=== PATIENT | male | born 1980 | race Caucasian/White ===

== ENCOUNTER 2016-10-24 14:20 | Outpatient (RCR) | payer BC, OTHER ==
[~2016-10-24 14:20] MED LIST: AZIT-21 PO; D-ME118S33 PO; DCS100C PO; HYDR-3812 PO; HYDR-707 PO; LEVO750T39 PO; RT-ALBUINH IH
[2016-10-24 14:30] LABS: BASOPHILS % (AUTO) 0 % (0-10); EOSINOPHILS # (AUTO) 0.2 10^3/uL (0.0-0.3); EOSINOPHILS % (AUTO) 2 % (0-10); LYMPHOCYTES # (AUTO) 1.8 X 10^3 (1.0-4.0); LYMPHOCYTES % (AUTO) 21 % (12-44); MEAN CORPUSCULAR HEMOGLOBIN 27 PG (25-34); MEAN CORPUSCULAR HGB CONC 33 G/DL (32-36); MEAN CORPUSCULAR VOLUME 82 FL (80-99); MEAN PLATELET VOLUME 9.6 FL (7.4-10.4); MONOCYTES # (AUTO) 0.7 X 10^3 (0.0-1.0); MONOCYTES % (AUTO) 8 % (0-12); NEUTROPHILS % (AUTO) 68 % (42-75); PLATELET COUNT 373 10^3/uL (130-400); WHITE BLOOD COUNT 8.7 10^3/uL (4.3-11.0)
[2016-10-24 15:13] LABS: ALANINE AMINOTRANSFERASE 39 U/L (0-55); ALBUMIN 4.3 G/DL (3.2-4.5); ANION GAP 12 MMOL/L (5-14); ASPARTATE AMINO TRANSFERASE 25 U/L (5-34); BILIRUBIN,TOTAL 0.7 MG/DL (0.1-1.0); BLOOD UREA NITROGEN 16 MG/DL (7-18); BUN/CREATININE RATIO 14; CALCIUM 9.7 MG/DL (8.5-10.1); CARBON DIOXIDE 24 MMOL/L (21-32); CHLORIDE 104 MMOL/L (98-107); CREATININE SERUM 1.16 MG/DL (0.60-1.30); GFR ESTIMATED > 60; GLUCOSE 109 MG/DL (70-105); LACTATE DEHYDROGENASE 203 U/L (125-220); POTASSIUM 3.9 MMOL/L (3.6-5.0); SODIUM 140 MMOL/L (135-145); TOTAL PROTEIN 7.4 G/DL (6.4-8.2)
[2016-10-25 07:44] LABS: HCG TUMOR MARKER <2 mIU/mL (0-4)
== END 2017-01-22 | disposition home or self-care (01) ==
LOC: ONC 14:20
PROVIDERS: ATTEND Internal Medicine Hematology & Oncology
DX: C62.12 Malignant neoplasm of descended left testis (principal); N18.3 Chronic kidney disease, stage 3 (moderate); E29.1 Testicular hypofunction; Z92.21 Personal history of antineoplastic chemotherapy
CPT/HCPCS: 36415; 80053; 82105; 83615; 84702; 85025; 99213

== ENCOUNTER 2017-06-11 15:24 | Emergency (ER) | payer BC, OTHER ==
[~2017-06-11] VITALS: Ht 175.3 cm; Wt 90.7 kg
--- OUTSIDE RECORDS SUMMARY | 2017-06-11 15:31 | XMS REPORT ---
Author Author ROD DOMINGUEZ Organization [employer] Address Unknown Phone Unavailable Care Team Providers Care Swing Type Lathe Operator Name Role Phone ROD DOMINGUEZ CP Unavailable Allergies, Adverse Reactions, Alerts Substance Reaction Event Type N.K.D.A. Info Not Available Non Drug Allergy Problems Problem Type Condition ICD-9 Code Onset Dates Condition Status Problem Other atopic dermatitis and related conditions 691.8 Active Problem Unspecified otalgia 388.70 Active Problem Impacted cerumen 380.4 Active Problem Figueroa splints 844.9 Active Problem Herpes zoster without mention of complication 053.9 Active Problem Low back pain 724.2 Active Problem Colitis, enteritis, and gastroenteritis of presumed infectious origin 009.1 Active Problem Unspecified infective otitis externa 380.10 Active Problem Contact dermatitis and other eczema due to plants (except food) 692.6 Active Problem Headache 784.0 Active Assessment Low back pain 724.2 Active Problem Other testicular hypofunction 257.2 Active Assessment Figueroa splints 844.9 Active Problem Acute upper respiratory infections of unspecified site 465.9 Active Problem Cough 786.2 Active Problem Urinary tract infection, site not specified 599.0 Active Problem Abnormal weight gain 783.1 Active Problem Blood in stool 578.1 Active Problem Other malaise and fatigue 780.79 Active Medications Medication Code System Code Instructions Start Date End Date Status Dosage Ibuprofen [facility] [address]-52 800 MG Orally Three times a day Mar 04, 2015 1 tablet Procedures Procedure Coding System Code Date Office Visit, Est Pt., Level 3 CPT-4 42704 Mar 04, 2015 Vital Signs Date/Time: Mar 04, 2015 Temperature 96.6 F Weight 221.0 lbs Height 70 in BMI 31.71 Index Blood Pressure Diastolic 76 mmHg Blood Pressure Systolic 110 mmHg Cardiac Monitoring Heart Rate 76 bpm Results No Known Results Summary Purpose [employer] Submission
--- OUTSIDE RECORDS SUMMARY | 2017-06-11 15:31 | XMS REPORT | Clinical Summary ---
Author Author [facility] Organization [facility] Address Unknown Phone Unavailable Care Team Providers Care Portfolio Director Name Role Phone PCP Unavailable Source Comments Some departments are not documenting in the electronic medical record. If you do not see the information that you expected, contact Release of Information in the Health Information Management department at [phone] for further assistance in locating additional records.[facility] Allergies No Known Allergies Current Medications Prescription Sig. Disp. Refills Start End Date Status Date oxycodone/acetaminophen Take 1-2 Tabs by mouth 40 Tab 0 10/13/19 Active (PERCOCET) 10/325 mg Every 4 Hours as needed 10 tablet for Pain. Avoid driving while taking narcotic pain medications. docusate (COLACE) 100 mg Take 1 Cap by mouth Twice 60 Cap 0 10/13/19 Active capsule Daily. Hold for loose 10 stools Active Problems Problem Noted Date Testicular cancer (HCC) Overview: Patient has a history of painless left testicular mass in the fall of 2007. 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 Post-operatively the patient was treated with BEP chemotherapy. He completed one and 1/2 cycle and was lost to follow up. The patient relocated from [place] (site of his original diagnosis and surgery) to [place], [place]. He started experiencing significant back pain beginning the July of 2009. Imaging study was done in July demonstrating recurrence in the retroperitoneum and elevation of LDH. He then started and completed 2 additional cycles of BEP. The patient had continued lymphadenopathy and elevated LDH following BEP. A CT guided biopsy was conducted 09/07/2009 showing inflammation and necrosis without evidence of neoplasia Family History Medical History Relation Name Comments Heart Disease Maternal Grandfather Relation Name Status Comments Father Alive Maternal Grandfather Mother Alive Social History Tobacco Use Types Packs/Day Years Used Date Never Smoker Alcohol Use Drinks/Week oz/Week Comments No 0.0 occasional 2 per month Sex Assigned at Date Recorded Not on file Last Filed Vital Signs Vital Sign Reading Time Taken Blood Pressure 100/57 10/12/2009 10:00 AM CDT Pulse 111 10/12/2009 10:00 AM CDT Temperature 37.3 C (99.1 F) 10/12/2009 10:00 AM CDT Respiratory Rate - - Oxygen Saturation 92% 10/12/2009 10:00 AM CDT Inhaled Oxygen - - Concentration Weight 105 kg (231 lb 6.4 oz) 10/10/2009 9:55 AM CDT Height 152.4 cm (5') 10/05/2009 10:00 AM CDT Body Mass Index 45.19 10/10/2009 9:55 AM CDT Plan of Treatment Health Maintenance Due Date Last Done Comments PHYSICAL (COMPREHENSIVE) 01/29/1988 EXAM PERTUSSIS VACCINE 01/29/1992 TETANUS VACCINE 1998 INFLUENZA VACCINE 02/06/2017 Results Not on filefrom Last 3 Months
--- OUTSIDE RECORDS SUMMARY | 2017-06-11 15:31 | XMS REPORT ---
Author Author ROD DOMINGUEZ Organization [employer] Address Unknown Phone Unavailable Care Team Providers Care Retail Maintenance Technician Name Role Phone ROD DOMINGUEZ CP Unavailable Allergies No Known Allergies Problems Problem Type Condition Code Onset Dates Condition Status Problem Other [...] food) 692.6 Active Problem Headache 784.0 Active Problem Other testicular hypofunction 257.2 Active Problem Acute upper respiratory infections of unspecified site 465.9 Active Problem Cough 786.2 Active Problem Urinary tract infection, site not specified 599.0 Active Problem Abnormal weight gain 783.1 Active Problem Blood in stool 578.1 Active Problem Other malaise and fatigue 780.79 Active Medications No Known Medications Vital Signs Date/Time: Apr 29, 2015 Weight 222.0 lbs Results No Known Results Summary Purpose [employer] Submission
--- OUTSIDE RECORDS SUMMARY | 2017-06-11 15:32 | XMS REPORT | Continuity of Care Document ---
Author Author [facility] Organization [facility] Address [address] [place] [address] Phone Unavailable Care Team Providers Care Drug Purchaser Name Role Phone Shelbie Singleton MD PCP Advance Directives Directive Response Recorded Date/Time Do You Have A Living Will? No 10/12/16 3:27pm Do You Have a DPOA? No 10/12/16 3:27pm Problems No problem information available. Medications No medication information available. Social History No social history. Hospital Discharge Instructions No hospital discharge instructions. Plan of Care Discharge Date 10/12/16 11:59pm Prescriptions See Medication Section Functional Status No functional status results. Allergies, Adverse Reactions, Alerts No allergy information available. Immunizations No immunization records. Vital Signs No known vital signs results. Results No known relevant diagnostic tests, laboratory data and/or discharge summary. Procedures Procedure Status Date Provider(s) X-ray of lumbosacral spine Active 10/12/16 Shelbie Singleton MD Encounters Encounter Location Arrival/Admit Date Discharge/Depart Date Attending Provider Departed Clinic [facility] 10/12/16 3:27pm 10/12/16 11: 59pm Shelbie Singleton MD Registered Referred [facility] 09/20/16 3:37pm Shelbie Singleton MD
--- OUTSIDE RECORDS SUMMARY | 2017-06-11 15:32 | XMS REPORT ---
Author Author ROD DOMINGUEZ [facility] [employer] Address Unknown Phone Unavailable Care Team Providers Care Knitter Operator Name Role Phone ROD DOMINGUEZ CP Unavailable Allergies, Adverse Reactions, Alerts Substance Reaction Event Type N.K.D.A. Info Not Available Non Drug Allergy Problems Problem Type Condition Code Onset Dates Condition Status Problem Colitis, enteritis, and gastroenteritis of presumed infectious origin 009.1 Active Problem Contact dermatitis and other eczema due to plants (except food) 692.6 Active Problem Headache 784.0 Active Problem Psoriasis L40.9 Active Problem Other testicular hypofunction 257.2 Active Problem Depression, unspecified depression type F32.9 Active Assessment 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 Active Problem 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 Active Problem Figueroa splints 844.9 Active Problem Herpes zoster without mention of complication 053.9 Active Problem Testicular cancer, unspecified laterality C62.90 Active Problem Low back pain 724.2 Active Problem Acute upper respiratory infections of unspecified site 465.9 Active Problem Cough 786.2 Active Problem Urinary tract infection, site not specified 599.0 Active Problem Blood in stool 578.1 Active Problem Other atopic dermatitis and related conditions 691.8 Active Problem Impacted cerumen 380.4 Active Problem Abnormal weight gain 783.1 Active Problem Unspecified otalgia 388.70 Active Problem Other malaise and fatigue 780.79 Active Problem Unspecified infective otitis externa 380.10 Active Medications Medication Code System Code Instructions Start Date End Date Status Dosage Testim [facility] [address]-85 50 MG/5GM (1%) Transdermal one tube twice daily Mar 01, 2016 as directed Procedures Procedure Coding System Code Date Office Visit, Est Pt., Level 3 CPT-4 20116 Feb 28, 2016 [facility] C[facility]-4 NOBLL Feb 28, 2016 [facility] VISIT ESTABLISHED PATIENT CPT-4 G0467 Feb 28, 2016 VENIPUNCT, ROUTINE* CPT-4 77532 Feb 28, 2016 Vital Signs Date/Time: Feb 28, 2016 Cardiac Monitoring Heart Rate 80 bpm Weight 222.1 lbs Height 70 in BMI 31.86 Index Blood Pressure Diastolic 70 mmHg Blood Pressure Systolic 120 mmHg Results No Known Results Summary Purpose [employer]Clinical[employer] Submission
--- OUTSIDE RECORDS SUMMARY | 2017-06-11 15:32 | XMS REPORT ---
Author Author ROD DOMINGUEZ Organization [employer] Address Unknown Phone Unavailable Care Team Providers Care Cafeteria Food Server Name Role Phone ROD DOMINGUEZ CP Unavailable Allergies No Known Allergies Problems Problem Type Condition Code Onset Dates Condition Status Problem Unspecified infective otitis externa 380.10 Active Problem Headache 784.0 Active Problem Colitis, enteritis, and gastroenteritis of presumed infectious origin 009.1 Active Problem Depression, unspecified depression type F32.9 Active Problem Testicular cancer, unspecified laterality C62.90 Active Problem Psoriasis L40.9 Active Problem Herpes zoster without mention of complication 053.9 Active Problem Contact dermatitis and other eczema due to plants (except food) 692.6 Active Problem Low back pain 724.2 Active Problem Figueroa splints 844.9 Active Problem Blood in stool 578.1 Active Problem Acute upper respiratory infections of unspecified site 465.9 Active Problem Other testicular hypofunction 257.2 Active Problem Urinary tract infection, site not specified 599.0 Active Problem Other malaise and fatigue 780.79 Active Problem Other atopic dermatitis and related conditions 691.8 Active Problem Cough 786.2 Active Problem Impacted cerumen 380.4 Active Problem Abnormal weight gain 783.1 Active Problem Unspecified otalgia 388.70 Active Medications No Known Medications Vital Signs Date/Time: Feb 09, 2016 BMI 32.19 Index Weight 224.4 lbs Height 70 in Results No Known Results Summary Purpose [employer] Submission
--- OUTSIDE RECORDS SUMMARY | 2017-06-11 15:32 | XMS REPORT ---
Author Author ROD DOMINGUEZ [facility] [employer] Address Unknown Phone Unavailable Care Team Providers Care Deckhand Tuna Boat Name Role Phone ROD DOMINGUEZ CP Unavailable Allergies, Adverse Reactions, Alerts Substance Reaction Event Type N.K.D.A. Info Not Available Non Drug Allergy Problems Problem Type Condition Code Onset Dates Condition Status Problem Unspecified otalgia 388.70 Active Problem Colitis, enteritis, and gastroenteritis of presumed infectious origin 009.1 Active Problem Unspecified infective otitis externa 380.10 Active Problem Testicular cancer, unspecified laterality C62.90 Active Assessment Depression, unspecified depression type F32.9 Active Problem Low back pain 724.2 Active Assessment Testicular cancer, unspecified laterality C62.90 Active Problem Depression, unspecified depression type F32.9 Active Problem Contact dermatitis and other eczema due to plants (except food) 692.6 Active Problem Headache 784.0 Active Problem Figueroa splints 844.9 Active Problem Herpes zoster without mention of complication 053.9 Active Problem Urinary tract infection, site not specified 599.0 Active Problem Blood in stool 578.1 Active Assessment Pneumonia, unspecified organism J18.9 Active Problem Other testicular hypofunction 257.2 Active Problem Abnormal weight gain 783.1 Active Problem Other malaise and fatigue 780.79 Active Problem Acute upper respiratory infections of unspecified site 465.9 Active Problem Other atopic dermatitis and related conditions 691.8 Active Problem Cough 786.2 Active Problem Impacted cerumen 380.4 Active Medications Medication Code System Code Instructions Start Date End Date Status Dosage Ventolin HFA [facility] [address]-72 108 (90 Base) MCG/ACT Inhalation every 4 hrs October 24, 2015 2 puffs as needed Sertraline HCl [facility] [address]-85 50 mg Orally take 1/2 tablets for 2 weeks once a day, then increase to 1 tablets once a day October 27, 2015 1 tablet Diclofenac Sodium [facility] [address]-75 75 MG Orally Twice a day Jun 15, 2015 1 tablet Flexeril [facility] [address]-77 10 MG Orally Three times a day Jun 15, 2015 1 tablet Ibuprofen [facility] [address]-86 800 MG Orally Three times a day Mar 04, 2015 1 tablet Levaquin [facility] [address]-40 750 MG Orally Once a day October 22, 2015 October 29, 2015 1 tablet Procedures Procedure Coding System Code Date [facility] VISIT ESTABLISHED PATIENT CPT-4 G0467 October 27, 2015 Office Visit, Est Pt., Level 3 CPT-4 80210 October 27, 2015 MEASURE BLOOD OXYGEN LEVEL CPT-4 85802 October 27, 2015 Vital Signs Date/Time: October 27, 2015 Temperature 97.9 F Weight 225.4 lbs Height 70 in Oximetry 97 % Blood Pressure Diastolic 74 mmHg Blood Pressure Systolic 120 mmHg Cardiac Monitoring Heart Rate 108 bpm BMI 32.34 Index Results No Known Results Summary Purpose eClinicalWorks Submission
--- OUTSIDE RECORDS SUMMARY | 2017-06-11 15:32 | XMS REPORT | Continuity of Care Document ---
Author Author [facility] Organization [facility] Address [address] [place] [address] Phone Unavailable Care Team Providers Care Board Certified Family Physician Name Role Phone Shelbie Singleton MD PCP Advance Directives Directive Response Recorded Date/Time Do You Have A Living Will? No 10/31/16 2:41pm Do You Have a DPOA? No 10/31/16 2:41pm Problems No problem information available. Medications No medication information available. Social History No social history. Hospital Discharge Instructions No hospital discharge instructions. Plan of Care Discharge Date 10/31/16 11:59pm Prescriptions See Medication Section Functional Status No functional status results. Allergies, Adverse Reactions, Alerts No allergy information available. Immunizations No immunization records. Vital Signs No known vital signs results. Results No known relevant diagnostic tests, laboratory data and/or discharge summary. Procedures Procedure Status Date Provider(s) X-RAY EXAM L-2 SPINE 4/>VWS Completed 10/12/16 X-ray of lumbosacral spine Active 10/12/16 Shelbie Singleton MD Computed tomography of head without contrast Active 10/31/16 Ti Lopez DO Encounters Encounter Location Arrival/Admit Date Discharge/Depart Date Attending Provider Departed [facility] 10/31/16 2:42pm 10/31/16 11: 59pm Ti Lopez DO Registered Recurring [facility] 10/25/16 8:00am Shelbie Singleton MD Departed [facility] 10/12/16 3:27pm 10/12/16 11: 59pm Shelbie Singleton MD Registered Referred [facility] 09/20/16 3:37pm Shelbie Singleton MD
--- OUTSIDE RECORDS SUMMARY | 2017-06-11 15:32 | XMS REPORT ---
Author Author ROD DOMINGUEZ Organization [employer] Address Unknown Phone Unavailable Care Team Providers Care Highway Truck Driver Name Role Phone ROD DOMINGUEZ CP Unavailable [...] 692.6 Active Problem Headache 784.0 Active Assessment Bilateral low back pain without sciatica M54.5 Active Problem Other testicular hypofunction 257.2 Active Problem Acute upper respiratory infections of unspecified site 465.9 Active Problem Cough 786.2 Active Problem Urinary tract infection, site not specified 599.0 Active Problem Abnormal weight gain 783.1 Active Problem Blood in stool 578.1 Active Problem Other malaise and fatigue 780.79 Active Medications Medication Code System Code Instructions Start Date End Date Status Dosage Ibuprofen [facility] [address]-90 800 MG Orally Three times a day Mar 04, 2015 1 tablet Flexeril [facility] [address]-26 10 MG Orally Three times a day Jun 15, 2015 1 tablet Diclofenac Sodium [facility] [address]-17 75 MG Orally Twice a day Jun 15, 2015 1 tablet Procedures Procedure Coding System Code Date Office Visit, Est Pt., Level 3 CPT-4 86847 Jun 15, 2015 Vital Signs Date/Time: Jun 15, 2015 Temperature 97.9 F Weight 216.4 lbs Height 70 in BMI 31.05 Index Blood Pressure Diastolic 80 mmHg Blood Pressure Systolic 120 mmHg Cardiac Monitoring Heart Rate 89 bpm Results No Known Results Summary Purpose eClinicalWorks Submission
--- OUTSIDE RECORDS SUMMARY | 2017-06-11 15:32 | XMS REPORT | Continuity of Care Document ---
Author Author [facility] Organization [facility] Address [address] [place] [address] Phone Unavailable Care Team Providers Care Mill Work Name Role Phone Shelbie Singleton MD PCP Advance Directives Directive Response Recorded Date/Time Do You Have A Living Will? No 10/17/16 7:48am Do You Have a DPOA? No 10/17/16 7:48am Problems No problem information available. Medications No medication information available. Social History No social history. Hospital Discharge Instructions No hospital discharge instructions. Plan of Care Prescriptions See Medication Section Functional Status No functional status results. Allergies, Adverse Reactions, Alerts No allergy information available. Immunizations No immunization records. Vital Signs No known vital signs results. Results No known relevant diagnostic tests, laboratory data and/or discharge summary. Procedures Procedure Status Date Provider(s) X-RAY EXAM L-2 SPINE 4/>VWS Completed 10/12/16 CT HEAD/BRAIN W/O DYE Completed 10/31/16 X-ray of lumbosacral spine Active 10/12/16 Shelbie Singleton MD Computed tomography of head without contrast Active 10/31/16 Ti Lopez DO Encounters Encounter Location Arrival/Admit Date Discharge/Depart Date Attending Provider Registered Recurring [facility] 11/01/16 8:00am Shelbie Singleton MD Departed Clinic [facility] 10/31/16 2:42pm 10/31/16 11: 59pm Ti Lopez DO Departed Clinic [facility] 10/12/16 3:27pm 10/12/16 11: 59pm Shelbie Singleton MD Registered Referred [facility] 09/20/16 3:37pm Shelbie Singleton MD
--- OUTSIDE RECORDS SUMMARY | 2017-06-11 15:32 | XMS REPORT ---
Author Author ROD DOMINGUEZ Organization [employer] Address Unknown Phone Unavailable Care Team Providers Care Gluer Name Role Phone ROD DOMINGUEZ CP Unavailable [...] 692.6 Active Problem Headache 784.0 Active Assessment Upper respiratory tract infection, unspecified upper respiratory infection J06.9 Active Problem Other testicular hypofunction 257.2 Active Problem Acute upper respiratory infections of unspecified site 465.9 Active Problem Cough 786.2 Active Problem Urinary tract infection, site not specified 599.0 Active Problem Abnormal weight gain 783.1 Active Problem Blood in stool 578.1 Active Problem Other malaise and fatigue 780.79 Active Medications Medication Code System Code Instructions Start Date End Date Status Dosage Ibuprofen [facility] [address]-64 800 MG Orally Three times a day Mar 04, 2015 1 tablet Procedures Procedure Coding System Code Date STREP A ASSAY W/OPTIC CPT-4 32984 May 11, 2015 Office Visit, Est Pt., Level 3 CPT-4 70251 May 11, 2015 Vital Signs Date/Time: May 11, 2015 Temperature 97.8 F Weight 219.4 lbs Height 70 in BMI 31.48 Index Blood Pressure Diastolic 60 mmHg Blood Pressure Systolic 100 mmHg Cardiac Monitoring Heart Rate 96 bpm Results Name Result Date Reference Range Unit Abnormality Flag STREP A (IN HOUSE) Summary Purpose [employer]ClinicalWorks Submission
--- OUTSIDE RECORDS SUMMARY | 2017-06-11 15:36 | XMS REPORT | Continuity of Care Document ---
Author Author [facility] Address Unknown Phone Unavailable Allergies Active Description Code Type Severity Reaction Onset Reported/Identified Relationship to Patient Clinical Status Yes No Known Drug Allergies [id number] Drug Allergy Unknown N/ A 07/16/2009 Medications Problems Date Dx Coded Attending Type Code Diagnosis Diagnosed By 07/12/2009 ROD DOMINGUEZ APRN 186.9 MALIGNANT NEOPLASM OF OTHER AND UNSPECIFIED TESTIS 07/12/2009 ROD DOMINGUEZ APRN 724.5 BACKACHE, UNSPECIFIED 07/12/2009 186.9 MALIGNANT NEOPLASM OF OTHER AND UNSPECIFIED TESTIS 07/12/2009 724.5 BACKACHE, UNSPECIFIED 07/12/2009 186.9 MALIGNANT NEOPLASM OF OTHER AND UNSPECIFIED TESTIS 07/12/2009 724.5 BACKACHE, UNSPECIFIED 07/12/2009 186.9 MALIGNANT NEOPLASM OF OTHER AND UNSPECIFIED TESTIS 07/12/2009 724.5 BACKACHE, UNSPECIFIED 07/12/2009 KATHLEEN DURON DO K 186.9 MALIGNANT NEOPLASM OF OTHER AND UNSPECIFIED TESTIS 07/12/2009 KATHLEEN DURON DO K 724.5 BACKACHE, UNSPECIFIED 07/12/2009 JOSE F DURON DOA K 186.9 MALIGNANT NEOPLASM OF OTHER AND UNSPECIFIED TESTIS 07/12/2009 KATHLEEN DURON DO K 724.5 BACKACHE, UNSPECIFIED 07/12/2009 ROD DOMINGUEZ APRN 186.9 MALIGNANT NEOPLASM OF OTHER AND UNSPECIFIED TESTIS 07/12/2009 ROD DOMINGUEZ APRN 724.5 BACKACHE, UNSPECIFIED 07/12/2009 JOSE F DURON DOA K 186.9 MALIGNANT NEOPLASM OF OTHER AND UNSPECIFIED TESTIS 07/12/2009 KATHLEEN DURON DO K 724.5 BACKACHE, UNSPECIFIED 07/12/2009 JOSE F DURON DOA K 186.9 MALIGNANT NEOPLASM OF OTHER AND UNSPECIFIED TESTIS 07/12/2009 JOSE F DURON DOA K 724.5 BACKACHE, UNSPECIFIED 07/12/2009 JOSE F DURON DOA K 186.9 MALIGNANT NEOPLASM OF OTHER AND UNSPECIFIED TESTIS 07/12/2009 KATHLEEN DURON DO K 724.5 BACKACHE, UNSPECIFIED 07/12/2009 KATHLEEN DURON DO K 186.9 MALIGNANT NEOPLASM OF OTHER AND UNSPECIFIED TESTIS 07/12/2009 KATHLEEN DURON DO K 724.5 BACKACHE, UNSPECIFIED 07/12/2009 DOMINGUEZ CUSTOMER SERVICE DISPATCHERROD Ibanez R 186.9 MALIGNANT NEOPLASM OF OTHER AND UNSPECIFIED TESTIS 07/12/2009 DOMINGUEZ CUSTOMER SERVICE DISPATCHERROD Ibanez R 724.5 BACKACHE, UNSPECIFIED 07/12/2009 DOMINGUEZ CUSTOMER SERVICE DISPATCHERROD R 186.9 MALIGNANT NEOPLASM OF OTHER AND UNSPECIFIED TESTIS 07/12/2009 DOMINGUEZ CUSTOMER SERVICE DISPATCHERROD R 724.5 BACKACHE, UNSPECIFIED 07/12/2009 DOMINGUEZ CUSTOMER SERVICE DISPATCHER, ROD R 186.9 MALIGNANT NEOPLASM OF OTHER AND UNSPECIFIED TESTIS 07/12/2009 DOMINGUEZ CUSTOMER SERVICE DISPATCHERROD Ibanez R 724.5 BACKACHE, UNSPECIFIED 07/12/2009 KATHLEEN DURON DO K 186.9 MALIGNANT NEOPLASM OF OTHER AND UNSPECIFIED TESTIS 07/12/2009 KATHLEEN DURON DO 724.5 BACKACHE, UNSPECIFIED 09/22/2009 Ot 186.9 10/13/2009 Ot 186.9 10/13/2009 Ot 199.1 10/13/2009 Ot V58.11 12/10/2009 Ot 186.9 12/10/2009 Ot V87.41 06/20/2010 ROD DOMINGUEZ APRN V70.5 PREEMPLOYMENT/PRESCHOOL EXAM 06/20/2010 V70.5 PREEMPLOYMENT/PRESCHOOL EXAM 06/20/2010 V70.5 PREEMPLOYMENT/PRESCHOOL EXAM 06/20/2010 V70.5 PREEMPLOYMENT/PRESCHOOL EXAM 06/20/2010 KATHLEEN DURON DO V70.5 PREEMPLOYMENT/PRESCHOOL EXAM 06/20/2010 KATHLEEN DURON DO V70.5 PREEMPLOYMENT/PRESCHOOL EXAM 06/20/2010 ROD DOMINGUEZ APRN V70.5 PREEMPLOYMENT/PRESCHOOL EXAM 06/20/2010 KATHLEEN DURON DO V70.5 PREEMPLOYMENT/PRESCHOOL EXAM 06/20/2010 KATHLEEN DURON DO V70.5 PREEMPLOYMENT/PRESCHOOL EXAM 06/20/2010 DURON DOKATHLEEN K V70.5 PREEMPLOYMENT/PRESCHOOL EXAM 06/20/2010 DURON DOKATHLEEN K V70.5 PREEMPLOYMENT/PRESCHOOL EXAM 06/20/2010 DOMINGUEZROD ACE APRN V70.5 PREEMPLOYMENT/PRESCHOOL EXAM 06/20/2010 DOMINGUEZ CUSTOMER SERVICE DISPATCHER, ROD Pimentel V70.5 PREEMPLOYMENT/PRESCHOOL EXAM 06/20/2010 DOMINGUEZ SANA, ROD Pimentel V70.5 PREEMPLOYMENT/PRESCHOOL EXAM 06/20/2010 OLIVERIO DOKATHLEEN V70.5 PREEMPLOYMENT/PRESCHOOL EXAM 09/20/2011 Ot 553.21 INCISIONAL HERNIA 09/20/2011 Ot 569.3 RECTAL ANAL HEMORRHAGE 12/05/2011 Ot 585.3 CHRONIC KIDNEY DISEASE, 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 12/05/2011 Ot 780.52 INSOMNIA, UNSPECIFIED 12/05/2011 Ot 780.79 OTH MALAISE FATIGUE 12/05/2011 Ot 783.1 ABNORMAL WEIGHT GAIN 12/05/2011 Ot V10.47 HX-TESTICULAR MALIGNANCY 03/05/2012 Ot 585.3 CHRONIC KIDNEY DISEASE, 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 03/05/2012 Ot 780.52 INSOMNIA, UNSPECIFIED 03/05/2012 Ot 780.79 OTH MALAISE FATIGUE 03/05/2012 Ot 783.1 ABNORMAL WEIGHT GAIN 03/05/2012 Ot V10.47 HX-TESTICULAR MALIGNANCY 03/05/2012 Ot V67.2 CHEMOTHERAPY FOLLOW-UP 06/17/2012 Ot 585.3 CHRONIC KIDNEY DISEASE, 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 06/17/2012 Ot 780.52 INSOMNIA, UNSPECIFIED 06/17/2012 Ot 780.79 OTH MALAISE FATIGUE 06/17/2012 Ot 783.1 ABNORMAL WEIGHT GAIN 06/17/2012 Ot V10.47 HX-TESTICULAR MALIGNANCY 06/17/2012 Ot V67.2 CHEMOTHERAPY FOLLOW-UP 11/11/2012 ISABELA NINO Ot 585.3 CHRONIC KIDNEY DISEASE, 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 11/11/2012 ISABELA NINO Ot 780.52 INSOMNIA, UNSPECIFIED 11/11/2012 ISABELA NINO Ot 780.79 OTH MALAISE FATIGUE 11/11/2012 ISABELA NINO Ot 783.1 ABNORMAL WEIGHT GAIN 11/11/2012 ISABELA NINO Ot V10.47 HX-TESTICULAR MALIGNANCY 11/11/2012 ISABELA NINO Ot V67.2 CHEMOTHERAPY FOLLOW-UP 11/27/2012 380.10 INFECTIVE OTITIS EXTERNA UNSPECIFIED 11/27/2012 380.4 IMPACTED CERUMEN 11/27/2012 388.70 OTALGIA UNSPECIFIED 11/27/2012 691.8 OTHER ATOPIC DERMATITIS AND RELATED CONDITIONS 11/27/2012 380.10 INFECTIVE OTITIS EXTERNA UNSPECIFIED 11/27/2012 380.4 IMPACTED CERUMEN 11/27/2012 388.70 OTALGIA UNSPECIFIED 11/27/2012 691.8 OTHER ATOPIC DERMATITIS AND RELATED CONDITIONS 11/27/2012 380.10 INFECTIVE OTITIS EXTERNA UNSPECIFIED 11/27/2012 380.4 IMPACTED CERUMEN 11/27/2012 388.70 OTALGIA UNSPECIFIED 11/27/2012 691.8 OTHER ATOPIC DERMATITIS AND RELATED CONDITIONS 11/27/2012 DURON DO, KATHLEEN K 380.10 INFECTIVE OTITIS EXTERNA UNSPECIFIED 11/27/2012 DURON DO, KATHLEEN K 380.4 IMPACTED CERUMEN 11/27/2012 DURON DO, KATHLEEN K 388.70 OTALGIA UNSPECIFIED 11/27/2012 DURON DO, KATHLEEN K 691.8 OTHER ATOPIC DERMATITIS AND RELATED CONDITIONS 11/27/2012 DURON DO, KATHLEEN K 380.10 INFECTIVE OTITIS EXTERNA UNSPECIFIED 11/27/2012 DURON DO, KATHLEEN K 380.4 IMPACTED CERUMEN 11/27/2012 DURON DO, KATHLEEN K 388.70 OTALGIA UNSPECIFIED 11/27/2012 DURON DO, KATHLEEN K 691.8 OTHER ATOPIC DERMATITIS AND RELATED CONDITIONS 11/27/2012 ROD DOMINGUEZ APRN 380.10 INFECTIVE OTITIS EXTERNA UNSPECIFIED 11/27/2012 ROD DOMINGUEZ APRN 380.4 IMPACTED CERUMEN 11/27/2012 ROD DOMINGUEZ APRN 388.70 OTALGIA UNSPECIFIED 11/27/2012 ROD DOMINGUEZ APRN 691.8 OTHER ATOPIC DERMATITIS AND RELATED CONDITIONS 11/27/2012 OLIVERIO DO KATHLEEN K 380.10 INFECTIVE OTITIS EXTERNA UNSPECIFIED 11/27/2012 DURON DO, KATHLEEN K 380.4 IMPACTED CERUMEN 11/27/2012 OLIVERIO DO, KATHLEEN K 388.70 OTALGIA UNSPECIFIED 11/27/2012 DURON DO, KATHLEEN K 691.8 OTHER ATOPIC DERMATITIS AND RELATED CONDITIONS 11/27/2012 DURON DO, KATHLEEN K 380.10 INFECTIVE OTITIS EXTERNA UNSPECIFIED 11/27/2012 DURON DO, KATHLEEN K 380.4 IMPACTED CERUMEN 11/27/2012 DURON DO, KATHLEEN K 388.70 OTALGIA UNSPECIFIED 11/27/2012 DURON DO, KATHLEEN K 691.8 OTHER ATOPIC DERMATITIS AND RELATED CONDITIONS 11/27/2012 DURON DO, KATHLEEN K 380.10 INFECTIVE OTITIS EXTERNA UNSPECIFIED 11/27/2012 DURON DO, KATHLEEN K 380.4 IMPACTED CERUMEN 11/27/2012 DURON DO, KATHLEEN K 388.70 OTALGIA UNSPECIFIED 11/27/2012 DURON DO, KATHLEEN K 691.8 OTHER ATOPIC DERMATITIS AND RELATED CONDITIONS 11/27/2012 DURON DO, KATHLEEN K 380.10 INFECTIVE OTITIS EXTERNA UNSPECIFIED 11/27/2012 DURON DO, KATHLEEN K 380.4 IMPACTED CERUMEN 11/27/2012 DURON DO, KATHLEEN K 388.70 OTALGIA UNSPECIFIED 11/27/2012 DURON DO, KATHLEEN K 691.8 OTHER ATOPIC DERMATITIS AND RELATED CONDITIONS 11/27/2012 ROD DOMINGUEZ APRN 380.10 INFECTIVE OTITIS EXTERNA UNSPECIFIED 11/27/2012 ROD DOMINGUEZ APRN R 380.4 IMPACTED CERUMEN 11/27/2012 ROD DOMINGEUZ APRN 388.70 OTALGIA UNSPECIFIED 11/27/2012 ROD DOMINGUEZ APRN 691.8 OTHER ATOPIC DERMATITIS AND RELATED CONDITIONS 11/27/2012 ROD DOMINGUEZ APRN 380.10 INFECTIVE OTITIS EXTERNA UNSPECIFIED 11/27/2012 ROD DOMINGUEZ APRN R 380.4 IMPACTED CERUMEN 11/27/2012 ROD DOMINGUEZ APRN R 388.70 OTALGIA UNSPECIFIED 11/27/2012 ROD DOMINGUEZ APRN 691.8 OTHER ATOPIC DERMATITIS AND RELATED CONDITIONS 11/27/2012 ROD DOIMNGUEZ APRN R 380.10 INFECTIVE OTITIS EXTERNA UNSPECIFIED 11/27/2012 ROD DOMINGUEZ APRN R 380.4 IMPACTED CERUMEN 11/27/2012 ROD DOMINGUEZ APRN 388.70 OTALGIA UNSPECIFIED 11/27/2012 ROD DOMINGUEZ APRN 691.8 OTHER ATOPIC DERMATITIS AND RELATED CONDITIONS 11/27/2012 DURON DO, KATHLEEN K 380.10 INFECTIVE OTITIS EXTERNA UNSPECIFIED 11/27/2012 OLIVERIO DO, KATHLEEN K 380.4 IMPACTED CERUMEN 11/27/2012 DURON DO, KATHLEEN K 388.70 OTALGIA UNSPECIFIED 11/27/2012 DURON DO, KATHLEEN K 691.8 OTHER ATOPIC DERMATITIS AND RELATED CONDITIONS 02/18/2013 784.0 HEADACHE 02/18/2013 DURON DO, KATHLEEN K 784.0 HEADACHE 02/18/2013 DURON DO, KATHLEEN K 784.0 HEADACHE 02/18/2013 DOMINGUEZ SANA, ROD R 784.0 HEADACHE 02/18/2013 DURON DO, KATHLEEN K 784.0 HEADACHE 02/18/2013 DURON DO, KATHLEEN K 784.0 HEADACHE 02/18/2013 DURON DO, KATHLEEN K 784.0 HEADACHE 02/18/2013 DURON DO, KATHLEEN K 784.0 HEADACHE 02/18/2013 DOMINGUEZROD ACE APRN R 784.0 HEADACHE 02/18/2013 DOMINGUEZROD ACE APRN R 784.0 HEADACHE 02/18/2013 DOMINGUEZ SANA, ROD R 784.0 HEADACHE 02/18/2013 DURON DO, KATHLEEN K 784.0 HEADACHE 03/12/2013 LILIANA GRACIA DO Ot 789.00 ABDOMINAL PAIN, UNSPECIFIED SITE 03/12/2013 LILIANA GRACIA DO Ot 848.8 SPRAIN NEC 03/12/2013 LILIANA GRACIA DO Ot E000.8 OTHER EXTERNAL CAUSE STATUS 03/12/2013 LILIANA GRACIA DO Ot E009.9 OTHER ACTIVITY INVOLVING CARDIORESPIRATO 03/12/2013 LILIANA GRACIA DO Ot E927.8 OTH OVEREXERTION STRENUOUS REPETITIV 09/01/2013 JOSE F DURON DOA K 780.79 fatigue 09/01/2013 JOSE F DURON DOA K 783.1 WEIGHT GAIN ABNORMAL 09/01/2013 JOSE F DURON DOA K 780.79 fatigue 09/01/2013 OLIVERIO WALSH KATHLEEN K 783.1 WEIGHT GAIN ABNORMAL 09/01/2013 ROD DOMINGUEZ APRN 780.79 fatigue 09/01/2013 DOMINGUEZ CUSTOMER SERVICE DISPATCHER, ROD R 783.1 WEIGHT GAIN ABNORMAL 09/01/2013 DURON DO, KATHLEEN K 780.79 fatigue 09/01/2013 DURON DO, KATHLEEN K 783.1 WEIGHT GAIN ABNORMAL 09/01/2013 DURON DO, KATHLEEN K 780.79 fatigue 09/01/2013 DURON DO, KATHLEEN K 783.1 WEIGHT GAIN ABNORMAL 09/01/2013 DURON DO, KATHLEEN K 780.79 fatigue 09/01/2013 DURON DO, KATHLEEN K 783.1 WEIGHT GAIN ABNORMAL 09/01/2013 DURON DO, KATHLEEN K 780.79 fatigue 09/01/2013 DURON DO, KATHLEEN K 783.1 WEIGHT GAIN ABNORMAL 09/01/2013 DOMINGUEZ ROD HOOD R 780.79 fatigue 09/01/2013 DOMINGUEZ ROD HOOD R 783.1 WEIGHT GAIN ABNORMAL 09/01/2013 DOMINGUEZ ROD HOOD R 780.79 fatigue 09/01/2013 DOMINGUEZ ROD HOOD R 783.1 WEIGHT GAIN ABNORMAL 09/01/2013 ROD DOMINGUEZ APRN 780.79 fatigue 09/01/2013 DOMINGUEZ ROD HOOD R 783.1 WEIGHT GAIN ABNORMAL 09/01/2013 DURON DO, KATHLEEN K 780.79 fatigue 09/01/2013 DURON DO, KATHLEEN K 783.1 WEIGHT GAIN ABNORMAL 10/02/2013 ROD DOMINGUEZ APRN 578.1 BLOOD IN STOOL 10/02/2013 DURON DO, KATHLEEN K 578.1 BLOOD IN STOOL 10/02/2013 DURON DO, KATHLEEN K 578.1 BLOOD IN STOOL 10/02/2013 DURON DO, KATHLEEN K 578.1 BLOOD IN STOOL 10/02/2013 DURON DO, KATHLEEN K 578.1 BLOOD IN STOOL 10/02/2013 DOMINGUEZ ROD HOOD R 578.1 BLOOD IN STOOL 10/02/2013 DOMINGUEZ ROD HOOD R 578.1 BLOOD IN STOOL 10/02/2013 DOMINGUEZ ROD HOOD R 578.1 BLOOD IN STOOL 10/02/2013 DURON DO, KATHLEEN K 578.1 BLOOD IN STOOL 10/16/2013 DRUON DO, KATHLEEN K 692.6 POISON LITTLE 10/16/2013 DURON DO, KATHLEEN K 692.6 POISON LITTLE 10/16/2013 DURON DO, KATHLEEN K 692.6 POISON LITTLE 10/16/2013 DURON DO, KATHLEEN K 692.6 POISON LITTLE 10/16/2013 DOMINGUEZ CUSTOMER SERVICE DISPATCHERROD Ibanez R 692.6 POISON LITTLE 10/16/2013 DOMINGUEZ CUSTOMER SERVICE DISPATCHER, ROD R 692.6 POISON LITTLE 10/16/2013 DOMINGUEZ CUSTOMER SERVICE DISPATCHER, ROD R 692.6 POISON LITTLE 10/16/2013 DURON DO, KATHLEEN K 692.6 POISON LITTLE 02/03/2014 DURON DO, KATHLEEN K 599.0 URINARY TRACT INFECTION 02/03/2014 DURON DO, KATHLEEN K 599.0 URINARY TRACT INFECTION 02/03/2014 DURON DO, KATHLEEN K 599.0 URINARY TRACT INFECTION 02/03/2014 DOMINGUEZ CUSTOMER SERVICE DISPATCHER, ROD R 599.0 URINARY TRACT INFECTION 02/03/2014 DOMINGUEZ CUSTOMER SERVICE DISPATCHER, ROD R 599.0 URINARY TRACT INFECTION 02/03/2014 DOMINGUEZ CUSTOMER SERVICE DISPATCHER, ROD R 599.0 URINARY TRACT INFECTION 02/03/2014 DURON DO, KATHLEEN K 599.0 URINARY TRACT INFECTION 02/11/2014 DURON DO, KATHLEEN K 053.9 HERPES ZOSTER (SHINGLES) 02/11/2014 DURON DO, KATHLEEN K 053.9 HERPES ZOSTER (SHINGLES) 02/11/2014 DOMINGUEZ CUSTOMER SERVICE DISPATCHERROD Ibanez 053.9 HERPES ZOSTER (SHINGLES) 02/11/2014 DOMINGUEZ CUSTOMER SERVICE DISPATCHERROD Ibanez 053.9 HERPES ZOSTER (SHINGLES) 02/11/2014 DOMINGUEZ ROD HOOD 053.9 HERPES ZOSTER (SHINGLES) 02/11/2014 DURON KATHLEEN WALSH K 053.9 HERPES ZOSTER (SHINGLES) 04/06/2014 DOMINGUEZ ROD HOOD 257.2 HYPOGONADISM 04/06/2014 DOMINGUEZ ROD HOOD 257.2 HYPOGONADISM 04/06/2014 DOMINGUEZ ROD HOOD 257.2 HYPOGONADISM 04/06/2014 KATHLEEN DURON DO 257.2 HYPOGONADISM 05/05/2014 KODY VILLASEÑOR DO Ot 565.0 ANAL FISSURE 05/21/2014 ISABELA NINO Ot 585.3 05/21/2014 ISABELA NINO Ot 780.52 05/21/2014 MICA, BOBAN N Ot 780.79 05/21/2014 MICA, BOBAN N Ot 783.1 05/21/2014 MICA, BOBAN N Ot V10.47 05/21/2014 MICA, BOBAN N Ot V67.2 05/21/2014 MICA, BOBAN N Ot 585.3 05/21/2014 MICA, BOBAN N Ot 780.52 05/21/2014 MICA, BOBAN N Ot 780.79 05/21/2014 MICA, BOBAN N Ot 783.1 05/21/2014 MICA, BOBAN N Ot V10.47 05/21/2014 MICA, BOBAN N Ot V67.2 05/27/2014 ROD DOMINGUEZ APRN 009.1 GASTROENTERITIS, ACUTE INFECTIOUS 05/27/2014 KATHLEEN DURON DO 009.1 GASTROENTERITIS, ACUTE INFECTIOUS 05/28/2014 MICA, BOBAN N Ot 585.3 05/28/2014 MICA, BOBAN N Ot 780.52 05/28/2014 MICA, BOBAN N Ot 780.79 05/28/2014 MICA, BOBAN N Ot 783.1 05/28/2014 MICA, BOBAN N Ot V10.47 05/28/2014 MICA, BOBAN N Ot V67.2 05/28/2014 MICA, BOBAN N Ot 585.3 05/28/2014 MICA, BOBAN N Ot 780.52 05/28/2014 MICA, BOBAN N Ot 780.79 05/28/2014 MICA, BOBAN N Ot 783.1 05/28/2014 MICA, BOBAN N Ot V10.47 05/28/2014 MICA, BOBAN N Ot V67.2 06/17/2014 Ot 186.9 06/17/2014 Ot 724.5 06/17/2014 Ot 785.6 06/17/2014 Ot 186.9 06/17/2014 Ot 199.1 06/17/2014 Ot 186.9 06/17/2014 Ot 186.9 06/17/2014 Ot 186.9 06/17/2014 Ot V87.41 06/17/2014 Ot 787.91 06/17/2014 Ot V10.47 06/17/2014 Ot V67.2 06/17/2014 Ot 186.9 06/17/2014 Ot 186.9 06/17/2014 Ot 724.2 06/17/2014 Ot V87.41 06/17/2014 Ot 724.2 06/17/2014 Ot 786.09 06/17/2014 Ot 786.2 06/17/2014 Ot V10.47 06/17/2014 Ot V67.2 06/17/2014 Ot 724.2 06/17/2014 Ot V10.47 06/17/2014 Ot V67.2 06/17/2014 Ot 186.9 06/17/2014 Ot 585.3 06/17/2014 Ot 724.2 06/17/2014 Ot V10.47 06/17/2014 Ot V87.41 06/17/2014 Ot 186.9 06/17/2014 Ot 585.3 06/17/2014 Ot 724.2 06/17/2014 Ot 780.52 06/17/2014 Ot V10.47 06/17/2014 Ot V67.2 06/17/2014 Ot 186.9 06/17/2014 Ot 578.1 06/17/2014 Ot 585.3 06/17/2014 Ot 724.2 06/17/2014 Ot 780.52 06/17/2014 Ot V10.47 06/17/2014 Ot V67.2 06/17/2014 Ot 553.21 06/17/2014 Ot 569.3 06/17/2014 Ot V72.84 06/17/2014 Ot 186.9 06/17/2014 Ot V72.84 06/17/2014 Ot 186.9 06/17/2014 ISABELA NINO N Ot 585.3 06/17/2014 ISABELA NINO N Ot 780.52 06/17/2014 ISABELA NINO N Ot 780.79 06/17/2014 MICAISABELA DICKERSON N Ot 783.1 06/17/2014 ISABELA NINO N Ot V10.47 06/17/2014 ISABELA NINO N Ot V67.2 06/17/2014 KIM CHEN TITLE I PARAPROFESSIONAL Ot V10.47 06/17/2014 KIM CHEN S TITLE I PARAPROFESSIONAL Ot V67.2 06/17/2014 KIM CHEN TITLE I PARAPROFESSIONAL Ot V10.47 06/17/2014 KIM CHEN TITLE I PARAPROFESSIONAL Ot V67.2 06/17/2014 KIM CHEN TITLE I PARAPROFESSIONAL Ot 186.9 06/17/2014 VILLASEÑOR KODY WALSH Ot V72.84 06/17/2014 KIM CHEN TITLE I PARAPROFESSIONAL Ot V10.47 06/17/2014 KIM CHEN TITLE I PARAPROFESSIONAL Ot V67.2 07/07/2014 KIM CHEN TITLE I PARAPROFESSIONAL Ot V10.47 07/07/2014 KIM CHEN TITLE I PARAPROFESSIONAL Ot V67.2 07/07/2014 KIM CHEN TITLE I PARAPROFESSIONAL Ot 186.9 09/29/2014 KATHLEEN DURON DO K 465.9 ACUTE UPPER RESPIRATORY INFECTIONS OF UNSPECIFIED SITE 09/29/2014 KATHLEEN DURON DO K 786.2 COUGH 10/02/2014 BRADY ALDRICH CUSTOMER SERVICE DISPATCHER Ot 490 BRONCHITIS NOS 10/02/2014 BRADY ALDRICH CUSTOMER SERVICE DISPATCHER Ot 786.2 COUGH 11/05/2014 Ot 186.9 11/05/2014 Ot 724.5 11/05/2014 Ot 785.6 11/05/2014 Ot 186.9 11/05/2014 Ot 199.1 11/05/2014 Ot 186.9 11/05/2014 Ot 186.9 11/05/2014 Ot 186.9 11/05/2014 Ot V87.41 11/05/2014 Ot 787.91 11/05/2014 Ot V10.47 11/05/2014 Ot V67.2 11/05/2014 Ot 186.9 11/05/2014 Ot 186.9 11/05/2014 Ot 724.2 11/05/2014 Ot V87.41 11/05/2014 Ot 724.2 11/05/2014 Ot 786.09 11/05/2014 Ot 786.2 11/05/2014 Ot V10.47 11/05/2014 Ot V67.2 11/05/2014 Ot 724.2 11/05/2014 Ot V10.47 11/05/2014 Ot V67.2 11/05/2014 Ot 186.9 11/05/2014 Ot 585.3 11/05/2014 Ot 724.2 11/05/2014 Ot V10.47 11/05/2014 Ot V87.41 11/05/2014 Ot 186.9 11/05/2014 Ot 585.3 11/05/2014 Ot 724.2 11/05/2014 Ot 780.52 11/05/2014 Ot V10.47 11/05/2014 Ot V67.2 11/05/2014 Ot 186.9 11/05/2014 Ot 578.1 11/05/2014 Ot 585.3 11/05/2014 Ot 724.2 11/05/2014 Ot 780.52 11/05/2014 Ot V10.47 11/05/2014 Ot V67.2 11/05/2014 Ot 553.21 11/05/2014 Ot 569.3 11/05/2014 Ot V72.84 11/05/2014 Ot 186.9 11/05/2014 Ot V72.84 11/05/2014 Ot 186.9 11/05/2014 ISABELA NINO N Ot 585.3 11/05/2014 ISABELA NINO N Ot 780.52 11/05/2014 ISABELA NINO N Ot 780.79 11/05/2014 ISABELA NINO N Ot 783.1 11/05/2014 ISABELA NINO N Ot V10.47 11/05/2014 ISABELA NINO N Ot V67.2 11/05/2014 KIM CHEN TITLE I PARAPROFESSIONAL Ot V10.47 11/05/2014 KIM CHEN TITLE I PARAPROFESSIONAL Ot V67.2 11/05/2014 KIM CHEN TITLE I PARAPROFESSIONAL Ot V10.47 11/05/2014 KIM CHEN TITLE I PARAPROFESSIONAL Ot V67.2 11/05/2014 KIM CHEN TITLE I PARAPROFESSIONAL Ot 186.9 11/05/2014 KODY VILLASEÑOR DO Ot V72.84 11/05/2014 KODY VILLASEÑOR DO Ot 578.1 BLOOD IN STOOL 12/02/2014 [place] KODY WALSH Ot V72.84 12/02/2014 KIM CHEN TITLE I PARAPROFESSIONAL Ot 257.2 12/02/2014 KIM CHEN TITLE I PARAPROFESSIONAL Ot V10.47 12/02/2014 KIM CHEN TITLE I PARAPROFESSIONAL Ot V58.69 12/02/2014 KIM CHEN TITLE I PARAPROFESSIONAL Ot V67.2 12/02/2014 ISABELA NINO N Ot 585.3 12/02/2014 ISABELA NINO N Ot 780.52 12/02/2014 ISABELA NINO Ot 780.79 12/02/2014 ISABELA NINO Ot 783.1 12/02/2014 ISABELA NINO Ot V10.47 12/02/2014 ISABELA NINO Ot V67.2 12/07/2014 KIM CHEN TITLE I PARAPROFESSIONAL Ot 257.2 12/07/2014 KIM CHEN TITLE I PARAPROFESSIONAL Ot V10.47 12/07/2014 KIM CHEN TITLE I PARAPROFESSIONAL Ot V58.69 12/07/2014 KIM CHEN TITLE I PARAPROFESSIONAL Ot V67.2 12/08/2014 ISABELA NINO Ot 585.3 12/08/2014 ISABELA NINO Ot 780.52 12/08/2014 ISABELA NINO Ot 780.79 12/08/2014 ISABELA NINO Ot 783.1 12/08/2014 ISABELA NINO Ot V10.47 12/08/2014 ISABELA NINO Ot V67.2 06/25/2015 Ot 186.9 06/25/2015 Ot 186.9 06/25/2015 Ot 186.9 06/25/2015 Ot V87.41 06/25/2015 Ot 787.91 06/25/2015 Ot V10.47 06/25/2015 Ot V67.2 06/25/2015 Ot 186.9 06/25/2015 Ot 186.9 06/25/2015 Ot 724.2 06/25/2015 Ot V87.41 06/25/2015 Ot 724.2 06/25/2015 Ot 786.09 06/25/2015 Ot 786.2 06/25/2015 Ot V10.47 06/25/2015 Ot V67.2 06/25/2015 Ot 724.2 06/25/2015 Ot V10.47 06/25/2015 Ot V67.2 06/25/2015 Ot 186.9 06/25/2015 Ot 585.3 06/25/2015 Ot 724.2 06/25/2015 Ot V10.47 06/25/2015 Ot V87.41 06/25/2015 Ot 186.9 06/25/2015 Ot 585.3 06/25/2015 Ot 724.2 06/25/2015 Ot 780.52 06/25/2015 Ot V10.47 06/25/2015 Ot V67.2 06/25/2015 Ot 186.9 06/25/2015 Ot 578.1 06/25/2015 Ot 585.3 06/25/2015 Ot 724.2 06/25/2015 Ot 780.52 06/25/2015 Ot V10.47 06/25/2015 Ot V67.2 06/25/2015 Ot 553.21 06/25/2015 Ot 569.3 06/25/2015 Ot V72.84 06/25/2015 Ot 186.9 06/25/2015 Ot V72.84 06/25/2015 Ot 186.9 06/25/2015 ISABELA NINO N Ot 585.3 06/25/2015 ISABELA NINO N Ot 780.52 06/25/2015 ISABELA NINO N Ot 780.79 06/25/2015 ISABELA NINO N Ot 783.1 06/25/2015 ISABELA NINO N Ot V10.47 06/25/2015 ISABELA NINO N Ot V67.2 06/25/2015 KIM CHEN TITLE I PARAPROFESSIONAL Ot V10.47 06/25/2015 KIM CHEN S TITLE I PARAPROFESSIONAL Ot V67.2 06/25/2015 KIM CHEN TITLE I PARAPROFESSIONAL Ot V10.47 06/25/2015 KIM CHEN S TITLE I PARAPROFESSIONAL Ot V67.2 06/25/2015 KIM CHEN TITLE I PARAPROFESSIONAL Ot 186.9 06/25/2015 KODY VILLASEÑOR DO Ot V72.84 06/25/2015 KIM CHEN TITLE I PARAPROFESSIONAL Ot 257.2 06/25/2015 KIM CHEN S TITLE I PARAPROFESSIONAL Ot V10.47 06/25/2015 KIM CHEN TITLE I PARAPROFESSIONAL Ot V58.69 06/25/2015 KIM CHEN TITLE I PARAPROFESSIONAL Ot V67.2 06/25/2015 KODY VILLASEÑOR DO Ot V72.84 06/30/2015 Ot 186.9 06/30/2015 Ot 186.9 06/30/2015 Ot 186.9 06/30/2015 Ot V87.41 06/30/2015 Ot 787.91 06/30/2015 Ot V10.47 06/30/2015 Ot V67.2 06/30/2015 Ot 186.9 06/30/2015 Ot 186.9 06/30/2015 Ot 724.2 06/30/2015 Ot V87.41 06/30/2015 Ot 724.2 06/30/2015 Ot 786.09 06/30/2015 Ot 786.2 06/30/2015 Ot V10.47 06/30/2015 Ot V67.2 06/30/2015 Ot 724.2 06/30/2015 Ot V10.47 06/30/2015 Ot V67.2 06/30/2015 Ot 186.9 06/30/2015 Ot 585.3 06/30/2015 Ot 724.2 06/30/2015 Ot V10.47 06/30/2015 Ot V87.41 06/30/2015 Ot 186.9 06/30/2015 Ot 585.3 06/30/2015 Ot 724.2 06/30/2015 Ot 780.52 06/30/2015 Ot V10.47 06/30/2015 Ot V67.2 06/30/2015 Ot 186.9 06/30/2015 Ot 578.1 06/30/2015 Ot 585.3 06/30/2015 Ot 724.2 06/30/2015 Ot 780.52 06/30/2015 Ot V10.47 06/30/2015 Ot V67.2 06/30/2015 Ot 553.21 06/30/2015 Ot 569.3 06/30/2015 Ot V72.84 06/30/2015 Ot 186.9 06/30/2015 Ot V72.84 06/30/2015 Ot 186.9 06/30/2015 ISABELA NINO N Ot 585.3 06/30/2015 ISABELA NINO N Ot 780.52 06/30/2015 ISABELA NINO N Ot 780.79 06/30/2015 ISABELA NINO N Ot 783.1 06/30/2015 ISABELA NINO N Ot V10.47 06/30/2015 ISABELA NINO N Ot V67.2 06/30/2015 KIM CHEN TITLE I PARAPROFESSIONAL Ot V10.47 06/30/2015 KIM CHEN TITLE I PARAPROFESSIONAL Ot V67.2 06/30/2015 KIM CHEN TITLE I PARAPROFESSIONAL Ot V10.47 06/30/2015 KIM CHENP Ot V67.2 06/30/2015 KIM CHENP Ot 186.9 06/30/2015 KODY VILLASEÑOR DO Ot V72.84 06/30/2015 KIM CHEN TITLE I PARAPROFESSIONAL Ot 257.2 06/30/2015 KIM CHENP Ot V10.47 06/30/2015 KIM CHENP Ot V58.69 06/30/2015 KIM CHENP Ot V67.2 06/30/2015 KODY VILLASEÑOR DO Ot V72.84 07/15/2015 KIM CHENP Ot Z08 07/15/2015 KIM CHENP Ot Z79.899 07/15/2015 KIM CHEN TITLE I PARAPROFESSIONAL Ot Z85.47 07/15/2015 Ot 186.9 07/15/2015 Ot 186.9 07/15/2015 Ot 186.9 07/15/2015 Ot V87.41 07/15/2015 Ot 787.91 07/15/2015 Ot V10.47 07/15/2015 Ot V67.2 07/15/2015 Ot 186.9 07/15/2015 Ot 186.9 07/15/2015 Ot 724.2 07/15/2015 Ot V87.41 07/15/2015 Ot 724.2 07/15/2015 Ot 786.09 07/15/2015 Ot 786.2 07/15/2015 Ot V10.47 07/15/2015 Ot V67.2 07/15/2015 Ot 724.2 07/15/2015 Ot V10.47 07/15/2015 Ot V67.2 07/15/2015 Ot 186.9 07/15/2015 Ot 585.3 07/15/2015 Ot 724.2 07/15/2015 Ot V10.47 07/15/2015 Ot V87.41 07/15/2015 Ot 186.9 07/15/2015 Ot 585.3 07/15/2015 Ot 724.2 07/15/2015 Ot 780.52 07/15/2015 Ot V10.47 07/15/2015 Ot V67.2 07/15/2015 Ot 186.9 07/15/2015 Ot 578.1 07/15/2015 Ot 585.3 07/15/2015 Ot 724.2 07/15/2015 Ot 780.52 07/15/2015 Ot V10.47 07/15/2015 Ot V67.2 07/15/2015 Ot 553.21 07/15/2015 Ot 569.3 07/15/2015 Ot V72.84 07/15/2015 Ot 186.9 07/15/2015 Ot V72.84 07/15/2015 Ot 186.9 07/15/2015 MICAISABELA DICKERSON N Ot 585.3 07/15/2015 MICA, ISABELA N Ot 780.52 07/15/2015 MICAVICENTA DICKERSONAN N Ot 780.79 07/15/2015 MICAISABELA DICKERSON N Ot 783.1 07/15/2015 MICAISABELA DICKERSON N Ot V10.47 07/15/2015 MICAISABELA DICKERSON N Ot V67.2 07/15/2015 KIM CHEN S TITLE I PARAPROFESSIONAL Ot V10.47 07/15/2015 MARII CHENPATRICK S TITLE I PARAPROFESSIONAL Ot V67.2 07/15/2015 CHEN, KIM S TITLE I PARAPROFESSIONAL Ot V10.47 07/15/2015 CHEN, KIM S TITLE I PARAPROFESSIONAL Ot V67.2 07/15/2015 MARII CHENPATRICK S TITLE I PARAPROFESSIONAL Ot 186.9 07/15/2015 [facility] V72.84 07/15/2015 APRIL KIM S TITLE I PARAPROFESSIONAL Ot 257.2 07/15/2015 APRIL KIM S TITLE I PARAPROFESSIONAL Ot V10.47 07/15/2015 APRIL KIM S TITLE I PARAPROFESSIONAL Ot V58.69 07/15/2015 APRIL KIM S TITLE I PARAPROFESSIONAL Ot V67.2 07/15/2015 [facility] Ot V72.84 07/15/2015 KIM CHEN S TITLE I PARAPROFESSIONAL Ot Z08 07/15/2015 MARII CHENPATRICK S TITLE I PARAPROFESSIONAL Ot Z79.899 07/15/2015 CHEN, KIM S TITLE I PARAPROFESSIONAL Ot Z85.47 07/15/2015 KIM CHEN S TITLE I PARAPROFESSIONAL Ot C62.92 10/12/2015 [place] KODY WALSH Ot Z08 10/12/2015 [place] KODY WALSH Ot Z85.47 10/14/2015 [facility] Ot Z08 10/14/2015 VILLASEÑOR DOKODY D Ot Z85.47 10/15/2015 VILLASEÑOR DOKODY D Ot Z08 10/15/2015 [place] DOKODY D Ot Z85.47 10/19/2015 Ot 787.91 10/19/2015 Ot V10.47 10/19/2015 Ot V67.2 10/19/2015 Ot 186.9 10/19/2015 Ot 186.9 10/19/2015 Ot 724.2 10/19/2015 Ot V87.41 10/19/2015 Ot 724.2 10/19/2015 Ot 786.09 10/19/2015 Ot 786.2 10/19/2015 Ot V10.47 10/19/2015 Ot V67.2 10/19/2015 Ot 724.2 10/19/2015 Ot V10.47 10/19/2015 Ot V67.2 10/19/2015 Ot 186.9 10/19/2015 Ot 585.3 10/19/2015 Ot 724.2 10/19/2015 Ot V10.47 10/19/2015 Ot V87.41 10/19/2015 Ot 186.9 10/19/2015 Ot 585.3 10/19/2015 Ot 724.2 10/19/2015 Ot 780.52 10/19/2015 Ot V10.47 10/19/2015 Ot V67.2 10/19/2015 Ot 186.9 10/19/2015 Ot 578.1 10/19/2015 Ot 585.3 10/19/2015 Ot 724.2 10/19/2015 Ot 780.52 10/19/2015 Ot V10.47 10/19/2015 Ot V67.2 10/19/2015 Ot 553.21 10/19/2015 Ot 569.3 10/19/2015 Ot V72.84 10/19/2015 Ot 186.9 10/19/2015 Ot V72.84 10/19/2015 Ot 186.9 10/19/2015 ISABELA NINO Ot 585.3 10/19/2015 ISABELA NINO Ot 780.52 10/19/2015 ISABELA NINO Ot 780.79 10/19/2015 ISABELA NINO Ot 783.1 10/19/2015 ISABELA NINO N Ot V10.47 10/19/2015 ISABELA NINO N Ot V67.2 10/19/2015 KIM CHEN S TITLE I PARAPROFESSIONAL Ot V10.47 10/19/2015 KIM CHEN S TITLE I PARAPROFESSIONAL Ot V67.2 10/19/2015 KIM CHEN S TITLE I PARAPROFESSIONAL Ot V10.47 10/19/2015 KIM CHEN S TITLE I PARAPROFESSIONAL Ot V67.2 10/19/2015 KIM CHEN S TITLE I PARAPROFESSIONAL Ot 186.9 10/19/2015 [facility]ox[facility] Ot V72.84 10/19/2015 KIM CHEN S TITLE I PARAPROFESSIONAL Ot 257.2 10/19/2015 KIM CHEN S TITLE I PARAPROFESSIONAL Ot V10.47 10/19/2015 KIM CHEN S TITLE I PARAPROFESSIONAL Ot V58.69 10/19/2015 KIM CHEN S TITLE I PARAPROFESSIONAL Ot V67.2 10/19/2015 [facility] Ot V72.84 10/19/2015 CHENKIM Puga S TITLE I PARAPROFESSIONAL Ot Z08 10/19/2015 KIM CHEN S TITLE I PARAPROFESSIONAL Ot Z79.899 10/19/2015 CHENKIM Puga S TITLE I PARAPROFESSIONAL Ot Z85.47 10/19/2015 KIM CHEN S TITLE I PARAPROFESSIONAL Ot C62.92 10/19/2015 [facility] Ot Z08 10/19/2015 [facility] Ot Z85.47 10/19/2015 ISABELA NINO N Ot Z08 10/19/2015 ISABELA NINO N Ot Z79.899 10/19/2015 VICENTA NINOAN N Ot Z85.47 10/20/2015 CHENKIM Puga S TITLE I PARAPROFESSIONAL Ot C62.92 10/24/2015 MEHNAZ OZUNA MD Ot B00.1 HERPESVIRAL VESICULAR DERMATITIS 10/24/2015 SULMA FUENTES, MEHNAZ Ibanez Ot J18.9 PNEUMONIA, UNSPECIFIED ORGANISM 10/24/2015 MEHNAZ OZUNA MD Ot K52.9 NONINFECTIVE GASTROENTERITIS AND COLITIS 10/24/2015 MEHNAZ OZUNA MD Ot N17.9 ACUTE KIDNEY FAILURE, UNSPECIFIED 10/24/2015 MEHNAZ OZUNA MD Ot R09.02 HYPOXEMIA 10/24/2015 MEHNAZ OZUNA MD Ot Z85.47 PERSONAL HISTORY OF MALIGNANT NEOPLASM O 10/24/2015 MEHNAZ OZUNA MD Ot 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( 10/26/2015 KIM CHEN TITLE I PARAPROFESSIONAL Ot 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, UNSP DESC 10/26/2015 MICAISABELA DICKERSON N Ot Z08 ENCNTR FOR FOLLOW-UP EXAM AFTER TRTMT FO 10/26/2015 ISABELA NINO N Ot Z79.899 OTHER ASSISTED (CURRENT) DRUG THERAPY 10/26/2015 MICAISABELA DICKERSON N Ot Z85.47 PERSONAL HISTORY OF MALIGNANT NEOPLASM O 10/26/2015 ISABELA NINO N Ot Z08 ENCNTR FOR FOLLOW-UP EXAM AFTER TRTMT FO 10/26/2015 ISABELA NINO N Ot Z79.899 OTHER ASSISTED (CURRENT) DRUG THERAPY 10/26/2015 MICA VICENTANOREEN N Ot Z85.47 PERSONAL HISTORY OF MALIGNANT NEOPLASM O 10/29/2015 LEIGHA WILEY MD Ot N50.9 DISORDER OF MALE GENITAL ORGANS, UNSPECI 10/29/2015 LEIGHA WILEY MD Ot Z01.818 ENCOUNTER FOR OTHER PREPROCEDURAL EXAMIN 10/29/2015 LEIGHA WILEY MD A Ot Z11.2 ENCOUNTER FOR SCREENING FOR OTHER BACTER 11/01/2015 LEIGHA WILEY MD Ot N50.9 DISORDER OF MALE GENITAL ORGANS, UNSPECI 11/01/2015 LEIGHA WILEY MD A Ot Z01.818 ENCOUNTER FOR OTHER PREPROCEDURAL EXAMIN 11/01/2015 LEIGHA WILEY MD A Ot Z11.2 ENCOUNTER FOR SCREENING FOR OTHER BACTER 11/01/2015 LEIGHA WILEY MD Ot N50.9 DISORDER OF MALE GENITAL ORGANS, UNSPECI 11/04/2015 LEIGHA WILEY MD Ot N50.9 DISORDER OF MALE GENITAL ORGANS, UNSPECI 12/28/2015 KIM CHEN TITLE I PARAPROFESSIONAL Ot 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, UNSP DESC 12/28/2015 KIM CHEN TITLE I PARAPROFESSIONAL Ot 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, UNSP DESC 12/28/2015 KIM CHEN TITLE I PARAPROFESSIONAL Ot Z08 ENCNTR FOR FOLLOW-UP EXAM AFTER TRTMT FO 12/28/2015 KIM CHEN TITLE I PARAPROFESSIONAL Ot Z79.899 OTHER ASSISTED (CURRENT) DRUG THERAPY 12/28/2015 KIM CHEN TITLE I PARAPROFESSIONAL Ot Z85.47 PERSONAL HISTORY OF MALIGNANT NEOPLASM O 12/28/2015 VILLASEÑORKODY OLMEDO DO Ot Z08 ENCNTR FOR FOLLOW-UP EXAM AFTER TRTMT FO 12/28/2015 KODY VILLASEÑOR DO Ot Z85.47 PERSONAL HISTORY OF MALIGNANT NEOPLASM O 12/28/2015 KIM CHENP Ot 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, UNSP DESC 12/29/2015 ROD DOMINGUEZ Ot R06.02 SHORTNESS OF BREATH 01/12/2016 ISABELA NINO Ot Z08 ENCNTR FOR FOLLOW-UP EXAM AFTER TRTMT FO 01/12/2016 ISABELA NINO Ot Z79.899 OTHER ASSISTED (CURRENT) DRUG THERAPY 01/12/2016 ISABELA NINO Ot Z85.47 PERSONAL HISTORY OF MALIGNANT NEOPLASM O 01/13/2016 ROD DOMINGUEZ Ot R06.02 SHORTNESS OF BREATH 02/15/2016 ISABELA NINO Ot 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, UNSP DESC 02/19/2016 ISABELA NINO Ot Z08 ENCNTR FOR FOLLOW-UP EXAM AFTER TRTMT FO 02/19/2016 ISABELA NINO Ot Z79.899 OTHER ASSISTED (CURRENT) DRUG THERAPY 02/19/2016 ISABELA NINO Ot Z85.47 PERSONAL HISTORY OF MALIGNANT NEOPLASM O 02/23/2016 KODY VILLASEÑOR DO Ot K92.1 MELENA 02/23/2016 KODY VILLASEÑOR DO Ot Z01.818 ENCOUNTER FOR OTHER PREPROCEDURAL EXAMIN 02/28/2016 Ot 724.2 LUMBAGO 02/28/2016 Ot V10.47 HX-TESTICULAR MALIGNANCY 02/28/2016 Ot V67.2 CHEMOTHERAPY FOLLOW-UP 02/28/2016 Ot 186.9 MALIG PARTHA TESTIS NEC 02/28/2016 Ot 585.3 CHRONIC KIDNEY DISEASE, 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 02/28/2016 Ot 724.2 LUMBAGO 02/28/2016 Ot V10.47 HX-TESTICULAR MALIGNANCY 02/28/2016 Ot V87.41 PERSONAL HISTORY OF ANTINEOPLASTIC CHEMO 02/28/2016 Ot 186.9 MALIG PARTHA TESTIS NEC 02/28/2016 Ot 585.3 CHRONIC KIDNEY DISEASE, 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 02/28/2016 Ot 724.2 LUMBAGO 02/28/2016 Ot 780.52 INSOMNIA, UNSPECIFIED 02/28/2016 Ot V10.47 HX-TESTICULAR MALIGNANCY 02/28/2016 Ot V67.2 CHEMOTHERAPY FOLLOW-UP 02/28/2016 Ot 186.9 MALIG PARTHA TESTIS NEC 02/28/2016 Ot 578.1 BLOOD IN STOOL 02/28/2016 Ot 585.3 CHRONIC KIDNEY DISEASE, 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 02/28/2016 Ot 724.2 LUMBAGO 02/28/2016 Ot 780.52 INSOMNIA, UNSPECIFIED 02/28/2016 Ot V10.47 HX-TESTICULAR MALIGNANCY 02/28/2016 Ot V67.2 CHEMOTHERAPY FOLLOW-UP 02/28/2016 Ot 553.21 INCISIONAL HERNIA 02/28/2016 Ot 569.3 RECTAL ANAL HEMORRHAGE 02/28/2016 Ot V72.84 EXAM PRE-OPERATIVE NOS 02/28/2016 Ot 186.9 MALIG PARTHA TESTIS NEC 02/28/2016 Ot V72.84 EXAM PRE-OPERATIVE NOS 02/28/2016 Ot 186.9 MALIG PARTHA TESTIS NEC 02/28/2016 ISABELA NINO Ot 585.3 CHRONIC KIDNEY DISEASE, 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 02/28/2016 ISABELA NINO Ot 780.52 INSOMNIA, UNSPECIFIED 02/28/2016 ISABELA NINO Ot 780.79 OTH MALAISE FATIGUE 02/28/2016 ISABELA NINO Ot 783.1 ABNORMAL WEIGHT GAIN 02/28/2016 ISABELA NINO Ot V10.47 HX-TESTICULAR MALIGNANCY 02/28/2016 ISABELA NINO Ot V67.2 CHEMOTHERAPY FOLLOW-UP 02/28/2016 KIM CHEN TITLE I PARAPROFESSIONAL Ot V10.47 HX-TESTICULAR MALIGNANCY 02/28/2016 KIM CHEN TITLE I PARAPROFESSIONAL Ot V67.2 CHEMOTHERAPY FOLLOW-UP 02/28/2016 KIM CHENP Ot V10.47 HX-TESTICULAR MALIGNANCY 02/28/2016 KIM CHEN TITLE I PARAPROFESSIONAL Ot V67.2 CHEMOTHERAPY FOLLOW-UP 02/28/2016 KIM CHEN TITLE I PARAPROFESSIONAL Ot 186.9 MALIG PARTHA TESTIS NEC 02/28/2016 KODY VILLASEÑOR DO Ot V72.84 EXAM PRE-OPERATIVE NOS 02/28/2016 KIM CHEN TITLE I PARAPROFESSIONAL Ot 257.2 TESTICULAR HYPOFUNC NEC 02/28/2016 KIM CHEN TITLE I PARAPROFESSIONAL Ot V10.47 HX-TESTICULAR MALIGNANCY 02/28/2016 KIM CHEN TITLE I PARAPROFESSIONAL Ot V58.69 OT MED,LT,CURRENT USE 02/28/2016 KIM CHEN TITLE I PARAPROFESSIONAL Ot V67.2 CHEMOTHERAPY FOLLOW-UP 02/28/2016 KODY VILLASEÑOR DO Ot V72.84 EXAM PRE-OPERATIVE NOS 02/28/2016 KIM CHEN TITLE I PARAPROFESSIONAL Ot Z08 ENCNTR FOR FOLLOW-UP EXAM AFTER TRTMT FO 02/28/2016 CHENKIM Puga TITLE I PARAPROFESSIONAL Ot Z79.899 OTHER ASSISTED (CURRENT) DRUG THERAPY 02/28/2016 CHENKIM Puga TITLE I PARAPROFESSIONAL Ot Z85.47 PERSONAL HISTORY OF MALIGNANT NEOPLASM O 02/28/2016 CHENKIM Puga TITLE I PARAPROFESSIONAL Ot 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, UNSP DESC 02/28/2016 KODY VILLASEÑOR DO Ot Z08 ENCNTR FOR FOLLOW-UP EXAM AFTER TRTMT FO 02/28/2016 KODY VILLASEÑOR DO Ot Z85.47 PERSONAL HISTORY OF MALIGNANT NEOPLASM O 02/28/2016 APRIL MARIIPATRICK Vivien TITLE I PARAPROFESSIONAL Ot 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, UNSP DESC 02/28/2016 ROD DOMINGUEZ Ot R06.02 SHORTNESS OF BREATH 02/28/2016 ISABELA NINO Ot Z08 ENCNTR FOR FOLLOW-UP EXAM AFTER TRTMT FO 02/28/2016 ISABELA NINO Ot 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 02/28/2016 ISABELA NINO N Ot Z85.47 PERSONAL HISTORY OF MALIGNANT NEOPLASM O 02/28/2016 ISABELA NINO Ot 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, UNSP DESC 03/01/2016 SIMONE VILLALBA TITLE I PARAPROFESSIONAL Ot S83.91XA SPRAIN OF UNSPECIFIED SITE OF RIGHT KNEE 03/01/2016 SIMONE VILLALBA Ot W11.XXXA FALL ON AND FROM LADDER, INITIAL ENCOUNT 03/01/2016 SIMONE VILLALBA Ot Y92.512 SUPERMARKET, STORE OR MARKET PLACE 03/01/2016 SIMONE VILLALBA Ot Y99.0 CIVILIAN ACTIVITY DONE FOR INCOME OR PAY 03/06/2016 Ot 724.2 LUMBAGO 03/06/2016 Ot V10.47 HX-TESTICULAR MALIGNANCY 03/06/2016 Ot V67.2 CHEMOTHERAPY FOLLOW-UP 03/06/2016 Ot 186.9 MALIG PARTHA TESTIS NEC 03/06/2016 Ot 585.3 CHRONIC KIDNEY DISEASE, 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 03/06/2016 Ot 724.2 LUMBAGO 03/06/2016 Ot V10.47 HX-TESTICULAR MALIGNANCY 03/06/2016 Ot V87.41 PERSONAL HISTORY OF ANTINEOPLASTIC CHEMO 03/06/2016 Ot 186.9 MALIG PARTHA TESTIS NEC 03/06/2016 Ot 585.3 CHRONIC KIDNEY DISEASE, 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 03/06/2016 Ot 724.2 LUMBAGO 03/06/2016 Ot 780.52 INSOMNIA, UNSPECIFIED 03/06/2016 Ot V10.47 HX-TESTICULAR MALIGNANCY 03/06/2016 Ot V67.2 CHEMOTHERAPY FOLLOW-UP 03/06/2016 Ot 186.9 MALIG PARTHA TESTIS NEC 03/06/2016 Ot 578.1 BLOOD IN STOOL 03/06/2016 Ot 585.3 CHRONIC KIDNEY DISEASE, 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 03/06/2016 Ot 724.2 LUMBAGO 03/06/2016 Ot 780.52 INSOMNIA, UNSPECIFIED 03/06/2016 Ot V10.47 HX-TESTICULAR MALIGNANCY 03/06/2016 Ot V67.2 CHEMOTHERAPY FOLLOW-UP 03/06/2016 Ot 553.21 INCISIONAL HERNIA 03/06/2016 Ot 569.3 RECTAL ANAL HEMORRHAGE 03/06/2016 Ot V72.84 EXAM PRE-OPERATIVE NOS 03/06/2016 Ot 186.9 MALIG PARTHA TESTIS NEC 03/06/2016 Ot V72.84 EXAM PRE-OPERATIVE NOS 03/06/2016 Ot 186.9 MALIG PARTHA TESTIS NEC 03/06/2016 ISABELA NINO Ot 585.3 CHRONIC KIDNEY DISEASE, 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 03/06/2016 ISABELA NINO N Ot 780.52 INSOMNIA, UNSPECIFIED 03/06/2016 ISABELA NINO Ot 780.79 OTH MALAISE FATIGUE 03/06/2016 ISABELA NINO N Ot 783.1 ABNORMAL WEIGHT GAIN 03/06/2016 ISABELA NINO Ot V10.47 HX-TESTICULAR MALIGNANCY 03/06/2016 ISABELA NINO N Ot V67.2 CHEMOTHERAPY FOLLOW-UP 03/06/2016 KIM CHEN TITLE I PARAPROFESSIONAL Ot V10.47 HX-TESTICULAR MALIGNANCY 03/06/2016 KIM CHEN TITLE I PARAPROFESSIONAL Ot V67.2 CHEMOTHERAPY FOLLOW-UP 03/06/2016 KIM CHEN TITLE I PARAPROFESSIONAL Ot V10.47 HX-TESTICULAR MALIGNANCY 03/06/2016 KIM CHEN TITLE I PARAPROFESSIONAL Ot V67.2 CHEMOTHERAPY FOLLOW-UP 03/06/2016 KIM CHEN TITLE I PARAPROFESSIONAL Ot 186.9 MALIG PARTHA TESTIS NEC 03/06/2016 KODY VILLASEÑOR DO Ot V72.84 EXAM PRE-OPERATIVE NOS 03/06/2016 KIM CHEN TITLE I PARAPROFESSIONAL Ot 257.2 TESTICULAR HYPOFUNC NEC 03/06/2016 KIM CHEN TITLE I PARAPROFESSIONAL Ot V10.47 HX-TESTICULAR MALIGNANCY 03/06/2016 KIM CHEN TITLE I PARAPROFESSIONAL Ot V58.69 OTH MED,LT,CURRENT USE 03/06/2016 KIM CHEN TITLE I PARAPROFESSIONAL Ot V67.2 CHEMOTHERAPY FOLLOW-UP 03/06/2016 KODY VILLASEÑOR DO Ot V72.84 EXAM PRE-OPERATIVE NOS 03/06/2016 KIM CHEN TITLE I PARAPROFESSIONAL Ot Z08 ENCNTR FOR FOLLOW-UP EXAM AFTER TRTMT FO 03/06/2016 KIM CHEN TITLE I PARAPROFESSIONAL Ot Z79.899 OTHER ASSISTED (CURRENT) DRUG THERAPY 03/06/2016 KIM CHEN TITLE I PARAPROFESSIONAL Ot Z85.47 PERSONAL HISTORY OF MALIGNANT NEOPLASM O 03/06/2016 KIM CHEN TITLE I PARAPROFESSIONAL Ot 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, UNSP DESC 03/06/2016 KODY VILLASEÑOR DO Ot Z08 ENCNTR FOR FOLLOW-UP EXAM AFTER TRTMT FO 03/06/2016 KODY VILLASEÑOR DO Ot Z85.47 PERSONAL HISTORY OF MALIGNANT NEOPLASM O 03/06/2016 KIM CHEN TITLE I PARAPROFESSIONAL Ot 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, UNSP DESC 03/06/2016 ROD DOMINGUEZ LISANDRO Ot R06.02 SHORTNESS OF BREATH 03/06/2016 ISABELA NINO Ot Z08 ENCNTR FOR FOLLOW-UP EXAM AFTER TRTMT FO 03/06/2016 ISABELA NINO Ot 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 03/06/2016 ISABELA NINO Ot Z85.47 PERSONAL HISTORY OF MALIGNANT NEOPLASM O 03/06/2016 ISABELA NINO Ot 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, UNSP DESC 03/06/2016 DEEJAY SIMONE TITLE I PARAPROFESSIONAL Ot S83.91XA SPRAIN OF UNSPECIFIED SITE OF RIGHT KNEE 03/06/2016 DEEJAY SIMONE TITLE I PARAPROFESSIONAL Ot W11.XXXA FALL ON AND FROM LADDER, INITIAL ENCOUNT 03/06/2016 DEEJAY SIMONE TITLE I PARAPROFESSIONAL Ot Y92.512 SUPERMARKET, STORE OR MARKET PLACE 03/06/2016 DEEJAY, SIMONE TITLE I PARAPROFESSIONAL Ot Y99.0 CIVILIAN ACTIVITY DONE FOR INCOME OR PAY 03/07/2016 DEEJAY SIMONE TITLE I PARAPROFESSIONAL Ot S83.91XA SPRAIN OF UNSPECIFIED SITE OF RIGHT KNEE 03/07/2016 DEEJAY SIMONE TITLE I PARAPROFESSIONAL Ot W11.XXXA FALL ON AND FROM LADDER, INITIAL ENCOUNT 03/07/2016 DEEJAY SIMONE TITLE I PARAPROFESSIONAL Ot Y92.512 SUPERMARKET, STORE OR MARKET PLACE 03/07/2016 DEEJAY SIMONE TITLE I PARAPROFESSIONAL Ot Y99.0 CIVILIAN ACTIVITY DONE FOR INCOME OR PAY 05/16/2016 ISABELA NINO Ot 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, UNSP DESC 06/14/2016 ISABELA NINO Ot 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, UNSP DESC 09/08/2016 Ot 186.9 MALIG PARTHA TESTIS NEC 09/08/2016 Ot 578.1 BLOOD IN STOOL 09/08/2016 Ot 585.3 CHRONIC KIDNEY DISEASE, 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 09/08/2016 Ot 724.2 LUMBAGO 09/08/2016 Ot 780.52 INSOMNIA, UNSPECIFIED 09/08/2016 Ot V10.47 HX-TESTICULAR MALIGNANCY 09/08/2016 Ot V67.2 CHEMOTHERAPY FOLLOW-UP 09/08/2016 Ot 553.21 INCISIONAL HERNIA 09/08/2016 Ot 569.3 RECTAL ANAL HEMORRHAGE 09/08/2016 Ot V72.84 EXAM PRE-OPERATIVE NOS 09/08/2016 Ot 186.9 MALIG PARTHA TESTIS NEC 09/08/2016 Ot V72.84 EXAM PRE-OPERATIVE NOS 09/08/2016 Ot 186.9 MALIG PARTHA TESTIS NEC 09/08/2016 ISABELA NINO Marcelle Ot 585.3 CHRONIC KIDNEY DISEASE, 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 09/08/2016 ISABELA NINO N Ot 780.52 INSOMNIA, UNSPECIFIED 09/08/2016 ISABELA NINO N Ot 780.79 OTH MALAISE FATIGUE 09/08/2016 ISABELA NINO N Ot 783.1 ABNORMAL WEIGHT GAIN 09/08/2016 ISABELA NINO Marcelle Ot V10.47 HX-TESTICULAR MALIGNANCY 09/08/2016 VICENTA NINONOREEN N Ot V67.2 CHEMOTHERAPY FOLLOW-UP 09/08/2016 KIM CHEN TITLE I PARAPROFESSIONAL Ot V10.47 HX-TESTICULAR MALIGNANCY 09/08/2016 KIM CHEN TITLE I PARAPROFESSIONAL Ot V67.2 CHEMOTHERAPY FOLLOW-UP 09/08/2016 KIM CHEN TITLE I PARAPROFESSIONAL Ot V10.47 HX-TESTICULAR MALIGNANCY 09/08/2016 KIM CHEN TITLE I PARAPROFESSIONAL Ot V67.2 CHEMOTHERAPY FOLLOW-UP 09/08/2016 KIM CHEN TITLE I PARAPROFESSIONAL Ot 186.9 MALIG PARTHA TESTIS NEC 09/08/2016 KODY VILLASEÑOR DO Ot V72.84 EXAM PRE-OPERATIVE NOS 09/08/2016 KIM CHEN TITLE I PARAPROFESSIONAL Ot 257.2 TESTICULAR HYPOFUNC NEC 09/08/2016 KIM CHEN TITLE I PARAPROFESSIONAL Ot V10.47 HX-TESTICULAR MALIGNANCY 09/08/2016 KIM CHENP Ot V58.69 OTH MED,LT,CURRENT USE 09/08/2016 KIM CHEN TITLE I PARAPROFESSIONAL Ot V67.2 CHEMOTHERAPY FOLLOW-UP 09/08/2016 KODY VILLASEÑOR DO Ot V72.84 EXAM PRE-OPERATIVE NOS 09/08/2016 KIM CHENP Ot Z08 ENCNTR FOR FOLLOW-UP EXAM AFTER TRTMT FO 09/08/2016 KIM CHEN TITLE I PARAPROFESSIONAL Ot Z79.899 OTHER ASSISTED (CURRENT) DRUG THERAPY 09/08/2016 KIM CHEN TITLE I PARAPROFESSIONAL Ot Z85.47 PERSONAL HISTORY OF MALIGNANT NEOPLASM O 09/08/2016 KIM CHEN TITLE I PARAPROFESSIONAL Ot 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, UNSP DESC 09/08/2016 KODY VILLASEÑOR DO Ot Z08 ENCNTR FOR FOLLOW-UP EXAM AFTER TRTMT FO 09/08/2016 KODY VILLASEÑOR DO Ot Z85.47 PERSONAL HISTORY OF MALIGNANT NEOPLASM O 09/08/2016 KIM CHEN TITLE I PARAPROFESSIONAL Ot 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, UNSP DESC 09/08/2016 ROD DOMINGUEZ Ot R06.02 SHORTNESS OF BREATH 09/08/2016 ISABELA NINO Ot Z08 ENCNTR FOR FOLLOW-UP EXAM AFTER TRTMT FO 09/08/2016 ISABELA NINO Ot 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 09/08/2016 ISABELA NINO Ot Z85.47 PERSONAL HISTORY OF MALIGNANT NEOPLASM O 09/08/2016 ISABELA NINO Ot 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, UNSP DESC 09/08/2016 SIMONE VILLALBA TITLE I PARAPROFESSIONAL Ot S83.91XA SPRAIN OF UNSPECIFIED SITE OF RIGHT KNEE 09/08/2016 DEEJAY SIMONE TITLE I PARAPROFESSIONAL Ot W11.XXXA FALL ON AND FROM LADDER, INITIAL ENCOUNT 09/08/2016 DEEJAY SIMONE TITLE I PARAPROFESSIONAL Ot Y92.512 SUPERMARKET, STORE OR MARKET PLACE 09/08/2016 DEEJAY SIMONE TITLE I PARAPROFESSIONAL Ot Y99.0 CIVILIAN ACTIVITY DONE FOR INCOME OR PAY 10/12/2016 Shelbie Singleton MD Crystal Other M54.5 LOW BACK PAIN 10/25/2016 ISABELA NINO Ot 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, UNSP DESC 10/31/2016 Ti Lopez DO Other S06.0X0A CONCUSSION WITHOUT LOSS OF CONSCIOUSNESS, INITIAL ENCOUNTER 10/31/2016 Ti Lopez DO Other S06.0X0D CONCUSSION WITHOUT LOSS OF CONSCIOUSNESS, SUBS ENCNTR 10/31/2016 Ti Lopez DO Other X58.XXXD EXPOSURE TO OTHER SPECIFIED FACTORS, SUBSEQUENT ENCOUNTER 11/01/2016 Mani FUENTES, M Paloma Other M53.86 OTHER SPECIFIED DORSOPATHIES, LUMBAR REGION 11/01/2016 Mani FUENTES, M Crystal Other M54.5 LOW BACK PAIN 11/01/2016 Mani FUENTES, M Crystal Other R53.83 OTHER FATIGUE 11/01/2016 Shelbie Singleton MD Crystal Other R68.89 OTHER GENERAL SYMPTOMS AND SIGNS 12/06/2016 Ot 186.9 MALIG PARTHA TESTIS NEC 12/06/2016 Ot 578.1 BLOOD IN STOOL 12/06/2016 Ot 585.3 CHRONIC KIDNEY DISEASE, 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 12/06/2016 Ot 724.2 LUMBAGO 12/06/2016 Ot 780.52 INSOMNIA, UNSPECIFIED 12/06/2016 Ot V10.47 HX-TESTICULAR MALIGNANCY 12/06/2016 Ot V67.2 CHEMOTHERAPY FOLLOW-UP 12/06/2016 Ot 553.21 INCISIONAL HERNIA 12/06/2016 Ot 569.3 RECTAL ANAL HEMORRHAGE 12/06/2016 Ot V72.84 EXAM PRE-OPERATIVE NOS 12/06/2016 Ot 186.9 MALIG PARTHA TESTIS NEC 12/06/2016 Ot V72.84 EXAM PRE-OPERATIVE NOS 12/06/2016 Ot 186.9 MALIG PARTHA TESTIS NEC 12/06/2016 ISABELA NINO Ot 585.3 CHRONIC KIDNEY DISEASE, 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 12/06/2016 ISABELA NINO Ot 780.52 INSOMNIA, UNSPECIFIED 12/06/2016 ISABELA NINO Ot 780.79 OTH MALAISE FATIGUE 12/06/2016 ISABELA NINO Ot 783.1 ABNORMAL WEIGHT GAIN 12/06/2016 ISABELA NINO Ot V10.47 HX-TESTICULAR MALIGNANCY 12/06/2016 ISABELA NINO Ot V67.2 CHEMOTHERAPY FOLLOW-UP 12/06/2016 KIM CHEN TITLE I PARAPROFESSIONAL Ot V10.47 HX-TESTICULAR MALIGNANCY 12/06/2016 KIM CHEN TITLE I PARAPROFESSIONAL Ot V67.2 CHEMOTHERAPY FOLLOW-UP 12/06/2016 KIM CHEN TITLE I PARAPROFESSIONAL Ot V10.47 HX-TESTICULAR MALIGNANCY 12/06/2016 KIM CHEN TITLE I PARAPROFESSIONAL Ot V67.2 CHEMOTHERAPY FOLLOW-UP 12/06/2016 KIM CHEN TITLE I PARAPROFESSIONAL Ot 186.9 MALIG PARTHA TESTIS NEC 12/06/2016 KODY VILLASEÑOR DO Ot V72.84 EXAM PRE-OPERATIVE NOS 12/06/2016 CHEN, KIM Puga TITLE I PARAPROFESSIONAL Ot 257.2 TESTICULAR HYPOFUNC NEC 12/06/2016 CHENMARIIPATRICK Vivien TITLE I PARAPROFESSIONAL Ot V10.47 HX-TESTICULAR MALIGNANCY 12/06/2016 CHEN, MARIIPATRICK Puga TITLE I PARAPROFESSIONAL Ot V58.69 OTH MED,LT,CURRENT USE 12/06/2016 KIM CHEN TITLE I PARAPROFESSIONAL Ot V67.2 CHEMOTHERAPY FOLLOW-UP 12/06/2016 KODY VILLASEÑOR DO Ot V72.84 EXAM PRE-OPERATIVE NOS 12/06/2016 KIM CHEN TITLE I PARAPROFESSIONAL Ot Z08 ENCNTR FOR FOLLOW-UP EXAM AFTER TRTMT FO 12/06/2016 CHENMARIIPATRICK Vivien PAULAP Ot 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 12/06/2016 KIM CHEN TITLE I PARAPROFESSIONAL Ot Z85.47 PERSONAL HISTORY OF MALIGNANT NEOPLASM O 12/06/2016 KIM CHEN TITLE I PARAPROFESSIONAL Ot 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, UNSP DESC 12/06/2016 KODY VILLASEÑOR DO Ot Z08 ENCNTR FOR FOLLOW-UP EXAM AFTER TRTMT FO 12/06/2016 KODY VILLASEÑOR DO Ot Z85.47 PERSONAL HISTORY OF MALIGNANT NEOPLASM O 12/06/2016 KIM CHEN TITLE I PARAPROFESSIONAL Ot 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, UNSP DESC 12/06/2016 ROD DOMINGUEZ Ot R06.02 SHORTNESS OF BREATH 12/06/2016 ISABELA NINO Ot Z08 ENCNTR FOR FOLLOW-UP EXAM AFTER TRTMT FO 12/06/2016 ISABELA NINO Ot 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 12/06/2016 ISABELA NINO Ot Z85.47 PERSONAL HISTORY OF MALIGNANT NEOPLASM O 12/06/2016 ISABELA NINO Ot 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 12/06/2016 ISABELA NINO Ot E29.1 TESTICULAR HYPOFUNCTION 12/06/2016 ISABELA NINO Ot N18.3 CHRONIC KIDNEY DISEASE, STAGE 3 (MODERAT 12/06/2016 MICA, BOBAN N Ot Z92.21 PERSONAL HISTORY OF ANTINEOPLASTIC CHEMO 12/06/2016 SIMONE VILLALBAP Ot S83.91XA SPRAIN OF UNSPECIFIED SITE OF RIGHT KNEE 12/06/2016 SIMONE VILLALBAP Ot W11.XXXA FALL ON AND FROM LADDER, INITIAL ENCOUNT 12/06/2016 SIMONE VILLALBAP Ot Y92.512 SUPERMARKET, STORE OR MARKET PLACE 12/06/2016 SIMONE VILLALBAP Ot Y99.0 CIVILIAN ACTIVITY DONE FOR INCOME OR PAY 12/06/2016 ISABELA NINO N Ot 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 12/06/2016 MICAISABELA DICKERSON N Ot E29.1 TESTICULAR HYPOFUNCTION 12/06/2016 ISABELA NINO N Ot N18.3 CHRONIC KIDNEY DISEASE, STAGE 3 (MODERAT 12/06/2016 ISABELA NINO N Ot Z92.21 PERSONAL HISTORY OF ANTINEOPLASTIC CHEMO 12/20/2016 ISABELA NINO N Ot 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 12/20/2016 MICAISABELA DICKERSON N Ot E29.1 TESTICULAR HYPOFUNCTION 12/20/2016 MICAISABELA DICKERSON N Ot N18.3 CHRONIC KIDNEY DISEASE, STAGE 3 (MODERAT 12/20/2016 MICAISABELA DICKERSON N Ot Z92.21 PERSONAL HISTORY OF ANTINEOPLASTIC CHEMO 01/22/2017 ISABELA NINO N Ot 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 01/22/2017 MICAISABELA DICKERSON N Ot E29.1 TESTICULAR HYPOFUNCTION 01/22/2017 ISABELA NINO N Ot N18.3 CHRONIC KIDNEY DISEASE, STAGE 3 (MODERAT 01/22/2017 MICA, BOBNOREEN N Ot Z92.21 PERSONAL HISTORY OF ANTINEOPLASTIC CHEMO Procedures Code Description Performed By Performed On [facility] Elmo Martinez 06/20/2010 [id number] ROUTINE VENIPUNCTURE 09/01/2013 2359658 GFR CALC (RESULT ONLY) 09/01/2013 84780 TSH 09/01/2013 99742 TESTOSTERONE TOTAL MALES 09/01/2013 51509 CMP 09/02/2013 38924 CBC 09/02/2013 11297 THERAPUTIC INJ SQ/IM 10/16/2013 J0702 BETAMETHASONE ACET&SOD PHOSP 10/16/2013 J3301 KENALOG INJ, PER 10 MG 10/16/2013 General S Villaseñor, Kody 02/03/2014 92092 UA LONG DIP 02/03 77291 EAR LAVAGE 2013 09718 THERAPUTIC INJ SQ/IM 09/29/2014 J3301 KENALOG INJ, PER 10 MG 09/29/2014 98651 INFLUENZA A & B (IN-HOUSE) 09/29/2014 Results Encounters ACCT No. Visit Date/Time Discharge Status Pt. Type Provider Facility Loc./Unit Complaint [id number] 09/29/2014 14:15:00 09/29/2014 23: 59:59 CLS Outpatient KATHLEEN DURON DO [id number] 05/27/2014 09:03:00 05/27/2014 23: 59:59 SUMA Outpatient ROD DOMINGUEZ APRN [id number] 04/21/2014 15:36:00 04/21/2014 23: 59:59 SUMA Outpatient ROD DOMINGUEZ APRN [id number] 04/08/2014 09:52:00 04/08/2014 23: 59:59 CLS Outpatient ROD DOMINGUEZ APRN [id number] 03/27/2014 14:22:00 03/27/2014 23: 59:59 CLS Outpatient KATHLEEN DURON DO [id number] 02/11/2014 10:00:00 02/11/2014 23: 59:59 CLS Outpatient KATHLEEN DURON DO [id number] 02/03/2014 14:38:00 02/03/2014 23: 59:59 CLS Outpatient KATHLEEN DURON DO [id number] 10/16/2013 14:16:00 10/16/2013 23: 59:59 CLS Outpatient KATHLEEN DURON DO [id number] 10/02/2013 15:45:00 10/02/2013 23: 59:59 CLS Outpatient ROD DOMINGUEZ APRN [id number] 09/15/2013 10:42:00 09/15/2013 23: 59:59 CLS Outpatient KATHLEEN DURON DO [id number] 09/01/2013 11:30:00 09/01/2013 23: 59:59 CLS Outpatient KATHLEEN DURON DO [id number] 06/20/2010 15:17:00 06/20/2010 23: 59:59 CLS Outpatient ROD DOMINGUEZ APRN [id number] 02/18/2013 09:36:00 Document Registration [id number] 12/20/2012 15:38:00 Document Registration [id number] 11/27/2012 11:03:00 Document Registration [id number] 01/23/2017 00:16:00 2016 23:59:59 CLS Preadmit ISABELA NINO Marcelle [facility] ONC [id number] 10/24/2016 14:20:00 2016 00:01:00 DIS Outpatient ISABELA NINO Marcelle [facility] ONC [id number] 02/28/2016 10:50:00 2015 23:59:59 CLS Outpatient DEEJAYTERESAYL ELLEN [facility] RAD SPRAIN INJURY R KNEE [id number] 02/23/2016 05:45:00 2015 15:47:00 DIS Outpatient KODY VILLASEÑOR DO [facility] PREOP BLOOD IN STOOL [id number] 11/17/2015 10:58:00 2015 00:01:00 DIS Outpatient ISABELA NINO Marcelle [facility] ONC [id number] 01/13/2016 00:10:00 2015 23:59:59 CLS Preadmit ISABELA NINO Marcelle [facility] ONC [id number] 10/14/2015 12:17:00 2015 00:01:00 DIS Outpatient ISABELA NINO Marcelle [facility] ONC [id number] 11/29/2015 14:15:00 2015 23:59:59 CLS Outpatient ROD DOMINGUEZ [facility] RAD SHORTNESS OF BREATH [id number] 11/01/2015 06:00:00 2015 12:40:00 DIS Outpatient LEIGHA WILEY MD [facility] SDC RIGHT TESTICULAR MASS [id number] 10/29/2015 12:45:00 2015 14:23:00 DIS Outpatient LEGIHA WILEY MD [facility] PREOP RIGHT TESTICULAR MASS [id number] 10/22/2015 01:32:00 2015 16:41:00 DIS Inpatient SULMA FUENTES, MEHNAZ Ibanez [facility] 4TH PNEUMONIA,HYPOXIA,N/V,GENERALIZED ABD PAIN [id number] 10/19/2015 10:50:00 2015 23:59:59 CLS Outpatient KIM CHEN TITLE I PARAPROFESSIONAL [facility] CARD TESTICULAR CANCER [id number] 10/12/2015 12:56:00 2015 23:59:59 CLS Outpatient KODY VILLASEÑOR DO [facility] RAD TESTICULAR CA [id number] 07/07/2015 14:43:00 2014 23:59:59 CLS Outpatient KIM CHEN S TITLE I PARAPROFESSIONAL [facility] RAD TESTICULAR CANCER [id number] 06/30/2015 14:38:00 2014 23:59:59 CLS Outpatient KIM CHEN S TITLE I PARAPROFESSIONAL [facility] ONC [id number] 11/24/2014 12:18:00 2014 23:59:59 CLS Outpatient KIM CHEN S TITLE I PARAPROFESSIONAL [facility] ONC [id number] 11/05/2014 10:41:00 2014 13:50:00 DIS Outpatient KODY VILLASEÑOR DO [facility] SDC BLOOD IN STOOLS [id number] 11/04/2014 05:59:00 2014 23:59:59 CLS Outpatient KODY VILLASEÑOR DO [facility] PREOP BLOOD IN STOOLS [id number] 10/02/2014 14:44:00 2014 17:45:00 DIS Emergency BRADY ALDRICH APRN [facility] ER COUGH,SORE THROAT,VOMITING [id number] 07/06/2014 15:24:00 2013 23:59:59 CLS Outpatient SIMONE VILLALBAP [facility] OCC [id number] 05/28/2014 12:53:00 2013 23:59:59 CLS Outpatient ISABELA NINO [facility] ONC [id number] 05/05/2014 12:41:00 2013 15:30:00 DIS Outpatient KODY VILLASEÑOR DO [facility] SDC BLOOD IN STOOL [id number] 04/29/2014 07:23:00 2013 23:59:59 CLS Outpatient KODY VILLASEÑOR DO [facility] PREOP BLOOD IN STOOL [id number] 01/06/2014 10:02:00 2013 23:59:59 CLS Outpatient KIM CHEN TITLE I PARAPROFESSIONAL [facility] RAD TESTICULAR CA [id number] 12/04/2013 13:50:00 2013 23:59:59 CLS Outpatient KIM CHEN TITLE I PARAPROFESSIONAL [facility] ONC [id number] 05/01/2013 14:53:00 2012 23:59:59 CLS Outpatient KIM CHEN TITLE I PARAPROFESSIONAL [facility] ONC [id number] 03/12/2013 08:25:00 2012 10:08:00 DIS Emergency LILIANA GRACIA DO K [facility] ER LEFT SIDE PAIN [id number] 10/31/2012 15:04:00 2012 00:01:00 DIS Outpatient VICENTA NINONOREEN Ibanez [facility] ONC [id number] 06/17/2014 14:38:00 Document Registration [id number] 06/17/2014 14:38:00 Document Registration [id number] 06/17/2014 14:37:00 Document Registration [id number] 06/17/2014 14:37:00 Document Registration [id number] 08/13/2012 12:16:00 Document Registration [id number] 04/10/2012 08:47:00 Document Registration [id number] 03/19/2012 10:14:00 Document Registration [id number] 03/19/2012 09:19:00 Document Registration [id number] 12/27/2011 11:52:00 Document Registration [id number] 09/20/2011 05:38:00 Document Registration [id number] 09/18/2011 11:47:00 Document Registration [id number] 09/13/2011 10:05:00 Document Registration [id number] 07/05/2011 10:29:00 Document Registration [id number] 06/19/2011 14:25:00 Document Registration [id number] 03/16/2011 10:02:00 Document Registration [id number] 03/09/2011 09:26:00 Document Registration [id number] 12/07/2010 09:45:00 Document Registration [id number] 11/29/2010 10:58:00 Document Registration [id number] 10/06/2010 10:00:00 Document Registration [id number] 08/22/2010 13:41:00 Document Registration [id number] 06/09/2010 09:33:00 Document Registration [id number] 06/07/2010 09:05:00 Document Registration [id number] 05/05/2010 10:11:00 Document Registration [id number] 03/07/2010 10:01:00 Document Registration [id number] 03/01/2010 11:31:00 Document Registration [id number] 03/01/2010 11:03:00 Document Registration [id number] 12/09/2009 09:58:00 Document Registration [id number] 09/21/2009 12:42:00 Document Registration [id number] 09/10/2009 13:48:00 Document Registration [id number] 07/16/2009 06:06:00 Document Registration [id number] 07/15/2009 09:09:00 Document Registration [id number] 11/01/2016 08:00:00 2016 17:00:00 DIS Outpatient Mani FUENTES, Shelbie [facility].OPREH LOW BACK PAIN [id number] 10/31/2016 14:42:00 2016 23:59:00 DIS Outpatient Ti Lopez DO [facility].IMG.CT CONCUSSION WITHOUT LOSS OF CONSCIOUSNESS, [id number] 10/12/2016 15:27:00 2016 23:59:00 DIS Outpatient Shelbie Singleton MD [facility].IMG.RA LBP [id number] 09/20/2016 15:37:00 2016 23:59:59 CLS Outpatient Shelbie Singleton MD [facility].LABONE LAB ONE
[2017-06-11] MEDS ORDERED: KETOROLAC 30 MG/ML VIAL IVP ONE (19:00)
[2017-06-11 19:06] LABS: BASOPHILS % (AUTO) 0 % (0-10); EOSINOPHILS # (AUTO) 0.2 10^3/uL (0.0-0.3); EOSINOPHILS % (AUTO) 2 % (0-10); LYMPHOCYTES # (AUTO) 2.3 X 10^3 (1.0-4.0); LYMPHOCYTES % (AUTO) 22 % (12-44); MEAN CORPUSCULAR HEMOGLOBIN 28 PG (25-34); MEAN CORPUSCULAR HGB CONC 33 G/DL (32-36); MEAN CORPUSCULAR VOLUME 85 FL (80-99); MEAN PLATELET VOLUME 11.1 FL (7.4-10.4); MONOCYTES # (AUTO) 0.9 X 10^3 (0.0-1.0); MONOCYTES % (AUTO) 9 % (0-12); NEUTROPHILS # (AUTO) 7.1 X 10^3 (1.8-7.8); NEUTROPHILS % (AUTO) 68 % (42-75); PLATELET COUNT 313 10^3/uL (130-400); RED BLOOD COUNT 4.77 10^6/uL (4.35-5.85); RED CELL DISTRIBUTION WIDTH 13.5 % (10.0-14.5); WHITE BLOOD COUNT 10.5 10^3/uL (4.3-11.0)
[2017-06-11 19:34] LABS: ALBUMIN 4.4 GM/DL (3.2-4.5); BILIRUBIN,TOTAL 0.7 MG/DL (0.1-1.0); CALCIUM 9.9 MG/DL (8.5-10.1); CREATININE SERUM 1.41 MG/DL (0.60-1.30); POTASSIUM 4.2 MMOL/L (3.6-5.0); TOTAL PROTEIN 7.7 GM/DL (6.4-8.2)
--- NOTE | 2017-06-11 19:52 | Diagnostic Imaging Report ---
INDICATION: Back pain radiating into right leg x4 weeks. Comparison with 11/29/2015. FINDINGS: PA and lateral chest shows the lungs to be well aerated and clear. Heart is not enlarged. No hilar adenopathy. No pulmonary edema. No pneumothorax or pleural effusions. No bony abnormalities. IMPRESSION: Normal PA and lateral chest. Dictated by: Dictated on workstation # [id number]
--- NOTE | 2017-06-11 19:54 | Diagnostic Imaging Report ---
PROCEDURE: CT lumbar spine without contrast. TECHNIQUE: Multiple contiguous axial images were obtained through the lumbar spine without the use of intravenous contrast. Sagittal and coronal reformations were then performed. INDICATION: Low back pain. FINDINGS: Alignment of the lumbar spine is normal. The vertebral body heights are well-maintained. There is no spondylolysis or spondylolisthesis. No fractures are identified. There is no bony encroachment on the spinal canal. There does appear to be a mild annular bulging at L5-S1. Soft tissue structures are unremarkable. IMPRESSION: Mild annular bulging at L5-S1, otherwise unremarkable CT lumbar spine. Dictated by: Dictated on workstation # [id number]
[2017-06-11] MEDS ORDERED: predniSONE 20 MG TAB PO ONE (20:30)
[2017-06-11] MEDS ORDERED: RX-HYDROCODONE/APAP 5/325 MG #4 TAB PK PO PRN (20:30)
[2017-06-11] MEDS ORDERED: PRD20T PO (20:43)
[2017-06-11] MEDS ORDERED: HYDR-3812 PO (20:43)
--- NOTE | 2017-06-11 20:43 | ED Back Pain ---
General Chief Complaint: Back Problems Stated Complaint: BACK PAIN Nursing Triage Note: pt reports low back pain that radiates to his r leg x 4 weeks. pt reports he had similar pain when he was first diagnosed with testicular ca. Nursing Sepsis Screen: No Definite Risk Source of Information: Patient Exam Limitations: No Limitations History of Present Illness Time Seen by Provider: 18:12 Initial Comments This 37-year-old gentleman presents to emergency room with primary complaint of lower back pain and radicular pain shooting into the right thigh. Symptoms have been present for about 4 weeks. They are worse with sitting and with movement. He denies any bowel or bladder dysfunction or any true lower extremity weakness. He has been using some leftover hydrocodone at home along with Aleve and Biofreeze. These treatments are not effective on his pain. Pain ranges from 3/10 up to 10/10 with movement. Patient has history of testicular cancer and bilateral orchiectomy. He reports not being compliant with his testosterone supplements because of cost. He sees Dr. Portillo for oncology, Dr. Anton for urology, and the [facility] clinic for primary care. Patient had an episode of hypoxia during nursing assessment and supplemental O2 was applied. Allergies and Home Medications Allergies Coded Allergies: No Known Drug Allergies (Verified , 07/16/09) Home Medications Hydrocodone/Acetaminophen 1 Each Tablet, 1 EACH PO Q4H PRN for PAIN, #10 Prescribed by: IRON GRECO on 06/11/172042 Prednisone 20 Mg Tab, 20 MG PO DAILY, #3 Prescribed by: IRON GRECO on 06/11/172042 Constitutional: no symptoms reported EENTM: no symptoms reported Respiratory: no symptoms reported Cardiovascular: no symptoms reported Gastrointestinal: no symptoms reported Genitourinary: see HPI Musculoskeletal: see HPI Skin: no symptoms reported Psychiatric/Neurological: See HPI Past Ghhlyze-Aodyin-Hituby Hx Patient Social History Alcohol Use: Denies Use Recreational Drug Use: No Smoking Status: Never a Smoker Recent Foreign Travel: No Contact w/Someone Who Travel: No Recent Infectious Disease Expo: No Physical Abuse: No Sexual Abuse: No Mistreated: No Fear: No Seasonal Allergies Seasonal Allergies: No Surgeries History of Surgeries: Yes (HERNIA AND bilat TESTICULAR removal, PORTS AND REMOVED) Surgeries: Testicular Respiratory History of Respiratory Disorde: Yes Respiratory Disorders: Pneumonia Currently Using CPAP: No Currently Using BIPAP: No Cardiovascular History of Cardiac Disorders: No Neurological History of Neurological Disord: Yes Reproductive System Hx Reproductive Disorders: No Sexually Transmitted Disease: No HIV/AIDS: No Genitourinary History of Genitourinary Disor: Yes (Testicular cancer status post bilateral orchiectomy) Gastrointestinal History of Gastrointestinal Di: Yes (RECTAL BLEEDING) Musculoskeletal History of Musculoskeletal Dis: No Endocrine History of Endocrine Disorders: No HEENT Loss of Vision: Denies Hearing Impairment: Denies Cancer History of Cancer: Yes Cancer: Testicular Psychosocial History of Psychiatric Problem: No Suicide Risk Score: 0 Integumentary History of Skin or Integumenta: No Blood Transfusions History of Blood Disorders: No Adverse Reaction to a Blood Tr: No Family Medical History Significant Family History: No Pertinent Family Hx Family Medial History: Patient reports no known family medical history. Physical Exam Vital Signs Vital Sign - Last 12Hours 06/11/17 16:24 Temp 97.3 Pulse 108 Resp 20 B/P (MAP) 125/94 (104) Pulse Ox 96 Capillary Refill : Less Than 3 Seconds General Appearance: No Apparent Distress, WD/WN HEENT: PERRL/EOMI, Normal ENT Inspection Neck: Normal Inspection Cardiovascular: Regular Rate, Rhythm, No Edema, No Murmur, Normal Peripheral Pulses Respiratory: Lungs Clear, Normal Breath Sounds, No Accessory Muscle Use, No Respiratory Distress Gastrointestinal: Normal Bowel Sounds, Soft, Tenderness (mild upper abdominal tenderness, stated as chronic) Back: No Vertebral Tenderness (over lumbar spine) Extremity: Normal Inspection, Non Tender, No Calf Tenderness, No Pedal Edema, Other (negative Narcisa) Neurologic/Psychiatric: Alert, Oriented x3, No Motor/Sensory Deficits, Normal Mood/Affect, perioperative manager II-XII Norm as Tested, Abnormal Cerebellar Tests Skin: Normal Color, Warm/Dry, Other (excoriation and erythema over the superior aspect of abdominal surgical scar) Progress/Results/Core Measures Results/Orders Lab Results Laboratory Tests Test 06/11/17 16:20 Range/Units White Blood Count 10.5 4.3-11.0 10^3/uL Red Blood Count 4.77 4.35-5.85 10^6/uL Hemoglobin 13.3 13.3-17.7 G/DL Hematocrit 41 40-54 % Mean Corpuscular Volume 85 80-99 FL Mean Corpuscular Hemoglobin 28 25-34 PG Mean Corpuscular Hemoglobin Concent 33 32-36 G/DL Red Cell Distribution Width 13.5 10.0-14.5 % Platelet Count 313 130-400 10^3/uL Mean Platelet Volume 11.1 H 7.4-10.4 FL Neutrophils (%) (Auto) 68 42-75 % Lymphocytes (%) (Auto) 22 12-44 % Monocytes (%) (Auto) 9 0-12 % Eosinophils (%) (Auto) 2 0-10 % Basophils (%) (Auto) 0 0-10 % Neutrophils # (Auto) 7.1 1.8-7.8 X 10^3 Lymphocytes # (Auto) 2.3 1.0-4.0 X 10^3 Monocytes # (Auto) 0.9 0.0-1.0 X 10^3 Eosinophils # (Auto) 0.2 0.0-0.3 10^3/uL Basophils # (Auto) 0.0 0.0-0.1 10^3/uL D-Dimer < 0.27 0.00-0.49 UG/ML Sodium Level 145 135-145 MMOL/L Potassium Level 4.2 3.6-5.0 MMOL/L Chloride Level 110 H 98-107 MMOL/L Carbon Dioxide Level 24 21-32 MMOL/L Anion Gap 11 5-14 MMOL/L Blood Urea Nitrogen 20 H 7-18 MG/DL Creatinine 1.41 H 0.60-1.30 MG/DL Estimat Glomerular Filtration Rate 57 BUN/Creatinine Ratio 14 Glucose Level 72 70-105 MG/DL Calcium Level 9.9 8.5-10.1 MG/DL Total Bilirubin 0.7 0.1-1.0 MG/DL Aspartate Amino Transf (AST/SGOT) 19 5-34 U/L Alanine Aminotransferase (ALT/SGPT) 17 0-55 U/L Alkaline Phosphatase 99 40-136 U/L Total Protein 7.7 6.4-8.2 GM/DL Albumin 4.4 3.2-4.5 GM/DL My Orders Orders - IRON GOOD MD Ketorolac Injection (Toradol Injection) (06/11/17 19:00) Chest Pa/Lat (2 View) (06/11/17 18:56) Ct Lumbar Spine Wo (06/11/17 18:56) Cbc With Automated Diff (06/11/17 18:57) Comprehensive Metabolic Panel (06/11/17 18:57) Fibrin Degradation Products (06/11/17 18:57) Saline Lock/Iv-Start (06/11/17 18:57) Rx-Hydrocodone/Apap 5-325 Mg (Rx-Vicodin (06/11/17 20:30) Prednisone Tablet (Deltasone Tablet) (06/11/17 20:30) Medications Given in ED Current Medications Medications Dose Ordered Sig/Joey Route Start Time Stop Time Status Last Admin Dose Admin Acetaminophen/ Hydrocodone Bitart 1 ea Q4H PRN PO 06/11/17 20:30 06/11/17 20:51 DC 06/11/17 20:43 1 EA Ketorolac Tromethamine 30 mg ONCE ONCE IVP 06/11/17 19:00 06/11/17 19:01 DC 06/11/17 19:07 30 MG Prednisone 20 mg ONCE ONCE PO 06/11/17 20:30 06/11/17 20:32 DC 06/11/17 20:43 20 MG Vital Signs/I&O Vital Sign - Last 12Hours 06/11/17 06/11/17 16:24 20:50 Temp 97.3 97.3 Pulse 108 89 Resp 20 20 B/P (MAP) 125/94 (104) Pulse Ox 96 96 Blood Pressure Mean: 104 Progress Note : Progress Note Patient was treated with Toradol for pain management. His case was reviewed with Dr. Portillo who advised CT of the lumbar spine for further evaluation. Labs and chest x-ray were also ordered because of the brief hypoxia and mild tachycardia. Labs and x-ray were unremarkable. CT suggested mildly bulging disc which may be responsible for his symptoms. Patient was started on prednisone and a take-home packet of hydrocodone was provided. Diagnostic Imaging Diagonstic Imaging: Xray Plain Films/CT/US/NM/MRI: chest Comments Chest x-ray viewed by me and report reviewed. See report below: NAME: ALAN VERGARA MED REC#: [id number] PT STATUS: REG ER : 1980 PHYSICIAN: IRON GOOD MD ADMIT DATE: 06/11/17/ER Signed Date of Exam: 06/11/17 CHEST PA/LAT (2 VIEW) INDICATION: Back pain radiating into right leg x4 weeks. Comparison with 11/29/2015. FINDINGS: PA and lateral chest shows the lungs to be well aerated and clear. Heart is not enlarged. No hilar adenopathy. No pulmonary edema. No pneumothorax or pleural effusions. No bony abnormalities. IMPRESSION: Normal PA and lateral chest. Dictated by: Dictated on workstation # [id number] Dict: 06/11/171948 Trans: 06/11/171952 Interpreted by: MARYA JULIAN MD Electronically signed by: MARYA JULIAN MD 06/11/171952 Diagonstic Imaging: CT Plain Films/CT/US/NM/MRI: other (lumbar spine) Comments CT of the lumbar spine viewed by me and report reviewed. See report below: NAME: ALAN VERGARA [facility] REC#: [id number] PT STATUS: REG ER : 1980 PHYSICIAN: IRON GOOD MD ADMIT DATE: 06/11/17/ER Signed Date of Exam: 06/11/17 CT LUMBAR SPINE WO PROCEDURE: CT lumbar spine without contrast. TECHNIQUE: Multiple contiguous axial images were obtained through the lumbar spine without the use of intravenous contrast. Sagittal and coronal reformations were then performed. INDICATION: Low back pain. FINDINGS: Alignment of the lumbar spine is normal. The vertebral body heights are well-maintained. There is no spondylolysis or spondylolisthesis. No fractures are identified. There is no bony encroachment on the spinal canal. There does appear to be a mild annular bulging at L5-S1. Soft tissue structures are unremarkable. IMPRESSION: Mild annular bulging at L5-S1, otherwise unremarkable CT lumbar spine. Dictated by: Dictated on workstation # [id number] Dict: 06/11/171948 Trans: 06/11/171954 Interpreted by: LEONILA JACKSON MD Electronically signed by: LEONILA JACKSON MD 06/11/171954 Departure Impression Impression: Primary Impression: Lumbar back pain with radiculopathy affecting right lower extremity Disposition: 01 HOME, SELF-CARE Condition: Improved Departure-Patient Inst. Decision time for Depature: 20:25 Referrals: KATHLEEN DURON DO (PCP) Primary Care Physician ROD DOMINGUEZ (Family) Primary Care Physician Patient Instructions: Radiculopathy (DC) Add. Discharge Instructions: You may continue taking ibuprofen up to 600 mg every 6 hours as needed for pain. Add either Tylenol or hydrocodone for pain not relieved by ibuprofen. Start your prednisone prescription tomorrow if pain has not improved. Follow- up with your primary care provider and Dr. Guzman as soon as possible. Return to the ER promptly if symptoms worsen, especially if you have difficulty controlling your bowels or bladder or if you develop weakness of the legs. All discharge instructions reviewed with patient and/or family. Voiced understanding. Scripts Hydrocodone/Acetaminophen (Hydrocodon -Acetaminophen 5-325) 1 Each Tablet 1 EACH PO Q4H Y for PAIN, #10 TAB Prov: IRON GOOD MD 06/11/17 Prednisone (Prednisone) 20 Mg Tab 20 MG PO DAILY, #3 TAB Prov: IRON GOOD MD 06/11/17 Copy Copies To 1: ISABELA GUZMAN Copies To 2: KATHLEEN DURON JOSHUA T MD Jun 11, 2017 20:43
[2017-06-11 20:50] VITALS: BP 123/86
== END 2017-06-11 20:50 | disposition home or self-care (01) ==
LOC: EDUNIT# 15:24 → ER 15:26
DX: M54.16 Radiculopathy, lumbar region (principal); Z87.01 Personal history of pneumonia (recurrent); Z85.47 Personal history of malignant neoplasm of testis; Z90.79 Acquired absence of other genital organ(s); Z99.81 Dependence on supplemental oxygen
CPT/HCPCS: 36415; 71020; 72131; 80053; 85025; 85379

== ENCOUNTER → 2017-07-18 | Outpatient (CLI) | payer SELFPAY ==
[~2017-07-18] MED LIST changes: +ACHD5005 PO; -HYDR-3812 PO; +PRD20T PO
--- NOTE | 2017-07-18 16:50 | Diagnostic Imaging Report ---
PROCEDURE: CT abdomen and pelvis with and without contrast. TECHNIQUE: Precontrast acquisitions were acquired through the abdomen and pelvis. Multiple contiguous axial images were obtained through the abdomen and pelvis after the administration of intravenous contrast. INDICATION: Testicular cancer. FINDINGS: The previous CTA chest, abdomen and pelvis exam performed on 10/22/2015 failed to show any sign of metastatic disease or any acute abnormality of the abdomen or pelvis. On this exam, there are numerous surgical clips about the abdominal aorta. This appearance is similar to the prior exam. There is no mass or adenopathy about the aorta or in either iliac chain. There is a lymph node in the left inguinal region measuring 0.8 x 1.4 cm. On the prior exam this measured 0.7 x 1.0 cm. The liver is homogeneous and not enlarged. The spleen, pancreas, adrenals, gallbladder, kidneys, aorta and inferior vena cava show no sign of any acute abnormality. The stomach is partially filled with particulate matter and difficult to assess. There is no pelvic mass or free fluid collection noted. The urinary bladder and prostate gland are grossly unremarkable. The appendix was not well visualized but there are no indirect signs of acute appendicitis. The lung bases are clear. The bone windows show no sign of a fracture or other destructive lesion. IMPRESSION: 1. There is a small lymph node in the left inguinal region which has increased in size slightly since the prior exam. The reason for the increase in size is uncertain. It would be unlikely although possible this is related to neoplastic disease. If further imaging is desired, then PET CT would be recommended. 2. There is no other mass or adenopathy identified. 3. There is no acute abnormality of the abdomen or pelvis noted. Dictated by: Dictated on workstation # [id number]
== END ==
LOC: RAD 14:46
PROVIDERS: ATTEND Nurse Practitioner Adult Health
DX: C62.12 Malignant neoplasm of descended left testis (principal); Z98.890 Other specified postprocedural states
CPT/HCPCS: 74178

== ENCOUNTER 2017-08-06 13:50 | Outpatient (RCR) | payer BC, OTHER ==
[2017-06-27 14:06] LABS: BASOPHILS % (AUTO) 0 % (0-10); EOSINOPHILS # (AUTO) 0.2 10^3/uL (0.0-0.3); EOSINOPHILS % (AUTO) 2 % (0-10); HEMATOCRIT 40 % (40-54); HEMOGLOBIN 13.3 G/DL (13.3-17.7); LYMPHOCYTES # (AUTO) 2.1 X 10^3 (1.0-4.0); LYMPHOCYTES % (AUTO) 26 % (12-44); MEAN CORPUSCULAR HEMOGLOBIN 28 PG (25-34); MEAN CORPUSCULAR HGB CONC 34 G/DL (32-36); MEAN CORPUSCULAR VOLUME 84 FL (80-99); MEAN PLATELET VOLUME 10.1 FL (7.4-10.4); MONOCYTES # (AUTO) 0.7 X 10^3 (0.0-1.0); MONOCYTES % (AUTO) 8 % (0-12); NEUTROPHILS # (AUTO) 5.2 X 10^3 (1.8-7.8); NEUTROPHILS % (AUTO) 64 % (42-75); PLATELET COUNT 288 10^3/uL (130-400); RED BLOOD COUNT 4.72 10^6/uL (4.35-5.85); WHITE BLOOD COUNT 8.2 10^3/uL (4.3-11.0)
[2017-06-27 14:25] LABS: ALANINE AMINOTRANSFERASE 20 U/L (0-55); ALBUMIN 4.3 GM/DL (3.2-4.5); ALKALINE PHOSPHATASE 114 U/L (40-136); BUN/CREATININE RATIO 12; CALCIUM 9.7 MG/DL (8.5-10.1); CARBON DIOXIDE 27 MMOL/L (21-32); CHLORIDE 106 MMOL/L (98-107); CREATININE SERUM 1.19 MG/DL (0.60-1.30); GFR ESTIMATED > 60; GLUCOSE 95 MG/DL (70-105); POTASSIUM 3.7 MMOL/L (3.6-5.0); SODIUM 143 MMOL/L (135-145); TOTAL PROTEIN 7.6 GM/DL (6.4-8.2)
[2017-06-27 14:54] LABS: BILIRUBIN,URINE NEGATIVE (NEGATIVE); CLARITY,URINE CLEAR; COLOR,URINE YELLOW; GLUCOSE, URINE (UA) NEGATIVE (NEGATIVE); KETONES,URINE NEGATIVE (NEGATIVE); LEUKOCYTE ESTERASE ,URINE NEGATIVE (NEGATIVE); NITRITE,URINE NEGATIVE (NEGATIVE); PH,URINE 6 (5-9); PROTEIN,URINE NEGATIVE (NEGATIVE); UROBILINOGEN,URINE NORMAL (NORMAL)
[2017-06-27 15:05] LABS: SQUAMOUS EPITHELIAL CELL,UR RARE /HPF
== END 2017-09-25 | disposition home or self-care (01) ==
LOC: ONC 13:50
PROVIDERS: ATTEND Internal Medicine Hematology & Oncology
DX: C62.12 Malignant neoplasm of descended left testis (principal); N18.3 Chronic kidney disease, stage 3 (moderate); E29.1 Testicular hypofunction; Z92.21 Personal history of antineoplastic chemotherapy
CPT/HCPCS: 36415; 80053; 81000; 82105; 83615; 84702; 85025; 99213

== ENCOUNTER → 2018-11-27 | Outpatient (CLI) | payer SELFPAY ==
--- NOTE | 2018-11-27 10:21 | Diagnostic Imaging Report ---
INDICATION: Testicular cancer. TIME OF EXAMINATION: 10:12 AM. COMPARISON: 06/11/2017. FINDINGS: The heart size is normal. The lungs are clear. No pulmonary masses or infiltrates are detected. The pulmonary vascularity is normal. No effusion or pneumothorax is seen. IMPRESSION: Stable chest. No acute feature is detected. Dictated by: Dictated on workstation # [id number]
== END ==
LOC: RAD 09:50
PROVIDERS: ATTEND Internal Medicine Hematology & Oncology
DX: C62.12 Malignant neoplasm of descended left testis (principal)
CPT/HCPCS: 71046

== ENCOUNTER 2019-01-15 00:17 | Emergency (ER) | payer BC, OTHER ==
[~2019-01-15] VITALS: Ht 175.3 cm; Wt 111.3 kg
--- NOTE | 2019-01-15 02:17 | ED Back Pain ---
General Chief Complaint: Back Problems Stated Complaint: BACK PAIN Nursing Triage Note: PT STATES HAVING PAIN IN BETWEEN SHOULDERS FOR A FEW DAYS. PT DENIES ANY INJURY TO BACK. PT STATES WORSENING PAIN WITH DEEP BREATHS. PT DENIES CHEST PAIN. PT STATES TAKING IBUPROFEN AT 2130 WITHOUT RELIEF. Nursing Sepsis Screen: No Definite Risk Source of Information: Patient Exam Limitations: No Limitations History of Present Illness Date Seen by Provider: Jan 15, 2019 Time Seen by Provider: 00:42 Initial Comments This 38-year-old gentleman presents to the emergency room with pain in the upper back between his shoulder blades that started a couple of days ago. He has pain with inspiration. He denies any specific injury. He took ibuprofen 800 mg at 21:30 which he did not find helpful. He has had a mild cough for a couple of weeks. He does have history of bulging disc in the lower back. Michael Dominguez is his primary care provider. Allergies and Home Medications Allergies Coded Allergies: No Known Drug Allergies (Verified , 07/16/09) Home Medications Hydrocodone Bit/Acetaminophen 1 Each Tablet, 1 EACH PO Q4H PRN for PAIN Prescribed by: IRON GRECO on 06/11/172042 Prednisone 20 Mg Tab, 20 MG PO DAILY Prescribed by: IRON GRECO on 06/11/172042 Tramadol HCl 50 Mg Tablet, 50 MG PO Q6H PRN for PAIN-MODERATE TO SEVERE Prescribed by: IRON GRECO on 01/15/19 0221 Patient Home Medication List Home Medication List Reviewed: Yes Review of Systems Constitutional: no symptoms reported EENTM: no symptoms reported Respiratory: see HPI Cardiovascular: no symptoms reported Gastrointestinal: no symptoms reported Genitourinary: no symptoms reported Musculoskeletal: see HPI Skin: no symptoms reported Psychiatric/Neurological: No Symptoms Reported Past Sutnyhd-Uoifdw-Ncfbwj Hx Patient Social History Alcohol Use: Denies Use Recreational Drug Use: No Smoking Status: Never a Smoker Recent Foreign Travel: No Contact w/Someone Who Travel: No Recent Infectious Disease Expo: No Physical Abuse: No Sexual Abuse: No Mistreated: No Fear: No Seasonal Allergies Seasonal Allergies: No Past Medical History Surgeries: Yes (HERNIA AND bilat TESTICULAR removal, PORTS AND REMOVED) Testicular Respiratory: Yes Pneumonia Currently Using CPAP: No Currently Using BIPAP: No Cardiac: No Neurological: Yes Reproductive Disorders: No Sexually Transmitted Disease: No HIV/AIDS: No Genitourinary: Yes (Testicular cancer status post bilateral orchiectomy) Gastrointestinal: Yes (RECTAL BLEEDING) Musculoskeletal: No Endocrine: Yes (Bilateral orchiectomy with testosterone replacement therapy) Loss of Vision: Denies Hearing Impairment: Denies Cancer: Yes Testicular Did You Recieve Any Treatments: Yes What Type of Treatment Did You: Surgical Intervention (Bilateral orchiectomy) Psychosocial: No Integumentary: No Blood Disorders: No Adverse Reaction/Blood Tranf: No Family Medical History Patient reports no known family medical history. No Pertinent Family Hx Physical Exam Vital Signs Vital Signs - First Documented 01/15/19 00:42 Temp 97.3 Pulse 87 Resp 18 B/P (MAP) 133/89 (104) Pulse Ox 97 O2 Delivery Room Air Capillary Refill : Less Than 3 Seconds Height, Weight, BMI Height: 5'9.00" Weight: 245lbs. 6.0oz. 111.757771as; 32.28 BMI Method:Estimated General Appearance: No Apparent Distress, WD/WN HEENT: PERRL/EOMI, Normal ENT Inspection Neck: Normal Inspection, Non Tender Cardiovascular: Regular Rate, Rhythm, No Edema, No Murmur Respiratory: Lungs Clear, Normal Breath Sounds, No Accessory Muscle Use, No Respiratory Distress, Other (Mild dry cough noted) Gastrointestinal: Normal Bowel Sounds, Non Tender Back: Other (Tenderness in the paraspinous muscles in the mid thoracic spine) Extremity: Normal Inspection, No Pedal Edema Neurologic/Psychiatric: Alert, Oriented x3, No Motor/Sensory Deficits, Normal Mood/Affect, cloth feeder II-XII Norm as Tested Skin: Normal Color, Warm/Dry Progress/Results/Core Measures Results/Orders My Orders Orders - IRON GOOD MD Chest Pa/Lat (2 View) (01/15/19 00:48) Tramadol Tablet (Ultram Tablet) (01/15/19 02:30) Vital Signs/I&O 01/15/19 01/15/19 00:42 02:30 Temp 97.3 97.3 Pulse 87 87 Resp 18 18 B/P (MAP) 133/89 (104) 133/89 (104) Pulse Ox 97 97 O2 Delivery Room Air Blood Pressure Mean: 104 Progress Progress Note : Progress Note Chest x-ray was obtained and compared with prior. At the time of the encounter this provider felt there was no change in his x-ray from prior. However, later review of the x-ray report suggested an increase in perihilar density on the left. Follow-up was recommended. I then contacted the patient by phone and le ft a message for him to follow-up with his primary care provider. A copy of this note is being sent to the [facility] for follow-up as well. Patient was treated with Ultram for his pain at the time of the encounter. Diagnostic Imaging Diagonstic Imaging: Xray Plain Films/CT/US/NM/MRI: chest Comments Two-view chest x-ray viewed by me. Report not yet available at the time of encounter. Images were compared with prior. No acute abnormalities were appreciated by this provider. However, review of the radiologist report after p atient discharged notes a change in fullness in the left perihilar region which the radiologist felt was an increase from prior. I left a message with the patient to follow-up with his primary care provider. See report below: NAME: ALAN VERGARA [facility] REC#: [id number] PT STATUS: DEP ER : 1980 PHYSICIAN: IRON GOOD MD ADMIT DATE: 01/15/19/ER Signed Date of Exam: 01/15/19 CHEST PA/LAT (2 VIEW) INDICATION: Cough and congestion EXAMINATION: Two-view chest 01/15/2019 Comparison made to 11/27/2018 FINDINGS: Two views of the chest Chronic findings noted. No infiltrates, effusions, or pneumothorax. Heart and pulmonary vasculature are unremarkable. IMPRESSION: 1. No acute process. 2. Not mentioned in the body of the report, there is a prominent area in the left perihilar region more so than previous, perhaps crowding due to the low lung volumes. Adenopathy not excluded. Followup recommended. Dictated by: Dictated on workstation # [id number] Dict: 01/15/19 0759 Trans: 01/15/19840 Interpreted by: ANNE BUNCH MD Electronically signed by: ANNE BUNCH MD 01/15/19840 Departure Impression Primary Impression: Acute upper back pain Additional Impression: Abnormal chest x-ray Disposition: HOME, SELF-CARE Condition: Improved Departure-Patient Inst. Decision time for Depature: 02:11 Referrals: KATHLEEN DURON DO (PCP) Primary Care Physician MICHAEL DOMINGUEZ (Family) Primary Care Physician Patient Instructions: Upper Back Pain Add. Discharge Instructions: You may use ibuprofen up to 600 mg every 6 hours as needed for pain. You may add Tylenol up to 1000 mg every 6 hours as needed for additional pain relief and/or Ultram (tramadol) as prescribed. Follow-up with your primary care provider within the next week if pain does not quickly resolve. Return to care if symptoms are worsening or not improving as expected. All discharge instructions reviewed with patient and/or family. Voiced understanding. Scripts Tramadol HCl (Ultram) 50 Mg Tablet 50 MG PO Q6H PRN for PAIN-MODERATE TO SEVERE, #10 TAB Prov: IRON GOOD MD 01/15/19 Work/School Note: Work Release Form Date Seen in the Emergency Department: Jan 15, 2019 Return to Work: Jan 15, 2019 Other Restrictions Listed Below: No push, pull, or a left over 20 pounds until 01/18/19. Copy Copies To 1: KATHLEEN DURON JOSHUA T MD Jan 15, 2019 02:17
[2019-01-15] MEDS ORDERED: TRAM-42 PO (02:21)
[2019-01-15 02:30] VITALS: BP 133/89
--- NOTE | 2019-01-15 08:31 | Diagnostic Imaging Report ---
INDICATION: Cough and congestion EXAMINATION: Two-view chest 01/15/2019 Comparison made to 11/27/2018 FINDINGS: Two views of the chest Chronic findings noted. No infiltrates, effusions, or pneumothorax. Heart and pulmonary vasculature are unremarkable. IMPRESSION: 1. No acute process. 2. Not mentioned in the body of the report, there is a prominent area in the left perihilar region more so than previous, perhaps crowding due to the low lung volumes. Adenopathy not excluded. Followup recommended. Dictated by: Dictated on workstation # [id number]
== END 2019-01-15 02:30 | disposition home or self-care (01) ==
LOC: EDUNIT# 00:17 → ER 00:32
DX: M54.6 Pain in thoracic spine (principal); R93.89 Abnormal findings on diagnostic imaging of other specified body structures; Z87.01 Personal history of pneumonia (recurrent); Z85.47 Personal history of malignant neoplasm of testis; Z90.79 Acquired absence of other genital organ(s)
CPT/HCPCS: 71046

== ENCOUNTER → 2019-01-23 | Outpatient (CLI) | payer OTHER ==
[~2019-01-23] MED LIST changes: +TRAM-42 PO
--- NOTE | 2019-01-23 13:05 | Diagnostic Imaging Report ---
PROCEDURE: CT chest with contrast only. TECHNIQUE: Multiple contiguous axial images were obtained through the chest after administration of intravenous contrast. Auto Exposure Controls were utilized during the CT exam to meet ALARA standards for radiation dose reduction. INDICATION: Testicular cancer. FINDINGS: Comparison is 10/21/2015. The lungs are clear without edema or pneumonia. No pleural effusion or pneumothorax. There is mild dependent atelectasis. No suspicious pulmonary nodules are seen. Heart size is normal. No pericardial effusion. The aorta is normal in caliber. No central pulmonary embolism. No axillary, supraclavicular, or mediastinal lymphadenopathy. Limited views of the upper abdomen reveal changes of retroperitoneal lymph node dissection. There are no suspicious osseous lesions. IMPRESSION: 1. No evidence of metastatic disease in the chest. Dictated by: Dictated on workstation # [id number]
== END ==
LOC: RAD 11:56
PROVIDERS: ATTEND Internal Medicine Hematology & Oncology
DX: C92.90 Myeloid leukemia, unspecified, not having achieved remission (principal); E29.1 Testicular hypofunction; R93.89 Abnormal findings on diagnostic imaging of other specified body structures
CPT/HCPCS: 71260

== ENCOUNTER 2019-01-30 14:39 | Outpatient (RCR) | payer OTHER | END 2019-02-25 | disposition home or self-care (01) | LOC: ONC 14:39 | PROVIDERS: ATTEND Internal Medicine Hematology & Oncology | DX: C62.12 Malignant neoplasm of descended left testis (principal); N18.3 Chronic kidney disease, stage 3 (moderate); E29.1 Testicular hypofunction; Z92.21 Personal history of antineoplastic chemotherapy | CPT/HCPCS: 99213 ==

== ENCOUNTER 2019-10-16 09:21 | Outpatient (CLI) | payer SELFPAY ==
[~2019-10-16] VITALS: Ht 177.8 cm; Wt 120.9 kg
[2019-10-16] MEDS ORDERED: DICL50TA6 PO (12:15)
[2019-10-16] MEDS ORDERED: HYDR-83 PO (12:15)
[2019-10-16] MEDS ORDERED: DIET25TA57 PO (12:15)
[2019-10-16] MEDS ORDERED: GABA-488 PO (12:15)
== END 2019-10-16 12:17 | disposition home or self-care (01) ==
LOC: PREOP 09:21
PROVIDERS: ATTEND Surgery
DX: Z01.818 Encounter for other preprocedural examination (principal)

== ENCOUNTER 2019-10-21 08:46 | Day surgery (SDC) | payer OTHER ==
[~2019-10-21] VITALS: Ht 177.8 cm; Wt 120.9 kg
[2019-10-21] VITALS (8 sets, daily range): BP systolic 120–143; BP diastolic 66–91
[~2019-10-21 08:46] MED LIST changes: +DICL50TA6 PO; +DIET25TA57 PO; +GABA-488 PO; +HYDR-83 PO; +LACTATED RINGERS 1,000 ML IV ONE
[2019-10-21] MEDS ORDERED: LACTATED RINGERS 1,000 ML IV STA (08:55)
--- NOTE | 2019-10-21 09:48 | Progress Note-Pre Operative ---
Pre-Operative Progress Note H&P Reviewed The H&P was reviewed, patient examined and no changes noted. Date Seen by Provider: Oct 21, 2019 Time Seen by Provider: 09:48 Date H&P Reviewed: Oct 21, 2019 Time H&P Reviewed: 09:48 Pre-Operative Diagnosis: blood in stool KODY VILLASEÑOR DO Oct 21, 2019 09:48
[2019-10-21] MEDS ORDERED: PROPOFOL INJECTION 50 ML IV ONE (10:23)
[2019-10-21] MEDS ORDERED: MIDAZOLAM 2 MG/2 ML (VERSED) VIAL ONE (10:23)
--- NOTE | 2019-10-21 10:43 | Anesthesia-General Post-Op ---
MAC Patient Condition Mental Status/LOC: Same as Preop Cardiovascular: Satisfactory Nausea/Vomiting: Absent Respiratory: Satisfactory Pain: Controlled Complications: Absent Post Op Complications Complications None Follow Up Care/Instructions Patient Instructions None needed. Anesthesiology Discharge Order Discharge Order Patient is doing well, no complaints, stable vital signs, no apparent adverse anesthesia problems. No complications reported per nursing. RAY SHARMA CRNA Oct 21, 2019 10:43
--- NOTE | 2019-10-21 10:46 | Progress Note-Post Operative ---
Post-Operative Progess Note Surgeon (s)/Tin Flopper (s) Surgeon KODY VILLASEÑOR DO Tin Flopper: na Pre-Operative Diagnosis blood in stool Post-Operative Diagnosis poor prep Procedure & Operative Findings Date of Procedure 10/21/19 Procedure Performed/Findings attempted colonoscopy Anesthesia Type per auto club travel counselor Estimated Blood Loss Estimated blood loss (mL): na Specimens/Packing Specimens Removed na KODY VILLASEÑOR DO Oct 21, 2019 10:46
--- NOTE | 2019-10-21 11:33 | OPERATIVE REPORT ---
DATE OF SERVICE: 10/21/2019 PREOPERATIVE DIAGNOSIS: Blood in stool. POSTOPERATIVE DIAGNOSIS: Poor prep. PROCEDURE: Attempted colonoscopy. SURGEON: Kody Hutton DO. ANESTHESIA: Per EMBEDDED SOFTWARE ENGINEER. ESTIMATED BLOOD LOSS: None. COMPLICATIONS: None. INDICATIONS: The patient is a 39-year-old male with blood in stool. He understands risks and benefits of procedure and wished to proceed with procedure. Consent was signed in the chart. DESCRIPTION OF PROCEDURE: The patient was taken to the endoscopy suite and placed in the left lateral recumbent position. Timeout was performed. Digital rectal exam was performed. No palpable polyps, masses or ulcerations. Scope was inserted in the rectum and encountered a large amount of stool, which then continued to be advanced into the rectum, which was still a significant amount of stool with a poor prep. Therefore, the procedure was aborted. Scope was then slowly retracted back until completely removed. The patient tolerated the procedure well without any complications. RECOMMENDATIONS: The patient will continue with prep today and n.p.o. after midnight and plan on repeating tomorrow if the patient is wishing to proceed tomorrow or we will plan a repeat colonoscopy in near future with a 2-day prep. Job ID: [id number] DocumentID: [id number] Dictated Date: 10/21/2019 10:48:48 Senior Manufacturing Supervisor Date: 10/21/2019 11:32:46 Dictated By: KODY HUTTON DO
== END 2019-10-21 11:25 | disposition home or self-care (01) ==
LOC: ENDO 08:46
PROVIDERS: ATTEND Surgery
DX: K92.1 Melena (principal); E66.9 Obesity, unspecified; N18.3 Chronic kidney disease, stage 3 (moderate); Z90.79 Acquired absence of other genital organ(s); Z79.899 Other long term (current) drug therapy; Z85.47 Personal history of malignant neoplasm of testis; Z79.891 Long term (current) use of opiate analgesic; Z53.8 Procedure and treatment not carried out for other reasons; Z68.38 Body mass index [BMI] 38.0-38.9, adult

== ENCOUNTER 2019-10-22 09:04 | Day surgery (SDC) | payer OTHER ==
[~2019-10-22] VITALS: Ht 177.8 cm; Wt 120.9 kg
[2019-10-22] VITALS (7 sets, daily range): BP systolic 112–135; BP diastolic 62–88
[~2019-10-22 09:04] MED LIST changes: -LACTATED RINGERS 1,000 ML IV ONE
[2019-10-22] MEDS ORDERED: LACTATED RINGERS 1,000 ML IV ONE (09:05)
[2019-10-22] MEDS ORDERED: LACTATED RINGERS 1,000 ML IV STA (09:06)
--- OUTSIDE RECORDS SUMMARY | 2019-10-22 09:28 | XMS REPORT | Clinical Summary ---
Author Author [facility] Organization [facility] Address Unknown Phone Unavailable Care Team Providers Care Address Change Clerk Name Role Phone Viv Guzman MD PCP Edison Mcdonnell MD Unavailable [phone] Source Comments Some departments are not documenting in the electronic medical record. If you d o not see the information that you expected, contact Release of Information in [facility] Pieceable Information Management department at [phone] for further assistan ce in locating additional records.[facility] Allergies No Known Allergies Medications End Date Status Medication Sig Dispensed Refills Start Date Active oxycodone/acetaminophen Take 1-2 Tabs 40 Tab 0 (PERCOCET) 10/325 mg by mouth 0 tablet Every 4 Hours as needed for Pain. Avoid driving while taking narcotic pain medications. Active docusate (COLACE) 100 mg Take 1 Cap by 60 Cap 0 capsule mouth Twice 0 Daily. Hold for loose stools Active Problems Problem Noted Date Testicular cancer Overview: Patient has a history of painless left testicular mass in the fall of 2007. 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 Post-operatively the patient was treate d with BEP chemotherapy. He completed one and 1/2 cycle and was lost to follow up. The patient relocated from [place] (site of his origi nal diagnosis and surgery) to [place], [place]. He started experienc ing significant back pain beginning the July of 2009. Imaging study was done in [place] demon strating recurrence in the retroperitoneum and elevation of LDH. He then started and completed 2 additional cycles of BEP. The patient had continued lymphadenopathy and elevated LDH following BEP. A CT guide d biopsy was conducted 09/07/2009 showing inflammation and necrosis witho ut evidence of neoplasia Family History Medical History Relation Name Comments Heart Disease Maternal Grandfather Relation Name Status Comments Father Alive Maternal Grandfather Mother Alive Social History Date Tobacco Use Types Packs/Day Years Used Never Smoker Drinks/Week oz/Week Comments Alcohol Use 0.0 occasional 2 per sun No Sex Assigned at Date Recorded Not on file Industry Job Start Date Occupation Not on file Not on file Not on file Travel End Travel History Travel Start No recent travel history available. Last Filed Vital Signs Reading Time Taken Comments Vital Sign 100/57 10/12/2009 10:00 AM CDT Blood Pressure 111 10/12/2009 10:00 AM CDT Pulse 37.3 C (99.1 F) 10/12/2009 10:00 AM CDT Temperature - - Respiratory Rate 92% 10/12/2009 10:00 AM CDT Oxygen Saturation - - Inhaled Oxygen Concentration 105 kg (231 lb 6.4 oz) 10/10/2009 9:55 AM CDT Weight 152.4 cm (5') 10/05/2009 10:00 AM CDT Height 45.19 10/05/2009 10:00 AM CDT Body Mass Index Plan of Treatment Health Maintenance Due Date Last Done Comments DTAP/TDAP VACCINES (1 - 01/29/1992 Tdap) HIV SCREENING 01/29/1996 HEPATITIS C SCREENING 1999 PHYSICAL (COMPREHENSIVE) 1999 EXAM INFLUENZA VACCINE 02/07/2020 Results Not on filefrom Last 3 Months
--- OUTSIDE RECORDS SUMMARY | 2019-10-22 09:29 | XMS REPORT ---
Author Author Iain Johnson Organization [facility] Address [address] [place], [place] [id number] Care Team Providers Care Communications Project Lead Name Role Phone Gennaro Johnson PCP Allergies and Adverse Reactions Name Reaction Notes No known drug allergy Plan of Treatment Planned Activity Comments Planned Date Planned Time Plan/Goal TESTOSTERONE FREE & TOTAL 02/21/2018 12:00 AM ESTROGEN SERUM TOTAL 02/21/2018 12:00 AM Medications Active Name Start Date Estimated Completion Date SIG Co mments AndroGel 1 % (25 mg/2.5gram) transdermal gel in packet 02/04/2018 03/06/2018 apply 1 packets by topical route once daily in the morning to shoulders/upper arms and/or abdomen divided evenly between areas Discontinued Name Start Date Discontinued Date SIG Comments AndroGel 1.62 % (20.25 mg/1.25 gram) transdermal gel in pack et 01/10/2018 2018 apply 2 packets (40.5 mg) by transdermal route once daily in the morning to each upper arm and shoulder for a total dose of 81 mg for 30 days Problem List Not available. Vital Signs Date Time BP-Sys(mm[Hg] BP-Grace(mm[Hg]) HR(bpm) RR(rpm) Temp WT HT HC BMI BSA BMI Percentile O2 Sat(%) 01/10/2018 9:03:00 AM 126 mmHg 76 mmHg 74 bpm 18 rpm 98.1 F 244 lbs 70 in 35.01 kg/m 2.338 m 95 % 12/17/2017 11:15:00 AM 112 mmHg 78 mmHg 76 bpm 18 rpm 97.9 F 244 lbs 70 in 35.01 kg/m2 2.34 m2 99.9 % 96 % Social History Name Description Comments Tobacco Never smoker denies alcohol use Single Moderate exercise Caffeine Current every day History of Procedures Date Ordered Description Order Status 01/10/2018 12:00 AM COMPLETE CBC W/AUTO DIFF WBC Reviewed 01/10/2018 12:00 AM METABOLIC PANEL TOTAL CA Reviewed 01/10/2018 12:[address] ABD & PELV W/CONTRAST Reviewed 01/10/2018 12:00 AM LACTATE (LD) (LDH) ENZYME Reviewed 01/10/2018 12:00 AM ALPHA-FETOPROTEIN SERUM Reviewed 01/10/2018 12:00 AM CHORIONIC GONADOTROPIN ASSAY Reviewed 01/10/2018 12:00 AM CHEST X-RAY 2VW FRONTAL&LATL Reviewed 01/10/2018 12:00 AM Testosterone 200mg Injection Reviewed 01/22/2018 12:00 AM Testosterone 200mg Injection Reviewed Results Summary Date and Description Results 01/10/2018 10:15 AM WBC 7.1 RBC 4.67 HGB 13.1 HC T 40.9 MCV 88 MCH 28.1 MCHC 32.0 RDW SD 42 RDW CV 13.0 MPV 9.8 PLT 329 NRBC# 0.00 NRBC% 0.0 %NEUT 64.4 %LYMP 23.9 %MONO 8.3 %EOS 2.7 %BASO 0.3 #NEUT 4.59 #LYMP 1.70 #MONO 0.59 #EOS 0.19 #BASO 0.02 MANUAL DIFF NOT IND LDH 210 GLUCOSE 114 SODIUM 142 POTASSIUM 4.4 CHLORIDE 104 CO2 27 BUN 19 CREATININE 1.2 CALCIUM 9.9 AGE 37 GFR NonAA 69 GFR AA 84 eGFR 69 eGFR AA* >60 BETA HCG QUANT <1 AFP, Serum, Tumor Marker 6.1 History Of Immunizations Not available. History of Past Illness Name Date of Onset Comments Testicular Cancer Encounter for occupational health examination Dec 17 2017 11 :23AM Testicular cancer Jan 10 2018 9:05AM Low testosterone in male Jan 10 2018 9:05AM Low testosterone in male Jan 22 2018 12:42PM Low testosterone in male Feb 05 2018 10:45AM Payers Insurance Name Company Name Plan Name Plan Number Policy Number Jb cy Group Number [facility] Date [id number]/ A [employer] [id number] N/A History of Encounters Visit Date Visit Type Provider 02/05/2018 Nurse visit Gennaro Johnson MD 02/05/2018 Office visit Aba Singh DO 01/22/2018 Nurse visit Gennaro Johnson MD 01/10/2018 Office visit Gennaro Johnson MD 12/17/2017 Office visit Val Salazar BASE BRANDER
--- OUTSIDE RECORDS SUMMARY | 2019-10-22 09:29 | XMS REPORT ---
Author Author Iain Johnson Organization [facility] Address [address] [place], [place] [id number] Care Team Providers Care Medical Office Receptionist Assistant Name Role Phone Gennaro Johnson PCP Allergies [...] 81 mg for 30 days Problem List Description Status Onset Ventral hernia, recurrent Active 02/05/2018 Vital Signs Date Time BP-Sys(mm[Hg] BP-Grace(mm[Hg]) HR(bpm) RR(rpm) Temp WT HT HC BMI BSA BMI Percentile O2 Sat(%) 02/05/2018 12:13:00 PM 122 mmHg 67 mmHg 78 bpm 20 rpm 96.6 F 244.5 lbs 70 i n 35.0817 kg/m 2.3404 m 01/10/2018 9:03:00 AM 126 mmHg 76 mmHg 74 bpm 18 rpm 98.1 F 244 lbs 70 in 35.01 kg/m2 2.34 m2 95 % 12/17/2017 11:15:00 AM 112 mmHg 78 mmHg 76 bpm 18 rpm 97.9 F 244 lbs 70 in 35.01 kg/m 2.338 m 99.9 % 96 % Social History Name [...] 01/22/2018 12:00 AM Testosterone 200mg Injection Reviewed 02/05/2018 12:00 AM Testosterone 200mg Injection Reviewed Results [...] Name Date of Onset Comments Testicular Cancer Ventral hernia, recurrent 02/05/2018 Encounter for occupational health examination Dec 17 2017 11 :23AM Testicular cancer Jan 10 2018 9:05AM Low testosterone in male Jan 10 2018 9:05AM Low testosterone in male Jan 22 2018 12:42PM Low testosterone in male Feb 05 2018 10:45AM Ventral hernia, recurrent Feb 05 2018 12:14PM Payers Insurance Name Company Name Plan Name Plan Number Policy Number Jb cy Group Number Start Date [facility] [id number] N/ A [facility] [id number] N/A History of Encounters Visit Date Visit Type Provider 02/05/2018 Nurse visit Gennaro Johnson MD 02/05/2018 Office visit Aba Singh DO 01/22/2018 Nurse visit Gennaro Johnson MD 01/10/2018 Office visit Gennaro Johnson MD 12/17/2017 Office visit Val Salazar ELECTRICAL AND INSTRUMENTATION MECHANIC
--- OUTSIDE RECORDS SUMMARY | 2019-10-22 09:29 | XMS REPORT ---
Author Author Iain Johnson Organization [facility] Address [address] [place], [place] [id number] Care Team Providers Care Migration Specialist Name Role Phone Gennaro Johnson PCP Allergies and Adverse Reactions Name Reaction Notes No known drug allergy Plan of Treatment Planned Activity Comments Planned Date Planned Time Plan/Goal TESTOSTERONE FREE & TOTAL 02/21/2018 12:00 AM ESTROGEN SERUM TOTAL 02/21/2018 12:00 AM Injection, Subcutaneous/IM 02/15/2018 12:00 AM Medications Active Name Start Date Estimated Completion Date SIG Co mments AndroGel 1.62 % (40.5 mg/2.5 gram) transdermal gel in packet 02/1203/14/2018 apply 1 packet (40.5 mg) by transdermal route once daily in the morning to each upper arm and shoulder for a total dose of 81 mg for 30 days Discontinued Name Start Date Discontinued Date SIG Comments AndroGel 1.62 % (20.25 mg/1.25 gram) transdermal gel in pack et 01/10/2018 2018 apply 2 packets (40.5 mg) by transdermal route once daily in the morning to each upper arm and shoulder for a total dose of 81 mg for 30 days AndroGel 1 % (25 mg/2.5gram) transdermal gel in packet 02/04/2018 02/12/2018 apply 1 packets by topical route once daily in the morning to shoulders/upper arms and/or abdomen divided evenly between areas Problem List Description Status Onset Ventral hernia, [...] Ventral hernia, recurrent Feb 05 2018 12:14PM Hypogonadism male Feb 15 2018 1:51PM Payers Insurance Name Company Name Plan Name Plan Number Policy Number Jb cy Group Number Start Date [id number] N/ A [facility] [id number] N/A History of Encounters Visit Date Visit Type Provider 02/15/2018 Nurse visit Gennaro Johnson MD 02/05/2018 Nurse visit Gennaro Johnson MD 02/05/2018 Office visit Aba Singh DO 01/22/2018 Nurse visit Gennaro Johnson MD 01/10/2018 Office visit Gennaro Johnson MD 12/17/2017 Office visit Val Salazar APRN
--- OUTSIDE RECORDS SUMMARY | 2019-10-22 09:29 | XMS REPORT ---
Author Author Iain Hector Organization [facility] Address [address] [place], [place] [id number] Care Team Providers Care Structurer Name Role Phone Bud Hector PCP Allergies and Adverse Reactions Name Reaction Notes No known drug allergy Plan of Treatment Planned Activity Comments Planned Date Planned Time Plan/Goal Injection, Subcutaneous/IM 02/15/2018 12:00 AM Medications Active [...] HC BMI BSA BMI Percentile O2 Sat(%) 03/05/2018 8:25:00 AM 124 mmHg 84 mmHg 78 bpm 16 rpm 98.2 F 249 lbs 70 in 35.7274 kg/m 2.3618 m 96 % 02/05/2018 12:13:00 PM 122 mmHg 67 mmHg 78 bpm 20 rpm 96.6 F 244.5 lbs 70 i n 35.08 kg/m2 2.34 m2 01/10/2018 9:03:00 AM 126 mmHg 76 mmHg 74 bpm 18 rpm 98.1 F 244 lbs 70 in 35.01 kg/m 2.338 m 95 % 12/17/2017 11:15:00 AM 112 mmHg 78 mmHg 76 bpm 18 rpm 97.9 F 244 lbs 70 in 35.01 kg/m 2.34 m2 99.9 % 96 % Social [...] 12:00 AM CHEST X-RAY 2VW FRONTAL&LATL Reviewed 02/21/2018 12:00 AM ASSAY OF TOTAL TESTOSTERONE Reviewed 02/21/2018 12:00 AM ASSAY OF ESTROGEN Reviewed 01/10/2018 12:00 AM Testosterone 200mg Injection Reviewed 01/22/2018 12:00 AM Testosterone 200mg Injection Reviewed 02/05/2018 12:00 AM Testosterone 200mg Injection Reviewed 02/15/2018 12:00 AM Testosterone 200mg Injection Reviewed Results [...] QUANT <1 AFP, Serum, Tumor Marker 6.1 02/22/2018 9:55 AM Estrogens, Total 159 Testost erone, Serum 847 Testosterone,Free 39.89 % Free Testosterone 4.71 History Of Immunizations Not available. History of [...] 12:14PM Hypogonadism male Feb 15 2018 1:51PM Mechanical low back pain Mar 05 2018 8:27AM Chronic pain syndrome Mar 05 2018 8:27AM Disc degeneration, lumbar Mar 05 2018 8:27AM Payers Insurance Name Company Name Plan Name Plan Number Policy Number Jb cy Group Number Start Date BCBS [facility] [id number] N/ A [facility] [id number] N/A History of Encounters Visit Date Visit Type Provider 03/05/2018 Office visit Bud Hector DO 02/15/2018 Nurse visit Gennaro Johnson MD 02/05/2018 Nurse visit Gennaro Johnson MD 02/05/2018 Office visit Aba Singh DO 01/22/2018 Nurse visit Gennaro Johnson MD 01/10/2018 Office visit Gennaro Johnson MD 12/17/2017 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
--- OUTSIDE RECORDS SUMMARY | 2019-10-22 09:29 | XMS REPORT ---
Author Author Iain Johnson Organization [facility] Address [address] [place], [place] [id number] Care Team Providers Care Cash Management Officer Name Role Phone Gennaro Johnson PCP Allergies [...] Jb cy Group Number Start Date [facility] [id number] N/ A [facility] [id number] N/A History of Encounters Visit Date Visit Type Provider 02/15/2018 Nurse visit Gennaro Johnson MD 02/05/2018 Nurse visit Gennaro Johnson MD 02/05/2018 Office visit Aba Singh DO 01/22/2018 Nurse visit Gennaro Johnson MD 01/10/2018 Office visit Gennaro Johnson MD 12/17/2017 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
--- OUTSIDE RECORDS SUMMARY | 2019-10-22 09:29 | XMS REPORT ---
Author Author Duable Chinese. Organization [employer] Address [address] [address] Care Team Providers Care Polishing Wheel Repairer Name Role Phone CUELLARROD ACE Unavailable Unavailable KATHLEEN DURON Unavailable Shelbie Singleton Unavailable CUELLARROD ACE CFVANESSA Unavailable NO, LOCAL PHYSICIAN Unavailable Unavailable ISABELA NINO Unavailable NO, LOCAL PHYSICIAN Unavailable Unavailable KATHLEEN DURON Unavailable Val Salazar Unavailable CUELLAR, ROD Unavailable CUELLAR, ROD Unavailable CUELLAR, ROD Unavailable [facility], Gennaro Unavailable CUELLAR, ROD [facility]available [facility], Gennaro Unavailable [facility], Gennaro Unavailable [facility], Gennaro Unavailable [facility], Gennaro Unavailable CUELLAR, ROD Unavailable [place], Gennaro Unavailable CUELLAR, ROD Unavailable CUELLAR, ROD Unavailable CUELLAR, ROD Unavailable Hector, Bud Unavailable CUELLAR, ROD Unavailable KIM CHENP Unavailable Unavailable SULMA FUENTES, MEHNAZ Kelsey Unavailable Unavailable MEHNAZ OZUNA MD Unavailable Unavailable ISABELA NINO Unavailable Unavailable SIMONE VILLALBA Unavailable Unavailable BRADY ALDRICH APRN Unavailable Unavailable KODY VILLASEÑOR DO Unavailable Unavailable LEIGHA WILEY MD Unavailable Unavailable CUELLARROD CFNP Unavailable Unavailable MELODY FUENTES, SAÚL Brennan Unavailable Unavailable SILVA, FRANCOIS Unavailable SAMIA WALSH, LILIANA Tabor Unavailable Unavailable Hector, Bud Unavailable SHIRA, FRANCOIS Unavailable Migration, Doctor Unavailable Unavailable Migration, Doctor Unavailable Unavailable Migration, Doctor Unavailable Unavailable CUELLAR, ROD R Unavailable Unavailable Migration, Doctor Unavailable Unavailable JAMIE FUENTES, JOSE R Puga Unavailable Unavailable Shelbie Singleton MD Unavailable Unavailable Physician, No Referring Unavailable Unavailable SULMA FUENTES, MEHNAZ Kelsey Unavailable Unavailable SULMA FUENTES, MEHNAZ Kelsey Unavailable Unavailable ISABELA NINO Unavailable Unavailable INEZ FUENTES, LEIGHA Brennan Unavailable Unavailable KIM CHEN RELATIONSHIP CONSULTANT Unavailable Unavailable CUELLAR, ROD R CFNP Unavailable Unavailable BRADY ALDRICH APRN Unavailable Unavailable KASI WALSH, KODY Faustin Unavailable Unavailable SIMONE VILLALBA RELATIONSHIP CONSULTANT Unavailable Unavailable FLORENTINO FUENTES, ANDRE Beck Unavailable Unavailable LESLEY DOMINGUEZ Unavailable Migration, Doctor Unavailable Unavailable KATHLEEN DURON PCP CUELLAR, ROD Unavailable CUELLAR, ROD Unavailable CUELLAR, ROD Unavailable Migration, Doctor Unavailable Unavailable Migration, Doctor Unavailable Unavailable CUELLAR, ROD Unavailable JAMIE FUENTES, JOSE R Puga Unavailable Unavailable CUELLAR, ROD Unavailable CUELLAR, ROD Unavailable CUELLAR, ROD Unavailable CUELLAR, ROD Unavailable Unavailable Unavailable CUELLAR, ROD Unavailable Allergies Normalized Allergy Reported Date of Reaction(s) Care Provider Facility Allergy Type classification allergen Allergy Onset DA (22 Unclassified No Known Drug 07-16-2009 - no information ISABELA NINO Not Available sources.) Allergies (36661) Medications Current Medications Medication Ingredient Drug Dose Dates Status Sig Sig Care Class(es) (Normalized) (Original) Provid er amoxicillin Amoxicillin Penicillin- 1000 11-28-19 Active take 2 Amoxicillin no 500 mg oral Translation class mg 13 capsules by 500 mg 2 name capsule (1 s: [ Antibacteri mouth twice capsule by (no source.) Amoxicillin al daily Oral route 2 phone) 500 mg] times per day for 10 day(s) November, Active no carbamide no 3 11-28-19 Active no Debrox 6.5 % no information peroxide information drop(s 13 information 3 drop by name (1 source.) ) Otic route 2 (no times per phone) day for 4 day(s) November, Active gabapentin gabapentin Anti-epilep 800 mg 07-25-19 Active no Gabapentin no 800 mg oral Translation tic Agent 18 information 800 MG name tablet (5 s: [ Orally Three (no sources.) Gabapentin times a day phone) 300 MG, 1 capsule 8h gabapentin Jul, 800 MG Oral 28 days Tablet, Active Gabapentin 800 MG, Gabapentin 800 MG] 300 mg 07-25-2017 Active no Gabapent no name inform in 300 (no ation MG phone) Orally Three times a day 1 capsule 1 tab qhs x 5 d then bid x 5 d then tid 8h Jul, 30 day(s) Active no Neomycin-Po no 12-21-19 Active no Neomycin-Negrito no information lymyxin-HC information 13 information ymyxin- HC name (1 source.) 3.5-10,000- 3.5-10,000-1 (no 1 mg-unit/mL-% phone) mg-unit/mL- 4 drop by % Otic route 4 times per day for 7 day(s) Dec, Active no Neomycin-Po no 2 03-27-20 Active no Neomycin -Negrito no information lymyxin-HC information drop(s 14 information ymyx in-HC name (1 source.) 3.5-10,000- ) 3.5-10,000-1 (no 1 mg/mL-unit/m phone) mg/mL-unit/ L-% 2 drop mL-% by Otic route 4 times per day for 7 day(s) Mar, Active predniSONE predniSONE Corticoster 20 mg 06-11-20 Active no PredniSONE no 20 mg oral Translation oid 17 - information 20 mg Orall y name tablet (2 s: [ 03-06-20 Once a day 1 (no sources.) PredniSONE 18 tablet 24h phone) 20 mg] Feb, Feb, 05 days Active sulfamethox Sulfamethox Dihydrofola 02-04-20 Active take 1 Bactr im DS no azole 800 azole / te 14 tablet by 800-160 mg 1 nam e mg / Trimethopri Reductase mouth twice tablet by (no trimethopri m Inhibitor daily Oral route 2 phone ) m 160 mg Translation Antibacteri times per oral tablet s: [ al, day for 7 (1 source.) Bactrim DS Sulfonamide day(s) 29 800-160 mg] Antimicrobi Jan, 2014 al Active Completed/Discontinued Medications Medication Ingredient Drug Dose Dates Status Sig Sig Care Class(es) (Normalized) (Original) Provid er anastrozole anastrozole Aromatase 1 mg 04-10-20 no take 1 anastrozole no 1 mg oral Translation Inhibitor 18 - informat tablet by 1 mg o ral name tablet (1 s: [ 06-04-20 ion mouth every tablet (no source.) anastrozole 19 other day 04/10/2018 phone) 1 MG Oral 06/04/2019 Tablet] take 1 tablet (1 mg) by oral route every other day no BD Regular no 04-10-20 no no BD Regular no information Bevel information 18 - informat information Bevel name (1 source.) [place] 05-29-20 ion [place] 20 (no 18 gauge x 1 phone) 07/10" miscellaneou s needle 04/10/2018 05/29/2018 use as directed for 7 days no Docusate no 05-05-20 Complete no Docusate Kody information Sodium information 14 - d information Sodium D (1 source.) (Colace 10-03-19 (Colace Villaseñor Capsule) 15 Capsule) 100 (no 100 Mg Cap, Mg Cap, 100 phone) 100 Mg Oral Mg Oral Twice A Day 05/05/14 Discontinued meloxicam meloxicam Nonsteroida 10 mg 03-07-20 Complete take 1 Vivlodex 10 no 10 mg oral Translation l 18 - d capsule by mg oral n carlos capsule (1 s: [ Anti-inflam 04-06-20 mouth once capsule (no source.) meloxicam [facility] 18 daily 03/07/2018 erasto ne) 10 MG Oral 04/06/2018 Capsule] take 1 capsule (10 mg) by oral route once daily for 30 days sildenafil sildenafil Phosphodies 50 mg 04-10-20 no take 1 sildenafil no 50 mg oral Translation terase 5 18 - informat tablet by 50 mg oral name tablet (1 s: [ Inhibitor 05-10-20 ion mouth once tablet (n o source.) sildenafil 18 daily as 04/10/2018 phone) 50 MG Oral needed 05/10/2018 Tablet] take 1 tablet (50 mg) by oral route once daily as needed approximatel y 1 hour before sexual activity for 30 days no Syringe no 04-10-20 no no Syringe no information 3cc/20Gx1" information 18 - informat informatio n 3cc/20Gx1" 3 name (1 source.) 05-10-20 ion mL 20 gauge (no 18 x 1" phone) miscellaneou s syringe 04/10/2018 05/10/2018 use as directed for 30 days traMADol traMADol Opioid 50 mg 01-16-20 Complete take 1 Tramado l Hcl Andre hydrochlori Translation Agonist 19 d tablet by (Ultram) 50 T de 50 mg s: [ mouth every Mg Tablet 50 Bruegg oral tablet Tramadol six hours as Mg ORAL emann (2 HCl 50 mg, needed for Every 6 (no sources.) tramadol pain Hours as phone) hydrochlori needed for de 50 MG Pain-Moderat Oral Tablet e To Severe [Ultram]] 10 Tab 01/15/19 50 mg 12-11-2017 Active no Tramadol no name inform HCl 50 (no ation mg phone) Orally 2 times a day 1 tablet as needed 12h 05 Dec, 2017 Active Problems Active Problems Problem Normalized Date of Normalized Normalized Provider Fac ility Classification Problem(s) Problem Problem Problem Sta tus Onset/Resoluti Duration on Unclassified Abnormal Chronic Active [facility] Via (11 sources.) findings on Ginny GOOD MD [facility] other (03961) specified body structures Translations: [ - Abnormal chest xray R93.89] Other Body mass Chronic Active ROD CUELALRMALKA Hernandez ty nutritional; index 30+ - [address] [facility] endocrine; and obesity of [facility] metabolic Translations: [place] (13472) disorders (3 [ Obesity (BMI sources.) 30-39.9)] Chronic kidney Chronic kidney Chronic Active ISABELA NINO Not Available disease (25 disease, stage (19626) sources.) 3 (moderate) Translations: [ CHRONIC KIDNEY DISEASE, 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] Other nervous Chronic pain 03-05-2018 - Chronic Active Aadity a [facility] syndrome [address] Physicians disorders (2 Group (59356) sources.) ( ) Administrative Counseling, Episodic Active ROD CUELLAR Community /social unspecified [address] [facility] admission (1 Translations: of [facility] source.) [ - Counseled [place] (25903) by nurse Z71.9] 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 [facility] Vi a failure; supplemental Ginny GOOD insufficiency; oxygen Hospital - arrest (adult) [place] (6 sources.) ([address]) Other Diarrhea Episodic Active ISABELA NINO [facility] Via gastrointestin Ginny al disorders Hospital - (1 source.) [place] ([address]) Other male Disorder of Episodic Active LEIGHA ESCOBEDOWIL , [facility] V ia genital male genital MD Gross disorders (20 organs, Hospital - sources.) unspecified [place] ([address]) Maintenance Encounter for Chronic Active ISABELA NINO [facility] Via chemotherapy; antineoplastic [facility] radiotherapy chemotherapy Hospital - (1 source.) [place] ([address]) Other Encounter for Episodic Active KIM CHEN Not Available aftercare (24 follow-up (87824) sources.) examination after completed treatment for malignant neoplasm Immunizations Encounter for Episodic Active LEIGHA INEZ [facility] Via and screening screening for MD Gross for infectious other Hospital - disease (12 bacterial [place] sources.) diseases (88001) Translations: [ - Exposure to 2019-nCoV Z20.828] Other Follow-up Episodic Active ISABELA NINO Not Avail able aftercare (23 examination, (34092) sources.) following chemotherapy Unclassified Headache no information Active ROD CUELLAR Jason (4 sources.) disorder [address] [facility] Translations: of [facility] [ Other [place] (45564) headache syndrome] Residual Insomnia, Episodic Active ISABELA NINO Not Avail able codes; unspecified (02825) unclassified (21 sources.) Leukemias (2 Myeloid Chronic Active ISABELA NINO [facility] Via sources.) leukemia, Ginny unspecified, Hospital - not having [place] achieved (56781) remission Other Obesity, Chronic Active ROD CUELLAR Communit y nutritional; unspecified [address] [facility] endocrine; and Translations: of [facility] metabolic [ - Obesity [place] (87543) disorders (4 (BMI 30-39.9) sources.) E66.9] Cancer; other Other and Episodic Active Gennaro [facility] and unspecified [address] Physicians unspecified personal Group (66945) primary (9 history of (Work Phone: sources.) malignant ) neoplasm Spondylosis; 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 ROD Gomez intervertebral intervertebral [id number] [place] [address] disc disc of [facility] disorders; displacement, [place] ([address]25) other back lumbar region problems (20 Translations: sources.) [ - Bulging lumbar disc M51.26, - Bulging of intervertebral disc between L4 and L5 M51.26, Osteoarthritis of lumbar spine, unspecified spinal osteoarthritis complication status, Osteoarthritis of lumbar spine, unspecified spinal osteoarthritis complication status, Degeneration of thoracic or lumbar intervertebral disc; lumbar or lumbosacral intervertebral disc, - Bulging lumbar disc M51.26, - Bulging of intervertebral disc between L4 and L5 M51.26, Osteoarthritis of lumbar spine, unspecified spinal osteoarthritis complication status, - Osteoarthritis of lumbar spine, unspecified spinal osteoarthritis complication status M47.816, Bulging of intervertebral disc between L4 and L5, Bulging lumbar disc] Other Other long Episodic Active KIM CHEN Not Vale ilable aftercare (21 term (current) (14937) sources.) drug therapy Malignant Other Chronic Active ISABELA DOVE Via neoplasm malignant Ginny without neoplasm Hospital - specification without [place] of site (1 specification (96478) source.) of site Other lower Other Episodic Active ISABELA NINO [facility] Via respiratory respiratory Ginny disease (1 abnormalities Hospital - source.) [place] ([address]) Other Overweight Episodic Active ROD [place] ity nutritional; Translations: [address] [facility] endocrine; and [ - Overweight of [facility] metabolic 278.02] [place] ([address]763) disorders (6 sources.) Other Peritoneal Episodic Active ROD [place] ity gastrointestin adhesions [address] [facility] al disorders (postprocedura of [facility] (3 sources.) l) [place] (82740) (postinfection ) Translations: [ - Abdominal adhesions K66.0] Residual Personal Episodic Active ISABELA DOVE Via codes; history of Ginny unclassified antineoplastic Hospital - (4 sources.) chemotherapy [place] (50053) Other Plantar Episodic Active ROD eSlf y connective fasciitis [address] [facility] Center tissue disease Translations: [place] (20 sources.) [ Plantar [place] (81009) fasciitis, - Plantar fasciitis M72.2, Plantar fasciitis] Abdominal Recurrent 02-05-2018 - Episodic Active JOSE R Pimentel Not Available hernia (20 hernia of MD (21216) sources.) anterior abdominal wall Translations: [ Ventral hernia, recurrent, Ventral hernia, recurrent, Other hernia of abdominal cavity without mention of obstruction or gangrene; ventral hernia; incisional, Ventral hernia, recurrent, Ventral hernia, recurrent, - Umbilical hernia without obstruction and without gangrene K42.9] Other Testicular 02-22-2018 - Chronic Active ISABELA NINO Not Available endocrine hypofunction (21431) disorders (20 Translations: sources.) [ Testicular hypofunction, - Hypogonadism male E29.1] Unclassified no information no information Active KATHLEENMika DURON [place] Via (4 sources.) [address] [facility] (59711) Past or Other Problems Problem Normalized Date of Normalized Normalized Provider Fac ility Classification Problem(s) Problem Problem Problem Sta tus Onset/Resoluti Duration on Acute and Acute kidney Episodic Completed MEHNAZ OZUNA [facility] V ia unspecified failure, MD Ginny renal failure unspecified Hospital - (9 sources.) [place] ([address]35) Anal and Anal fissure Episodic Completed KODY VILLASEÑOR [facility] Via rectal DO Ginny conditions (10 Hospital - sources.) [place] ([address]48) External cause Civilian no information no information LILIANA GRACIA DO Not Available codes: activity done (66308) Unspecified for income or (14 sources.) pay Translations: [ OTHER ACTIVITY INVOLVING CARDIORESPIRAT O, OTHER EXTERNAL CAUSE STATUS] External cause Civilian Episodic Completed SIMONE VILLALBA [facility] Via codes: activity done Ginny Unspecified (3 for income or Hospital - sources.) pay [place] (59137) Intracranial Concussion 10-31-2016 - Episodic Completed Ti Ferro Not Available injury (4 without loss Kelsea DO (60325) sources.) of consciousness, initial encounter Translations: [ CONCUSSION WITHOUT LOSS OF CONSCIOUSNESS, SUBS ENCNTR] External cause Exposure to 10-31-2016 - no information no inform ation Ti Ferro Not Available codes: other Norddarryl , DO (92238) Natural/enviro specified nment (2 factors, sources.) subsequent encounter External cause Fall on and no information no information SIMONE DEEJAY Not Available codes: Fall (7 from ladder, (34599) sources.) initial encounter External cause Fall on and Episodic Completed SIMONE DEEJAY [facility] Via codes: Fall (3 from ladder, Ginny sources.) initial Hospital - encounter [place] (57260) Medical Health 12-17-2017 - Episodic Completed [facility] [place] [address] Physicians aluation (9 defined Group (66004) sources.) subpopulations ( ) Other lower Hypoxemia Episodic Completed MEHNAZ OZUNA [facility] Vi a respiratory , MD Gross disease (9 Hospital - sources.) [place] ([address]56) Other Long-term Episodic Completed HILAH CHEN [facility] Via aftercare (11 (current) use [place] sources.) of other Hospital - medications [place] (83104) NEGATED Other general 10-25-2016 - Episodic Completed MD Mani Not Available no symptoms and (03305) information (2 signs sources.) External cause Other no information no information LILIANA SAMIA , DO Not Available codes: overexertion (36261) Overexertion and strenuous (5 sources.) and repetitive movements or loads Residual Other no information no information HILAH CHEN [facility] Via codes; specified Ginny unclassified postprocedural Hospital - (2 sources.) states [place] (12840) Residual Other Episodic Completed HILAH CHEN [facility] Via codes; specified Ginny unclassified postprocedural Hospital - (2 sources.) [facility] (70054) Residual Personal Episodic Completed BOBAN MICA Not Availa ble codes; history of (83350) unclassified antineoplastic (22 sources.) chemotherapy Cancer of Personal Episodic Completed BOBAN MICA Not Availa ble testis (23 history of (57449) sources.) malignant neoplasm of testis Translations: [ PERSONAL HISTORY OF MALIGNANT NEOPLASM O] Other lower Personal Episodic Completed ANDRE [facility] Via respiratory history of Ginny GOOD disease (12 pneumonia Hospital - sources.) (recurrent) [place] (57441) External cause [employer], no information no information EVIE L DEEJAY Not Available codes: Place store or (64336) of occurrence market as the (7 sources.) [address] of occurrence of the external cause External cause [employer], Episodic Completed SIMONE DEEJAY [facility] Via codes: Place store or Ginny of occurrence market as the Hospital - (3 sources.) place [facility] occurrence of (03474) the external cause Procedures Procedure Normalized Procedure Procedure Result Performer Facility Date 01-10-2018 Alpha-fetoprotein no information no name (no phone) [facility] 01-10-2018 (62268) (Work Phone: - ) 01-10-2018 02-21-2018 Assay of estrogens no information no name (no phone ) [facility] total [facility] 02-21-2018 (25666) (Work Phone: - ) 02-21-2018 02-21-2018 Assay of testosterone no information no name (no ph one) [facility] total [facility] 02-21-2018 (22030) (Work Phone: - ) 02-21-2018 09-01-2013 Assay of testosterone no information no name (no ph one) [facility] total [facility] (11779) 09-01-2013 Assay of thyroid no information no name (no phone) [facility] stimulating hormone [facility] (93585) 01-10-2018 Basic metabolic panel no information no name (no ph one) [facility] calcium total [facility] 01-10-2018 (77452) (Work Phone: - ) 01-10-2018 10-16-2013 Betamethasone acet&sod no information no name (no p dorota) [facility] phosp [facility] (97994) 01-10-2018 Blood count complete no information no name (no erasto ne) [facility] - auto&auto difrntl wbc [facility] [place] up 01-10-2018 (85607) (Work Phone: - ) 01-10-2018 09-01-2013 Blood count complete no information no name (no erasto ne) [facility] auto&auto difrntl [facility]bc [facility] (02562) 01-10-2018 Chest x-ray no information no name (no phone) [facility] 01-10-2018 (13697) (Work Phone: - ) 01-10-2018 09-01-2013 Collection venous no information no name (no phone) [facility] blood venipuncture [facility] (34934) 09-01-2013 Comprehensive no information no name (no phone) [facility] metabolic panel [facility] (81503) 01-10-2018 Ct abdomen & pelvis no information no name (no phon e) [facility] - w/contrast material [facility] 01-10-2018 ([id number]) (Work Phone: - ) 01-10-2018 01-10-2018 Gonadotropin chorionic no information no name (no p dorota) [facility] - qualitative [facility] 01-10-2018 ([id number]) (Work Phone: - ) 01-10-2018 02-15-2018 Inj testosterone no information no name (no phone) [facility] - cypionate [facility] 02-15-2018 (04130) (Work Phone: - ) 02-15-2018 02-05-2018 Inj testosterone no information no name (no phone) [facility] - cypionate [facility] 02-05-2018 ([id number]) (Work Phone: - ) 02-05-2018 01-22-2018 Inj testosterone no information no name (no phone) [facility] - cypionate [facility] 01-22-2018 ([id number]) (Work Phone: - ) 01-22-2018 01-10-2018 Inj testosterone no information no name (no phone) [facility] - cypionate [facility] 01-10-2018 ([id number]) (Work Phone: - ) 01-10-2018 01-10-2018 Lactate dehydrogenase no information no name (no ph one) [facility] - ldh [facility] 01-10-2018 ([id number]) (Work Phone: - ) 01-10-2018 04-08-2014 Therapeutic no information no name (no phone) [facility] prophylactic/dx [facility] injection subq/im [place] (99240) 10-16-2013 Therapeutic no information no name (no phone) Comm [facility] prophylactic/dx [facility] injection subq/im [place] (17928) 10-16-2013 Triamcinolone acet inj no information no name (no p dorota) [facility] NOS [facility] (62538) 07-25-2017 Urinalysis, auto, w/o no information no name (no ph one) [facility] scope [facility] (11335) 02-03-2014 Urnls dip stick/tablet no information no name (no p dorota) [facility] rgnt auto w/o [facility] (07510) Immunizations The data below is from unstructured sourcesNo immunization records.No immunization records.No immunization records.No immunization records.No immunization records.No immunization records.No immunization records.No immunization records.No immunization records.No immunization records. No immunization records.No immunization records.No immunization records.No immun ization records.No immunization records.No immunization records.No immunization records.No immunization records.No immunization records.No immunization records. No immunization records.Not available.Not available. No Known Immunizations No Known Immunizations No Known Immunizations No Known Immunizations No Known Immunizations No Known ImmunizationsNot available.Not available. No Known Immunizations No Known Immunizations No Known Immunizations No Known Immunizations No Known Immunizations No Known ImmunizationsNot available.Not available.Not available.Not available.Not available.Not available.Not available.Not available.Not available.Not available. No Known Immunizations No Known ImmunizationsNot available.Not available. No Known Immunizations No Known ImmunizationsNot available.Not available. No Known Immunizations No Known Immunizations No Known Immunizations No Known ImmunizationsNot available.Not available. No Known Immunizations No Known Immunizations No Known Immunizations No Known ImmunizationsNot available.Not available. No Known Immunizations No Known Immunizations No Known Immunizations No Known Immunizations No Known Immunizations No Known Immunizations No Known Immunizations No Known Immunizations No Known Immunizations No Known Immunizations No Known Immunizations No Known Immunizations No Known Immunizations No Known Immunizations No Known Immunizations No Known Immunizations No Known Immunizations No Known Immunizations No Known Immunizations No Known Immunizations No Known Immunizations No Known Immunizations No Known Immunizations No Known Immunizations No Known Immunizations No Known Immunizations No Known Immunizations No Known Immunizations No Known Immunizations No Known Immunizations No Known Immunizations No Known Immunizations Results Test Name Value Interpretation Reference Range Date Time Fa cility (Normalized) (Normalized) (Medline Reference) ua long dip (in house) on null Glucose no information (no code) 60 - 125 mg/dL [facility] ([id number]) pH of blood 5.5 [pH] (no code) 7.35 - 7.45 [pH] [facility] (68860) Urine, clarity clear (no code) [facility] (40694) Urine, color yellow (no code) [facility] (89516) Urine, protein no information (no code) 0 - 150 mg/dL [facility] (82476) UA LONG DIP (IN 04/2018 (no code) [facility]) [facility] (22196) UA LONG DIP (IN no information (no code) [facility]) [facility] (14662) UA LONG DIP (IN 727336 (no code) [facility]) [facility] (01701) UA LONG DIP (IN no (no code) [facility]) [facility] ([id number]) UA LONG DIP (IN 1.010 (no code) [facility]) [facility] ([id number]) UA LONG DIP (IN 0.2 (no code) [facility]) [facility] ([id number]) mri : lumbar w/o contrast on null NEGATED: no information (no code) [facility] Studies (06047) No panel information on null Control neg~neg~+ (no code) [facility] (23445) Control neg~+ (no code) [facility] (01748) Exp date 05/30 (no code) [facility] (05163) Exp date 01/21/22 (no code) [facility] (12745) Lot # [id number] (no code) [facility] (21980) Lot # [id number] (no code) [facility] (88855) No panel information on 2018-11-05 Testosterone 10 ng/dL (L) [facility] [Mass/Vol] [facility] (70533) No panel information on 2018-03-03 % Free 4.71 (H) 03-03-2018 [facility] (52602 ) Testosterone 18:01-0400 Testosterone,Connor 39.89 (H) 03-03-2018 [facility] ( 85845) e 18:01-0400 No panel information on 2018-02-27 Estrogens, Total 159 (H) 02-27-2018 [facility] ( 18634) 03:50-0400 No panel information on 2018-02-23 Testosterone 847 ng/dL (no code) 02-23-2018 [facility] (0000 0) mass conc 08:52-0400 No panel information on 2018-02-22 no information 159 (no code) 02-22-2018 [place] [facility] 10:55-0400 [facility] (15012) ( ) no information 4.71 (no code) 02-22-2018 [place] [facility] 10:55-0400 [facility] ([id number]) ( ) no information 39.89 (no code) 02-22-2018 [place] [facility] 10:[id number] [facility] (05487) ( ) no information 847 (no code) 02-22-2018 [place] [facility] 10:55-0400 [facility] (09323) ( ) No panel information on 2018-01-11 AFP.tumor marker 6.1 ng/mL (no code) 0 - 10 ng/mL 01-11-2018 No t Available mass conc 12:43-0400 ([id number]) No panel information on 2018-01-10 Basophils Auto 0.02 10*3/uL (no code) 0 - 0.3 10*3/uL 01-10-2018 [facility]vol (Bld[facility] 11:15-0400 [facility] (58209) ( ) BUN (urea 19 mg/dL (no code) 6 - 20 mg/dL 01-10-2018 [place] [facility]) 11: [facility] (12405) ( ) Calcium 9.9 mg/dL (no code) 8.5 - 10.2 mg/dL 01-10-2018 [facility] 11: [facility] (71690) ( ) Chloride 104 mmol/L (no code) 95 - 106 mmol/L 01-10-2018 [facility] 11: [facility] (48368) ( ) CO2 27 mmol/L (no code) 23 - 29 mmol/L 01-10-2018 [facility] 11: [facility] ([id number]) ( ) Creatinine 1.2 mg/dL (no code) 01-10-2018 [facility] 11: [facility] (44144) ( ) eGFR (non-black) 69 (no code) 01-10-2018 [facility] mL/min/{1.73_m2} mL/min/{1.73_m2} 11: [facility] ([id number]) ( ) eGFR (non-black) 84 (no code) 01-10-2018 [facility] mL/min/{1.73_m2} mL/min/{1.73_m2} 11: [facility] ([id number]) ( ) eGFR (non-black) mL/min/{1.73_m2} (no code) 01-10-2018 [place] [facility] mL/min/{1.73_m2} 11:15 [facility] ([id number]) ( ) Erythrocytes 0.00 10*6/uL (no code) 4.2 - 6.1 01-10-2018 [facility] (RBC) 10*6/uL 11: [facility] ([id number]) ( ) Erythrocytes 4.67 10*6/uL (no code) 4.2 - 6.1 01-10-2018 [facility] (RBC) 10*6/uL 11: [facility] (04759) ( ) Glucose 114 mg/dL (no code) 60 - 125 mg/dL 01-10-2018 [facility] 11: [facility] (00374) ( ) Glucose mass 114 mg/dL (no code) 60 - 125 mg/dL 01-10-2018 [facility] 11: [facility] ([id number]) ( ) Hematocrit (HCT) 40.9 % (no code) 36.1 - 50.3 % 01-10-2018 [facility] 11: [facility] ([id number]) ( ) Hemoglobin (HGB) 13.1 g/dL (no code) 12.1 - 17.2 g/dL 01-10-2018 [facility] 11:15 [facility] (26904) ( ) MCH 28.1 pg (no code) 27 - 31 pg 01-10-2018 [place] [facility] 11: [facility] (59033) ( ) MCHC 32.0 g/dL (no code) 32 - 36 g/dL 01-10-2018 [place] [facility] 11: [facility] ([id number]) ( ) MCV 88 fL (no code) 80 - 100 fL 01-10-2018 [place] [facility] 11: [facility] (06682) ( ) Platelet mean 9.8 fL (no code) 7.2 - 11.7 fL 01-10-2018 [facility] volume (PMV) 11:15 [facility] (28368) ( ) Potassium 4.4 mmol/L (no code) 3.7 - 5.2 mmol/L 01-10-2018 [facility] 11:15 [facility] (66551) ( ) RDW-CA 13.0 % (no code) 11.6 - 14.6 % 01-10-2018 [facility] 11: [facility] ([id number]) ( ) Sodium 142 mmol/L (no code) 135 - 145 mmol/L 01-10-2018 [facility] 11: [facility] ([id number]) ( ) WBC (Leukocytes) 7.1 10*3/uL (no code) 3.5 - 10.5 01-10-2018 [facility] 10*3/uL 11: [facility] (61791) ( ) no information 0.02 (no code) 01-10-2018 [place] [facility] 11: [facility] (44754) ( ) no information NOT IND (no code) 01-10-2018 [place] [facility] 11:15 [facility] (43758) ( ) no information 210 (no code) 01-10-2018 [place] [facility] 11: [facility] (12063) ( ) no information 329 (no code) 01-10-2018 [place] [facility] 11: [facility] (64538) ( ) no information 0.59 (no code) 01-10-2018 [place] [facility] 11:15 [facility] (34897) ( ) no information 0.0 (no code) 01-10-2018 [place] [facility] 11:15-0400 [facility] (06766) ( ) no information 64.4 (no code) 01-10-2018 [place] [facility] 11:15-0400 [facility] (95740) ( ) no information 23.9 (no code) 01-10-2018 [place] [facility] 11:15-0400 [facility] (09299) ( ) no information 8.3 (no code) 01-10-2018 [place] [facility] 11:15-0400 [facility] (84335) ( ) no information 2.7 (no code) 01-10-2018 [place] [facility] 11:15-0400 [facility] (44730) ( ) no information 0.3 (no code) 01-10-2018 [place] [facility] 11:15-0400 [facility] (43374) ( ) no information 36 (no code) 01-10-2018 [place] [facility] 11:15-0400 [facility] (09217) ( ) no information 4.59 (no code) 01-10-2018 [place] [facility] 11:15-0400 [facility] (82590) ( ) no information 1.70 (no code) 01-10-2018 [place] [facility] 11:15-0400 [facility] (62338) ( ) no information 42 (no code) 01-10-2018 [place] [facility] 11:15-0400 [facility] (57264) ( ) no information 0.19 (no code) 01-10-2018 [place] [facility] 11:15-0400 [facility] (24204) ( ) no information <1 (no code) 01-10-2018 [facility] 11:15-0400 [facility] (31279) ( ) no information 6.1 (no code) 01-10-2018 [facility] 11:15-0400 [facility] (59381) ( ) no information 69 (no code) 01-10-2018 [facility] 11[facility]15-0400 [facility] (94537) ( ) no information 84 (no code) 01-10-2018 [facility] 11:150400 [facility] (17048) ( ) no information >60 (no code) 01-10-2018 [facility] 11:150400 [facility] (66742) ( ) no information 0.00 (no code) 01-10-2018 [facility] 11:150400 [facility] (87730) ( ) No panel information on 2017-12-18 MeV IgG IA Qn >300.0 (no code) 12-18-2017 [facility] (000 00) (S) 17:38-0400 MuV IgG IA Ql <9.0 (L) 12-18-2017 [facility] (000 00) (S) 17:38-0400 Rubella virus 26.70 (no code) 12-18-2017 [facility] (000 00) IgG Qn (S) 17:38-0400 No panel information on 2017-07-26 BLO no information (no code) [facility] (45729) KET 04/2018~clear~ye (no code) [facility] llow~no~neg~neg~ [facility] (16309) BIRGIT neg~neg (no code) [facility] (22647) Lot # [id number] (no code) [facility] (29422) pH (Bld) 5.5 [pH] (no code) 7.38 - 7.42 [pH] [facility] (97181) Protein mass no information (no code) 0 - 20 mg/dL [facility] (U) [facility] (90803) SG 1.010 (no code) [facility] (08136) URO 0.2 (no code) [facility] (63489) Vital Signs Vital Sign Value Interpretation Reference Date Time Care Prov ider Facility (Normalized) (Normalized) Range BMI (Body Mass 33.49 kg/m2 (no code) 15 - 25 kg/m2 05-07-2018 [place] [facility] Index) 12:40-0400 [id number] [facility] ([id number]) BMI (Body Mass 35.73 kg/m2 (no code) 15 - 25 kg/m2 03-05-2018 A misty Martineza [place] [facility] Index) 09:25-0400 [id number] [facility] ([id number]) ( ) BMI (Body Mass 36.01 kg/m2 (no code) 15 - 25 kg/m2 03-01-2018 [place] [facility] Index) 17:20-0400 38152 [facility] (88805) BMI (Body Mass 35.08 kg/m2 (no code) 15 - 25 kg/m2 02-05-2018 L [employer] [place] [facility] [place] [facility] Index) 13:13-0400 54149 [facility] ([id number]) ( ) BMI (Body Mass 35.01 kg/m2 (no code) 15 - 25 kg/m2 01-10-2018 L [employer] [place] [facility] [place] [facility] Index) 10:03-0400 07045 [facility] ([id number]) ( ) BMI (Body Mass 35.01 kg/m2 (no code) 15 - 25 kg/m2 12-17-2017 A zay Salazar [place] [facility] Index) 12:15-0400 [facility] ([id number]) ( ) BMI (Body Mass 35.09 kg/m2 (no code) 15 - 25 kg/m2 12-11-2017 [facility] Index) 15:20-0400 89576 [facility] (08260) BMI (Body Mass 35.15 kg/m2 (no code) 15 - 25 kg/m2 11-19-2017 [facility] Community Index) 16:00-0400 39319 [facility] ([id number]) BMI (Body Mass 35.74 kg/m2 (no code) 15 - 25 kg/m2 10-22-2017 [facility] Index) 16:40-[id number] [place] [address] (86885) BMI (Body Mass 34.38 kg/m2 (no code) 15 - 25 kg/m2 07-25-2017 [facility] Index) 16:20-[id number] [place] [address] ([id number]) BMI (Body Mass 35.35 kg/m2 (no code) 15 - 25 kg/m2 04-26-2017 [facility] Index) 16:00-[id number] [place] [address] ([id number]) Body height 177.8 cm (no code) cm 02-03-2014 [facility] 15:38-[address] [place] [address] ([id number]) Body height 177.8 cm (no code) cm 10-16-2013 [facility] 16:16-[address] [place] [address] (32824) Body height 177.8 cm (no code) cm 10-02-2013 [facility] 16:45-[id number] [place] [address] ([id number]) Body height 177.8 cm (no code) cm 09-15-2013 [facility] 11:42-[id number] [place] [address] ([id number]) Body height 177.8 cm (no code) cm 09-01-2013 [facility] 12:30-[address] [place] [address] ([id number]) Body 97.5 [degF] (no code) 97.8 - 99.0 05-07-2018 FRANCOIS Kelsey [facility] Temperature [degF] 12:40-[id number] [place] [address] [place] (68750) Body 98.2 [degF] (no code) 97.8 - 99.0 03-05-2018 Bud kang [facility] Temperature [degF] 09:25-0400 [id number] [facility] ([id number]) ( ) Body 99 [degF] (no code) 97.8 - 99.0 03-01-2018 FRANCOIS SILVA [facility] Temperature [degF] 17:20-0400 98615 [facility] (72710) Body 96.6 [degF] (no code) 97.8 - 99.0 02-05-2018 Gennaro Bills [facility] Temperature [degF] 13:13-0400 89143 [facility] ([id number]) ( ) Body 98.1 [degF] (no code) 97.8 - 99.0 01-10-2018 Gennaro Bills [facility] Temperature [degF] 10:03-0400 77409 [facility] ([id number]) ( ) Body 97.9 [degF] (no code) 97.8 - 99.0 12-17-2017 Val maldonado [facility] Temperature [degF] 12:15-0400 [facility] ([id number]) ( ) Body 98.2 [degF] (no code) 97.8 - 99.0 12-11-2017 ROD CARTER MARTHA [facility] Temperature [degF] 15:20-0400 19145 [facility] (65934) Body 97.6 [degF] (no code) 97.8 - 99.0 11-19-2017 ROD PENNINGTON Community Temperature [degF] 16:00-0400 25871 [facility] (84039) Body 98 [degF] (no code) 97.8 - 99.0 10-22-2017 ROD THOMAS Community Temperature [degF] 16:40-0400 72803 [facility] ([id number]) Body 98.3 [degF] (no code) 97.8 - 99.0 07-25-2017 [facility] Community Temperature [degF] 16:20-0500 85689 [facility] (49986) Body 98.2 [degF] (no code) 97.8 - 99.0 04-26-2017 [facility] Community Temperature [degF] 16:00-0400 10289 [facility] ([id number]) Body 97.8 [degF] (no code) 97.8 - 99.0 06-09-2014 [facility] Community Temperature [degF] 14:39-0500 99505 [facility] (41045) Body 96.8 [degF] (no code) 97.8 - 99.0 05-27-2014 [facility] Community Temperature [degF] 09:03-0500 91082 [facility] (71512) Body 96.5 [degF] (no code) 97.8 - 99.0 04-21-2014 [facility] Community Temperature [degF] 16:36-0400 38739 [facility] ([id number]) Body 97.9 [degF] (no code) 97.8 - 99.0 02-03-2014 [facility] Community temperature [degF] 15:38-0400 03490 [facility] (57605) Body 98.4 [degF] (no code) 97.8 - 99.0 10-16-2013 [facility] Community temperature [degF] 16:16-0400 08721 [facility] (21993) Body 98.3 [degF] (no code) 97.8 - 99.0 10-02-2013 [facility] Community temperature [degF] 16:45-0400 52270 [facility] (64495) Body 98.4 [degF] (no code) 97.8 - 99.0 09-15-2013 [facility] Community temperature [degF] 11:42-0400 93633 [facility] (48839) Body 97.2 [degF] (no code) 97.8 - 99.0 09-01-2013 [facility] temperature [degF] 12:30-0500 63773 [facility] (97443) Body weight 105.69 kg (no code) kg 06-09-2014 ROD MESFIN [facility] 14:39-[id number] [place] [address] (00842) Body weight 105.69 kg (no code) kg 05-27-2014 ROD MESFIN [facility] 09:03-[address] [place] [address] (09061) Body weight 107.16 kg (no code) kg 04-21-[facility] 16:36-[address] [place] [address] (97609) Body weight 104.06 kg (no code) kg 02-03-2014 ROD MESFIN [facility] 15:38-[address] [place] [address] (77114) Body weight 106.78 kg (no code) kg 10-16-2013 [facility] 16:16-[address] [place] [address] (70924) Body weight 108.58 kg (no code) kg 10-02-2013 [facility] 16:45-[address] [place] [address] ([id number]) Body weight 107.96 kg (no code) kg 09-15-2013 [facility] 11:42-[address] [place] [address] (01783) Body weight 109.88 kg (no code) kg 09-01-2013 [facility] 12:30-[address] [place] [address] (18905) Blood Pressure 124/ (no code) Systolic: 90 - 03-05-2018 Aadi rafiq [facility] [employer] 84mm[Hg] 119 mm[Hg] 09:25 [address] [facility] ([id number]) Diastolic: 60 (Work Phone: - 79 mm[Hg] ) Blood Pressure 122/ (no code) Systolic: 90 - 02-05-2018 [facility] [employer] 67mm[Hg] 119 mm[Hg] 13:13 80495 [facility] ([id number]) Diastolic: 60 (Work Phone: - 79 mm[Hg] ) Blood Pressure 126/ (no code) Systolic: 90 - 01-10-2018 [facility] 76mm[Hg] 119 mm[Hg] 10:030 51432 [facility] ([id number]) Diastolic: 60 (Work Phone: - 79 mm[Hg] ) Blood Pressure 112/ (no code) Systolic: 90 - 12-17-2017 Kurt norma Salazar [facility] 78mm[Hg] 119 mm[Hg] 12:150400 [facility] (60762) Diastolic: 60 (Work Phone: - 79 mm[Hg] ) BSA (Body 2.36 m2 (no code) m2 03-05-2018 [facility] 09:250400 [id number] [facility] ([id number]) ( ) BSA (Body 2.34 m2 (no code) m2 02-05-2018 [facility] Surface Area) 13:13-0400 93485 [facility] ([id number]) ( ) BSA (Body 2.34 m2 (no code) m2 01-10-2018 [facility] Surface [facility]) 10:03-0400 25008 [facility] ([id number]) ( ) BSA (Body 2.34 m2 (no code) m2 12-17-2017 Val [facility] Surface Area) 12:15-0400 [facility] (78933) ( ) Height 177.8 cm (no code) cm 05-07-2018 FRANCOIS SILVA [facility] 12:40-[id number] [place] [address] (20520) Height 177.8 cm (no code) cm 03-05-2018 Bud [employer] [facility] 09:25-0400 [address] [facility] (98069) ( ) Height 177.8 cm (no code) cm 03-01-2018 FRANCOIS blank 17:20-0400 55406 [facility] (68552) Height 177.8 cm (no code) cm 02-05-2018 [facility] 13:13-0400 76496 [facility] ([id number]) ( ) Height 177.8 cm (no code) cm 01-10-2018 [facility] 10:03-0400 53022 [facility] (27558) ( ) Height 177.8 cm (no code) cm 12-17-2017 [facility] 12:15-0400 [facility] ([id number]) ( ) Height 177.8 cm (no code) cm 12-11-2017 [facility] 15:20-[id number] [place] [address] (41268) Height 177.8 cm (no code) cm 11-19-2017 [facility] 16:00-[address] [place] [address] (91045) Height 177.8 cm (no code) cm 10-22-2017 [facility] 16:40-[address] [place] [address] (06555) Height 177.8 cm (no code) cm 07-25-2017 [facility] 16:20-[address] [place] [address] (36572) Height 177.8 cm (no code) cm 04-26-2017 [facility] 16:00-[id number] [place] [address] ([id number]) Height 177.8 cm (no code) cm 06-09-2014 [facility] 14:39-[address] [place] [address] (86378) Height 177.8 cm (no code) cm 05-27-2014 [facility] 09:03-[address] [place] [address] (33372) Height 177.8 cm (no code) cm 04-21-2014 [facility] 16:36-0400 40340 [facility] (42171) Pulse (Heart 78 /min (no code) 60 - 100 /min 03-05-2018 Bud Hector [facility] Rate) 09: [address] [facility] (62010) ( ) Pulse (Heart 78 /min (no code) 60 - 100 /min 02-05-2018 Gennaro W ineland [facility] Rate) 13:357 [facility] (04922) ( ) Pulse (Heart 74 /min (no code) 60 - 100 /min 01-10-2018 Gennaro W ineland [facility] [facility] Rate) 10:03357 [facility] (33794) ( ) Pulse (Heart 76 /min (no code) 60 - 100 /min 12-17-2017 Val W alker [facility] [facility] Rate) 12:15 [facility] (56311) ( ) Pulse Oximetry 96 % (no code) 95 - 100 % 03-05-2018 Bud Hector [facility] 09:357-4948 [facility] (89193) ( ) Pulse Oximetry 95 % (no code) 95 - 100 % 01-10-2018 Gennaro Pa neland [facility] 10:03357 [facility] (38934) ( ) Pulse Oximetry 96 % (no code) 95 - 100 % 12-17-2017 Val Jose lker [facility] 12:15-040 [facility] ([id number]) ( ) Respiratory 16 /min (no code) 12 - 20 /min 03-05-2018 Bud V oswaldo [facility] Rate 09: [address] [facility] (28407) ( ) Respiratory 20 /min (no code) 12 - 20 /min 02-05-2018 [facility] [place] [facility] 13:357 [facility] (75637) ( ) Respiratory 18 /min (no code) 12 - 20 /min 01-10-2018 Gennaro Hoff [facility] Health Rate 10:03 94719 [facility] ([id number]) ( ) Respiratory 18 /min (no code) 12 - 20 /min 12-17-2017 Val ramos [place] [facility] 12:15-0400 [facility] (96712) ( ) Weight 105.87 kg (no code) kg 05-07-2018 FRANCOIS SILVA [facility] 12:40-[id number] [place] [address] (17070) Weight 112.95 kg (no code) kg 03-05-2018 Budvikki Hector [facility] 09:25-0400 [address] [facility] ([id number]) ( ) Weight 113.85 kg (no code) kg 03-01-2018 FRANCOIS SILVA [facility] 17:20-[id number] [place] [address] (68335) Weight 110.91 kg (no code) kg 02-05-2018 [facility] 13:13-0400 19535 [facility] ([id number]) ( ) Weight 110.68 kg (no code) kg 01-10-2018 [facility] 10:03-0400 73308 [facility] ([id number]) ( ) Weight 110.68 kg (no code) kg 12-17-2017 Val [facility] 12:15-0400 [facility] (87486) ( ) Weight 110.95 kg (no code) kg 12-11-2017 [facility] 15:20-[address] [place] [address] (68327) Weight 111.13 kg (no code) kg 11-19-2017 [facility] 16:00-[address] [place] [address] (42315) Weight 112.99 kg (no code) kg 10-22-2017 [facility] 16:40-0400 82082 [facility] (96674) Weight 108.68 kg (no code) kg 07-25-2017 [facility] 16:20-0500 37169 [facility] (51608) Weight 111.77 kg (no code) kg 04-26-2017 [facility] 16:00-0400 12825 [facility] (47559) Interventions No Information Plan of Treatment Normalized Care Care Detail Care Activity Date Care Provider F acility Activity Alpha-fetoprotein, AFP ser 01-10-2018 [facility] [address]62 [employer] serum [facility] ([id number]) ( ) Assay of estrogen ESTROGEN SERUM TOTAL 02-21-2018 - [facility] and 20113 [employer] 02-21-2018 - [facility] 02-21-2018 ([id number]) ( ) Assay of total TESTOSTERONE FREE & 02-21-2018 - [place] [address] [employer] testosterone TOTAL 02-21-2018 - [facility] 02-21-2018 ([id number]) ( ) Chorionic Quantitative Beta 01-10-2018 [place] 463207 [employer] gonadotropin assay HCG [facility] ([id number]) ( ) Complete cbc w/auto CBC W/ AUTO DIFF 01-10-2018 [place] 463207 [employer] diff wbc (RFLX MAN DIFF IF [facility] IND). ([id number]) ( ) Computed tomography CT ABD AND PELVIS 01-10-2018 [facility] d [address] [employer] of abdomen and W/CONTRAST [facility] pelvis with contrast ([id number]) ( ) Diagnostic Chest x-ray, PA and 01-10-2018 [facility] 4765 3 [employer] radiography of lateral [facility] chest, combined ([id number]) (Work Phone: posteroanterior and ) lateral Lactate (LD) (LDH) LDH 01-10-2018 [facility] [facility] [id number] [employer] enzyme [facility] ([id number]) ( ) Metabolic panel BMP 01-10-2018 [facility] [address] [address] [facility] total ca [facility] ([id number]) ( ) Therapeutic Injection, 02-15-2018 - [facility] [address] [facility] prophylactic/dx Subcutaneous/IM 02-15-2018 - [facility] injection subq/im 02-15-2018 ([id number]) ( ) Goals No Information Social History Normalized Code Original Code Date Value no information no information Never smoker no information no information - no inf ormation Functional Status The data below is from unstructured sources Query Response Date Colton rded Patient Orientation Person Place Time Situation October 24, 2015 4:42pm Comprehension Ability Understands Co ncepts October 23, 2015 8:30pm Mental Status No Information Encounters Encounter Normalized Encounter Encounter Diagnosis Care Provi vahid Organization Date Type 03-28-2018 ([facility]) Chronic Health no information ROD CUELLAR (no [employer] (no Maintenance phone) phone) 10-15-2019 [employer] Periumbilical pain ROD TOURE ES (no [employer] phone) (no phone) 10-08-2019 [employer] Testicular ROD CUELLAR (no [employer] hypofunction phone) (no phone) 09-16-2019 [employer] Other intervertebral ROD CARTER RBES (no [employer] - disc displacement, phone) (no phone) 09-16-2019 lumbar region - 09-16-2019 09-15-2019 [employer] Testicular ROD CUELLAR (no [employer] - hypofunction phone) (no phone) 09-15-2019 - 09-15-2019 07-07-2019 [employer] Bronchitis, not ROD READS (no [employer] (no - specified as acute or phone) phone) 07-07-2019 chronic - 07-07-2019 03-24-2019 [employer] Irritant contact ROD CUELLAR (no [employer] (no - dermatitis due to phone) phone) 03-24-2019 plants, except food - 03-24-2019 08-01-2017 [facility] Acquired absence of ROD CUELLAR ([facility] (no - other genital organ(s) phone) phone) 08-01-2017 - 08-01-2017 09-29-2014 [facility] no information LESLEY NORMAN O [facility] (no - (no phone) Doctor phone) 09-29-2014 Migration (no phone) - LESLEY PACHECO JAYJAYOLIVIA 09-29-2014 (no phone) Doctor Migration (no phone) LESLEYVENICE PHOENIX BRAD (no phone) Doctor Migration (no phone) 08-08-2014 [facility] no information Doctor Migration (no [facility] - phone) phone) 08-08-2014 - 08-08-2014 06-09-2014 [facility] no information ROD CUELLAR (no [facility] (no - phone) Doctor phone) 06-09-2014 Migration (no phone) - ROD CUELLAR (no 06-09-2014 phone) Doctor Migration (no phone) ROD CUELLAR (no phone) Doctor Migration (no phone) 05-27-2014 [facility] no information ROD CUELLAR (no [facility] - phone) Doctor phone) 05-27-2014 Migration (no phone) - ROD CUELLAR (no 05-27-2014 phone) Doctor Migration (no phone) Doctor Migration (no phone) ROD CUELLAR (no phone) 05-21-2014 [facility] no information [facility] - phone) Doctor phone) 05-21-2014 Migration (no phone) - Doctor Migration (no 05-21-2014 phone) ROD CUELLAR (no phone) Doctor Migration (no phone) ROD CUELLAR (no phone) 04-08-2014 [facility] no information Doctor Migration (no [facility]no - phone) phone) 04-08-2014 - 04-08-2014 04-06-2014 [facility] no information ROD CUELLAR ([facility] (no - phone) Doctor phone) 04-06-2014 Migration (no phone) - Doctor Migration (no 04-06-2014 phone) ROD CUELLAR (no phone) Doctor Migration (no phone) ROD CUELLAR (no phone) 03-27-2014 [facility] no information KORI PEOPLES (no [facility] (no - phone) Doctor phone) 03-27-2014 Migration (no phone) - Doctor Migration (no 03-27-2014 phone) KORI HELMIROSLAVA (no phone) KORI Kirill (no phone) Doctor Migration (no phone) 02-11-2014 [facility] no information ROD CUELLAR (no [facility] (no - phone) Doctor phone) 02-11-2014 Migration (no phone) - ROD CUELLAR (no 02-11-2014 phone) Doctor Migration (no phone) ROD CUELLAR (no phone) Doctor Migration (no phone) 02-04-2014 [facility] no information ROD CUELLAR (no [facility] (no - phone) Doctor phone) 02-04-2014 Migration (no phone) - ROD CUELLAR (no 02-04-2014 phone) Doctor Migration (no phone) ROD CUELLAR (no phone) Doctor Migration (no phone) 02-03-2014 [facility] no information ROD CUELLAR (no [facility] (no - phone) Doctor phone) 02-03-2014 Migration (no phone) - ROD CUELLAR (no 02-03-2014 phone) Doctor Migration (no phone) ROD CUELLAR (no phone) Doctor Migration (no phone) 01-19-2014 [facility] no information ROD CUELLAR (no [facility] (no - phone) Doctor phone) 01-19-2014 Migration (no phone) - ROD CUELLAR (no 01-19-2014 phone) Doctor Migration (no phone) Doctor Migration (no phone) ROD CUELLAR (no phone) 10-02-2013 [facility] no information ROD CUELLAR (no [facility] (no - phone) Doctor phone) 10-02-2013 Migration (no phone) - ROD CUELLAR (no 10-02-2013 phone) Doctor Migration (no phone) ROD CUELLAR (no phone) Doctor Migration (no phone) 09-15-2013 [facility] no information ROD CUELLAR (no [facility] (no - phone) Doctor phone) 09-15-2013 Migration (no phone) - ROD CUELLAR (no 09-15-2013 phone) Doctor Migration (no phone) ROD SÁNCHEZBES (no phone) Doctor Migration (no phone) 09-01-2013 [facility] no information ROD CUELLAR (no [facility] (no - phone) Doctor phone) 09-01-2013 Migration (no phone) - ROD CUELLAR (no 09-01-2013 phone) Doctor Migration (no phone) ROD READS (no phone) Doctor Migration (no phone) 05-12-2014 [facility] no information Doctor Migrati on (no [facility] - phone) (no phone) 05-12-2014 - 05-12-2014 04-21-2014 [facility] no information Doctor Migrati on (no [facility] - phone) ROD CUELLAR (no phone) 04-21-2014 (no phone) ROD Jose CUELLAR (no phone) 04-21-2014 Doctor Migration (no phone) ROD CUELLAR (no phone) Doctor Migration (no phone) 10-16-2013 [facility] no information Doctor Migrati on (no [facility] - phone) ROD READS (no phone) 10-16-2013 (no phone) ROD CUELLAR (no phone) 10-16-2013 Doctor Migration (no phone) ROD CUELLAR (no phone) Doctor Migration (no phone) 06-20-2010 [facility] no information Doctor Migrati on (no [facility] - phone) (no phone) 06-20-2010 - 06-20-2010 11-27-2018 Discharged Recurring no information ISABELA NINO Work no organization name - (no phone) 02-26-2019 01-15-2019 Emergency department no information no name (no erasto ne) no organization name - patient visit (no phone) 01-15-2019 01-14-2019 Emergency department no information no name (no erasto ne) no organization name - patient visit (no phone) 01-14-2019 06-11-2017 Emergency department no information no name (no erasto ne) no organization name - patient visit (no phone) 06-11-2017 06-11-2017 Emergency department no information no name (no erasto ne) no organization name - patient visit (no phone) 06-11-2017 10-21-2015 Evaluation and no information no name (no phone) n o organization name - management of (no phone) 10-24-2015 inpatient 09-25-2019 Nursing evaluation of ROD [place] ([facility] o [facility] [address] patient and report unspecified phone) (no phone) 02-15-2018 Nursing evaluation of no information [facility] Jaleel. - patient and report 201 (no phone) 02-15-2018 - 02-15-2018 02-05-2018 [facility] evaluation of [facility] Jaleel. - patient and report 201 (no phone) 02-05-2018 - 02-05-2018 01-22-2018 Nursing evaluation of no information [facility] Jaleel. - patient and report 201 (no phone) 01-22-2018 - 01-22-2018 02-05-2018 Office consultation no information Aba Singh [facility] General Surgery - new/estab patient 30 (n o phone) 02-05-2018 min - 02-05-2018 03-05-2018 Office outpatient new no information [facility] (no - 45 minutes phone) 03-05-2018 - 03-05-2018 01-10-2018 Office/outpatient no information [facility] Jaleel. - visit, new, level 5 201 (no phone) 01-10-2018 - 01-10-2018 03-14-2018 Patient encounter no information no name (no phone) no organization name (no phone) 02-22-2018 Patient encounter no information no name (no phone) no organization name - (no phone) 02-22-2018 02-05-2018 Patient encounter no information Aba Singh [facility] General Surgery (no phone) 01-15-2018 Patient encounter no information no name (no phone) no organization name - (no phone) 01-15-2018 01-10-2018 Patient encounter no information no name (no phone) no organization name - (no phone) 01-10-2018 01-01-2018 Patient encounter no information no name (no phone) no organization name (no phone) 12-17-2017 Patient encounter no information no name (no phone) no organization name - (no phone) 12-17-2017 12-17-2017 Patient encounter no [facility] - (no phone) 12-17-2017 - 12-17-2017 12-11-2017 Patient encounter no information no name (no phone) no organization name (no phone) 11-19-2017 Patient encounter no information no name (no phone) no organization name (no phone) 10-22-2017 Patient encounter no information no name (no phone) no organization name (no phone) 09-26-2017 Patient encounter no information no name (no phone) no organization name (no phone) 08-22-2017 Patient encounter no information no name (no phone) no organization name (no phone) 08-06-2017 Patient encounter no information no name (no phone) no organization name - (no phone) 09-25-2017 07-25-2017 Patient encounter no information no name (no phone) no organization name (no phone) 07-18-2017 Patient encounter no information no name (no phone) no organization name (no phone) NEGATED Patient encounter no information no name (no phone) no organization name 06-27-2017 (no phone) 06-11-2017 Patient encounter no information no name (no phone) no organization name (no phone) 01-23-2017 Patient encounter no information no name (no phone) no organization name (no phone) 10-24-2016 Patient encounter no information no name (no phone) no organization name - (no phone) 01-22-2017 02-28-2016 Patient encounter no information no name (no phone) no organization name (no phone) 01-13-2016 Patient encounter no information no name (no phone) no organization name (no phone) 11-29-2015 Patient encounter no information no name (no phone) no organization name (no phone) 11-17-2015 Patient encounter no information no name (no phone) no organization name - (no phone) 02-15-2016 11-01-2015 Patient encounter no information no name (no phone) no organization name - (no phone) 11-01-2015 10-14-2015 Patient encounter no information no name (no phone) no organization name - (no phone) 01-12-2016 07-07-2015 Patient encounter no information no name (no phone) no organization name (no phone) 06-30-2015 Patient encounter no information no name (no phone) no organization name (no phone) 11-24-2014 Patient encounter no information no name (no phone) no organization name (no phone) 11-05-2014 Patient encounter no information no name (no phone) no organization name - (no phone) 11-05-2014 05-28-2014 Patient encounter no information no name (no phone) no organization name (no phone) 05-05-2014 Patient encounter no information no name (no phone) no organization name - (no phone) 05-05-2014 01-06-2014 Patient encounter no information no name (no phone) no organization name (no phone) 12-04-2013 Patient encounter no information no name (no phone) no organization name (no phone) 05-01-2013 Patient encounter no information no name (no phone) no organization name (no phone) 10-31-2012 Patient encounter no information no name (no phone) no organization name - (no phone) 11-11-2012 08-13-2012 Patient encounter no information no name (no phone) no organization name (no phone) 04-10-2012 Patient encounter no information no name (no phone) no organization name (no phone) 03-19-2012 Patient encounter no information no name (no phone) no organization name - (no phone) 06-17-2012 12-27-2011 Patient encounter no information no name (no phone) no organization name - (no phone) 03-05-2012 NEGATED Patient encounter no information no name (no phone) no organization name (no phone) 09-25-2019 Patient encounter no information ROD CUELLAR ( no [facility] phone) (no phone) [facility] (no phone) 02-25-2019 Patient encounter no information no name (no phone) no organization name procedure (no phone) 01-30-2019 Patient encounter no information no name (no phone) no organization name - procedure (no phone) 02-24-2019 01-23-2019 Patient encounter no information no name (no phone) no organization name procedure (no phone) 01-23-2019 Patient encounter no information no name (no phone) no organization name procedure (no phone) 01-21-2019 Patient encounter no information no name (no phone) no organization name procedure (no phone) 01-20-2019 Patient encounter no information no name (no phone) no organization name procedure (no phone) 01-15-2019 Patient encounter no information no name (no phone) no organization name procedure (no phone) 12-31-2018 Patient encounter no information no name (no phone) no organization name procedure (no phone) 12-24-2018 Patient encounter no information no name (no phone) no organization name procedure (no phone) 11-27-2018 Patient encounter no information no name (no phone) no organization name procedure (no phone) 11-27-2018 Patient encounter no information no name (no phone) no organization name procedure (no phone) 11-27-2018 Patient encounter no information no name (no phone) no organization name procedure (no phone) 11-27-2018 Patient encounter no information no name (no phone) no organization name procedure (no phone) 11-05-2018 Patient encounter no information no name (no phone) no organization name procedure (no phone) 07-25-2018 Patient encounter no information no name (no phone) no organization name procedure (no phone) 07-11-2018 Patient encounter no information no name (no phone) no organization name procedure (no phone) 08-06-2017 Patient encounter no information no name (no phone) no organization name - procedure (no phone) 09-24-2017 07-18-2017 Patient encounter no information no name (no phone) no organization name procedure (no phone) 11-01-2016 Patient encounter no information no name (no phone) no organization name procedure (no phone) 10-25-2016 Patient encounter no information no name (no phone) no organization name procedure (no phone) 10-24-2016 Patient encounter no information no name (no phone) no organization name - procedure (no phone) 01-21-2017 09-20-2016 Patient encounter no information no name (no phone) no organization name procedure (no phone) 06-15-2016 Patient encounter no information no name (no phone) no organization name procedure (no phone) 02-28-2016 Patient encounter no information no name (no phone) no organization name procedure (no phone) 02-23-2016 Patient encounter no information no name (no phone) no organization name - procedure (no phone) 02-23-2016 11-29-2015 Patient encounter no information no name (no phone) no organization name procedure (no phone) 11-17-2015 Patient encounter no information no name (no phone) no organization name - procedure (no phone) 02-14-2016 10-29-2015 Patient encounter no information no name (no phone) no organization name - procedure (no phone) 10-29-2015 10-19-2015 Patient encounter no information no name (no phone) no organization name procedure (no phone) 10-14-2015 Patient encounter no information no name (no phone) no organization name - procedure (no phone) 01-11-2016 10-12-2015 Patient encounter no information no name (no phone) no organization name procedure (no phone) 07-07-2015 Patient encounter no information no name (no phone) no organization name procedure (no phone) 06-30-2015 Patient encounter no information no name (no phone) no organization name procedure (no phone) 11-24-2014 Patient encounter no information no name (no phone) no organization name procedure (no phone) 11-05-2014 Patient encounter no information no name (no phone) no organization name procedure (no phone) 11-05-2014 Patient encounter no information no name (no phone) no organization name - procedure (no phone) 11-05-2014 05-28-2014 Patient encounter no information no name (no phone) no organization name procedure (no phone) 05-05-2014 Patient encounter no information no name (no phone) no organization name - procedure (no phone) 05-05-2014 01-06-2014 Patient encounter no information no name (no phone) no organization name procedure (no phone) 12-04-2013 Patient encounter no information no name (no phone) no organization name procedure (no phone) 12-27-2011 Patient encounter no information no name (no phone) no organization name - procedure (no phone) 03-04-2012 09-20-2011 Patient encounter no information no name (no phone) no organization name - procedure (no phone) 09-20-2011 09-20-2011 Patient encounter no information no name (no phone) no organization name - procedure (no phone) 09-20-2011 09-18-2011 Patient encounter no information no name (no phone) no organization name procedure (no phone) 09-13-2011 Patient encounter no information no name (no phone) no organization name - procedure (no phone) 12-05-2011 09-13-2011 Patient encounter no information no name (no phone) no organization name - procedure (no phone) 12-04-2011 07-05-2011 Patient encounter no information no name (no phone) no organization name procedure (no phone) 07-05-2011 Patient encounter no information no name (no phone) no organization name procedure (no phone) 06-19-2011 Patient encounter no information no name (no phone) no organization name procedure (no phone) 03-16-2011 Patient encounter no information no name (no phone) no organization name procedure (no phone) 03-09-2011 Patient encounter no information no name (no phone) no organization name procedure (no phone) 12-07-2010 Patient encounter no information no name (no phone) no organization name procedure (no phone) 11-29-2010 Patient encounter no information no name (no phone) no organization name procedure (no phone) 10-06-2010 Patient encounter no information no name (no phone) no organization name procedure (no phone) 08-22-2010 Patient encounter no information no name (no phone) no organization name procedure (no phone) 06-09-2010 Patient encounter no information no name (no phone) no organization name procedure (no phone) 06-07-2010 Patient encounter no information no name (no phone) no organization name procedure (no phone) 05-05-2010 Patient encounter no information no name (no phone) no organization name procedure (no phone) 03-07-2010 Patient encounter no information no name (no phone) no organization name procedure (no phone) 03-01-2010 Patient encounter no information no name (no phone) no organization name procedure (no phone) 12-09-2009 Patient encounter no information no name (no phone) no organization name - procedure (no phone) 12-10-2009 09-21-2009 Patient encounter no information no name (no phone) no organization name - procedure (no phone) 09-22-2009 09-10-2009 Patient encounter no information no name (no phone) no organization name - procedure (no phone) 10-12-2009 09-25-2019 Telephone encounter no information ROD CUELLAR ( no [facility] phone) (no phone) 09-18-2019 Telephone encounter Umbilical hernia ROD CUELLAR (no [facility] [address] - without obstruction or phone) (no erasto ne) 09-18-2019 gangrene - 09-18-2019 09-15-2019 Telephone encounter no information ROD CUELLAR ( no [facility] [address] - phone) (no phone) 09-15-2019 - 09-15-2019 no information Pre-operative no name (no phone) no organiza tion name examination, (no phone) unspecified no information Encounter for other no name (no phone) no org anization name preprocedural (no phone) examination Medical Equipment No Information Payers Normalized Payer Value Unknown [id number] ([id number]) [employer]GATED [id number] Blue [employer] Blue Shield Unknown [id number] ([id number]) Unknown [id number] ([id number]) Private Health Insurance [id number] History general Narrative - Reported Note Type Note Facility History general Narrative - Reported Type Medical testicular cancer 2008,chem o 2008 and 2009 for and tumor also that was not History removed Surgical left testical removed/cancer 2008 History Surgical orchiectomy right testical done by kemal helm Benign results 11/2015 History Hospitaliz surgery 2008 ation History Hospitaliz Pneumonia, Hypoxia, N/V, Generalized Ab dominal pain 10/22/15 ation History [facility] ([id number]) Summary Purpose eClinicalWorks SubmissioneClinicalWorks SubmissioneClinicalWorks SubmissioneClinicalWorks SubmissioneClinicalWorks SubmissioneClinicalWorks SubmissioneClinicalWorks Submission Advance Directives Directive Response Recor ded Date/Time Advance Directives No 6:35am Health Care Power of Aquaculturist No 11/01/15 6:35am Organ Donor Yes 11/01/15 6:35am Directive Response Recor ded Date/Time Advance Directives No 3:42pm Health Care Power of Aquaculturist No 02/23/16 3:42pm Organ Donor Yes 02/23/16 3:42pm Resuscitation Status Full Code 02/23/16 3:42pm Directive Response Recor ded Date/Time Do You Have A Living Will? No 10/12/16 3:27pm Do You Have a DPOA? No 0 10/12/16 3:27pm Directive Response Recor ded Date/Time Do You Have A Living Will? No 10/31/16 2:41pm Do You Have a DPOA? No 0 10/31/16 2:41pm Directive Response Recor ded Date/Time Advance Directives No 3:00am Health Care Power of Aquaculturist No 10/22/15 3:00am Organ Donor Yes 10/22/15 3:00am Resuscitation Status Full Code 10/22/15 3:00am Directive Response Recor ded Date/Time Advance Directives No 6:35am Health Care Power of Aquaculturist No 11/01/15 6:35am Organ Donor Yes 11/01/15 6:35am Resuscitation Status Full Code 11/01/15 6:35am Directive Response Recor ded Date/Time Advance Directives No 1:02pm Health Care Power of Aquaculturist No 10/29/15 1:02pm Organ Donor Yes 10/29/15 1:02pm Resuscitation Status Full Code 10/29/15 1:02pm Directive Response Recor ded Date/Time Advance Directives No 1:03pm Health Care Power of Aquaculturist No 05/05/14 1:03pm Organ Donor Yes 05/05/14 1:03pm Resuscitation Status Full Code 05/05/14 1:03pm Directive Response Recor ded Date/Time Advance Directives No 11:54am Health Care Power of Aquaculturist No 11/05/14 11:54am Organ Donor Yes 11/05/14 11:54am Resuscitation Status Full Code 11/05/14 11:54am Directive Response Recor ded Date Advance Directives N 10/18 8:25am Health Care Power of Aquaculturist N 04/11/12 8:25am Organ Donor Y 04/11/12 8 :25am Directive Response Recor ded Date/Time Advance Directives No 3:00pm Health Care Power of Aquaculturist No 10/02/14 3:00pm Organ Donor Yes 10/02/14 3:00pm Resuscitation Status Full Code 10/02/14 3:00pm Directive Response Recor ded Date Advance Directives N 10/19 8:35am Health Care Power of Aquaculturist N 03/12/13 8:35am Organ Donor Y 03/12/13 8 :35am Directive Response Recor ded Date/Time Advance Directives No 3:42pm Health Care Power of Aquaculturist No 02/23/16 3:42pm Organ Donor Yes 02/23/16 3:42pm Directive Response Recor ded Date/Time Advance Directives No 12:42am Health Care Power of Aquaculturist No 01/15/19 12:42am Organ Donor Yes 01/15/19 12:42am Discharge Instructions No hospital discharge instructions.No hospital discharge instructions.No hospital discharge instructions.No hospital discharge instructions. Patient Instructions Physician Instructions New, Converted or Re-Newed RX: Transmitted to Pharmacy ([facility]) Goal/Follow Up Appt: Follow-up with Shahzad Cuellar APRN at [facility] this week Recommend pt have overnight pulse ox testing or sleep study Discharge Diet: No Restrictions Care Plan Goal:: Follow-up with Shahzad Cuellar APRN at [facility] this weekRecommend pt have overnight pulse ox testing or sleep study Patient Instructions Physician Instructions New, Converted, or Re-newed RX: RX on Chart Plan Please make appointment to been seen in office in 2 weeks, rest till then Patient to come in 10 days at the office 9am to [facility] Tomorrow start showers, no bath Keep bowels soft and moving Increase oral fluids for 48 hours and then as needed. Diet and Activity as tolerated. If questions or concerns contact your physician Or seek help at emergency department. No hospital discharge instructions.No hospital discharge instructions.No hospital discharge instructions.No hospital discharge instructions.No hospital discharge instructions.No hospital discharge instruction information available.No hospital discharge instruction information available. History of Past Illness Name Date of Onset Comme nts Testicular Cancer Encounter for occupational health examination Dec 17 2017 11:23AM Name Date of Onset Comme nts Testicular Cancer Encounter for occupational health examination Dec 17 2017 11:23AM Testicular cancer Kavon 5 2018 9:05AM Low testosterone in male Jan 10 2018 9:05AM Additional Source Comments This clinical document has been generated using [employer] SARL software that has been certified by the Office of the National Coordinator for Health Information Technology (ONC 15.99.04.3023.Diam.[id number]) and the National Committee for Fruit [employer] Nut Crops Farm Manager (NCQA, as an eMeasure certified technology). FOR RECORDS PERTAINING TO PATIENTS WHO ARE OR HAVE BEEN ENROLLED IN A CHEMICAL D EPENDENCY/SUBSTANCE ABUSE PROGRAM, SOME INFORMATION MAY BE OMITTED. This clinica l summary was aggregated from multiple sources. Caution should be exercised in using it in the provision of clinical care. This summary normalizes information from multiple sources, and as a consequence, information in this document may ma terially change the coding, format and clinical context of patient data. In nicole tion, data may be omitted in some cases. CLINICAL DECISIONS SHOULD BE BASED ON T HE PRIMARY CLINICAL RECORDS. [employer] provides no warranty or guara ntee of the accuracy or completeness of information in this document.The followi ng information is based on time limited clinical information UNRECOGNIZED CONTENT PROVIDED BELOW FOR UNRECOGNIZED SECTION MEDICAL (GENERAL) HISTORY Type Description Date Medical History testicular cancer 25 02,chemo 2008 and 2009 for and tumor also that was not removed Surgical History left testical remov ed/cancer 2007 Surgical History orchiectomy right t estical done by inez. Benign results 11/2015 Hospitalization History surgery 2007 Hospitalization History Pneumonia, H ypoxia, N/V, Generalized Abdominal pain 10/22/15 UNRECOGNIZED CONTENT PROVIDED BELOW FOR UNRECOGNIZED SECTION REASON FOR VISIT Wants MRI Pt c/ flare up of back pain started last night. Pt had MRI last month ordered by Shahzad. Requesting referral to in [place] for epidural inj Georgette lmont MARight hand tingling for a week Dejuan [id number]
--- OUTSIDE RECORDS SUMMARY | 2019-10-22 09:29 | XMS REPORT ---
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 Name Role Phone Bud Hector PCP Allergies and Adverse Reactions Name Reaction Notes No known drug allergy Plan of Treatment Planned Activity Comments Planned Date Planned Time Plan/Goal Injection, Subcutaneous/IM 02/15/2018 12:00 AM Medications Active Name Start Date Estimated Completion Date SIG Co mments testosterone cypionate 200 mg/mL intramuscular oil 04/10/2018 05/10/2018 inject 1.0 milliliter (200 mg) by intramuscular route every 2 weeks anastrozole 1 mg oral tablet 04/10/2018 06/04/2019 amber e 1 tablet (1 mg) by oral route every other day Syringe 3cc/20Gx1" 3 mL 20 gauge x 1" miscellaneous syringe 04/1005/10/2018 use as directed for 30 days BD Regular Bevel [place] 20 gauge x 1 1/2" miscellaneous nee dle 04/10/2018 05/29/2018 use as directed for 7 days sildenafil 50 mg oral tablet 04/10/2018 05/10/2018 amber e 1 tablet (50 mg) by oral route once daily as needed approximately 1 hour before sexual activity for 30 days Name Start Date Expiration Date SIG Comments AndroGel 1.62 % (40.5 mg/2.5 gram) transdermal gel in packet 02/1203/14/2018 apply 1 packet (40.5 mg) by transdermal route once daily in the morning to each upper arm and shoulder for a total dose of 81 mg for 30 days Vivlodex 10 mg oral capsule 03/07/2018 04/06/2018 take 1 capsule (10 mg) by oral route once daily for 30 days Discontinued Name Start Date [...] Number Jb cy Group Number [id number] N/ A [employer] [id number] N/A History of Encounters Visit Date Visit Type Provider 03/05/2018 Office visit Bud Hector DO 02/15/2018 Nurse visit Gennaro Johnson MD 02/05/2018 Nurse visit Gennaro Johnson MD 02/05/2018 Office visit Aba Singh DO 01/22/2018 Nurse visit Gennaro Johnson MD 01/10/2018 Office visit Gennaro Johnson MD 12/17/2017 Office visit Val Salazar APRN
--- OUTSIDE RECORDS SUMMARY | 2019-10-22 09:29 | XMS REPORT ---
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
--- OUTSIDE RECORDS SUMMARY | 2019-10-22 09:30 | XMS REPORT ---
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 Active 723818952 Problem Bulging of intervertebral disc between L4 and L5 M 51.26 Active 573344098 Problem Osteoarthritis of lumbar spi ne, unspecified spinal osteoarthritis complication status M47.816 Active 51401402 9 Problem Hypogonadism male E29.1 Active 48 720037 Problem Testicular cancer, unspecified laterality C62.90 Active 277951934 Problem Obesity (BMI 30-39.9) E66.9 Active 942306424 Problem Depression, unspecified depression type F32.9 Active 08437453 Problem Bulging lumbar disc M51.26 Active 917003468 Problem Other headache syndrome G44.89 Active 491032708 Problem Plantar fasciitis M72.2 Active 20 4738825 Problem Paresthesias in right hand R20.2 Act marizol 64133122 ALLERGIES No Information ENCOUNTERS Encounter Location Date Diagnosis [address] [place] [address] 1 2 Sep, 2019 Umbilical hernia without obstruction and without gangrene K42.[address] [address] 1 0 Sep, 2019 Bulging lumbar disc M51.26 ; Abdominal adhesions K66.0 and Obesity (BMI 30-39.9) E66.9 [address] [place] [address] 0 9 Sep, 2019 Hypogonadism male E29.1 [address] [place] [address] 0 9 Sep, [address] [place] [id number] Jun, Bronchitis J40 [address] [id number] Mar, Irritant contact dermatitis due to plants, except food L24.[address] [id number] Jan, Persistent cough for 3 weeks or longer R05 ; Abnormal chest xray R93.89 and Dizziness R42 [address] [id number] Jan, Hypogonadism male E29.[address] [id number] Dec, Hypogonadism male E29.[address] [id number] Dec, Hypogonadism male E29.1 and Osteoarthritis of lumbar spine, unspecified spinal osteoarthritis complication status M47.[address] [id number] November, Testicular cancer, unspecified laterality C62.90 ; Bulging lumbar disc M51.26 ; Contact dermatitis, unspecified contact dermatitis type, unspecified trigger L25.9 and Non-healing surgical wound, sequela T81.89XS [address] [id number] November, [facility] [address] [place] [address] [id number] [place] [id number] November, [address] [id number] Oct, Hypogonadism male E29.1 ; Gastroenteritis K52.9 and Mid back pain on left side M54.[address] [id number] Jul, Hypogonadism male E29.[address] [id number] Jul, Mid back pain on left side M54.9 ; Hypogonadism male E29.1 and Bilateral impacted cerumen H61.23 [address] [id number] Apr, Paresthesias in right hand R20.[address] [id number] Feb, Low back pain M54.[address] [id number] Dec, Bulging of intervertebral disc between L4 and L5 M51.[address] [id number] Dec, Bulging of intervertebral disc between L4 and L5 M51.[address] [id number] November, [address] [id number] November, Bulging of intervertebral disc between L4 and L5 M51.26 and Testicular cancer, unspecified laterality C62.[address] [id number] Oct, Bulging lumbar disc M51.26 and Plantar fasciitis M72.[address] [id number] Aug, Bulging lumbar disc M51.26 and Other headache syndrome G44.[address] [id number] Jul, 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 [id number] Jul, 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 [id number] Jul, 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 [facility] [id number] [place] [address] Jul, Bulging lumbar disc M51.26 and 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 [address] [place] [id number] Jul, Bulging lumbar disc M51.26 ; Suprapubic tenderness R10.819 and 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 [id number] Apr, Back strain, initial encounter S39.012A and Cerumen debris on tympanic membrane of both ears H61.[address] [id number] Feb, 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 [id number] Feb, [address] [id number] November, Viral syndrome B34.9 and Psoriasis L40.[address] [id number] November, Shortness of breath R06.02 ; Depression, unspecified depression type F32.9 and Sore throat J02.[address] [id number] Oct, Pneumonia, unspecified organism J18.9 ; Depression, unspecified depression type F32.9 and Testicular cancer, unspecified laterality C62.90 [facility] [address] [address] Oct, [facility] [address] [address] Oct, [address] [id number] Oct, [address] [id number] Oct, Acute upper respiratory infection, unspecified J06.9 and Testicular cancer, right C62.[address] [id number] Jun, Bilateral low back pain without sciatica M54.[address] [id number] May, Upper respiratory tract infection, unspecified upper respiratory infection J06.9 [address] [id number] Apr, [facility] [address] [facility] [id number] Feb, Low back pain 724.2 and Figueroa splints 844.9 [id number] [place] [address] [id number] Feb, [address] [id number] Feb, [address] [facility] [place] [id number] Feb, [id number] [place] [address] [id number] Jan, Back pain 724.5 and Cerumen debris on tympanic membrane of both ears 380.4 [facility] [address] [address] Jan, [address] [id number] Dec, [address] [id number] Dec, Other testicular hypofunction 257.[address] [id number] Dec, Other testicular hypofunction 257.2 and Overweight 278.02 [facility] [address] [address] Oct, [facility] [address] [address] Oct, [address] [id number] Sep, [facility] [address] [address] Sep, [address] [id number] Jul, [facility] [address] [address] Jul, [address] [id number] Jun, [facility] [id number] [place] [address] Jun, [facility] [id number] [place] [address] May, [facility] [address] [id number] [place] [address] May, [facility] [id number] [place] [address], [place] [id number] May, [facility] [id number] [place] [address] May, [facility] [id number] [address] May, [facility] [id number] [place] [address] May, [facility] [address] [id number] Apr, [facility] [id number] [place] [address] Apr, [facility] [address] [id number] Apr, [facility] [id number] [place] [address] Apr, [facility] [address] [id number] Mar, [facility] [id number] [place] [address] Mar, [facility] [address] [id number] Mar, [facility] [id number] [place] [address] Mar, [facility] [address] [id number] Feb, [facility] [id number] [place] [address] Feb, [facility] [id number] [id number] Jan, [facility] [address] [id number] [place] [address] Jan, [facility] [address] [facility] [id number] Jan, [facility] [address] [id number] [place] [address] Jan, [facility] [address] [id number] [place] [address] Jan, [facility] [address] [facility] [id number] Jan, [facility] [id number] [place] [address] Jan, [facility] [address] [id number] [place] [address] Dec, [facility] [id number] [id number] Oct, [facility] [address] [id number] [place] [address] Oct, [facility] [id number] [id number] Sep, [facility] [address] [id number] [place] [address] Sep, [facility] [id number] [id number] Sep, [facility] [id number] [place] [address] Sep, [facility] [address] [facility] [id number] Aug, [facility] [id number] [place] [address] Aug, [facility] [address] [id number] [place] [address] Mar, [facility] [address] [facility] [place] [address] Feb, [facility] [address] [facility] [place] [id number] Dec, [facility] [address] [facility] [place] [id number] November, [facility] [address] [id number] [place] [address] Sep, [facility] [address] [facility] [place] [id number] Aug, [facility] [address] [id number] [place] [address] Jun, [facility] [address] [id number] [place] [address] Jun, IMMUNIZATIONS No Known Immunizations SOCIAL HISTORY Never Assessed REASON FOR VISIT PLAN OF CARE VITAL SIGNS Height 70 in 2013-10-02 Weight 239.38 lbs 2013-10-02 Temperature 98.3 degrees Fahrenheit 2013-10-02 Heart Rate 116 bpm 2013-10-02 Respiratory Rate 16 2013-10-02 Blood pressure systolic 118 mmHg 2013-10-02 Blood pressure diastolic 76 mmHg 2013-10-02 MEDICATIONS Unknown Medications RESULTS No Results PROCEDURES No Known procedures INSTRUCTIONS MEDICATIONS ADMINISTERED No Known Medications MEDICAL (GENERAL) HISTORY Type Description Date Medical History testicular cancer 2007,chemo 2008 and 2009 for and tumor also that was not removed Surgical History left testical removed/cancer 2007 Surgical History orchiectomy right testical done by vickie . Benign results 11/2015 Hospitalization History surgery 2007 Hospitalization History Pneumonia, Hypoxia, N/V, Generalized Abdominal pain 10/22/15
--- OUTSIDE RECORDS SUMMARY | 2019-10-22 09:30 | XMS REPORT ---
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 Active 428080458 Problem Paresthesias in right hand R20.2 Act marizol 15567291 Problem Depression, unspecified depression type F32.9 Active 21235824 Problem Hypogonadism male E29.1 Active 48 966907 Problem Osteoarthritis of lumbar spi ne, unspecified spinal osteoarthritis complication status M47.816 Active 81894222 9 Problem Bulging lumbar disc M51.26 Active 370218902 Problem Bulging of intervertebral disc between L4 and L5 M 51.26 Active 686824977 Problem Other headache syndrome G44.89 Active 225791164 Problem Plantar fasciitis M72.2 Active 20 2880570 ALLERGIES No Information ENCOUNTERS Encounter Location Date Diagnosis [address] [id number] Jun, Bronchitis J40 [address] [id number] Mar, Irritant contact dermatitis due to plants, except food L24.[address] [id number] Jan, Persistent cough for 3 weeks or longer R05 ; Abnormal chest xray R93.89 and Dizziness R42 [address] [id number] Jan, Hypogonadism male E29.[address] [id number] Dec, Hypogonadism male E29.1 [place] [id number] [place] [address] [id number] Dec, Hypogonadism male E29.1 and Osteoarthritis of lumbar spine, unspecified spinal osteoarthritis complication status M47.[address] [id number] November, Testicular cancer, unspecified laterality C62.90 ; Bulging lumbar disc M51.26 ; Contact dermatitis, unspecified contact dermatitis type, unspecified trigger L25.9 and Non-healing surgical wound, sequela T81.89XS [address] [id number] November, [facility] [id number] [place] [id number] November, [place] [id number] [place] [address] [id number] Oct, Hypogonadism male E29.1 ; Gastroenteritis K52.9 and Mid back pain on left side M54.[address] [id number] Jul, Hypogonadism male E29.[address] [id number] Jul, Mid back pain on left side M54.9 ; Hypogonadism male E29.1 and Bilateral impacted cerumen H61.[address] [id number] Apr, Paresthesias in right hand R20.[address] [id number] Feb, Low back pain M54.[address] [id number] Dec, Bulging of intervertebral disc between L4 and L5 M51.[address] [id number] 05 Dec, 2017 Bulging of intervertebral disc between L4 and L5 M51.[address] [id number] November, [place] [id number] [id number] November, Bulging of intervertebral disc between L4 and L5 M51.26 and Testicular cancer, unspecified laterality C62.90 [place] [id number] [id number] Oct, Bulging lumbar disc M51.26 and Plantar fasciitis M72.[address] [id number] Aug, Bulging lumbar disc M51.26 and Other headache syndrome G44.[address] [id number] Jul, 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 [id number] Jul, 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 [id number] Jul, 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 [facility] [id number] [place] [address] Jul, Bulging lumbar disc M51.26 and 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 [id number] Jul, Bulging lumbar disc M51.26 ; Suprapubic tenderness R10.819 and 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 [id number] Apr, Back strain, initial encounter S39.012A and Cerumen debris on tympanic membrane of both ears H61.[address] [id number] Feb, 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 [id number] Feb, [address] [id number] November, Viral syndrome B34.9 and Psoriasis L40.[address] [id number] November, Shortness of breath R06.02 ; Depression, unspecified depression type F32.9 and Sore throat J02.[address] [id number] Oct, Pneumonia, unspecified organism J18.9 ; Depression, unspecified depression type F32.9 and Testicular cancer, unspecified laterality C62.90 [facility] [address] [address] Oct, [facility] [address] [address] Oct, [address] [id number] Oct, [address] [id number] Oct, Acute upper respiratory infection, unspecified J06.9 and Testicular cancer, right C62.[address] [id number] Jun, Bilateral low back pain without sciatica M54.[address] [id number] May, Upper respiratory tract infection, unspecified upper respiratory infection J06.[address] [id number] Apr, [address] [id number] Feb, Low back pain 724.2 and Figueroa splints 844.[address] [id number] Feb, [address] [id number] Feb, [place] [address] [facility] [place] [id number] Feb, [address] [id number] Jan, Back pain 724.5 and Cerumen debris on tympanic membrane of both ears 380.4 [facility] [place] [facility] [address] [address] Jan, [facility] [address] [id number] Dec, [facility] [address] [id number] Dec, Other testicular hypofunction 257.[address] [facility] [address] [id number] Dec, Other testicular hypofunction 257.2 and Overweight 278.02 [facility] [address] [address] Oct, [facility] [address] [address] Oct, [facility] [address] [id number] Sep, [facility] [address] [address] Sep, [facility] [address] [id number] Jul, [facility] [address] [address] Jul, [facility] [address] [id number] Jun, [facility] [address] [address] Jun, [facility] [address] [id number] May, [facility] [address] [address] May, [facility] [address] [id number] May, [facility] [address] [address] May, [facility] [address] [id number] May, [facility] [address] [facility] [place] [address] May, [facility] [address] [place] [id number] [id number] Apr, [facility] [address] [facility] [place] [address] Apr, [facility] [address] [id number] [id number] Apr, [facility] [address] [facility] [place] [address] Apr, [facility] [address] [address] [id number] [id number] Mar, [facility] [id number] [place] [address] Mar, [facility] [address] [id number] [id number] Mar, [facility] [id number] [place] [address] Mar, [facility] [address] [address] [id number] [id number] Feb, [facility] [id number] [place] [address] Feb, [facility] [address] [id number] [id number] Jan, [facility] [id number] [place] [address] Jan, [facility] [address] [id number] [id number] Jan, [facility] [id number] [place] [address] Jan, [facility] [id number] [place] [address] Jan, [facility] [address] [facility] [id number] Jan, [facility] [address] [facility] [place] [address] Jan, [facility] [place] [facility] [address] [facility] [place] [address] Dec, [facility] [address] [address] [id number] [id number] Oct, [facility] [place] [facility] [address] [facility] [place] [address] Oct, [facility] [address] [id number] [id number] Sep, [facility] [id number] [place] [address] Sep, [facility] [address] [address] [id number] [id number] Sep, [facility] [id number] [place] [address] Sep, [facility] [address] [place] [id number] [id number] Aug, [facility] [id number] [place] [address] Aug, [facility] [place] [facility] [id number] [place] [address] Mar, [facility] [address] [place] [id number] [id number] Feb, [facility] [address] [id number] [id number] Dec, [facility] [address] [id number] [id number] November, [facility] [address] [facility] [place] [address] Sep, [facility] [address] [place] [id number] [id number] Aug, [facility] [id number] [place] [address] Jun, [facility] [address] [facility] [place] [address] Jun, IMMUNIZATIONS No Known Immunizations SOCIAL HISTORY Never Assessed REASON FOR VISIT PLAN OF CARE VITAL SIGNS Height 70 in 2013-09-01 Weight 242.25 lbs 2013-09-01 Temperature 97.2 degrees Fahrenheit 2013-09-01 Heart Rate 92 bpm 2013-09-01 Respiratory Rate 12 2013-09-01 Blood pressure systolic 110 mmHg 2013-09-01 Blood pressure diastolic 74 mmHg 2013-09-01 MEDICATIONS No Known Medications RESULTS No Results PROCEDURES Procedure Date Ordered Result Body Site COMPLETE CBC W/AUTO DIFF WBC Sep 01, 2013 ASSAY THYROID STIM HORMONE Sep 01, 2013 ASSAY OF TOTAL TESTOSTERONE Sep 01, 2013 COMPREHEN METABOLIC PANEL Sep 01, 2013 VENIPUNCT, ROUTINE* Sep 01, 2013 INSTRUCTIONS MEDICATIONS ADMINISTERED No Known Medications MEDICAL [...]
--- OUTSIDE RECORDS SUMMARY | 2019-10-22 09:30 | XMS REPORT ---
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 Active 787576978 Problem Paresthesias in right hand R20.2 Act marizol 79892356 Problem Depression, unspecified depression type F32.9 Active 33498107 Problem Hypogonadism male E29.1 Active 48 348793 Problem Osteoarthritis of lumbar spi ne, unspecified spinal osteoarthritis complication status M47.816 Active 83693891 9 Problem Bulging lumbar disc M51.26 Active 541774028 Problem Bulging of intervertebral disc between L4 and L5 M 51.26 Active 342187771 Problem Other headache syndrome G44.89 Active 593273610 Problem Plantar fasciitis M72.2 Active 20 0234476 ALLERGIES No Information ENCOUNTERS Encounter Location Date Diagnosis [address] [id number] Jun, Bronchitis J40 [address] [id number] Mar, Irritant contact dermatitis due to plants, except food L24.[address] [id number] Jan, Persistent cough for 3 weeks or longer R05 ; Abnormal chest xray R93.89 and Dizziness R42 [address] [id number] Jan, Hypogonadism male E29.[address] [id number] Dec, Hypogonadism male E29.1 [place] [id number] [place] [address] [id number] Dec, Hypogonadism male E29.1 and Osteoarthritis of lumbar spine, unspecified spinal osteoarthritis complication status M47.[address] [id number] November, Testicular cancer, unspecified laterality C62.90 ; Bulging lumbar disc M51.26 ; Contact dermatitis, unspecified contact dermatitis type, unspecified trigger L25.9 and Non-healing surgical wound, sequela T81.89XS [address] [id number] November, [facility] [id number] [place] [id number] November, [place] [id number] [place] [address] [id number] Oct, Hypogonadism male E29.1 ; Gastroenteritis K52.9 and Mid back pain on left side M54.[address] [id number] Jul, Hypogonadism male E29.[address] [id number] Jul, Mid back pain on left side M54.9 ; Hypogonadism male E29.1 and Bilateral impacted cerumen H61.[address] [id number] Apr, Paresthesias in right hand R20.[address] [id number] Feb, Low back pain M54.[address] [id number] Dec, Bulging of intervertebral disc between L4 and L5 M51.[address] [id number] 05 Dec, 2017 Bulging of intervertebral disc between L4 and L5 M51.[address] [id number] November, [id number] [address] November, Bulging of intervertebral disc between L4 and L5 M51.26 and Testicular cancer, unspecified laterality C62.90 [place] [address] Oct, Bulging lumbar disc M51.26 and Plantar fasciitis M72.[address] [id number] Aug, Bulging lumbar disc M51.26 and Other headache syndrome G44.[address] [id number] Jul, 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 [id number] Jul, 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 [id number] Jul, 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 [facility] [address] [id number] [place] [address] Jul, Bulging lumbar disc M51.26 and 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 [id number] Jul, Bulging lumbar disc M51.26 ; Suprapubic tenderness R10.819 and 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 [id number] Apr, Back strain, initial encounter S39.012A and Cerumen debris on tympanic membrane of both ears H61.[address] [id number] Feb, 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 [id number] Feb, [address] [id number] November, Viral syndrome B34.9 and Psoriasis L40.[address] [id number] November, Shortness of breath R06.02 ; Depression, unspecified depression type F32.9 and Sore throat J02.[address] [id number] Oct, Pneumonia, unspecified organism J18.9 ; Depression, unspecified depression type F32.9 and Testicular cancer, unspecified laterality C62.90 [facility] [address] [address] Oct, [facility] [address] [address] Oct, [address] [id number] Oct, [address] [id number] Oct, Acute upper respiratory infection, unspecified J06.9 and Testicular cancer, right C62.[address] [id number] Jun, Bilateral low back pain without sciatica M54.[address] [id number] May, Upper respiratory tract infection, unspecified upper respiratory infection J06.[address] [id number] Apr, [address] [id number] Feb, Low back pain 724.2 and Figueroa splints 844.[address] [id number] Feb, [address] [id number] Feb, [place] [address] [facility] [place] [id number] Feb, [address] [id number] Jan, Back pain 724.5 and Cerumen debris on tympanic membrane of both ears 380.4 [facility] [place] [facility] [address] [address] Jan, [facility] [address] [id number] Dec, [facility] [address] [id number] Dec, Other testicular hypofunction 257.[address] [facility] [address] [id number] Dec, Other testicular hypofunction 257.2 and Overweight 278.02 [facility] [address] [address] Oct, [facility] [address] [address] Oct, [facility] [address] [id number] Sep, [facility] [address] [address] Sep, [facility] [address] [id number] Jul, [facility] [address] [address] Jul, [facility] [address] [id number] Jun, [facility] [address] [address] Jun, [facility] [address] [id number] May, [facility] [address] [address] May, [facility] [address] [id number] May, [facility] [address] [address] May, [facility] [address] [id number] May, [facility] [address] [facility] [place] [address] May, [facility] [address] [id number] [id number] Apr, [facility] [address] [facility] [place] [address] Apr, [facility] [address] [id number] [id number] Apr, [facility] [address] [facility] [place] [address] Apr, [facility] [address] [address] [id number] [id number] Mar, [facility] [id number] [place] [address] Mar, [facility] [address] [place] [address] [id number] [id number] Mar, [facility] [id number] [place] [address] Mar, [facility] [address] [address] [id number] [id number] Feb, [facility] [id number] [place] [address] Feb, [facility] [address] [place] [id number] [address] Jan, [facility] [id number] [place] [address] Jan, [facility] [address] [id number] [address] Jan, [facility] [id number] [place] [address] Jan, [facility] [id number] [place] [address] Jan, [facility] [address] [facility]757[facility] [id number] Jan, [facility] [address] [facility] [place] [address] Jan, [facility] [place] [facility] [address] [facility] [place] [address] Dec, [facility] [address] [id number] [address] Oct, [facility] [place] [facility] [address] [facility] [place] [address] Oct, [facility] [address] [id number] [id number] Sep, [facility] [id number] [place] [address] Sep, [facility] [address] [id number] [id number] Sep, [facility] [id number] [place] [address] Sep, [facility] [address] [id number] [id number] Aug, [facility] [id number] [place] [address] Aug, [facility] [place] [facility] [id number] [place] [address] Mar, [facility] [address] [id number], [place] [id number] Feb, [facility] [address] [id number], [place] [address] Dec, [facility] [address] [id number], [place] 125[address] November, [facility] [address] [facility] [place] [address] Sep, [facility] [address] [id number], [place] [id number] Aug, [facility] [id number] [place] [address] Jun, [facility] [address] [id number] [place] [address] Jun, IMMUNIZATIONS No Known Immunizations SOCIAL HISTORY Never Assessed REASON FOR VISIT PLAN OF CARE VITAL SIGNS Height 70 in 2013-10-16 Weight 235.4 lbs 2013-10-16 Temperature 98.4 degrees Fahrenheit 2013-10-16 Heart Rate 88 bpm 2013-10-16 Respiratory Rate 20 2013-10-16 Blood pressure systolic 132 mmHg 2013-10-16 Blood pressure diastolic 74 mmHg 2013-10-16 MEDICATIONS No Known Medications RESULTS No Results PROCEDURES Procedure Date Ordered Result Body Site THER/PROPH/DIAG INJ, SC/IM October 16, 2013 INJ TRIAMCINOLONE ACETONIDE 10 MG October 16, 2013 INJ BETAMETHSN ACTAT&SOD PHOSPH-3MG October 16, 2013 INSTRUCTIONS MEDICATIONS ADMINISTERED No Known Medications [...]
--- OUTSIDE RECORDS SUMMARY | 2019-10-22 09:30 | XMS REPORT ---
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 Active 653620798 Problem Paresthesias in right hand R20.2 Act marizol 30428591 Problem Depression, unspecified depression type F32.9 Active 19568126 Problem Hypogonadism male E29.1 Active 48 842448 Problem Osteoarthritis of lumbar spi ne, unspecified spinal osteoarthritis complication status M47.816 Active 72740242 9 Problem Bulging lumbar disc M51.26 Active 871843858 Problem Bulging of intervertebral disc between L4 and L5 M 51.26 Active 675773936 Problem Other headache syndrome G44.89 Active 748445089 Problem Plantar fasciitis M72.2 Active 20 4655806 ALLERGIES No Information ENCOUNTERS Encounter Location Date Diagnosis [address] [id number] Jun, Bronchitis J40 [address] [id number] Mar, Irritant contact dermatitis due to plants, except food L24.[address] [id number] Jan, Persistent cough for 3 weeks or longer R05 ; Abnormal chest xray R93.89 and Dizziness R42 [address] [id number] Jan, Hypogonadism male E29.[address] [id number] Dec, Hypogonadism male E29.1 [place] [id number] [place] [id number] Dec, Hypogonadism male E29.1 and Osteoarthritis of lumbar spine, unspecified spinal osteoarthritis complication status M47.[address] [id number] November, Testicular cancer, unspecified laterality C62.90 ; Bulging lumbar disc M51.26 ; Contact dermatitis, unspecified contact dermatitis type, unspecified trigger L25.9 and Non-healing surgical wound, sequela T81.89XS [address] [id number] November, [facility] [id number] [place] [id number] November, [place] [id number] [place] [address] [id number] Oct, Hypogonadism male E29.1 ; Gastroenteritis K52.9 and Mid back pain on left side M54.[address] [id number] Jul, Hypogonadism male E29.[address] [id number] Jul, Mid back pain on left side M54.9 ; Hypogonadism male E29.1 and Bilateral impacted cerumen H61.[address] [id number] Apr, Paresthesias in right hand R20.[address] [id number] Feb, Low back pain M54.[address] [id number] Dec, Bulging of intervertebral disc between L4 and L5 M51.[address] [id number] 05 Dec, 2017 Bulging of intervertebral disc between L4 and L5 M51.[address] [id number] November, [place] [id number] [id number] November, Bulging of intervertebral disc between L4 and L5 M51.26 and Testicular cancer, unspecified laterality C62.90 [place] [id number] [id number] Oct, Bulging lumbar disc M51.26 and Plantar fasciitis M72.[address] [id number] Aug, Bulging lumbar disc M51.26 and Other headache syndrome G44.[address] [id number] Jul, 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 [id number] Jul, 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 [id number] Jul, 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 [facility] [place] [id number] [place] [address] Jul, Bulging lumbar disc M51.26 and 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 [id number] Jul, Bulging lumbar disc M51.26 ; Suprapubic tenderness R10.819 and 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 [id number] Apr, Back strain, initial encounter S39.012A and Cerumen debris on tympanic membrane of both ears H61.[address] [id number] Feb, 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 [id number] Feb, [address] [id number] November, Viral syndrome B34.9 and Psoriasis L40.[address] [id number] November, Shortness of breath R06.02 ; Depression, unspecified depression type F32.9 and Sore throat J02.[address] [id number] Oct, Pneumonia, unspecified organism J18.9 ; Depression, unspecified depression type F32.9 and Testicular cancer, unspecified laterality C62.90 [facility] [address] [address] Oct, [facility] [address] [address] Oct, [address] [id number] Oct, [address] [id number] Oct, Acute upper respiratory infection, unspecified J06.9 and Testicular cancer, right C62.[address] [id number] Jun, Bilateral low back pain without sciatica M54.[address] [id number] May, Upper respiratory tract infection, unspecified upper respiratory infection J06.[address] [id number] Apr, [address] [id number] Feb, Low back pain 724.2 and Figueroa splints 844.[address] [id number] Feb, [address] [id number] Feb, [place] [id number] [facility] [place] [id number] Feb, [address] [id number] Jan, Back pain 724.5 and Cerumen debris on tympanic membrane of both ears 380.4 [facility] [address] [address] Jan, [facility] [address] [id number] Dec, [facility] [address] [id number] Dec, Other testicular hypofunction 257.[address] [facility] [address] [id number] Dec, Other testicular hypofunction 257.2 and Overweight 278.02 [facility] [address] [address] Oct, [facility] [address] [address] Oct, [facility] [address] [id number] Sep, [facility] [address] [address] Sep, [facility] [address] [id number] Jul, [facility] [address] [address] Jul, [facility] [address] [id number] Jun, [facility] [address] [address] Jun, [facility] [address] [id number] May, [facility] [address] [address] May, [facility] [address] [id number] May, [facility] [address] [address] May, [facility] [address] [id number] May, [facility] [address] [facility] [place] [address] May, [facility] [address] [id number] [id number] Apr, [facility] [address] [id number] [place] [address] Apr, [facility] [address] [place] [id number] [id number] Apr, [facility] [address] [facility] [place] [address] Apr, [facility] [id number] [id number] Mar, [facility] [address] [place] [id number] [place] [address] Mar, [facility] [address] [place] [id number] [id number] Mar, [facility] [address] [id number] [place] [address] Mar, [facility] [address] [id number] [id number] Feb, [facility] [address] [id number] [place] [address] Feb, [facility] [address] [place] [id number] [id number] Jan, [facility] [address] [id number] [place] [address] Jan, [facility] [id number] [address] Jan, [facility] [address] [id number] [place] [address] Jan, [facility] [address] [id number] [place] [address] Jan, [facility] [address] [facility] [id number] Jan, [facility] [address] [facility] [place] [address] Jan, [facility] [address] [facility] [place] [address] Dec, [facility] [id number] [id number] Oct, [facility] [address] [facility] [place] [address] Oct, [facility] [id number] [id number] Sep, [facility] [address] [id number] [place] [address] Sep, [facility] [address] [place] [id number] [id number] Sep, [facility] [address] [id number] [place] [address] Sep, [facility] [address] [id number] [place] [id number] Aug, [facility] [address] [id number] [place] [address] Aug, [facility] [address] [id number] [place] [address] Mar, [facility] [id number] [place] [id number] Feb, [facility] [place] [address] [id number] [id number] Dec, [facility] [address] [id number] [id number] November, [facility] [address] [id number] [place] [address] Sep, [facility] [address] [place] [id number] [id number] Aug, [facility] [address] [id number] [place] [address] Jun, [facility] [address] [id number] [place] [address] Jun, IMMUNIZATIONS No Known Immunizations SOCIAL HISTORY Never Assessed REASON FOR VISIT PLAN OF CARE VITAL SIGNS MEDICATIONS No Known Medications RESULTS No Results PROCEDURES No Known [...]
--- OUTSIDE RECORDS SUMMARY | 2019-10-22 09:30 | XMS REPORT ---
Author Author Iain Johnson Organization [facility] Address [address] [place], [place] [address] Care Team Providers Care Compliance Clerk Name Role Phone Gennaro Johnson PCP Allergies and Adverse Reactions Name Reaction Notes No known drug allergy Plan of Treatment Planned Activity Comments Planned Date Planned Time Plan/Goal TESTOSTERONE FREE & TOTAL 02/21/2018 12:00 AM ESTROGEN SERUM TOTAL 02/21/2018 12:00 AM Medications Active Name Start Date Estimated Completion Date SIG Co mments AndroGel 1.62 % (20.25 mg/1.25 gram) transdermal gel in pack et 01/10/2018 07/09/2018 apply 2 packets (40.5 mg) by transdermal [...] 12:[address] ABD & PELV W/CONTRAST Returned 01/10/2018 12:00 AM LACTATE (LD) (LDH) ENZYME [...] testosterone in male Jan 22 2018 12:42PM Payers Insurance Name Company Name Plan Name Plan Number Policy Number Jb cy Group Number Start Date [employer] [id number] N/A [employer] [facility] [id number] N/ A History of Encounters Visit Date Visit Type Provider 01/22/2018 Nurse visit Gennaro Johnson MD 01/10/2018 Office visit Gennaro Johnson MD 12/17/2017 Office visit Val Salazar 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
--- OUTSIDE RECORDS SUMMARY | 2019-10-22 09:30 | XMS REPORT ---
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 Active 295527454 Problem Bulging of intervertebral disc between L4 and L5 M 51.26 Active 998034217 Problem Osteoarthritis of lumbar spi ne, unspecified spinal osteoarthritis complication status M47.816 Active 02134835 9 Problem Hypogonadism male E29.1 Active 48 932116 Problem Testicular cancer, unspecified laterality C62.90 Active 209467497 Problem Obesity (BMI 30-39.9) E66.9 Active 054345997 Problem Depression, unspecified depression type F32.9 Active 45286200 Problem Bulging lumbar disc M51.26 Active 701414301 Problem Other headache syndrome G44.89 Active 155446906 Problem Plantar fasciitis M72.2 Active 20 4195967 Problem Paresthesias in right hand R20.2 Act marizol 60806590 ALLERGIES No Information ENCOUNTERS Encounter Location Date Diagnosis [place] [address] [id number], [place] [address] 08 Oct, 2019 Periumbilical abdominal pain R10.33 ; Ob esity (BMI 30-39.9) E66.9 ; Hypogonadism male E29.1 and Bulging lumbar disc M51.26 [place] [address] [id number] [place] [address] Oct, Hypogonadism male E29.1 [place] [address] [id number], [place] [address] Sep, Counseled by nurse Z71.9 and Exposure to 2019-nCoV Z20.828 [facility] [address] [id number] [address] [place] [address] Sep, [facility] [address] [place] [address] [id number] [facility] [place] [address] Sep, Umbilical hernia without obstruction and without gangrene K42.9 [facility] [address] [place] [address] [id number] [place] [address] Sep, Bulging lumbar disc M51.26 ; Abdominal a dhesions K66.0 and Obesity (BMI 30-39.9) E66.9 [facility] [address] [place] [address] [id number] [place] [address] Sep, Hypogonadism male E29.1 [facility] [address] [place] [address] [id number] [place] [address] Sep, [facility] [place] [address] [id number] [place] [id number] Jun, Bronchitis J40 [facility] [place] [address] [id number] [place] [id number] Mar, Irritant contact dermatitis due to plant s, except food L24.7 [facility] [place] [address] [id number] [place] [id number] Jan, Persistent cough for 3 weeks or longer R 05 ; Abnormal chest xray R93.89 and Dizziness R42 [facility] [place] [address] [id number] [place] [id number] Jan, Hypogonadism male E29.1 [facility] [place] [address] [id number] [place] [id number] Dec, Hypogonadism male E29.1 [facility] [place] [address] [id number] [place] [id number] Dec, Hypogonadism male E29.1 and Osteoarthrit is of lumbar spine, unspecified spinal osteoarthritis complication status M47.816 [facility] [place] [address] [id number] [place] [id number] November, Testicular cancer, unspecified lateralit y C62.90 ; Bulging lumbar disc M51.26 ; Contact dermatitis, unspecified contact dermatitis type, unspecified trigger L25.9 and Non-healing surgical wound, sequela T81.89XS [facility] [address] [id number] [place] [id number] November, [facility] [address] [id number] [facility] [id number] November, [facility] [place] [address] [id number] [place] [id number] Oct, Hypogonadism male E29.1 ; Gastroenteriti s K52.9 and Mid back pain on left side M54.9 [facility] [address] [id number] [place] [id number] Jul, Hypogonadism male E29.1 [facility] [address] [id number] [place] [id number] Jul, Mid back pain on left side M54.9 ; Hypog onadism male E29.1 and Bilateral impacted cerumen H61.23 [facility] [address] [id number] [place] [id number] Apr, Paresthesias in right hand R20.2 [facility] [address] [id number] [place] [id number] Feb, Low back pain M54.5 [facility] [address] [id number] [place] [id number] Dec, Bulging of intervertebral disc between L 4 and L5 M51.26 [facility] [place] [address] [id number] [place] [id number] Dec, Bulging of intervertebral disc between L 4 and L5 M51.26 [facility] [address] [id number] [place] [id number] November, [facility] [address] [id number] [place] [id number] November, Bulging of intervertebral disc between L 4 and L5 M51.26 and Testicular cancer, unspecified laterality C62.90 [place] [address] [facility] [id number] [place] [id number] Oct, Bulging lumbar disc M51.26 and Plantar f asciitis M72.2 [place] [address] [address] [facility] [id number] [place] [id number] Aug, Bulging lumbar disc M51.26 and Other hea dache syndrome G44.[address] [id number] [place] [id number] Jul, 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 [id number] [place] [id number] Jul, 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 [id number] [place] [id number] Jul, 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 [facility] [id number] [place] [address] Jul, Bulging lumbar disc M51.[address] orchiectomy Z90.[address] [id number] [place] [id number] Jul, Bulging lumbar disc M51.26 ; Suprapubic tenderness R10.819 and 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 [place] [address] [address] [facility] [id number] [place] [id number] Apr, Back strain, initial encounter S39.012A and Cerumen debris on tympanic membrane of both ears H61.[address] [id number] [place] [id number] Feb, 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 [id number] [place] [id number] Feb, [address] [id number] [place] [id number] November, Viral syndrome B34.9 and Psoriasis L40.[address] [id number] [place] [id number] November, Shortness of breath R06.02 ; Depression, unspecified depression type F32.9 and Sore throat J02.9 [facility] [address] [id number] [place] [id number] Oct, Pneumonia, unspecified organism J18.9 ; Depression, unspecified depression type F32.9 and Testicular cancer, unspecified laterality C62.90 [facility] [address] [facility] [id number] [place] [address] Oct, [facility] [address] [facility] [id number] [place] [address] Oct, [facility] [address] [id number] [place] [id number] Oct, [facility] [address] [id number] [place] [id number] Oct, Acute upper respiratory infection, unspe cified J06.9 and Testicular cancer, right C62.91 [facility] [address] [id number] [place] [id number] Jun, Bilateral low back pain without sciatica M54.5 [facility] [place] [address] [id number] [place] [id number] May, Upper respiratory tract infection, unspe cified upper respiratory infection J06.9 [facility] [place] [address] [id number] [place] [id number] Apr, [facility] [address] [id number] [place] [id number] Feb, Low back pain 724.2 and Figueroa splints 844 .9 [facility] [place] [address] [id number] [place] [id number] Feb, [facility] [place] [address] [id number] [place] [id number] Feb, [facility] [place] [id number] [id number] Feb, [facility] [address] [id number] [place] [id number] Jan, Back pain 724.5 and Cerumen debris on ty mpanic membrane of both ears 380.4 [facility] [address] [facility] [id number] [address] [place] [address] Jan, [facility] [place] [address] [id number] [place] [id number] Dec, [facility] [place] [address] [id number] [place] [id number] Dec, Other testicular hypofunction 257.2 [facility] [place] [address] [id number] [place] [id number] Dec, Other testicular hypofunction 257.2 and Overweight 278.02 [facility] [address] [facility] [id number] [address] [place] [address] Oct, [facility] [address] [facility] [id number] [address] [place] [address] Oct, [facility] [place] [address] [facility] [id number] [place] [id number] Sep, [facility] [address] [facility] [id number] [address] [place] [address] Sep, [facility] [place] [address] [facility] [id number] [place] [id number] Jul, [facility] [address] [facility] [id number] [address] [place] [address] Jul, [facility] [place] [address] [facility] [id number] [place] [id number] Jun, [facility] [address] [facility] [id number] [address] [place] [address] Jun, [facility] [place] [address] [facility] [id number] [place] [id number] May, [facility] [address] [facility] [id number] [address] [place] [address] May, [facility] [place] [address] [facility] [id number] [place] [id number] May, [facility] [address] [id number] [address] [place] [address], [place] [address] May, [facility] [place] [address] [id number] [place] [id number] May, [facility] [address] [id number] [address] [place] [address], [place] [address] May, [facility] [place] [address] [id number] [place] [id number] Apr, [facility] [address] [id number] [address] [place] [address], [place] [address] Apr, [facility] [place] [address] [id number] [place] [id number] Apr, [facility] [address] [id number] [address] [place] [address], [place] [address] Apr, [facility] [place] [address] [id number] [place] [id number] Mar, [facility] [address] [id number] [address] [place] [address], [place] [address] Mar, [facility] [place] [address] [id number] [place] [id number] Mar, [facility] [address] [id number] [address] [place] [address], [place] [address] Mar, [facility] [place] [address] [id number] [place] [id number] Feb, [facility] [address] [id number] [address] [place] [address], [place] [address] Feb, [facility] [place] [address] [id number] [place] [id number] Jan, [facility] [address] [id number] [address] [place] [address], [place] [address] Jan, [facility] [place] [address] [id number] [place] [id number] Jan, [facility] [address] [id number] [address] [place] [address], [place] [address] Jan, [facility] [address] [id number] [address] [place] [address], [place] [address] Jan, [facility] [place] [address] [id number] [place] [id number] Jan, [facility] [address] [id number] [address] [place] [address], [place] [address] Jan, [facility] [address] [id number] [address] [place] [address], [place] [address] Dec, [facility] [place] [address] [id number] [place] [id number] Oct, [facility] [address] [id number] [address] [place] [address], [place] [address] Oct, [facility] [place] [address] [id number] [place] [id number] Sep, [facility] [address] [facility] [id number] [address] [place] [address], [place] [address] Sep, [facility] [place] [address] [id number] [place] [id number] Sep, [facility] [address] [facility] [id number] [address] [place] [address], [place] [address] Sep, [facility] [place] [address] [id number] [place] [id number] Aug, [facility] [address] [facility] [id number] [address] [place] [address], [place] [address] Aug, [facility] [address] [id number] [address] [place] [address], [place] [address] Mar, [facility] [place] [address] [id number] [place] [id number] Feb, [facility] [place] [address] [id number] [place] [id number] Dec, [facility] [place] [address] [id number] [place] [id number] November, [facility] [address] [id number] [address], [place] [address] Sep, [facility] [address] [id number] Sharona COCHRAN S [id number] Aug, [facility] [address] [facility] [id number] [address], [place] [address] Jun, [facility] [address] [facility] [id number] [address] [place] [address] Jun, IMMUNIZATIONS No Known Immunizations SOCIAL HISTORY Never Assessed REASON FOR VISIT PLAN OF CARE VITAL SIGNS Height 70 in 2014-02-03 Weight 229.4 lbs 2014-02-03 Temperature 97.9 degrees Fahrenheit 2014-02-03 Heart Rate 80 bpm 2014-02-03 Respiratory Rate 16 2014-02-03 Blood pressure systolic 120 mmHg 2014-02-03 Blood pressure diastolic 80 mmHg 2014-02-03 MEDICATIONS No Known Medications RESULTS No Results PROCEDURES Procedure Date Ordered Result Body Site URINALYSIS, AUTO, W/O SCOPE February 03, 2014 INSTRUCTIONS MEDICATIONS ADMINISTERED No Known Medications MEDICAL [...]
--- OUTSIDE RECORDS SUMMARY | 2019-10-22 09:30 | XMS REPORT ---
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 Active 490402305 Problem Bulging of intervertebral disc between L4 and L5 M 51.26 Active 119753845 Problem Osteoarthritis of lumbar spi ne, unspecified spinal osteoarthritis complication status M47.816 Active 01223826 9 Problem Hypogonadism male E29.1 Active 48 933480 Problem Testicular cancer, unspecified laterality C62.90 Active 698194380 Problem Obesity (BMI 30-39.9) E66.9 Active 177438820 Problem Depression, unspecified depression type F32.9 Active 52133350 Problem Bulging lumbar disc M51.26 Active 762759826 Problem Other headache syndrome G44.89 Active 976771956 Problem Plantar fasciitis M72.2 Active 20 7757414 Problem Paresthesias in right hand R20.2 Act marizol 18031433 ALLERGIES No Information ENCOUNTERS Encounter Location Date Diagnosis [address] [place] [address] 1 2 Sep, 2019 Umbilical hernia without obstruction and without gangrene K42.[address] [address] 1 0 Sep, 2019 Bulging lumbar disc M51.26 ; Abdominal adhesions K66.0 and Obesity (BMI 30-39.9) E66.9 [address] [place] [address] 0 9 Sep, 2019 Hypogonadism male E29.1 [address] [place] [address] 0 9 Sep, [address] [place] [id number] Jun, Bronchitis J40 [address] [id number] Mar, Irritant contact dermatitis due to plants, except food L24.[address] [id number] Jan, Persistent cough for 3 weeks or longer R05 ; Abnormal chest xray R93.89 and Dizziness R42 [address] [id number] Jan, Hypogonadism male E29.[address] [id number] Dec, Hypogonadism male E29.[address] [id number] Dec, Hypogonadism male E29.1 and Osteoarthritis of lumbar spine, unspecified spinal osteoarthritis complication status M47.[address] [id number] November, Testicular cancer, unspecified laterality C62.90 ; Bulging lumbar disc M51.26 ; Contact dermatitis, unspecified contact dermatitis type, unspecified trigger L25.9 and Non-healing surgical wound, sequela T81.89XS [address] [id number] November, [facility] [address] [place] [address] [id number] [id number] November, [address] [id number] Oct, Hypogonadism male E29.1 ; Gastroenteritis K52.9 and Mid back pain on left side M54.[address] [id number] Jul, Hypogonadism male E29.[address] [id number] Jul, Mid back pain on left side M54.9 ; Hypogonadism male E29.1 and Bilateral impacted cerumen H61.23 [place] [address] [id number] Apr, Paresthesias in right hand R20.[address] [id number] Feb, Low back pain M54.[address] [id number] Dec, Bulging of intervertebral disc between L4 and L5 M51.[address] [id number] Dec, Bulging of intervertebral disc between L4 and L5 M51.[address] [id number] November, [address] [id number] November, Bulging of intervertebral disc between L4 and L5 M51.26 and Testicular cancer, unspecified laterality C62.[address] [id number] Oct, Bulging lumbar disc M51.26 and Plantar fasciitis M72.[address] [id number] Aug, Bulging lumbar disc M51.26 and Other headache syndrome G44.[address] [id number] Jul, 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 [id number] Jul, 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 [id number] Jul, 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 [facility] [place] [facility] [id number] [place] [address] Jul, Bulging lumbar disc M51.26 and 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 [address] [place] [address] [id number] Jul, Bulging lumbar disc M51.26 ; Suprapubic tenderness R10.819 and 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 [id number] Apr, Back strain, initial encounter S39.012A and Cerumen debris on tympanic membrane of both ears H61.[address] [id number] Feb, 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 [id number] Feb, [address] [id number] November, Viral syndrome B34.9 and Psoriasis L40.[address] [id number] November, Shortness of breath R06.02 ; Depression, unspecified depression type F32.9 and Sore throat J02.[address] [id number] Oct, Pneumonia, unspecified organism J18.9 ; Depression, unspecified depression type F32.9 and Testicular cancer, unspecified laterality C62.90 [facility] [address] [address] Oct, [facility] [address] [address] Oct, [address] [id number] Oct, [address] [id number] Oct, Acute upper respiratory infection, unspecified J06.9 and Testicular cancer, right C62.[address] [id number] Jun, Bilateral low back pain without sciatica M54.[address] [id number] May, Upper respiratory tract infection, unspecified upper respiratory infection J06.9 [address] [id number] Apr, [facility] [address] [facility] [id number] Feb, Low back pain 724.2 and Figueroa splints 844.9 [id number] [place] [address] [id number] Feb, [address] [id number] Feb, [address] [facility] [place] [id number] Feb, [id number] [place] [address] [id number] Jan, Back pain 724.5 and Cerumen debris on tympanic membrane of both ears 380.4 [facility] [address] [address] Jan, [address] [id number] Dec, [address] [id number] Dec, Other testicular hypofunction 257.[address] [id number] Dec, Other testicular hypofunction 257.2 and Overweight 278.02 [facility] [address] [address] Oct, [facility] [address] [address] Oct, [address] [id number] Sep, [facility] [address] [address] Sep, [address] [id number] Jul, [facility] [address] [address] Jul, [address] [id number] Jun, [facility] [id number] [place] [address] Jun, [facility] [id number] [id number] May, [facility] [address] [facility] [place] [address] May, [facility] [id number] [place] [address], [place] [id number] May, [facility] [id number] [place] [address] May, [facility] [id number] [id number] May, [facility] [id number] [place] [address] May, [facility] [address] [id number] Apr, [facility] [id number] [place] [address] Apr, [facility] [address] [id number] Apr, [facility] [id number] [place] [address] Apr, [facility] [address] [id number] Mar, [facility] [id number] [place] [address] Mar, [facility] [address] [id number] Mar, [facility] [id number] [place] [address] Mar, [facility] [address] [id number] Feb, [facility] [id number] [place] [address] Feb, [facility] [address] [id number] Jan, [facility] [address] [facility] [place] [address] Jan, [facility] [address] [facility] [id number] Jan, [facility] [address] [facility] [place] [address] Jan, [facility] [address] [facility] [place] [address] Jan, [facility] [address] [facility] [id number] Jan, [facility] [id number] [place] [address] Jan, [facility] [address] [facility] [place] [address] Dec, [facility] [address] [id number] Oct, [facility] [address] [facility] [place] [address] Oct, [facility] [address] [address] Sep, [facility] [address] [facility] [place] [address] Sep, [facility] [id number] [id number] Sep, [facility] [id number] [place] [address] Sep, [facility] [address] [facility] [id number] Aug, [facility] [id number] [place] [address] Aug, [facility] [address] [facility] [place] [address] Mar, [facility] [address] [facility] [id number] Feb, [facility] [address] [facility] [place] [address] Dec, [facility] [address] [facility] [place] [id number] November, [facility] [address] [facility] [place] [address] Sep, [facility] [address] [facility] [place] [id number] Aug, [facility] [address] [id number] [place] [address] Jun, [facility] [address] [facility] [place] [address] Jun, IMMUNIZATIONS No Known Immunizations SOCIAL HISTORY Never Assessed REASON FOR VISIT PLAN OF CARE VITAL SIGNS Height 70 in 2013-09-15 Weight 238 lbs 2013-09-15 Temperature 98.4 degrees Fahrenheit 2013-09-15 Heart Rate 88 bpm 2013-09-15 Respiratory Rate 16 2013-09-15 Blood pressure systolic 116 mmHg 2013-09-15 Blood pressure diastolic 72 mmHg 2013-09-15 MEDICATIONS Unknown Medications RESULTS No Results PROCEDURES [...]
--- OUTSIDE RECORDS SUMMARY | 2019-10-22 09:30 | XMS REPORT ---
Author Author Iain Johnson Organization [facility] Address [address] [place], [place] [address] Care Team Providers Care Firm Administrator Name Role Phone Gennaro Johnson PCP Allergies [...] Number Jb cy Group Number Start Date [employer] [id number] N/A [employer] [facility] [id number] N/ A History of Encounters Visit Date Visit Type Provider 01/22/2018 Nurse visit Gennaro Johnson MD 01/10/2018 Office visit Gennaro Johnson MD 12/17/2017 Office visit Val Salazar TON CYLINDER INSPECTOR
--- OUTSIDE RECORDS SUMMARY | 2019-10-22 09:30 | XMS REPORT ---
Author Author Iain Salazar Organization [facility] Address [address] [place], [place] [address] Care Team Providers Care Marketing Services Rep Name Role Phone Val Salazar PCP Allergies and Adverse Reactions Name Reaction Notes No known drug allergy Plan of Treatment Not available. Medications Not available. Problem List Not available. Vital Signs Date Time BP-Sys(mm[Hg] BP-Grace(mm[Hg]) HR(bpm) RR(rpm) Temp WT HT HC BMI BSA BMI Percentile O2 Sat(%) 12/17/2017 11:15:00 AM 112 mmHg 78 mmHg 76 bpm 18 rpm 97.9 F 244 lbs 70 in 35.01 kg/m 2.338 m 99.9 % 96 % Social History Name Description Comments Tobacco Never smoker denies alcohol use Single Moderate exercise Caffeine Current every day History of Procedures Not available. Results Summary Not available. History Of Immunizations Not available. 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
--- OUTSIDE RECORDS SUMMARY | 2019-10-22 09:31 | XMS REPORT ---
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 Active 356555170 Problem Paresthesias in right hand R20.2 Act marizol 85169306 Problem Depression, unspecified depression type F32.9 Active 72612347 Problem Hypogonadism male E29.1 Active 48 618722 Problem Osteoarthritis of lumbar spi ne, unspecified spinal osteoarthritis complication status M47.816 Active 08837819 9 Problem Bulging lumbar disc M51.26 Active 561671056 Problem Bulging of intervertebral disc between L4 and L5 M 51.26 Active 872216885 Problem Other headache syndrome G44.89 Active 300828264 Problem Plantar fasciitis M72.2 Active 20 3302263 ALLERGIES No Information ENCOUNTERS Encounter Location Date Diagnosis [id number] [place] [id number] Jan, Persistent cough for 3 weeks or longer R 05 ; Abnormal chest xray R93.89 and Dizziness R42 [facility] [address] [facility] [id number] [place] [id number] Jan, Hypogonadism male E29.1 [place] [id number] [place] [id number] Dec, Hypogonadism male E29.1 [facility] [address] [place] [id number] [place] [id number] Dec, Hypogonadism male E29.1 and Osteoarthrit is of lumbar spine, unspecified spinal osteoarthritis complication status M47.816 [facility] [address] [id number] [place] [id number] November, Testicular cancer, unspecified lateralit y C62.90 ; Bulging lumbar disc M51.26 ; Contact dermatitis, unspecified contact dermatitis type, unspecified trigger L25.9 and Non-healing surgical wound, sequela T81.89XS [facility] [address] [id number] [place] [id number] November, [facility] [place] [facility] [address] [id number] [facility] [place] [id number] November, [facility] [place] [address] [id number] [place] [id number] Oct, Hypogonadism male E29.1 ; Gastroenteriti s K52.9 and Mid back pain on left side M54.9 [facility] [address] [id number] [place] [id number] Jul, Hypogonadism male E29.1 [facility] [address] [id number] [place] [id number] Jul, Mid back pain on left side M54.9 ; Hypog onadism male E29.1 and Bilateral impacted cerumen H61.23 [facility] [address] [id number] [place] [id number] Apr, Paresthesias in right hand R20.2 [facility] [address] [id number] [place] [id number] Feb, Low back pain M54.5 [facility] [address] [id number] [place] [id number] Dec, Bulging of intervertebral disc between L 4 and L5 M51.26 [facility] [address] [id number] [place] [id number] Dec, Bulging of intervertebral disc between L 4 and L5 M51.26 [facility] [address] [id number] [place] [id number] November, [facility] [address] [id number] [place] [id number] November, Bulging of intervertebral disc between L 4 and L5 M51.26 and Testicular cancer, unspecified laterality C62.90 [facility] [address] [id number] [place] [id number] Oct, Bulging lumbar disc M51.26 and Plantar f asciitis M72.2 [facility] [address] [id number] [place] [id number] Aug, Bulging lumbar disc M51.26 and Other hea dache syndrome G44.89 [facility] [address] [id number] [place] [id number] Jul, 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 [facility] [place] [address] [id number] [place] [id number] Jul, 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 [facility] [id number] [place] [id number] Jul, 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 [facility] Ignacio HEADLEYE [id number] [place] [address] Jul, Bulging lumbar disc M51.[address] orchiectomy Z90.79 [place] [address] [id number] [place] [id number] Jul, Bulging lumbar disc M51.26 ; Suprapubic tenderness R10.819 and 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 [facility] [address] [id number] [place] [id number] Apr, Back strain, initial encounter S39.012A and Cerumen debris on tympanic membrane of both ears H61.23 [facility] [place] [address] [id number] [place] [id number] Feb, 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 [facility] [address] [id number] [place] [id number] Feb, [facility] [address] [id number] [place] [id number] November, Viral syndrome B34.9 and Psoriasis L40.9 [facility] [address] [id number] [place] [id number] November, Shortness of breath R06.02 ; Depression, unspecified depression type F32.9 and Sore throat J02.9 [facility] [address] [id number] [place] [id number] Oct, Pneumonia, unspecified organism J18.9 ; Depression, unspecified depression type F32.9 and Testicular cancer, unspecified laterality C62.90 [facility] [address] [facility] [id number] [address] [place] [address] Oct, [facility] [address] [facility] [id number] [address] [place] [address] Oct, [facility] [address] [facility] [id number] [place] [id number] Oct, [facility] [address] [facility] [id number] [place] [id number] Oct, Acute upper respiratory infection, unspe cified J06.9 and Testicular cancer, right C62.91 [facility] [address] [facility] [id number] [place] [id number] Jun, Bilateral low back pain without sciatica M54.5 [facility] [address] [id number] [place] [id number] May, Upper respiratory tract infection, unspe cified upper respiratory infection J06.9 [facility] [address] [id number] [place] [id number] Apr, [facility] [address] [facility] [id number] [place] [id number] Feb, Low back pain 724.2 and Figueroa splints 844 .9 [facility] [address] [id number] [place] [id number] Feb, [facility] [address] [facility] [id number] [place] [id number] Feb, [address] [id number] [id number] Feb, [facility] [address] [facility] [id number] [place] [id number] Jan, Back pain 724.5 and Cerumen debris on ty mpanic membrane of both ears 380.4 [facility] [address] [facility] [id number] [address] [place] [address] Jan, [facility] [place] [address] [facility] [id number] [place] [id number] Dec, [facility] [place] [address] [id number] [place] [id number] Dec, Other testicular hypofunction 257.2 [facility] [place] [address] [id number] [place] [id number] Dec, Other testicular hypofunction 257.2 and Overweight 278.02 [facility] [address] [facility] [id number] [address] [place] [address] Oct, [facility] [address] [facility] [id number] [address] [place] [address] Oct, [facility] [place] [address] [facility] [id number] [place] [id number] Sep, [facility] [address] [facility] [id number] [address] [place] [address] Sep, [facility] [place] [address] [facility] [id number] [place] [id number] Jul, [facility] [address] [facility] [id number] [address] [place] [address] Jul, [facility] [place] [address] [facility] [id number] [place] [id number] Jun, [facility] [address] [facility] [id number] [address] [place] [address] Jun, [facility] [place] [address] [facility] [id number] [place] [id number] May, [facility] [address] [facility] [id number] [address] [place] [address] May, [facility] [place] [address] [facility] [id number] [place] [id number] May, [facility] [address] [id number] [address] [place] [address], [place] [address] May, [facility] [place] [address] [id number] [place] [id number] May, [facility] [address] [id number] [facility] [place] [address] May, [facility] [place] [address] [id number] [place] [id number] Apr, [facility] [address] [id number] [address] [place] [address], [place] [address] Apr, [facility] [place] [address] [id number] [place] [id number] Apr, [facility] [address] [id number] [address] [place] [address], [place] [address] Apr, [facility] [place] [address] [id number] [place] [id number] Mar, [facility] [address] [id number] [address] [place] [address], [place] [address] Mar, [facility] [place] [address] [id number] [place] [id number] Mar, [facility] [address] [id number] [address] [place] [address], [place] [address] Mar, [facility] [place] [address] [id number] [place] [id number] Feb, [facility] [address] [id number] [address] [place] [address], [place] [address] Feb, [facility] [place] [address] [id number] [place] [id number] Jan, [facility] [address] [id number] [address] [place] [address], [place] [address] Jan, [facility] [place] [address] [id number] [place] [id number] Jan, [facility] [address] [id number] [address] [place] [address] Jan, [facility] [address] [id number] [address] [place] [address], [place] [address] Jan, [facility] [place] [address] [id number] [place] [id number] Jan, [facility] [address] [facility] [id number] [address] [place] [address], [place] [address] Jan, [facility] [address] [id number] [address] [place] [address], [place] [address] Dec, [facility] [place] [address] [id number] [place] [id number] Oct, [facility] [address] [facility] [id number] [address] [place] [address], [place] [address] Oct, [facility] [place] [address] [id number] [place] [id number] Sep, [facility] [address] [facility] [id number] [address] [place] [address] Sep, [facility] [place] [address] [id number] [place] [id number] Sep, [facility] [address] [facility] [id number] [address] [place] [address] Sep, [facility] [place] [address] [id number] [place] [id number] Aug, [facility] [address] [id number] [address] [place] [address] Aug, [facility] [address] [id number] [address] [place] [address], [place] [address] Mar, [facility] [place] [address] [id number] [place] [id number] Feb, [facility] [place] [address] [id number] [place] [id number] Dec, [facility] [place] [address] [id number] [place] [id number] November, [facility] [address] [facility] [id number] [place] [address] Sep, [facility] [address] [id number] Sharona COCHRAN S [id number] Aug, [facility] [address] [facility] [id number] [place] [address] Jun, [facility] [address] [facility] [id number] [address] [place] [address] Jun, IMMUNIZATIONS No Known Immunizations SOCIAL HISTORY Never Assessed REASON FOR VISIT PLAN OF CARE VITAL SIGNS Height 70 in 2014-05-27 Weight 233 lbs 2014-05-27 Temperature 96.8 degrees Fahrenheit 2014-05-27 Heart Rate 72 bpm 2014-05-27 Respiratory Rate 16 2014-05-27 Blood pressure systolic 118 mmHg 2014-05-27 Blood pressure diastolic 82 mmHg 2014-05-27 MEDICATIONS Unknown Medications RESULTS No Results PROCEDURES [...]
--- OUTSIDE RECORDS SUMMARY | 2019-10-22 09:31 | XMS REPORT ---
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 Active 420123513 Problem Paresthesias in right hand R20.2 Act marizol 73266990 Problem Depression, unspecified depression type F32.9 Active 68305368 Problem Hypogonadism male E29.1 Active 48 899944 Problem Osteoarthritis of lumbar spi ne, unspecified spinal osteoarthritis complication status M47.816 Active 88669396 9 Problem Bulging lumbar disc M51.26 Active 149190427 Problem Bulging of intervertebral disc between L4 and L5 M 51.26 Active 308080221 Problem Other headache syndrome G44.89 Active 309444147 Problem Plantar fasciitis M72.2 Active 20 5008962 ALLERGIES No Information ENCOUNTERS Encounter Location Date Diagnosis [id number], [place] [id number] Feb, [place] [address] [place] [id number] [place] [address], [place] [id number] Jan, Persistent cough for 3 weeks or longer R 05 ; Abnormal chest xray R93.89 and Dizziness R42 [place] [address] [facility] [id number] [place] [id number] Jan, Hypogonadism male E29.1 [place] [id number] [place] [address], [place] [id number] Dec, Hypogonadism male E29.[address] [id number] [place] [id number] Dec, Hypogonadism male E29.1 and Osteoarthrit is of lumbar spine, unspecified spinal osteoarthritis complication status M47.816 [facility] [address] [id number] [place] [id number] November, Testicular cancer, unspecified lateralit y C62.90 ; Bulging lumbar disc M51.26 ; Contact dermatitis, unspecified contact dermatitis type, unspecified trigger L25.9 and Non-healing surgical wound, sequela T81.89XS [facility] [place] [address] [id number] [place] [id number] November, [facility] [place] [facility] [address] [id number] [place] [id number] November, [facility] [place] [address] [id number] [place] [id number] Oct, Hypogonadism male E29.1 ; Gastroenteriti s K52.9 and Mid back pain on left side M54.9 [facility] [address] [id number] [place] [id number] Jul, Hypogonadism male E29.1 [facility] [address] [id number] [place] [id number] Jul, Mid back pain on left side M54.9 ; Hypog onadism male E29.1 and Bilateral impacted cerumen H61.23 [facility] [address] [id number] [place] [id number] Apr, Paresthesias in right hand R20.2 [facility] [address] [id number] [place] [id number] Feb, Low back pain M54.5 [facility] [address] [id number] [place] [id number] Dec, Bulging of intervertebral disc between L 4 and L5 M51.26 [facility] [address] [id number] [place] [id number] Dec, Bulging of intervertebral disc between L 4 and L5 M51.26 [facility] [address] [id number] [place] [id number] November, [facility] [address] [id number] [place] [id number] November, Bulging of intervertebral disc between L 4 and L5 M51.26 and Testicular cancer, unspecified laterality C62.90 [place] [address] [id number] [place] [id number] Oct, Bulging lumbar disc M51.26 and Plantar f asciitis M72.2 [place] [id number] [place] [id number] Aug, Bulging lumbar disc M51.26 and Other hea dache syndrome G44.89 [place] [id number] [place] [id number] Jul, 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 [place] [id number] [place] [address], [place] [id number] Jul, 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 [address] [place] [address], [place] [id number] Jul, 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 [address] [id number] [place] [address] Jul, Bulging lumbar disc M51.[address] orchiectomy Z90.79 [place] [id number] [place] [address], [place] [id number] Jul, Bulging lumbar disc M51.26 ; Suprapubic tenderness R10.819 and 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 [address] [place] [address], [place] [id number] Apr, Back strain, initial encounter S39.012A and Cerumen debris on tympanic membrane of both ears H61.[address] [place] [address], [place] [id number] Feb, 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 [address] [place] [address], [place] [id number] Feb, [address] [place] [address], [place] [id number] November, Viral syndrome B34.9 and Psoriasis L40.9 [facility] [address] [id number] [place] [id number] November, Shortness of breath R06.02 ; Depression, unspecified depression type F32.9 and Sore throat J02.9 [facility] [address] [id number] [place] [id number] Oct, Pneumonia, unspecified organism J18.9 ; Depression, unspecified depression type F32.9 and Testicular cancer, unspecified laterality C62.90 [facility] [address] [facility] [id number] [place] [address] Oct, [facility] [address] [facility] [id number] [address] [address] Oct, [facility] [address] [id number] [place] [id number] Oct, [facility] [address] [id number] [place] [id number] Oct, Acute upper respiratory infection, unspe cified J06.9 and Testicular cancer, right C62.91 [facility] [address] [id number] [place] [id number] Jun, Bilateral low back pain without sciatica M54.5 [facility] [address] [id number] [place] [id number] May, Upper respiratory tract infection, unspe cified upper respiratory infection J06.9 [facility] [address] [id number] [place] [id number] Apr, [facility] [address] [id number] [place] [id number] Feb, Low back pain 724.2 and Figueroa splints 844 .9 [facility] [address] [id number] [place] [id number] Feb, [facility] [address] [id number] [place] [id number] Feb, [address] [id number] [id number] Feb, [facility] [address] [id number] [place] [id number] Jan, Back pain 724.5 and Cerumen debris on ty mpanic membrane of both ears 380.4 [facility] [address] [facility] [id number] [address] [place] [address] Jan, [facility] [place] [address] [facility] [id number] [place] [id number] Dec, [facility] [place] [address] [id number] [place] [id number] Dec, Other testicular hypofunction 257.2 [facility] [place] [address] [id number] [place] [id number] Dec, Other testicular hypofunction 257.2 and Overweight 278.02 [facility] [address] [facility] [id number] [address] [place] [address] Oct, [facility] [address] [place] [id number] [address] [place] [address] Oct, [facility] [place] [address] [facility] [id number] [place] [id number] Sep, [facility] [address] [place] [id number] [address] [place] [address] Sep, [facility] [place] [address] [place] [address] [id number] [place] [id number] Jul, [facility] [address] [facility] [id number] [address] [place] [address] Jul, [facility] [place] [address] [facility] [id number] [place] [id number] Jun, [facility] [address] [facility] [id number] [address] [place] [address] Jun, [facility] [place] [address] [facility] [id number] [place] [id number] May, [facility] [address] [place] [id number] [address] [place] [address] May, [facility] [place] [address] [facility] [id number] [place] [id number] May, [facility] [address] [id number] [facility] [place] [address] May, [facility] [place] [address] [id number] [place] [id number] May, [facility] [address] [id number] [facility] [place] [address] May, [facility] [place] [address] [id number] [place] [id number] Apr, [facility] [address] [id number] [facility] [place] [address] Apr, [facility] [place] [address] [id number] [place] [id number] Apr, [facility] [address] [id number] [facility] [place] [address] Apr, [facility] [place] [address] [id number] [place] [id number] Mar, [facility] [address] [id number] [address] [place] [address], [place] [address] Mar, [facility] [place] [address] [id number] [place] [id number] Mar, [facility] [address] [id number] [facility] [place] [address] Mar, [facility] [place] [address] [id number] [place] [id number] Feb, [facility] [address] [id number] [facility] [place] [address] Feb, [facility] [place] [address] [id number] [place] [id number] Jan, [facility] [address] [id number] [facility] [place] [address] Jan, [facility] [place] [address] [id number] [place] [id number] Jan, [facility] [address] [id number] [address] [place] [address], [place] [address] Jan, [facility] [address] [id number] [address] [place] [address], [place] [address] Jan, [facility] [place] [address] [id number] [place] [id number] Jan, [facility] [address] [id number] [address] [place] [address], [place] [address] Jan, [facility] [address] [id number] [address] [place] [address], [place] [address] Dec, [facility] [place] [address] [id number] [place] [id number] Oct, [facility] [address] [facility] [id number] [address] [place] [address], [place] [address] Oct, [facility] [place] [address] [id number] [place] [id number] Sep, [facility] [address] [id number] [address] [place] [address], [place] [address] Sep, [facility] [place] [address] [id number] [place] [id number] Sep, [facility] [address] [facility] [id number] [address] [place] [address], [place] [address] Sep, [facility] [place] [address] [id number] [place] [id number] Aug, [facility] [address] [id number] [address] [place] [address], [place] [address] Aug, [facility] [place] [address] [id number] [address] [place] [address], [place] [address] Mar, [facility] [place] [address] [id number] [place] [id number] Feb, [facility] [place] [address] [id number] [place] [id number] Dec, [facility] [place] [address] [id number] [place] [id number] November, [facility] [address] [facility] [id number] [place] [address] Sep, [facility] [address] [facility] [id number] Sharona COCHRAN [id number] Aug, [facility] [address] [facility] [id number] [address] [place] [address] Jun, [facility] [address] [facility] [id number] [address] [place] [address] Jun, IMMUNIZATIONS No Known Immunizations SOCIAL HISTORY Never Assessed REASON FOR VISIT PLAN OF CARE VITAL SIGNS MEDICATIONS Unknown Medications RESULTS No Results PROCEDURES [...]
--- OUTSIDE RECORDS SUMMARY | 2019-10-22 09:31 | XMS REPORT ---
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 Active 204613005 Problem Paresthesias in right hand R20.2 Act marizol 76853285 Problem Depression, unspecified depression type F32.9 Active 29145287 Problem Hypogonadism male E29.1 Active 48 868035 Problem Osteoarthritis of lumbar spi ne, unspecified spinal osteoarthritis complication status M47.816 Active 71187077 9 Problem Bulging lumbar disc M51.26 Active 443416858 Problem Bulging of intervertebral disc between L4 and L5 M 51.26 Active 528306478 Problem Other headache syndrome G44.89 Active 276751488 Problem Plantar fasciitis M72.2 Active 20 9155422 ALLERGIES No Information ENCOUNTERS Encounter Location Date Diagnosis [id number] [place] [id number] Jan, Persistent cough for 3 weeks or longer R 05 ; Abnormal chest xray R93.89 and Dizziness R42 [facility] [address] [facility] [id number] [place] [id number] Jan, Hypogonadism male E29.1 [place] [id number] [place] [id number] Dec, Hypogonadism male E29.1 [facility] [address] [place] [id number] [place] [id number] Dec, Hypogonadism male E29.1 and Osteoarthrit is of lumbar spine, unspecified spinal osteoarthritis complication status M47.816 [facility] [address] [id number] [place] [id number] November, Testicular cancer, unspecified lateralit y C62.90 ; Bulging lumbar disc M51.26 ; Contact dermatitis, unspecified contact dermatitis type, unspecified trigger L25.9 and Non-healing surgical wound, sequela T81.89XS [facility] [address] [id number] [place] [id number] November, [facility] [place] [facility] [address] [id number] [facility] [place] [id number] [place] [place] [address] [id number] [place] [id number] Oct, Hypogonadism male E29.1 ; Gastroenteriti s K52.9 and Mid back pain on left side M54.9 [facility] [address] [id number] [place] [id number] Jul, Hypogonadism male E29.1 [facility] [address] [id number] [place] [id number] Jul, Mid back pain on left side M54.9 ; Hypog onadism male E29.1 and Bilateral impacted cerumen H61.23 [facility] [address] [id number] [place] [id number] Apr, Paresthesias in right hand R20.2 [facility] [address] [id number] [place] [id number] Feb, Low back pain M54.5 [facility] [address] [id number] [place] [id number] Dec, Bulging of intervertebral disc between L 4 and L5 M51.26 [facility] [address] [id number] [place] [id number] Dec, Bulging of intervertebral disc between L 4 and L5 M51.26 [facility] [address] [id number] [place] [id number] November, [facility] [address] [id number] [place] [id number] November, Bulging of intervertebral disc between L 4 and L5 M51.26 and Testicular cancer, unspecified laterality C62.90 [facility] [address] [id number] [place] [id number] Oct, Bulging lumbar disc M51.26 and Plantar f asciitis M72.2 [facility] [address] [id number] [place] [id number] Aug, Bulging lumbar disc M51.26 and Other hea dache syndrome G44.89 [facility] [address] [id number] [place] [id number] Jul, 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 [facility] [facility] [facility] [place] [address] [id number] [place] [id number] Jul, 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 [facility] [id number] [place] [id number] Jul, 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 [facility] Ignacio HEADLEYE [id number] [place] [address] Jul, Bulging lumbar disc M51.[address] orchiectomy Z90.79 [place] [address] [id number] [place] [id number] Jul, Bulging lumbar disc M51.26 ; Suprapubic tenderness R10.819 and 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 [facility] [address] [id number] [place] [id number] Apr, Back strain, initial encounter S39.012A and Cerumen debris on tympanic membrane of both ears H61.[address] [facility] [place] [address] [id number] [place] [id number] Feb, 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 [facility] [address] [id number] [place] [id number] Feb, [facility] [address] [id number] [place] [id number] November, Viral syndrome B34.9 and Psoriasis L40.9 [facility] [address] [id number] [place] [id number] November, Shortness of breath R06.02 ; Depression, unspecified depression type F32.9 and Sore throat J02.9 [facility] [address] [id number] [place] [id number] Oct, Pneumonia, unspecified organism J18.9 ; Depression, unspecified depression type F32.9 and Testicular cancer, unspecified laterality C62.90 [facility] [address] [facility] [id number] [address] [place] [address] Oct, [facility] [address] [facility] [id number] [address] [place] [address] Oct, [facility] [address] [facility] [id number] [place] [id number] Oct, [facility] [address] [facility] [id number] [place] [id number] Oct, Acute upper respiratory infection, unspe cified J06.9 and Testicular cancer, right C62.91 [facility] [address] [facility] [id number] [place] [id number] Jun, Bilateral low back pain without sciatica M54.5 [facility] [address] [id number] [place] [id number] May, Upper respiratory tract infection, unspe cified upper respiratory infection J06.9 [facility] [address] [id number] [place] [id number] Apr, [facility] [address] [facility] [id number] [place] [id number] Feb, Low back pain 724.2 and Figueroa splints 844 .9 [facility] [address] [id number] [place] [id number] Feb, [facility] [address] [facility] [id number] [place] [id number] Feb, [address] [id number] [id number] Feb, [facility] [address] [facility] [id number] [place] [id number] Jan, Back pain 724.5 and Cerumen debris on ty mpanic membrane of both ears 380.4 [facility] [address] [facility] [id number] [address] [place] [address] Jan, [facility] [place] [address] [facility] [id number] [place] [id number] Dec, [facility] [place] [address] [id number] [place] [id number] Dec, Other testicular hypofunction 257.2 [facility] [place] [address] [id number] [place] [id number] Dec, Other testicular hypofunction 257.2 and Overweight 278.[address] [facility] [address] [facility] [id number] [address] [place] [address] Oct, [facility] [address] [facility] [id number] [address] [place] [address] Oct, [facility] [place] [address] [facility] [id number] [place] [id number] Sep, [facility] [address] [facility] [id number] [address] [place] [address] Sep, [facility] [place] [address] [facility] [id number] [place] [id number] Jul, [facility] [address] [facility] [id number] [address] [place] [address] Jul, [facility] [place] [address] [facility] [id number] [place] [id number] Jun, [facility] [address] [facility] [id number] [address] [place] [address] Jun, [facility] [place] [address] [facility] [id number] [place] [id number] May, [facility] [address] [facility] [id number] [address] [place] [address] May, [facility] [place] [address] [facility] [id number] [place] [id number] May, [facility] [address] [id number] [address] [place] [address], [place] [address] May, [facility] [place] [address] [id number] [place] [id number] May, [facility] [address] [id number] [facility] [place] [address] May, [facility] [place] [address] [id number] [place] [id number] Apr, [facility] [address] [id number] [address] [place] [address], [place] [address] Apr, [facility] [place] [address] [id number] [place] [id number] Apr, [facility] [address] [id number] [address] [place] [address], [place] [address] Apr, [facility] [place] [address] [id number] [place] [id number] Mar, [facility] [address] [id number] [address] [place] [address], [place] [address] Mar, [facility] [place] [address] [id number] [place] [id number] Mar, [facility] [address] [id number] [address] [place] [address], [place] [address] Mar, [facility] [place] [address] [id number] [place] [id number] Feb, [facility] [address] [id number] [address] [place] [address], [place] [address] Feb, [facility] [place] [address] [id number] [place] [id number] Jan, [facility] [address] [id number] [address] [place] [address], [place] [address] Jan, [facility] [place] [address] [id number] [place] [id number] Jan, [facility] [address] [id number] [address] [place] [phone] Jan, [facility] [address] [id number] [address] [place] [address], [place] [address] Jan, [facility] [place] [address] [id number] [place] [id number] Jan, [facility] [address] [facility] [id number] [address] [place] [address], [place] [address] Jan, [facility] [address] [id number] [address] [place] [address], [place] [address] Dec, [facility] [place] [address] [id number] [place] [id number] Oct, [facility] [address] [facility] [id number] [address] [place] [address], [place] [address] Oct, [facility] [place] [address] [id number] [place] [id number] Sep, [facility] [address] [facility] [id number] [address] [place] [address] Sep, [facility] [place] [address] [id number] [place] [id number] Sep, [facility] [address] [facility] [id number] [address] [place] [address] Sep, [facility] [place] [address] [id number] [place] [id number] Aug, [facility] [address] [id number] [address] [place] [address] Aug, [facility] [address] [id number] [address] [place] [address], [place] [address] Mar, [facility] [place] [address] [id number] [place] [id number] Feb, [facility] [place] [address] [id number] [place] [id number] Dec, [facility] [place] [address] [id number] [place] [id number] November, [facility] [address] [facility] [id number] [place] [address] Sep, [facility] [address] [id number] Sharona COCHRAN S [id number] Aug, [facility] [address] [facility] [id number] [place] [address] Jun, [facility] [address] [facility] [id number] [address] [place] [address] Jun, IMMUNIZATIONS No Known Immunizations SOCIAL HISTORY Never Assessed REASON FOR VISIT PLAN OF CARE VITAL SIGNS Height 70 in 2014-04-21 Weight 236.25 lbs 2014-04-21 Temperature 96.5 degrees Fahrenheit 2014-04-21 Heart Rate 82 bpm 2014-04-21 Respiratory Rate 16 2014-04-21 Blood pressure systolic 122 mmHg 2014-04-21 Blood pressure diastolic 60 mmHg 2014-04-21 MEDICATIONS Unknown Medications RESULTS No Results PROCEDURES [...]
--- OUTSIDE RECORDS SUMMARY | 2019-10-22 09:31 | XMS REPORT ---
Author Author Iain DOMINGUEZ Organization [facility] [place] Address [address] [place] [address] Care Team Providers Care De Alcoholizer Name Role Phone LESLEY DOMINGUEZ Unavailable PROBLEMS Type Condition ICD9-CM Code JHF16-PK Code Onset Dates Condition S tatus SNOMED Code Problem Testicular cancer, unspecified laterality C62.90 Active 788096665 Problem Psoriasis L40.9 Active 9204597 Problem 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 Active 482781271 Problem Paresthesias in right hand R20.2 Act marizol 70962401 Problem Depression, unspecified depression type F32.9 Active 55668048 Problem Hypogonadism male E29.1 Active 48 985632 Problem Osteoarthritis of lumbar spi ne, unspecified spinal osteoarthritis complication status M47.816 Active 94970116 9 Problem Bulging lumbar disc M51.26 Active 467399754 Problem Bulging of intervertebral disc between L4 and L5 M 51.26 Active 231629800 Problem Other headache syndrome G44.89 Active 322911877 Problem Plantar fasciitis M72.2 Active 20 1037781 ALLERGIES No Information ENCOUNTERS Encounter Location Date Diagnosis [facility] [address] [id number] [place] [id number] Jan, [facility] [address] [id number] [place] [id number] Dec, Hypogonadism male E29.1 [facility] [address] [id number] [place] [id number] Dec, Hypogonadism male E29.1 and Osteoarthrit is of lumbar spine, unspecified spinal osteoarthritis complication status M47.816 [facility] [address] [id number] [place] [id number] November, Testicular cancer, unspecified lateralit y C62.90 ; Bulging lumbar disc M51.26 ; Contact dermatitis, unspecified contact dermatitis type, unspecified trigger L25.9 and Non-healing surgical wound, sequela T81.89XS [facility] [place] [address] [id number] [place] [id number] November, [facility] [place] [facility] [address] [id number] [facility] [id number] November, [facility] [place] [address] [id number] [place] [id number] Oct, Hypogonadism male E29.1 ; Gastroenteriti s K52.9 and Mid back pain on left side M54.9 [facility] [place] [address] [id number] [place] [id number] Jul, Hypogonadism male E29.1 [facility] [place] [address] [id number] [place] [id number] Jul, Mid back pain on left side M54.9 ; Hypog onadism male E29.1 and Bilateral impacted cerumen H61.23 [facility] [place] [address] [id number] [place] [id number] Apr, Paresthesias in right hand R20.2 [facility] [place] [address] [id number] [place] [id number] Feb, Low back pain M54.5 [facility] [place] [address] [id number] [place] [id number] Dec, Bulging of intervertebral disc between L 4 and L5 M51.26 [facility] [place] [address] [id number] [place] [id number] Dec, Bulging of intervertebral disc between L 4 and L5 M51.26 [facility] [place] [address] [id number] [place] [id number] November, [facility] [place] [address] [id number] [place] [id number] November, Bulging of intervertebral disc between L 4 and L5 M51.26 and Testicular cancer, unspecified laterality C62.90 [facility] [place] [address] [id number] [place] [id number] Oct, Bulging lumbar disc M51.26 and Plantar f asciitis M72.2 [address] [address] [facility] [id number] [place] [id number] Aug, Bulging lumbar disc M51.26 and Other hea dache syndrome G44.89 [facility] [address] [facility] [id number] [place] [id number] Jul, 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 [facility] [place] [address] [address] [facility] [id number] [place] [id number] Jul, 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 [id number] [place] [id number] Jul, 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 [id number] [place] [address] Jul, Bulging lumbar disc M51.[address] orchiectomy Z90.79 [address] [address] [address] [facility] [id number] [place] [id number] Jul, Bulging lumbar disc M51.26 ; Suprapubic tenderness R10.819 and 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 [address] [address] [address] [facility] [id number] [place] [id number] Apr, Back strain, initial encounter S39.012A and Cerumen debris on tympanic membrane of both ears H61.[address] [place] [address], [place] [id number] Feb, 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 [address] [address] [address] [facility] [id number] [place] [id number] Feb, [address] [place] [address], [place] [id number] November, Viral syndrome B34.9 and Psoriasis L40.9 [facility] [address] [facility] [id number] [place] [id number] November, Shortness of breath R06.02 ; Depression, unspecified depression type F32.9 and Sore throat J02.9 [facility] [address] [id number] [place] [id number] Oct, Pneumonia, unspecified organism J18.9 ; Depression, unspecified depression type F32.9 and Testicular cancer, unspecified laterality C62.90 [facility] [place] [address] [facility] [id number] [place] [address] Oct, [facility] [place] [address] [facility] [id number] [address] [place] [address] Oct, [facility] [address] [id number] [place] [id number] Oct, [facility] [address] [id number] [place] [id number] Oct, Acute upper respiratory infection, unspe cified J06.9 and Testicular cancer, right C62.91 [facility] [address] [id number] [place] [id number] Jun, Bilateral low back pain without sciatica M54.5 [facility] [address] [id number] [place] [id number] May, Upper respiratory tract infection, unspe cified upper respiratory infection J06.9 [facility] [address] [id number] [place] [id number] Apr, [facility] [address] [id number] [place] [id number] Feb, Low back pain 724.2 and Figueroa splints 844 .9 [facility] [address] [id number] [place] [id number] Feb, [facility] [address] [id number] [place] [id number] Feb, [facility] [id number] [facility] [address] [id number] [place] [id number] Feb, [facility] [address] [id number] [place] [id number] Jan, Back pain 724.5 and Cerumen debris on ty mpanic membrane of both ears 380.4 [facility] [place] [address] [id number] [address] [place] [address] Jan, [facility] [place] [address] [id number] [place] [id number] Dec, [facility] [place] [address] [id number] [place] [id number] Dec, Other testicular hypofunction 257.2 [facility] [place] [address] [id number] [place] [id number] Dec, Other testicular hypofunction 257.2 and Overweight 278.02 [facility] [address] [facility] [id number] [address] [place] [address], [place] [address] Oct, [facility] [address] [facility] [id number] [address] [place] [address] Oct, [facility] [place] [address] [facility] [id number] [place] [id number] Sep, [facility] [address] [facility] [id number] [address] [place] [address] Sep, [facility] [place] [address] [facility] [id number] [place] [id number] Jul, [facility] [address] [facility] [id number] [address] [place] [address] Jul, [facility] [place] [address] [facility] [id number] [place] [id number] Jun, [facility] [address] [facility] [id number] [address] [place] [address] Jun, [facility] [place] [address] [id number] [place] [id number] May, [facility] [address] [facility] [id number] [address] [place] [address] May, [facility] [place] [address] [facility] [id number] [place] [id number] May, [facility] [address] [facility] [id number] [address] [place] [address] May, [facility] [place] [address] [id number] [place] [id number] May, [facility] [address] [id number] [facility] [place] [address] May, [facility] [place] [address] [id number] [place] [id number] Apr, [facility] [address] [id number] [facility] [place] [address] Apr, [facility] [place] [address] [id number] [place] [id number] Apr, [facility] [address] [id number] [address] [place] [address], [place] [address] Apr, [facility] [place] [address] [id number] [place] [id number] Mar, [facility] [address] [id number] [address] [place] [address], [place] [address] Mar, [facility] [place] [address] [id number] [place] [id number] Mar, [facility] [address] [id number] [address] [place] [address], [place] [address] Mar, [facility] [place] [address] [id number] [place] [id number] Feb, [facility] [address] [id number] [address] [place] [address], [place] [address] Feb, [facility] [place] [address] [id number] [place] [id number] Jan, [facility] [address] [id number] [address] [place] [address], [place] [address] Jan, [facility] [place] [address] [id number] [place] [id number] Jan, [facility] [address] [id number] [address] [place] [address], [place] [address] Jan, [facility] [address] [id number] [address] [place] [address], [place] [address] Jan, [facility] [place] [address] [id number] [place] [id number] Jan, [facility] [address] [id number] [address] [place] [address], [place] [address] Jan, [facility] [address] [id number] [address] [place] [address], [place] [address] Dec, [facility] [place] [address] [id number] [place] [id number] Oct, [facility] [address] [id number] [address] [place] [address], [place] [address] Oct, [facility] [place] [address] [id number] [place] [id number] Sep, [facility] [address] [facility] [id number] [address] [place] [address], [place] [address] Sep, [facility] [place] [address] [id number] [place] [id number] Sep, [facility] [address] [id number] [address] [place] [address], [place] [address] Sep, [facility] [place] [address] [id number] [place] [id number] Aug, [facility] [address] [id number] [address] [place] [address], [place] [address] Aug, [facility] [address] [id number] [address] [place] [address], [place] [address] Mar, [facility] [place] [address] [id number] [place] [id number] Feb, [facility] [place] [address] [id number] [place] [id number] Dec, [facility] [place] [address] [id number] [place] [id number] November, [facility] [address] [id number] [address] [place] [address], [place] [address] Sep, [facility] [place] [address] [id number] [place] [id number] Aug, [facility] [place] [address] [facility] [id number] [place] [address] Jun, [facility] [place] [address] [facility] [id number] [address] [address] Jun, IMMUNIZATIONS No Known Immunizations SOCIAL HISTORY Never Assessed REASON FOR VISIT PLAN OF CARE VITAL SIGNS Height 70 in 2014-09-29 Weight 225.38 lbs 2014-09-29 Temperature 98.5 degrees Fahrenheit 2014-09-29 Heart Rate 76 bpm 2014-09-29 Respiratory Rate 16 2014-09-29 Blood pressure systolic 126 mmHg 2014-09-29 Blood pressure diastolic 84 mmHg 2014-09-29 MEDICATIONS Unknown Medications RESULTS No Results PROCEDURES Procedure Date Ordered Result Body Site THER/PROPH/DIAG INJ, SC/IM September 29, 2014 INJ TRIAMCINOLONE ACETONIDE 10 MG September 29, 2014 INFLUENZA ASSAY W/OPTIC September 29, 2014 INSTRUCTIONS MEDICATIONS ADMINISTERED No Known Medications [...]
--- OUTSIDE RECORDS SUMMARY | 2019-10-22 09:31 | XMS REPORT ---
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 Active 028733942 Problem Paresthesias in right hand R20.2 Act marizol 93761019 Problem Depression, unspecified depression type F32.9 Active 99767039 Problem Hypogonadism male E29.1 Active 48 034638 Problem Osteoarthritis of lumbar spi ne, unspecified spinal osteoarthritis complication status M47.816 Active 48147147 9 Problem Bulging lumbar disc M51.26 Active 928010070 Problem Bulging of intervertebral disc between L4 and L5 M 51.26 Active 870368250 Problem Other headache syndrome G44.89 Active 751932737 Problem Plantar fasciitis M72.2 Active 20 9912999 ALLERGIES No Information ENCOUNTERS Encounter Location Date Diagnosis [place] [address] [id number] [place] [id number] Jan, Persistent cough for 3 weeks or longer R 05 ; Abnormal chest xray R93.89 and Dizziness R42 [place] [address] [id number] [place] [id number] Jan, Hypogonadism male E29.1 [place] [address] [id number] [place] [id number] Dec, Hypogonadism male E29.1 [place] [address] [id number] [place] [id number] Dec, Hypogonadism male E29.1 and Osteoarthrit is of lumbar spine, unspecified spinal osteoarthritis complication status M47.816 [facility] [address] [id number] [place] [id number] November, Testicular cancer, unspecified lateralit y C62.90 ; Bulging lumbar disc M51.26 ; Contact dermatitis, unspecified contact dermatitis type, unspecified trigger L25.9 and Non-healing surgical wound, sequela T81.89XS [facility] [place] [address] [id number] [place] [id number] November, [facility] [address] [id number] [facility] [place] [id number] November, [facility] [place] [address] [id number] [place] [id number] Oct, Hypogonadism male E29.1 ; Gastroenteriti s K52.9 and Mid back pain on left side M54.9 [facility] [place] [address] [id number] [place] [id number] Jul, Hypogonadism male E29.1 [facility] [place] [address] [id number] [place] [id number] Jul, Mid back pain on left side M54.9 ; Hypog onadism male E29.1 and Bilateral impacted cerumen H61.23 [facility] [place] [address] [id number] [place] [id number] Apr, Paresthesias in right hand R20.2 [facility] [place] [address] [id number] [place] [id number] Feb, Low back pain M54.5 [facility] [place] [address] [id number] [place] [id number] Dec, Bulging of intervertebral disc between L 4 and L5 M51.26 [facility] [place] [address] [id number] [place] [id number] Dec, Bulging of intervertebral disc between L 4 and L5 M51.26 [facility] [place] [address] [id number] [place] [id number] November, [facility] [place] [address] [id number] [place] [id number] November, Bulging of intervertebral disc between L 4 and L5 M51.26 and Testicular cancer, unspecified laterality C62.90 [facility] [address] [id number] [place] [id number] Oct, Bulging lumbar disc M51.26 and Plantar f asciitis M72.2 [place] [address] [facility] [id number] [place] [id number] Aug, Bulging lumbar disc M51.26 and Other hea dache syndrome G44.[address] [id number] [place] [id number] Jul, 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 [place] [address] [facility] [id number] [place] [id number] Jul, 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 [place] [address] [facility] [id number] [place] [id number] Jul, 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 [facility] [id number] [address] Jul, Bulging lumbar disc M51.[address] orchiectomy Z90.79 [place] [address] [facility] [id number] [place] [id number] Jul, Bulging lumbar disc M51.26 ; Suprapubic tenderness R10.819 and 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 [place] [address] [facility] [id number] [place] [id number] Apr, Back strain, initial encounter S39.012A and Cerumen debris on tympanic membrane of both ears H61.23 [facility] [address] [facility] [id number] [place] [id number] Feb, 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 [place] [address] [facility] [id number] [place] [id number] Feb, [place] [address] [facility] [id number] [place] [id number] November, Viral syndrome B34.9 and Psoriasis L40.[address] [id number] [place] [id number] November, Shortness of breath R06.02 ; Depression, unspecified depression type F32.9 and Sore throat J02.9 [facility] [address] [id number] [place] [id number] Oct, Pneumonia, unspecified organism J18.9 ; Depression, unspecified depression type F32.9 and Testicular cancer, unspecified laterality C62.90 [facility] [address] [facility] [id number] [place] [address] Oct, [facility] [address] [facility] [id number] [place] [address] Oct, [facility] [address] [id number] [place] [id number] Oct, [facility] [address] [id number] [place] [id number] Oct, Acute upper respiratory infection, unspe cified J06.9 and Testicular cancer, right C62.91 [facility] [address] [id number] [place] [id number] Jun, Bilateral low back pain without sciatica M54.5 [facility] [address] [id number] [place] [id number] May, Upper respiratory tract infection, unspe cified upper respiratory infection J06.9 [facility] [address] [id number] [place] [id number] Apr, [facility] [address] [id number] [place] [id number] Feb, Low back pain 724.2 and Figueroa splints 844 .9 [facility] [address] [id number] [place] [id number] Feb, [facility] [address] [id number] [place] [id number] Feb, [facility] [address] [id number] [place] [id number] Feb, [facility] [address] [id number] [place] [id number] Jan, Back pain 724.5 and Cerumen debris on ty mpanic membrane of both ears 380.4 [facility] [address] [facility] [id number] [address] [place] [address] Jan, [facility] [place] [address] [id number] [place] [id number] Dec, [facility] [place] [address] [facility] [id number] [place] [id number] Dec, Other testicular hypofunction 257.2 [facility] [place] [address] [id number] [place] [id number] Dec, Other testicular hypofunction 257.2 and Overweight 278.02 [facility] [address] [facility] [id number] [address] [place] [address] Oct, [facility] [address] [facility] [id number] [address] [place] [address] Oct, [facility] [place] [address] [facility] [id number] [place] [id number] Sep, [facility] [address] [facility] [id number] [address] [place] [address] Sep, [facility] [place] [address] [facility] [id number] [place] [id number] Jul, [facility] [address] [facility] [id number] [address] [place] [address] Jul, [facility] [place] [address] [facility] [id number] [place] [id number] Jun, [facility] [address] [facility] [id number] [address] [place] [address] Jun, [facility] [place] [address] [facility] [id number] [place] [id number] May, [facility] [address] [facility] [id number] [address] [place] [address] May, [facility] [place] [address] [facility] [id number] [place] [id number] May, [facility] [address] [id number] [address] [place] [address], [place] [address] May, [facility] [place] [address] [id number] [place] [id number] May, [facility] [address] [id number] [address] [place] [address], [place] [address] May, [facility] [place] [address] [id number] [place] [id number] Apr, [facility] [address] [id number] [address] [place] [address], [place] [address] Apr, [facility] [place] [address] [id number] [place] [id number] Apr, [facility] [address] [id number] [address] [place] [address], [place] [address] Apr, [facility] [place] [address] [id number] [place] [id number] Mar, [facility] [address] [id number] [address] [place] [address], [place] [address] Mar, [facility] [place] [address] [id number] [place] [id number] Mar, [facility] [address] [id number] [address] [place] [address], [place] [address] Mar, [facility] [place] [address] [id number] [place] [id number] Feb, [facility] [address] [id number] [address] [place] [address], [place] [address] Feb, [facility] [place] [address] [id number] [place] [id number] Jan, [facility] [address] [id number] [address] [place] [address], [place] [address] Jan, [facility] [place] [address] [id number] [place] [id number] Jan, [facility] [address] [id number] [address] [place] [address], [place] [address] Jan, [facility] [address] [id number] [address] [place] [address], [place] [address] Jan, [facility] [place] [address] [id number] [place] [id number] Jan, [facility] [address] [id number] [address] [place] [address], [place] [address] Jan, [facility] [address] [id number] [address] [place] [address], [place] [address] Dec, [facility] [place] [address] [id number] [place] [id number] Oct, [facility] [address] [id number] [address] [place] [address], [place] [address] Oct, [facility] [place] [address] [id number] [place] [id number] Sep, [facility] [address] [facility] [id number] [address] [place] [address], [place] [address] Sep, [facility] [place] [address] [id number] [place] [id number] Sep, [facility] [address] [facility] [id number] [address] [place] [address], [place] [address] Sep, [facility] [place] [address] [id number] [place] [id number] Aug, [facility] [address] [facility] [id number] [address] [place] [address], [place] [address] Aug, [facility] [address] [id number] [address] [place] [address], [place] [address] Mar, [facility] [place] [address] [id number] [place] [id number] Feb, [facility] [place] [address] [id number] [place] [id number] Dec, [facility] [place] [address] [id number] [place] [id number] November, [facility] [address] [id number] [place] [address] Sep, [facility] [address] [id number] [place] [id number] Aug, [facility] [address] [facility] [id number] [address] [place] [address] Jun, [facility] [address] [facility] [id number] [address] [place] [address] Jun, IMMUNIZATIONS No Known Immunizations SOCIAL HISTORY [...] Surgical History orchiectomy right testical done by vikcie . Benign results 11/2015 Hospitalization History surgery 2007 Hospitalization History Pneumonia, Hypoxia, N/V, Generalized Abdominal pain 10/22/15
--- OUTSIDE RECORDS SUMMARY | 2019-10-22 09:31 | XMS REPORT ---
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 Active 009926587 Problem Paresthesias in right hand R20.2 Act marizol 56345809 Problem Depression, unspecified depression type F32.9 Active 21626385 Problem Hypogonadism male E29.1 Active 48 037085 Problem Osteoarthritis of lumbar spi ne, unspecified spinal osteoarthritis complication status M47.816 Active 73559926 9 Problem Bulging lumbar disc M51.26 Active 454574205 Problem Bulging of intervertebral disc between L4 and L5 M 51.26 Active 489731393 Problem Other headache syndrome G44.89 Active 590018251 Problem Plantar fasciitis M72.2 Active 20 5270794 ALLERGIES No Information ENCOUNTERS Encounter Location Date Diagnosis [id number] [place] [id number] Jan, Persistent cough for 3 weeks or longer R 05 ; Abnormal chest xray R93.89 and Dizziness R42 [facility] [address] [facility] [id number] [place] [id number] Jan, Hypogonadism male E29.1 [place] [id number] [place] [id number] Dec, Hypogonadism male E29.1 [facility] [address] [place] [id number] [place] [id number] Dec, Hypogonadism male E29.1 and Osteoarthrit is of lumbar spine, unspecified spinal osteoarthritis complication status M47.816 [facility] [address] [id number] [place] [id number] November, Testicular cancer, unspecified lateralit y C62.90 ; Bulging lumbar disc M51.26 ; Contact dermatitis, unspecified contact dermatitis type, unspecified trigger L25.9 and Non-healing surgical wound, sequela T81.89XS [facility] [address] [id number] [place] [id number] November, [facility] [place] [facility] [address] [id number] [facility] [id number] November, [facility] [place] [address] [id number] [place] [id number] Oct, Hypogonadism male E29.1 ; Gastroenteriti s K52.9 and Mid back pain on left side M54.9 [facility] [address] [id number] [place] [id number] Jul, Hypogonadism male E29.1 [facility] [address] [id number] [place] [id number] Jul, Mid back pain on left side M54.9 ; Hypog onadism male E29.1 and Bilateral impacted cerumen H61.23 [facility] [address] [id number] [place] [id number] Apr, Paresthesias in right hand R20.2 [facility] [address] [id number] [place] [id number] Feb, Low back pain M54.5 [facility] [address] [id number] [place] [id number] Dec, Bulging of intervertebral disc between L 4 and L5 M51.26 [facility] [address] [id number] [place] [id number] Dec, Bulging of intervertebral disc between L 4 and L5 M51.26 [facility] [address] [id number] [place] [id number] November, [facility] [address] [id number] [place] [id number] November, Bulging of intervertebral disc between L 4 and L5 M51.26 and Testicular cancer, unspecified laterality C62.90 [facility] [address] [id number] [place] [id number] Oct, Bulging lumbar disc M51.26 and Plantar f asciitis M72.2 [facility] [address] [id number] [place] [id number] Aug, Bulging lumbar disc M51.26 and Other hea dache syndrome G44.89 [facility] [address] [id number] [place] [id number] Jul, 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 [facility] [place] [address] [id number] [place] [id number] Jul, 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 [facility] [id number] [place] [id number] Jul, 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 [facility] Ignacio HEADLEYE [id number] [place] [address] Jul, Bulging lumbar disc M51.[address] orchiectomy Z90.79 [place] [address] [id number] [place] [id number] Jul, Bulging lumbar disc M51.26 ; Suprapubic tenderness R10.819 and 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 [facility] [address] [id number] [place] [id number] Apr, Back strain, initial encounter S39.012A and Cerumen debris on tympanic membrane of both ears H61.23 [facility] [place] [address] [id number] [place] [id number] Feb, 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 [facility] [address] [id number] [place] [id number] Feb, [facility] [address] [id number] [place] [id number] November, Viral syndrome B34.9 and Psoriasis L40.9 [facility] [address] [id number] [place] [id number] November, Shortness of breath R06.02 ; Depression, unspecified depression type F32.9 and Sore throat J02.9 [facility] [address] [id number] [place] [id number] Oct, Pneumonia, unspecified organism J18.9 ; Depression, unspecified depression type F32.9 and Testicular cancer, unspecified laterality C62.90 [facility] [place] [address] [facility] [id number] [address] [place] [address] Oct, [facility] [place] [address] [facility] [id number] [address] [place] [address] Oct, [facility] [address] [facility] [id number] [place] [id number] Oct, [facility] [address] [facility] [id number] [place] [id number] Oct, Acute upper respiratory infection, unspe cified J06.9 and Testicular cancer, right C62.91 [facility] [address] [facility] [id number] [place] [id number] Jun, Bilateral low back pain without sciatica M54.5 [facility] [address] [id number] [place] [id number] May, Upper respiratory tract infection, unspe cified upper respiratory infection J06.9 [facility] [address] [id number] [place] [id number] Apr, [facility] [address] [facility] [id number] [place] [id number] Feb, Low back pain 724.2 and Figueroa splints 844 .9 [facility] [address] [id number] [place] [id number] Feb, [facility] [address] [facility] [id number] [place] [id number] Feb, [address] [id number] [id number] Feb, [facility] [address] [facility] [id number] [place] [id number] Jan, Back pain 724.5 and Cerumen debris on ty mpanic membrane of both ears 380.4 [facility] [address] [facility] [id number] [address] [place] [address] Jan, [facility] [place] [address] [facility] [id number] [place] [id number] Dec, [facility] [place] [address] [id number] [place] [id number] Dec, Other testicular hypofunction 257.2 [facility] [place] [address] [id number] [place] [id number] Dec, Other testicular hypofunction 257.2 and Overweight 278.02 [facility] [address] [facility] [id number] [address] [place] [address] Oct, [facility] [address] [facility] [id number] [address] [place] [address] Oct, [facility] [place] [address] [facility] [id number] [place] [id number] Sep, [facility] [address] [facility] [id number] [address] [place] [address] Sep, [facility] [place] [address] [facility] [id number] [place] [id number] Jul, [facility] [address] [facility] [id number] [address] [place] [address] Jul, [facility] [place] [address] [facility] [id number] [place] [id number] Jun, [facility] [address] [facility] [id number] [address] [place] [address] Jun, [facility] [place] [address] [facility] [id number] [place] [id number] May, [facility] [address] [facility] [id number] [address] [place] [address] May, [facility] [place] [address] [facility] [id number] [place] [id number] May, [facility] [address] [id number] [address] [place] [address], [place] [address] May, [facility] [place] [address] [id number] [place] [id number] May, [facility] [address] [id number] [facility] [place] [address] May, [facility] [place] [address] [id number] [place] [id number] Apr, [facility] [address] [id number] [address] [place] [address], [place] [address] Apr, [facility] [place] [address] [id number] [place] [id number] Apr, [facility] [address] [id number] [address] [place] [address], [place] [address] Apr, [facility] [place] [address] [id number] [place] [id number] Mar, [facility] [address] [id number] [address] [place] [address], [place] [address] Mar, [facility] [place] [address] [id number] [place] [id number] Mar, [facility] [address] [id number] [address] [place] [address], [place] [address] Mar, [facility] [place] [address] [id number] [place] [id number] Feb, [facility] [address] [id number] [address] [place] [address], [place] [address] Feb, [facility] [place] [address] [id number] [place] [id number] Jan, [facility] [address] [id number] [address] [place] [address], [place] [address] Jan, [facility] [place] [address] [id number] [place] [id number] Jan, [facility] [address] [id number] [address] [place] [address] Jan, [facility] [address] [id number] [address] [place] [address], [place] [address] Jan, [facility] [place] [address] [id number] [place] [id number] Jan, [facility] [address] [facility] [id number] [address] [place] [address], [place] [address] Jan, [facility] [address] [id number] [address] [place] [address], [place] [address] Dec, [facility] [place] [address] [id number] [place] [id number] Oct, [facility] [address] [facility] [id number] [address] [place] [address], [place] [address] Oct, [facility] [place] [address] [id number] [place] [id number] Sep, [facility] [address] [facility] [facility] [id number] [address] [place] [address] Sep, [facility] [place] [address] [id number] [place] [id number] Sep, [facility] [address] [facility] [facility] [id number] [address] [place] [address] Sep, [facility] [place] [address] [id number] [place] [id number] Aug, [facility] [address] [id number] [address] [place] [address] Aug, [facility] [address] [id number] [address] [place] [address], [place] [address] Mar, [facility] [place] [address] [id number] [place] [id number] Feb, [facility] [place] [address] [id number] [place] [id number] Dec, [facility] [place] [address] [id number] [place] [id number] November, [facility] [place] [address] [facility] [id number] [address] [address] Sep, [facility] [address] [id number] Sharona COCHRAN S [id number] Aug, [facility] [place] [address] [facility] [id number] [address] [address] Jun, [facility] [place] [address] [facility] [id number] [address] [place] [address] Jun, IMMUNIZATIONS No Known Immunizations SOCIAL HISTORY Never Assessed REASON FOR VISIT PLAN OF CARE VITAL SIGNS Height 70 in 2014-06-09 Weight 233 lbs 2014-06-09 Temperature 97.8 degrees Fahrenheit 2014-06-09 Heart Rate 68 bpm 2014-06-09 Respiratory Rate 16 2014-06-09 Blood pressure systolic 110 mmHg 2014-06-09 Blood pressure diastolic 74 mmHg 2014-06-09 MEDICATIONS Unknown Medications RESULTS No Results PROCEDURES [...]
--- OUTSIDE RECORDS SUMMARY | 2019-10-22 09:31 | XMS REPORT ---
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 Active 039703819 Problem Paresthesias in right hand R20.2 Act marizol 76695637 Problem Depression, unspecified depression type F32.9 Active 87866780 Problem Hypogonadism male E29.1 Active 48 897228 Problem Osteoarthritis of lumbar spi ne, unspecified spinal osteoarthritis complication status M47.816 Active 16743649 9 Problem Bulging lumbar disc M51.26 Active 859203739 Problem Bulging of intervertebral disc between L4 and L5 M 51.26 Active 716360839 Problem Other headache syndrome G44.89 Active 800334505 Problem Plantar fasciitis M72.2 Active 20 1770520 ALLERGIES No Information ENCOUNTERS Encounter Location Date Diagnosis [place] [address] [id number] [place] [id number] Jan, Persistent cough for 3 weeks or longer R 05 ; Abnormal chest xray R93.89 and Dizziness R42 [place] [address] [id number] [place] [id number] Jan, Hypogonadism male E29.1 [place] [address] [id number] [place] [id number] Dec, Hypogonadism male E29.1 [place] [address] [id number] [place] [id number] Dec, Hypogonadism male E29.1 and Osteoarthrit is of lumbar spine, unspecified spinal osteoarthritis complication status M47.816 [facility] [address] [id number] [place] [id number] November, Testicular cancer, unspecified lateralit y C62.90 ; Bulging lumbar disc M51.26 ; Contact dermatitis, unspecified contact dermatitis type, unspecified trigger L25.9 and Non-healing surgical wound, sequela T81.89XS [facility] [place] [address] [id number] [place] [id number] November, [facility] [address] [id number] [facility] [place] [id number] November, [facility] [place] [address] [id number] [place] [id number] Oct, Hypogonadism male E29.1 ; Gastroenteriti s K52.9 and Mid back pain on left side M54.9 [facility] [place] [address] [id number] [place] [id number] Jul, Hypogonadism male E29.1 [facility] [place] [address] [id number] [place] [id number] Jul, Mid back pain on left side M54.9 ; Hypog onadism male E29.1 and Bilateral impacted cerumen H61.23 [facility] [place] [address] [id number] [place] [id number] Apr, Paresthesias in right hand R20.2 [facility] [place] [address] [id number] [place] [id number] Feb, Low back pain M54.5 [facility] [place] [address] [id number] [place] [id number] Dec, Bulging of intervertebral disc between L 4 and L5 M51.26 [facility] [place] [address] [id number] [place] [id number] Dec, Bulging of intervertebral disc between L 4 and L5 M51.26 [facility] [place] [address] [id number] [place] [id number] November, [facility] [place] [address] [id number] [place] [id number] November, Bulging of intervertebral disc between L 4 and L5 M51.26 and Testicular cancer, unspecified laterality C62.90 [facility] [address] [id number] [place] [id number] Oct, Bulging lumbar disc M51.26 and Plantar f asciitis M72.2 [place] [address] [facility] [id number] [place] [id number] Aug, Bulging lumbar disc M51.26 and Other hea dache syndrome G44.[address] [id number] [place] [id number] Jul, 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 [place] [address] [facility] [id number] [place] [id number] Jul, 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 [place] [address] [facility] [id number] [place] [id number] Jul, 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 [facility] Ignacio [facility] [id number] [place] [address] Jul, Bulging lumbar disc M51.[address] orchiectomy Z90.79 [place] [address] [facility] [id number] [place] [id number] Jul, Bulging lumbar disc M51.26 ; Suprapubic tenderness R10.819 and 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 [place] [address] [facility] [id number] [place] [id number] Apr, Back strain, initial encounter S39.012A and Cerumen debris on tympanic membrane of both ears H61.23 [facility] [address] [facility] [id number] [place] [id number] Feb, 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 [place] [address] [facility] [id number] [place] [id number] Feb, [place] [address] [facility] [id number] [place] [id number] November, Viral syndrome B34.9 and Psoriasis L40.[address] [id number] [place] [id number] November, Shortness of breath R06.02 ; Depression, unspecified depression type F32.9 and Sore throat J02.9 [facility] [address] [id number] [place] [id number] Oct, Pneumonia, unspecified organism J18.9 ; Depression, unspecified depression type F32.9 and Testicular cancer, unspecified laterality C62.90 [facility] [address] [facility] [id number] [place] [address] Oct, [facility] [address] [facility] [id number] [place] [address] Oct, [facility] [address] [id number] [place] [id number] Oct, [facility] [address] [id number] [place] [id number] Oct, Acute upper respiratory infection, unspe cified J06.9 and Testicular cancer, right C62.91 [facility] [address] [id number] [place] [id number] Jun, Bilateral low back pain without sciatica M54.5 [facility] [address] [id number] [place] [id number] May, Upper respiratory tract infection, unspe cified upper respiratory infection J06.9 [facility] [address] [id number] [place] [id number] Apr, [facility] [address] [id number] [place] [id number] Feb, Low back pain 724.2 and Figueroa splints 844 .9 [facility] [address] [id number] [place] [id number] Feb, [facility] [address] [id number] [place] [id number] Feb, [facility] [address] [id number] [place] [id number] Feb, [facility] [address] [id number] [place] [id number] Jan, Back pain 724.5 and Cerumen debris on ty mpanic membrane of both ears 380.4 [facility] [address] [facility] [id number] [address] [place] [address] Jan, [facility] [place] [address] [id number] [place] [id number] Dec, [facility] [place] [address] [facility] [id number] [place] [id number] Dec, Other testicular hypofunction 257.2 [facility] [place] [address] [id number] [place] [id number] Dec, Other testicular hypofunction 257.2 and Overweight 278.02 [facility] [address] [facility] [id number] [address] [place] [address] Oct, [facility] [address] [facility] [id number] [address] [place] [address] Oct, [facility] [place] [address] [facility] [id number] [place] [id number] Sep, [facility] [address] [facility] [id number] [address] [place] [address] Sep, [facility] [place] [address] [facility] [id number] [place] [id number] Jul, [facility] [address] [facility] [id number] [address] [place] [address] Jul, [facility] [place] [address] [facility] [id number] [place] [id number] Jun, [facility] [address] [facility] [id number] [address] [place] [address] Jun, [facility] [place] [address] [facility] [id number] [place] [id number] May, [facility] [address] [facility] [id number] [address] [place] [address] May, [facility] [place] [address] [facility] [id number] [place] [id number] May, [facility] [address] [id number] [address] [place] [address], [place] [address] May, [facility] [place] [address] [id number] [place] [id number] May, [facility] [address] [id number] [address] [place] [address], [place] [address] May, [facility] [place] [address] [id number] [place] [id number] Apr, [facility] [address] [id number] [address] [place] [address], [place] [address] Apr, [facility] [place] [address] [id number] [place] [id number] Apr, [facility] [address] [id number] [address] [place] [address], [place] [address] Apr, [facility] [place] [address] [id number] [place] [id number] Mar, [facility] [address] [id number] [address] [place] [address], [place] [address] Mar, [facility] [place] [address] [id number] [place] [id number] Mar, [facility] [address] [id number] [address] [place] [address], [place] [address] Mar, [facility] [place] [address] [id number] [place] [id number] Feb, [facility] [address] [id number] [address] [place] [address], [place] [address] Feb, [facility] [place] [address] [id number] [place] [id number] Jan, [facility] [address] [id number] [address] [place] [address], [place] [address] Jan, [facility] [place] [address] [id number] [place] [id number] Jan, [facility] [address] [id number] [address] [place] [address], [place] [address] Jan, [facility] [address] [id number] [address] [place] [address], [place] [address] Jan, [facility] [place] [address] [id number] [place] [id number] Jan, [facility] [address] [id number] [address] [place] [address], [place] [address] Jan, [facility] [address] [id number] [address] [place] [address], [place] [address] Dec, [facility] [place] [address] [id number] [place] [id number] Oct, [facility] [address] [id number] [address] [place] [address], [place] [address] Oct, [facility] [place] [address] [id number] [place] [id number] Sep, [facility] [address] [facility] [id number] [address] [place] [address], [place] [address] Sep, [facility] [place] [address] [id number] [place] [id number] Sep, [facility] [address] [facility] [id number] [address] [place] [address], [place] [address] Sep, [facility] [place] [address] [id number] [place] [id number] Aug, [facility] [address] [facility] [id number] [address] [place] [address], [place] [address] Aug, [facility] [address] [id number] [address] [place] [address], [place] [address] Mar, [facility] [place] [address] [id number] [place] [id number] Feb, [facility] [place] [address] [id number] [place] [id number] Dec, [facility] [place] [address] [id number] [place] [id number] November, [facility] [address] [id number] [place] [address] Sep, [facility] [address] [id number] [place] [id number] Aug, [facility] [address] [facility] [id number] [address] [place] [address] Jun, [facility] [address] [facility] [id number] [address] [place] [address] Jun, IMMUNIZATIONS No Known Immunizations SOCIAL HISTORY Never Assessed REASON FOR VISIT PLAN OF CARE VITAL SIGNS MEDICATIONS Unknown Medications RESULTS No Results PROCEDURES Procedure Date Ordered Result Body Site THER/PROPH/DIAG INJ, SC/IM Apr 08, 2014 INSTRUCTIONS MEDICATIONS ADMINISTERED No Known Medications [...]
--- OUTSIDE RECORDS SUMMARY | 2019-10-22 09:32 | XMS REPORT ---
Author Author Iain DOMINGUEZ Organization [facility] Address [address] [place] [address] Care Team Providers Care Medical Device Assembler Name Role Phone ROD DOMINGUEZ Unavailable PROBLEMS Type Condition ICD9-CM Code HOX39-IB Code Onset Dates Condition S tatus SNOMED Code Problem Osteoarthritis of lumbar spi ne, unspecified spinal osteoarthritis complication status M47.816 Active 52947471 9 Problem Testicular cancer, unspecified laterality C62.90 Active 431310908 Problem Depression, unspecified depression type F32.9 Active 91805790 Problem Herpes zoster without mention of complication 053.9 Active 020474454 Problem Plantar fasciitis M72.2 Active 20 5867648 Problem Other headache syndrome G44.89 Active 333099094 Problem 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 Active 527454261 Problem Psoriasis L40.9 Active 0427058 Problem Bulging lumbar disc M51.26 Active 488536049 Problem Bulging of intervertebral disc between L4 and L5 M 51.26 Active 999528326 ALLERGIES No Information ENCOUNTERS Encounter Location Date Diagnosis [facility] [address] [id number] [place] [id number] Mar, [facility] [address] [id number] [place] [id number] Feb, Low back pain M54.5 [facility] [address] [id number] [place] [id number] Dec, Bulging of intervertebral disc between L 4 and L5 M51.26 [facility] [address] [id number] [place] [id number] Dec, Bulging of intervertebral disc between L 4 and L5 M51.26 [facility] [address] [id number] [place] [id number] November, [facility] [address] [id number] [place] [id number] November, Bulging of intervertebral disc between L 4 and L5 M51.26 and Testicular cancer, unspecified laterality C62.90 [place] [id number] [place] [id number] Oct, Bulging lumbar disc M51.26 and Plantar f asciitis M72.2 [place] [id number] [place] [id number] Aug, Bulging lumbar disc M51.26 and Other hea dache syndrome G44.89 [facility] [id number] [place] [id number] Jul, 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 [place] [address] [place] [id number] [place] [address], [place] [id number] Jul, 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 [place] [id number] [place] [id number] Jul, 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 [facility] Ignacio COMMERCE [id number] [place] [address] Jul, Bulging lumbar disc M51.[address] orchiectomy Z90.79 [place] [id number] [place] [id number] Jul, Bulging lumbar disc M51.26 ; Suprapubic tenderness R10.819 and 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 [place] [id number] [place] [id number] Apr, Back strain, initial encounter S39.012A and Cerumen debris on tympanic membrane of both ears H61.23 [place] [id number] [place] [id number] Feb, 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 [facility] [id number] [place] [id number] Feb, [address] [place] [address], [place] [id number] November, Viral syndrome B34.9 and Psoriasis L40.9 [facility] [address] [id number] [place] [id number] November, Shortness of breath R06.02 ; Depression, unspecified depression type F32.9 and Sore throat J02.9 [facility] [address] [id number] [place] [id number] Oct, Pneumonia, unspecified organism J18.9 ; Depression, unspecified depression type F32.9 and Testicular cancer, unspecified laterality C62.90 [facility] [address] [facility] [id number] [address] [address] Oct, [facility] [address] [facility] [id number] [address] [place] [address] Oct, [facility] [address] [id number] [place] [id number] Oct, [facility] [address] [id number] [place] [id number] Oct, Acute upper respiratory infection, unspe cified J06.9 and Testicular cancer, right C62.91 [facility] [address] [id number] [place] [id number] Jun, Bilateral low back pain without sciatica M54.5 [facility] [address] [id number] [place] [id number] May, Upper respiratory tract infection, unspe cified upper respiratory infection J06.9 [facility] [address] [id number] [place] [id number] Apr, [facility] [address] [id number] [place] [id number] Feb, Low back pain 724.2 and Figueroa splints 844 .9 [facility] [address] [id number] [place] [id number] Feb, [facility] [address] [id number] [place] [id number] Feb, [address] [id number] [id number] Feb, [facility] [place] [address] [id number] [place] [id number] Jan, Back pain 724.5 and Cerumen debris on ty mpanic membrane of both ears 380.4 [facility] [address] [facility] [id number] [address] [place] [address] Jan, [facility] [place] [address] [id number] [place] [id number] Dec, [facility] [place] [address] [id number] [place] [id number] Dec, Other testicular hypofunction 257.2 [facility] [place] [address] [id number] [place] [id number] Dec, Other testicular hypofunction 257.2 and Overweight 278.02 [facility] [address] [facility] [id number] [address] [place] [address] Oct, [facility] [address] [place] [id number] [address] [place] [address] Oct, [facility] [place] [address] [facility] [id number] [place] [id number] Sep, [facility] [address] [place] [id number] [address] [place] [address] Sep, [facility] [place] [address] [place] [id number] [place] [id number] Jul, [facility] [address] [place] [id number] [address] [place] [address] Jul, [facility] [place] [address] [facility] [id number] [place] [id number] Jun, [facility] [address] [place] [id number] [address] [place] [address] Jun, [facility] [place] [address] [facility] [id number] [place] [id number] May, [facility] [address] [place] [id number] [address] [place] [address] May, [facility] [place] [address] [id number] [place] [id number] May, [facility] [address] [id number] [facility] [place] [address] May, [facility] [place] [address] [id number] [place] [id number] May, [facility] [address] [id number] [facility] [place] [address] May, [facility] [place] [address] [id number] [place] [id number] Apr, [facility] [address] [id number] [facility] [place] [address] Apr, [facility] [place] [address] [id number] [place] [id number] Apr, [facility] [address] [id number] [address] [place] [address], [place] [address] Apr, [facility] [place] [address] [id number] [place] [id number] Mar, [facility] [address] [id number] [address] [place] [address], [place] [address] Mar, [facility] [place] [address] [id number] [place] [id number] Mar, [facility] [address] [id number] [facility] [place] [address] Mar, [facility] [place] [address] [id number] [place] [id number] Feb, [facility] [address] [id number] [facility] [place] [address] Feb, [facility] [place] [address] [id number] [place] [id number] Jan, [facility] [address] [id number] [facility] [place] [address] Jan, [facility] [place] [address] [id number] [place] [id number] Jan, [facility] [address] [id number] [address] [place] [address], [place] [address] Jan, [facility] [address] [id number] [address] [place] [address], [place] [address] Jan, [facility] [place] [address] [id number] [place] [id number] Jan, [facility] [address] [id number] [address] [place] [address], [place] [address] Jan, [facility] [address] [id number] [address] [place] [address], [place] [address] Dec, [facility] [address] [id number] [place] [id number] Oct, [facility] [address] [id number] [address] [place] [address], [place] [address] Oct, [facility] [address] [id number] [place] [id number] Sep, [facility] [address] [id number] [address] [place] [address], [place] [address] Sep, [facility] [address] [id number] [place] [id number] Sep, [facility] [address] [id number] [address] [place] [address], [place] [address] Sep, [facility] [address] [id number] [place] [id number] Aug, [facility] [address] [id number] [address] [place] [address], [place] [address] Aug, [facility] [address] [id number] [address] [place] [address], [place] [address] Mar, [facility] [address] [id number] [place] [id number] Feb, [facility] [address] [id number] [place] [id number] Dec, [facility] [address] [id number] [place] [id number] November, [facility] [address] [facility] [id number] [address] [address] Sep, [facility] [address] [facility] [id number] [place] [id number] Aug, [facility] [address] [facility] [id number] [address] [place] [id number] Jun, [facility] [address] [facility] [id number] [address] [place] [phone] Jun, IMMUNIZATIONS No Known Immunizations SOCIAL HISTORY Never Assessed REASON FOR VISIT Wants MRI PLAN OF CARE VITAL SIGNS MEDICATIONS Unknown Medications RESULTS Name Result Date Reference Range MRI : Lumbar w/o contrast 2018-01-14 PROCEDURES No Known procedures INSTRUCTIONS MEDICATIONS ADMINISTERED [...]
--- OUTSIDE RECORDS SUMMARY | 2019-10-22 09:32 | XMS REPORT ---
Author Author Iain SILVA [facility] Address [address] [place] [address] Care Team Providers Care Jar Capper Name Role Phone SHIRA FRANCOIS Unavailable PROBLEMS Type Condition ICD9-CM Code [id number] Code Onset Dates Condition S tatus SNOMED Code Problem Depression, unspecified depression type F32.9 Active 04390999 Problem Psoriasis L40.9 Active 0763584 Problem Testicular cancer, unspecified laterality C62.90 Active 882166017 Problem Osteoarthritis of lumbar spi ne, unspecified spinal osteoarthritis complication status M47.816 Active 27060211 9 Problem Paresthesias in right hand R20.2 Act marizol 01291892 Problem Plantar fasciitis M72.2 Active 20 6958561 Problem Bulging lumbar disc M51.26 Active 201827346 Problem 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 Active 344715459 Problem Other headache syndrome G44.89 Active 774952302 Problem Bulging of intervertebral disc between L4 and L5 M 51.26 Active 069129012 ALLERGIES No Known Allergies ENCOUNTERS Encounter Location Date Diagnosis [facility] [address] [id number] [place] [id number] Apr, Paresthesias in right hand R20.2 [facility] [address] [id number] [place] [id number] Feb, Low back pain M54.5 [facility] [address] [id number] [place] [id number] Dec, Bulging of intervertebral disc between L 4 and L5 M51.26 [facility] [address] [id number] [place] [id number] Dec, Bulging of intervertebral disc between L 4 and L5 M51.26 [facility] [address] [id number] [place] [id number] November, [facility] [place] [address] [id number] [place] [id number] November, Bulging of intervertebral disc between L 4 and L5 M51.26 and Testicular cancer, unspecified laterality C62.90 [place] [id number] [place] [id number] Oct, Bulging lumbar disc M51.26 and Plantar f asciitis M72.[address] [place] [address], [place] [id number] Aug, Bulging lumbar disc M51.26 and Other hea dache syndrome G44.[address] [place] [address], [place] [id number] Jul, 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 [place] [id number] [place] [id number] Jul, 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 [address] [place] [address], [place] [id number] Jul, 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 [facility] Ignacio HEADLEYE [id number] [place] [address] Jul, Bulging lumbar disc M51.[address] orchiectomy Z90.79 [address] [place] [address], [place] [id number] Jul, Bulging lumbar disc M51.26 ; Suprapubic tenderness R10.819 and 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 [place] [id number] [place] [id number] Apr, Back strain, initial encounter S39.012A and Cerumen debris on tympanic membrane of both ears H61.[address] [place] [address], [place] [id number] Feb, 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 [place] [id number] [place] [id number] Feb, [place] [id number] [place] [address], [place] [id number] November, Viral syndrome B34.9 and Psoriasis L40.9 [facility] [address] [facility] [id number] [place] [id number] November, Shortness of breath R06.02 ; Depression, unspecified depression type F32.9 and Sore throat J02.9 [facility] [address] [facility] [id number] [place] [id number] Oct, Pneumonia, unspecified organism J18.9 ; Depression, unspecified depression type F32.9 and Testicular cancer, unspecified laterality C62.90 [facility] [address] [facility] [id number] [address] [place] [address] Oct, [facility] [address] [facility] [id number] [address] [place] [address] Oct, [facility] [address] [facility] [id number] [place] [id number] Oct, [facility] [address] [place] [id number] [place] [address], [place] [id number] Oct, Acute upper respiratory infection, unspe cified J06.9 and Testicular cancer, right C62.91 [facility] [address] [place] [id number] [place] [id number] Jun, Bilateral low back pain without sciatica M54.5 [facility] [address] [id number] [place] [id number] May, Upper respiratory tract infection, unspe cified upper respiratory infection J06.9 [facility] [address] [facility] [id number] [place] [id number] Apr, [facility] [address] [facility] [id number] [place] [id number] Feb, Low back pain 724.2 and Figueroa splints 844 .9 [facility] [address] [id number] [place] [id number] Feb, [facility] [address] [place] [id number] [place] [id number] Feb, [facility] [place] [address] [facility] [address] [id number] [place] [id number] Feb, [facility] [place] [address] [id number] [place] [id number] Jan, Back pain 724.5 and Cerumen debris on ty mpanic membrane of both ears 380.4 [facility] [address] [facility] [id number] [address] [place] [address] Jan, [facility] [place] [address] [id number] [place] [id number] Dec, [facility] [place] [address] [id number] [place] [id number] Dec, Other testicular hypofunction 257.2 [facility] [place] [address] [id number] [place] [id number] Dec, Other testicular hypofunction 257.2 and Overweight 278.02 [facility] [address] [facility] [id number] [address] [place] [address] Oct, [facility] [address] [facility] [id number] [address] [place] [address] Oct, [facility] [place] [address] [facility] [id number] [place] [id number] Sep, [facility] [address] [place] [id number] [address] [place] [address] Sep, [facility] [place] [address] [facility] [id number] [place] [id number] Jul, [facility] [address] [facility] [id number] [address] [place] [address] Jul, [facility] [place] [address] [facility] [id number] [place] [id number] Jun, [facility] [address] [facility] [id number] [address] [place] [address] Jun, [facility] [place] [address] [facility] [id number] [place] [id number] May, [facility] [address] [facility] [id number] [address] [place] [address] May, [facility] [place] [address] [id number] [place] [id number] May, [facility] [place] [facility] [address] [id number] [facility] [place] [address] May, [facility] [place] [address] [id number] [place] [id number] May, [facility] [address] [id number] [facility] [place] [address] May, [facility] [place] [address] [id number] [place] [id number] Apr, [facility] [address] [id number] [address] [place] [address], [place] [address] Apr, [facility] [place] [address] [id number] [place] [id number] Apr, [facility] [address] [id number] [address] [place] [address], [place] [address] Apr, [facility] [place] [address] [id number] [place] [id number] Mar, [facility] [address] [id number] [address] [place] [address], [place] [address] Mar, [facility] [place] [address] [id number] [place] [id number] Mar, [facility] [address] [id number] [address] [place] [address], [place] [address] Mar, [facility] [place] [address] [id number] [place] [id number] Feb, [facility] [address] [id number] [address] [place] [address], [place] [address] Feb, [facility] [place] [address] [id number] [place] [id number] Jan, [facility] [address] [id number] [address] [place] [address], [place] [address] Jan, [facility] [place] [address] [id number] [place] [id number] Jan, [facility] [address] [id number] [facility] [place] [address] Jan, [facility] [address] [id number] [facility] [place] [address] Jan, [facility] [place] [address] [id number] [place] [id number] Jan, [facility] [address] [id number] [address] [place] [address], [place] [address] Jan, [facility] [address] [id number] [address] [place] [address], [place] [address] Dec, [facility] [place] [address] [id number] [place] [id number] Oct, [facility] [address] [id number] [address] [place] [address], [place] [address] Oct, [facility] [place] [address] [id number] [place] [id number] Sep, [facility] [address] [id number] [address] [place] [address], [place] [address] Sep, [facility] [place] [address] [id number] [place] [id number] Sep, [facility] [address] [id number] [address] [place] [address], [place] [address] Sep, [facility] [place] [address] [id number] [place] [id number] Aug, [facility] [address] [id number] [address] [place] [address], [place] [address] Aug, [facility] [address] [id number] [address] [place] [address], [place] [address] Mar, [facility] [place] [address] [id number] [place] [id number] Feb, [facility] [place] [address] [id number] [place] [id number] Dec, [facility] [address] [facility] [id number] Sharona COCHRAN S [id number] November, [facility] [address] [facility] [id number] [address] [place] [address] Sep, [facility] [address] [facility] [id number] Sharona COCHRAN S [id number] Aug, [facility] [address] [facility] [id number] [address] [place] [address] Jun, [facility] [address] [facility] [id number] [address] [place] [address] Jun, IMMUNIZATIONS No Known Immunizations SOCIAL HISTORY Never Assessed REASON FOR VISIT Right hand tingling for a week Dejuan PERALTA PLAN OF CARE Activity Details Follow Up prn Reason: VITAL SIGNS Height 70 in 2018-05-07 Weight 233.4 lbs 2018-05-07 Temperature 97.5 degrees Fahrenheit 2018-05-07 Heart Rate 100 bpm 2018-05-07 Respiratory Rate 18 2018-05-07 BMI 33.49 kg/m2 2018-05-07 Blood pressure systolic 110 mmHg 2018-05-07 Blood pressure diastolic 80 mmHg 2018-05-07 MEDICATIONS No Known Medications RESULTS No Results [...]
--- OUTSIDE RECORDS SUMMARY | 2019-10-22 09:32 | XMS REPORT ---
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 Active 269619354 Problem Paresthesias in right hand R20.2 Act marizol 86006726 Problem Depression, unspecified depression type F32.9 Active 31064218 Problem Hypogonadism male E29.1 Active 48 655680 Problem Osteoarthritis of lumbar spi ne, unspecified spinal osteoarthritis complication status M47.816 Active 54256902 9 Problem Bulging lumbar disc M51.26 Active 439052773 Problem Bulging of intervertebral disc between L4 and L5 M 51.26 Active 927103132 Problem Other headache syndrome G44.89 Active 109838116 Problem Plantar fasciitis M72.2 Active 20 6982110 ALLERGIES No Information ENCOUNTERS Encounter Location Date Diagnosis [facility] [id number] [place] [id number] Jul, Hypogonadism male E29.1 [place] [address] [id number] [place] [id number] Jul, Mid back pain on left side M54.9 ; Hypog onadism male E29.1 and Bilateral impacted cerumen H61.23 [facility] [address] [id number] [place] [id number] Apr, Paresthesias in right hand R20.2 [facility] [address] [id number] [place] [id number] Feb, Low back pain M54.5 [facility] [address] [id number] [place] [id number] Dec, Bulging of intervertebral disc between L 4 and L5 M51.26 [facility] [address] [id number] [place] [id number] Dec, Bulging of intervertebral disc between L 4 and L5 M51.26 [facility] [address] [id number] [place] [id number] November, [facility] [address] [facility] [id number] [place] [id number] November, Bulging of intervertebral disc between L 4 and L5 M51.26 and Testicular cancer, unspecified laterality C62.90 [facility] [address] [facility] [id number] [place] [id number] Oct, Bulging lumbar disc M51.26 and Plantar f asciitis M72.2 [facility] [address] [facility] [id number] [place] [id number] Aug, Bulging lumbar disc M51.26 and Other hea dache syndrome G44.89 [place] [address] [facility] [id number] [place] [id number] Jul, 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 [place] [address] [facility] [id number] [place] [id number] Jul, 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 [place] [address] [facility] [id number] [place] [id number] Jul, 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 [facility] [address] [id number] [place] [address] Jul, Bulging lumbar disc M51.[address] orchiectomy Z90.79 [facility] [address] [facility] [id number] [place] [id number] Jul, Bulging lumbar disc M51.26 ; Suprapubic tenderness R10.819 and 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 [facility] [address] [facility] [id number] [place] [id number] Apr, Back strain, initial encounter S39.012A and Cerumen debris on tympanic membrane of both ears H61.23 [place] [address] [place] [id number] [place] [address], [place] [id number] Feb, 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 [facility] [address] [id number] Feb, [facility] [address], [place] [id number] November, Viral syndrome B34.9 and Psoriasis L40.9 [facility] [address], [place] [id number] November, Shortness of breath R06.02 ; Depression, unspecified depression type F32.9 and Sore throat J02.9 [facility] [address], [place] [id number] Oct, Pneumonia, unspecified organism J18.9 ; Depression, unspecified depression type F32.9 and Testicular cancer, unspecified laterality C62.90 [facility] [address] [address] Oct, [facility] [address] [facility] [id number] [address] [place] [address] Oct, [facility] [address] [place] [id number] [place] [address], [place] [id number] Oct, [facility] [address], [place] [id number] Oct, Acute upper respiratory infection, unspe cified J06.9 and Testicular cancer, right C62.91 [facility] [address] [place] [address] [id number] [place] [address], [place] [id number] Jun, Bilateral low back pain without sciatica M54.5 [facility] [address] [place] [id number] [place] [id number] May, Upper respiratory tract infection, unspe cified upper respiratory infection J06.9 [facility] [address] [id number] [place] [id number] Apr, [facility] [address] [place] [id number] [place] [address], [place] [id number] Feb, Low back pain 724.2 and Figueroa splints 844 .9 [facility] [address] [id number] [place] [id number] Feb, [facility] [address] [id number] [place] [id number] Feb, [facility] Gomez[address] [facility] [address] [id number] [id number] Feb, [facility] [address] [id number] [place] [id number] Jan, Back pain 724.5 and Cerumen debris on ty mpanic membrane of both ears 380.4 [facility] [address] [facility] [id number] [address] [place] [address] Jan, [facility] [address] [facility] [id number] [place] [id number] Dec, [facility] [address] [facility] [id number] [place] [id number] Dec, Other testicular hypofunction 257.2 [facility] [address] [facility] [id number] [place] [id number] Dec, Other testicular hypofunction 257.2 and Overweight 278.02 [facility] [address] [place] [id number] [address] [place] [address] Oct, [facility] [address] [place] [id number] [address] [place] [address] Oct, [facility] [address] [facility] [id number] [place] [id number] Sep, [facility] [address] [facility] [id number] [address] [place] [address] Sep, [facility] [address] [facility] [id number] [place] [id number] Jul, [facility] [address] [facility] [id number] [address] [place] [address] Jul, [facility] [address] [facility] [id number] [place] [id number] Jun, [facility] [facility] [address] [id number] [address] [place] [address], [place] [address] Jun, [facility] [place] [address] [id number] [place] [id number] May, [facility] [address] [id number] [address] [place] [address], [place] [address] May, [facility] [place] [address] [id number] [place] [id number] May, [facility] [address] [id number] [address] [place] [address], [place] [address] May, [facility] [place] [address] [id number] [place] [id number] May, [facility] [address] [facility] [id number] [address] [place] [address], [place] [address] May, [facility] [place] [address] [id number] [place] [id number] Apr, [facility] [address] [id number] [address] [place] [address], [place] [address] Apr, [facility] [place] [address] [id number] [place] [id number] Apr, [facility] [address] [facility] [id number] [address] [place] [address], [place] [address] Apr, [facility] [place] [address] [id number] [place] [id number] Mar, [facility] [address] [id number] [address] [place] [address], [place] [address] Mar, [facility] [place] [address] [id number] [place] [id number] Mar, [facility] [address] [id number] [address] [place] [address], [place] [address] Mar, [facility] [place] [address] [id number] [place] [id number] Feb, [facility] [address] [facility] [id number] [address] [place] [address], [place] [address] Feb, [facility] [place] [address] [id number] [place] [id number] Jan, [facility] [address] [id number] [facility] [place] [address] Jan, [facility] [place] [address] [id number] [place] [id number] Jan, [facility] [address] [id number] [address] [place] [address], [place] [address] Jan, [facility] [address] [id number] [address] [place] [address], [place] [address] Jan, [facility] [place] [address] [id number] [place] [id number] Jan, [facility] [address] [facility] [id number] [address] [place] [address], [place] [address] Jan, [facility] [address] [id number] [address] [place] [address], [place] [address] Dec, [facility] [place] [address] [id number] [place] [id number] Oct, [facility] [address] [id number] [address] [place] [address], [place] [address] Oct, [facility] [place] [address] [id number] [place] [id number] Sep, [facility] [address] [id number] [address] [place] [address], [place] [address] Sep, [facility] [place] [address] [id number] [place] [id number] Sep, [facility] [address] [id number] [address] [place] [address], [place] [address] Sep, [facility] [place] [address] [id number] [place] [id number] Aug, [facility] [address] [id number] [address] [place] [address], [place] [id number] Aug, [facility] [address] [facility] [id number] [address] [place] [id number] Mar, [facility] [address] [id number] [place] [id number] Feb, [facility] [address] [id number] [place] [id number] Dec, [facility] [address] [id number] [place] [id number] November, [facility] [address] [facility] [id number] [address] [place] [id number] Sep, [facility] [address] [id number] [place] [id number] Aug, [facility] [address] [facility] [id number] [address] [place] [id number] Jun, [facility] [address] [place] [id number] [address] [place] [id number] Jun, IMMUNIZATIONS No Known Immunizations SOCIAL HISTORY Never Assessed REASON FOR VISIT EMR-[facility] [place] PLAN OF CARE VITAL SIGNS MEDICATIONS Medication Instructions Dosage Frequency Start Date End Date Duration S tatus Pbhfpnnl-Fgtnxftuc-YV 3.5-10,000-1 mg/mL-unit/mL-% 2 drop by Otic route 4 times per day for 7 day(s) Mar, A ctive Zithromax Z-Low 250 mg 2 tablet by Oral route 1 time per day for 1 days then take 1 tab daily on days 2-5 Sep, Active Testosterone 1 % (50 mg/5 gram) 1 Packet by Gleason sdermal route 1 time per day May, Active Amoxicillin 500 mg 2 capsule by Oral route 2 times per day for 10 day(s) November, Active Bibcgatg-Nrngmumjr-KJ 3.5-10,000-1 mg-unit/mL-% 4 drop by Otic route 4 times per day for 7 day(s) Dec, Active Debrox 6.5 % 3 drop by Otic route 2 times per day for 4 da y(s) November, Active Bactrim DS 800-160 mg 1 tablet by Oral route 2 times p er day for 7 day(s) Jan, Active RESULTS No Results PROCEDURES No Known procedures [...]
--- OUTSIDE RECORDS SUMMARY | 2019-10-22 09:32 | XMS REPORT ---
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 Active 177999910 Problem Paresthesias in right hand R20.2 Act marizol 23119881 Problem Depression, unspecified depression type F32.9 Active 51490926 Problem Hypogonadism male E29.1 Active 48 196419 Problem Osteoarthritis of lumbar spi ne, unspecified spinal osteoarthritis complication status M47.816 Active 39265033 9 Problem Bulging lumbar disc M51.26 Active 931498433 Problem Bulging of intervertebral disc between L4 and L5 M 51.26 Active 798149564 Problem Other headache syndrome G44.89 Active 693448570 Problem Plantar fasciitis M72.2 Active 20 8166560 ALLERGIES No Information ENCOUNTERS Encounter Location Date Diagnosis [facility] [id number] [place] [id number] Jul, Hypogonadism male E29.1 [place] [address] [id number] [place] [id number] Jul, Mid back pain on left side M54.9 ; Hypog onadism male E29.1 and Bilateral impacted cerumen H61.23 [facility] [address] [id number] [place] [id number] Apr, Paresthesias in right hand R20.2 [facility] [address] [id number] [place] [id number] Feb, Low back pain M54.5 [facility] [address] [id number] [place] [id number] Dec, Bulging of intervertebral disc between L 4 and L5 M51.26 [facility] [address] [id number] [place] [id number] Dec, Bulging of intervertebral disc between L 4 and L5 M51.26 [facility] [address] [id number] [place] [id number] November, [facility] [address] [facility] [id number] [place] [id number] November, Bulging of intervertebral disc between L 4 and L5 M51.26 and Testicular cancer, unspecified laterality C62.90 [facility] [address] [facility] [id number] [place] [id number] Oct, Bulging lumbar disc M51.26 and Plantar f asciitis M72.2 [facility] [address] [facility] [id number] [place] [id number] Aug, Bulging lumbar disc M51.26 and Other hea dache syndrome G44.89 [place] [address] [facility] [id number] [place] [id number] Jul, 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 [place] [address] [address] [facility] [id number] [place] [id number] Jul, 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 [place] [address] [facility] [id number] [place] [id number] Jul, 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 [facility] [address] [id number] [place] [address] Jul, Bulging lumbar disc M51.[address] orchiectomy Z90.79 [facility] [address] [facility] [id number] [place] [id number] Jul, Bulging lumbar disc M51.26 ; Suprapubic tenderness R10.819 and 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 [facility] [address] [facility] [id number] [place] [id number] Apr, Back strain, initial encounter S39.012A and Cerumen debris on tympanic membrane of both ears H61.23 [place] [address] [place] [id number] [place] [address], [place] [id number] Feb, 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 [facility] [address] [id number] Feb, [facility] [address] [id number] November, Viral syndrome B34.9 and Psoriasis L40.9 [facility] [address], [place] [id number] November, Shortness of breath R06.02 ; Depression, unspecified depression type F32.9 and Sore throat J02.9 [facility] [address], [place] [id number] Oct, Pneumonia, unspecified organism J18.9 ; Depression, unspecified depression type F32.9 and Testicular cancer, unspecified laterality C62.90 [facility] [address] [address] Oct, [facility] [address] [facility] [id number] [address] [place] [address] Oct, [facility] [address] [place] [id number] [place] [address], [place] [id number] Oct, [facility] [address], [place] [id number] Oct, Acute upper respiratory infection, unspe cified J06.9 and Testicular cancer, right C62.91 [facility] [address] [place] [id number] [place] [address], [place] [id number] Jun, Bilateral low back pain without sciatica M54.5 [facility] [address] [place] [id number] [place] [id number] May, Upper respiratory tract infection, unspe cified upper respiratory infection J06.9 [facility] [address] [id number] [place] [id number] Apr, [facility] [address] [place] [id number] [place] [address], [place] [id number] Feb, Low back pain 724.2 and Figueroa splints 844 .9 [facility] [place] [address] [id number] [place] [id number] Feb, [facility] [place] [address] [id number] [place] [id number] Feb, [facility] Gomez[address] [facility] [id number] [id number] Feb, [facility] [place] [address] [id number] [place] [id number] Jan, Back pain 724.5 and Cerumen debris on ty mpanic membrane of both ears 380.4 [facility] [address] [facility] [id number] [address] [place] [address] Jan, [facility] [address] [facility] [id number] [place] [id number] Dec, [facility] [address] [facility] [id number] [place] [id number] Dec, Other testicular hypofunction 257.2 [facility] [address] [facility] [id number] [place] [id number] Dec, Other testicular hypofunction 257.2 and Overweight 278.02 [facility] [address] [place] [id number] [address] [place] [address] Oct, [facility] [address] [place] [id number] [address] [place] [address] Oct, [facility] [address] [facility] [id number] [place] [id number] Sep, [facility] [address] [facility] [id number] [address] [place] [address] Sep, [facility] [address] [facility] [id number] [place] [id number] Jul, [facility] [address] [facility] [id number] [address] [place] [address] Jul, [facility] [address] [facility] [id number] [place] [id number] Jun, [facility] [place] [facility] [address] [id number] [address] [place] [address], [place] [address] Jun, [facility] [place] [address] [id number] [place] [id number] May, [facility] [place] [facility] [address] [id number] [address] [place] [address], [place] [address] May, [facility] [place] [address] [id number] [place] [id number] May, [facility] [place] [address] [id number] [address] [place] [address], [place] [address] May, [facility] [place] [address] [id number] [place] [id number] May, [facility] [address] [facility] [id number] [address] [place] [address], [place] [address] May, [facility] [place] [address] [id number] [place] [id number] Apr, [facility] [address] [id number] [address] [place] [address], [place] [address] Apr, [facility] [place] [address] [id number] [place] [id number] Apr, [facility] [place] [address] [facility] [id number] [address] [place] [address], [place] [address] Apr, [facility] [place] [address] [id number] [place] [id number] Mar, [facility] [place] [address] [id number] [address] [place] [address], [place] [address] Mar, [facility] [place] [address] [id number] [place] [id number] Mar, [facility] [place] [address] [id number] [address] [place] [address], [place] [address] Mar, [facility] [place] [address] [id number] [place] [id number] Feb, [facility] [place] [address] [facility] [id number] [address] [place] [address], [place] [address] Feb, [facility] [place] [address] [id number] [place] [id number] Jan, [facility] [place] [address] [id number] [facility] [place] [address] Jan, [facility] [place] [address] [id number] [place] [id number] Jan, [facility] [place] [address] [id number] [address] [place] [address], [place] [address] Jan, [facility] [address] [id number] [address] [place] [address], [place] [address] Jan, [facility] [place] [address] [id number] [place] [id number] Jan, [facility] [address] [facility] [id number] [address] [place] [address], [place] [address] Jan, [facility] [address] [id number] [address] [place] [address], [place] [address] Dec, [facility] [place] [address] [id number] [place] [id number] Oct, [facility] [address] [id number] [address] [place] [address], [place] [address] Oct, [facility] [place] [address] [id number] [place] [id number] Sep, [facility] [address] [id number] [address] [place] [address], [place] [address] Sep, [facility] [place] [address] [id number] [place] [id number] Sep, [facility] [address] [id number] [address] [place] [address], [place] [address] Sep, [facility] [place] [address] [id number] [place] [id number] Aug, [facility] [address] [id number] [address] [place] [address], [place] [address] Aug, [facility] [address] [facility] [id number] [address] [place] [address] Mar, [facility] [address] [facility] [id number] [place] [id number] Feb, [facility] [address] [facility] [id number] [place] [id number] Dec, [facility] [address] [facility] [id number] [place] [id number] November, [facility] [address] [facility] [id number] [address] [place] [address] Sep, [facility] 120 [facility] [id number] [place] [id number] Aug, [facility] [address] [place] [id number] [place] [address] Jun, [facility] [address] [place] [id number] [place] [address] Jun, IMMUNIZATIONS No Known Immunizations SOCIAL HISTORY Never Assessed REASON FOR VISIT [place] [place] VITAL SIGNS MEDICATIONS Unknown [...]
--- OUTSIDE RECORDS SUMMARY | 2019-10-22 09:32 | XMS REPORT ---
Author Author Iain SILVA [facility] Address [address] [place] [address] Care Team Providers Care Jive Developer Name Role Phone SHIRA FRANCOIS Unavailable PROBLEMS Type Condition ICD9-CM Code [id number] Code Onset Dates Condition S tatus SNOMED Code Problem Osteoarthritis of lumbar spi ne, unspecified spinal osteoarthritis complication status M47.816 Active 88279798 9 Problem Testicular cancer, unspecified laterality C62.90 Active 019437121 Problem Depression, unspecified depression type F32.9 Active 53707930 Problem Herpes zoster without mention of complication 053.9 Active 037371019 Problem Plantar fasciitis M72.2 Active 20 0087412 Problem Other headache syndrome G44.89 Active 043505386 Problem 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 Active 451428948 Problem Psoriasis L40.9 Active 2925888 Problem Bulging lumbar disc M51.26 Active 012553373 Problem Bulging of intervertebral disc between L4 and L5 M 51.26 Active 403837595 ALLERGIES No Known Allergies ENCOUNTERS Encounter Location Date Diagnosis [facility] [address] [place] [address] [id number] [place] [id number] Feb, Low back pain M54.5 [place] [address] [place] [id number] [place] [address], [place] [id number] Dec, Bulging of intervertebral disc between L 4 and L5 M51.26 [facility] [address] [id number] [place] [id number] Dec, Bulging of intervertebral disc between L 4 and L5 M51.26 [facility] [address] [facility] [id number] [place] [id number] November, [facility] [address] [facility] [id number] [place] [id number] November, Bulging of intervertebral disc between L 4 and L5 M51.26 and Testicular cancer, unspecified laterality C62.90 [place] [address] [address] [facility] [id number] [place] [id number] Oct, Bulging lumbar disc M51.26 and Plantar f asciitis M72.2 [place] [address] [address] [facility] [id number] [place] [id number] Aug, Bulging lumbar disc M51.26 and Other hea dache syndrome G44.[address] [id number] [place] [id number] Jul, 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 [id number] [place] [id number] Jul, 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 [address] [place] [address], [place] [id number] Jul, 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 [facility] [place] Ignacio [facility] [id number] [address] Jul, Bulging lumbar disc M51.[address] orchiectomy Z90.[address] [place] [address], [place] [id number] Jul, Bulging lumbar disc M51.26 ; Suprapubic tenderness R10.819 and 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 [address] [place] [address], [place] [id number] Apr, Back strain, initial encounter S39.012A and Cerumen debris on tympanic membrane of both ears H61.[address] [id number] [place] [id number] Feb, 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 [address] [place] [address], [place] [id number] Feb, [address] [place] [address], [place] [id number] November, Viral syndrome B34.9 and Psoriasis L40.9 [place] [id number] [place] [address], [place] [id number] November, Shortness of breath R06.02 ; Depression, unspecified depression type F32.9 and Sore throat J02.9 [facility] [address] [id number] [place] [id number] Oct, Pneumonia, unspecified organism J18.9 ; Depression, unspecified depression type F32.9 and Testicular cancer, unspecified laterality C62.90 [facility] [place] [address] [facility] [id number] [place] [address] Oct, [facility] [place] [address] [facility] [id number] [place] [address] Oct, [facility] [address] [id number] [place] [id number] Oct, [facility] [address] [id number] [place] [id number] Oct, Acute upper respiratory infection, unspe cified J06.9 and Testicular cancer, right C62.91 [facility] [address] [id number] [place] [id number] Jun, Bilateral low back pain without sciatica M54.5 [facility] [place] [address] [id number] [place] [id number] May, Upper respiratory tract infection, unspe cified upper respiratory infection J06.9 [facility] [place] [address] [id number] [place] [id number] Apr, [facility] [place] [address] [id number] [place] [id number] Feb, Low back pain 724.2 and Figueroa splints 844 .9 [facility] [place] [address] [id number] [place] [id number] Feb, [facility] [place] [address] [id number] [place] [id number] Feb, [facility] [place] [address] [facility] [address] [id number] [place] [id number] Feb, [facility] [address] [id number] [place] [id number] Jan, Back pain 724.5 and Cerumen debris on ty mpanic membrane of both ears 380.4 [facility] [address] [facility] [id number] [address] [place] [address] Jan, [facility] [place] [address] [id number] [place] [id number] Dec, [facility] [place] [address] [id number] [place] [id number] Dec, Other testicular hypofunction 257.2 [facility] [place] [address] [id number] [place] [id number] Dec, Other testicular hypofunction 257.2 and Overweight 278.02 [facility] [address] [facility] [id number] [address] [place] [address] Oct, [facility] [address] [place] [id number] [address] [place] [address] Oct, [facility] [place] [address] [facility] [id number] [place] [id number] Sep, [facility] [address] [facility] [id number] [address] [place] [address] Sep, [facility] [place] [address] [facility] [id number] [place] [id number] Jul, [facility] [address] [facility] [id number] [address] [place] [address] Jul, [facility] [place] [address] [facility] [id number] [place] [id number] Jun, [facility] [address] [facility] [id number] [address] [place] [address] Jun, [facility] [place] [address] [facility] [id number] [place] [id number] May, [facility] [address] [facility] [id number] [address] [place] [address] May, [facility] [place] [address] [facility] [id number] [place] [id number] May, [facility] [address] [id number] [address] [place] [address], [place] [address] May, [facility] [place] [address] [id number] [place] [id number] May, [facility] [address] [id number] [address] [place] [address], [place] [address] May, [facility] [place] [address] [id number] [place] [id number] Apr, [facility] [address] [id number] [address] [place] [address], [place] [address] Apr, [facility] [place] [address] [id number] [place] [id number] Apr, [facility] [address] [id number] [address] [place] [address], [place] [address] Apr, [facility] [place] [address] [id number] [place] [id number] Mar, [facility] [address] [id number] [address] [place] [address], [place] [address] Mar, [facility] [place] [address] [id number] [place] [id number] Mar, [facility] [address] [id number] [address] [place] [address], [place] [address] Mar, [facility] [place] [address] [id number] [place] [id number] Feb, [facility] [address] [id number] [address] [place] [address], [place] [address] Feb, [facility] [place] [address] [id number] [place] [id number] Jan, [facility] [address] [id number] [address] [place] [address], [place] [address] Jan, [facility] [place] [address] [id number] [place] [id number] Jan, [facility] [address] [id number] [address] [place] [address], [place] [address] Jan, [facility] [address] [id number] [address] [place] [address], [place] [address] Jan, [facility] [place] [address] [id number] [place] [id number] Jan, [facility] [address] [facility] [id number] [address] [place] [address], [place] [address] Jan, [facility] [address] [id number] [address] [place] [address], [place] [address] Dec, [facility] [place] [address] [id number] [place] [id number] Oct, [facility] [address] [id number] [address] [place] [address], [place] [address] Oct, [facility] [place] [address] [id number] [place] [id number] Sep, [facility] [address] [facility] [id number] [address] [place] [address], [place] [address] Sep, [facility] [place] [address] [id number] [place] [id number] Sep, [facility] [address] [facility] [id number] [address] [place] [address], [place] [address] Sep, [facility] [place] [address] [id number] [place] [id number] Aug, [facility] [address] [facility] [id number] [address] [place] [address], [place] [address] Aug, [facility] [address] [id number] [address] [place] [address], [place] [address] Mar, [facility] [place] [address] [id number] [place], [place] [id number] Feb, [facility] [place] [address] [id number] [place], [place] [id number] Dec, [facility] [place] [address] [id number] [place], [place] [id number] November, [facility] [address] [facility] [id number] [address] [address] Sep, [facility] [address] [id number] Sharona COCHRAN [id number] Aug, [facility] [place] [address] [facility] [id number] [address] [address] Jun, [facility] [place] [address] [facility] [id number] [address] [place] [id number] Jun, IMMUNIZATIONS No Known Immunizations SOCIAL HISTORY Never Assessed REASON FOR VISIT Pt c/ flare up of back pain started last night. Pt had MRI last month ordered by Shahzad. Requesting referral to in [place] for epidural inj Georgettemary [facility]AN OF CARE Activity Details Follow Up 2-4 Weeks, prn Reason:Back P ain VITAL SIGNS Height 70 in 2018-03-01 Weight 251 lbs 2018-03-01 Temperature 99 degrees Fahrenheit 2018-03-01 Heart Rate 90 bpm 2018-03-01 Respiratory Rate 16 2018-03-01 BMI 36.01 kg/m2 2018-03-01 Blood pressure systolic 138 mmHg 2018-03-01 Blood pressure diastolic 80 mmHg 2018-03-01 MEDICATIONS Medication Instructions Dosage Frequency Start Date End Date Duration S tatus Ibuprofen 800 MG Orally Three times a day 1 tablet with food or milk as needed 8h Jul, Mar, 30 days Active PredniSONE 20 mg Orally Once a day 1 tablet 24h Feb, Feb, 05 days Active Gabapentin 800 MG Orally Three times a day 1 capsule 8h Jul, 28 days Active RESULTS No Results PROCEDURES No Known [...]
--- OUTSIDE RECORDS SUMMARY | 2019-10-22 09:32 | XMS REPORT ---
Author Author Iain DOMINGUEZ Organization [facility] Address [address] [place] [address] Care Team Providers Care Stitchdown Toe Former Name Role Phone ROD DOMINGUEZ Unavailable PROBLEMS Type Condition ICD9-CM Code HYT75-RC Code Onset Dates Condition S tatus SNOMED Code Problem Osteoarthritis of lumbar spi ne, unspecified spinal osteoarthritis complication status M47.816 Active 54778082 9 Problem Testicular cancer, unspecified laterality C62.90 Active 428795384 Problem Depression, unspecified depression type F32.9 Active 97528780 Problem Herpes zoster without mention of complication 053.9 Active 738555329 Problem Plantar fasciitis M72.2 Active 20 8797473 Problem Other headache syndrome G44.89 Active 055827667 Problem 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 Active 423494387 Problem Psoriasis L40.9 Active 1534077 Problem Bulging lumbar disc M51.26 Active 163249948 Problem Bulging of intervertebral disc between L4 and L5 M 51.26 Active 561019449 ALLERGIES No Known Allergies ENCOUNTERS Encounter Location Date Diagnosis [facility] [id number] [place] [id number] Dec, Bulging of intervertebral disc between L 4 and L5 M51.26 [facility] [address] [id number] [place] [id number] Dec, Bulging of intervertebral disc between L 4 and L5 M51.26 [facility] [address] [id number] [place] [id number] November, [facility] [address] [id number] [place] [id number] November, Bulging of intervertebral disc between L 4 and L5 M51.26 and Testicular cancer, unspecified laterality C62.90 [facility] [address] [id number] [place] [id number] Oct, Bulging lumbar disc M51.26 and Plantar f asciitis M72.2 [facility] [address] [id number] [place] [id number] Aug, Bulging lumbar disc M51.26 and Other hea dache syndrome G44.89 [facility] [address] [id number] [place] [id number] Jul, 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 [facility] [place] [address] [id number] [place] [id number] Jul, 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 [facility] [place] [address] [facility] [id number] [place] [id number] Jul, 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 [id number] [place] [address] Jul, Bulging lumbar disc M51.[address] orchiectomy Z90.79 [place] [address] [id number] [place] [id number] Jul, Bulging lumbar disc M51.26 ; Suprapubic tenderness R10.819 and 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 [place] [address] [id number] [place] [id number] Apr, Back strain, initial encounter S39.012A and Cerumen debris on tympanic membrane of both ears H61.[address] [id number] [place] [id number] Feb, 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 [facility] [address] [id number] [place] [id number] Feb, [place] [address] [id number] [place] [id number] November, Viral syndrome B34.9 and Psoriasis L40.9 [facility] [address] [id number] [place] [id number] November, Shortness of breath R06.02 ; Depression, unspecified depression type F32.9 and Sore throat J02.9 [facility] [address] [id number] [place] [id number] Oct, Pneumonia, unspecified organism J18.9 ; Depression, unspecified depression type F32.9 and Testicular cancer, unspecified laterality C62.90 [facility] [address] [facility] [id number] [place] [address] Oct, [facility] [address] [facility] [id number] [address] [place] [address] Oct, [facility] [address] [id number] [place] [id number] Oct, [facility] [address] [id number] [place] [id number] Oct, Acute upper respiratory infection, unspe cified J06.9 and Testicular cancer, right C62.91 [facility] [address] [id number] [place] [id number] Jun, Bilateral low back pain without sciatica M54.5 [facility] [address] [id number] [place] [id number] May, Upper respiratory tract infection, unspe cified upper respiratory infection J06.9 [facility] [address] [id number] [place] [id number] Apr, [facility] [address] [id number] [place] [id number] Feb, Low back pain 724.2 and Figueroa splints 844 .9 [facility] [address] [id number] [place] [id number] Feb, [facility] [address] [id number] [place] [id number] Feb, [facility] [place] [address] [facility] [address] [id number] [place] [id number] Feb, [facility] [address] [id number] [place] [id number] Jan, Back pain 724.5 and Cerumen debris on ty mpanic membrane of both ears 380.4 [facility] [address] [id number] [address] [place] [address], [place] [address] Jan, [facility] [place] [address] [id number] [place] [id number] Dec, [facility] [place] [address] [id number] [place] [id number] Dec, Other testicular hypofunction 257.2 [facility] [place] [address] [id number] [place] [id number] Dec, Other testicular hypofunction 257.2 and Overweight 278.02 [facility] [address] [id number] [address] [place] [address], [place] [address] Oct, [facility] [address] [facility] [id number] [address] [place] [address] Oct, [facility] [place] [address] [facility] [id number] [place] [id number] Sep, [facility] [address] [facility] [id number] [address] [place] [address] Sep, [facility] [place] [address] [facility] [id number] [place] [id number] Jul, [facility] [address] [facility] [id number] [address] [place] [address] Jul, [facility] [place] [address] [facility] [id number] [place] [id number] Jun, [facility] [address] [facility] [id number] [address] [place] [address] Jun, [facility] [place] [address] [id number] [place] [id number] May, [facility] [address] [facility] [id number] [address] [place] [address] May, [facility] [place] [address] [facility] [id number] [place] [id number] May, [facility] [address] [facility] [id number] [address] [place] [address] May, [facility] [place] [address] [id number] [place] [id number] May, [facility] [address] [id number] [facility] [place] [address] May, [facility] [place] [address] [id number] [place] [id number] Apr, [facility] [address] [id number] [facility] [place] [address] Apr, [facility] [place] [address] [id number] [place] [id number] Apr, [facility] [address] [id number] [address] [place] [address], [place] [address] Apr, [facility] [place] [address] [id number] [place] [id number] Mar, [facility] [address] [id number] [address] [place] [address], [place] [address] Mar, [facility] [place] [address] [id number] [place] [id number] Mar, [facility] [address] [id number] [address] [place] [address], [place] [address] Mar, [facility] [place] [address] [id number] [place] [id number] Feb, [facility] [address] [id number] [facility] [place] [address] Feb, [facility] [place] [address] [id number] [place] [id number] Jan, [facility] [address] [id number] [facility] [place] [address] Jan, [facility] [place] [address] [id number] [place] [id number] Jan, [facility] [address] [id number] [facility] [place] [address] Jan, [facility] [address] [id number] [address] [place] [address], [place] [address] Jan, [facility] [place] [address] [id number] [place] [id number] Jan, [facility] [address] [id number] [address] [place] [address], [place] [address] Jan, [facility] [address] [id number] [address] [place] [address], [place] [address] Dec, [facility] [place] [address] [id number] [place] [id number] Oct, [facility] [address] [id number] [address] [place] [address], [place] [address] Oct, [facility] [place] [address] [id number] [place] [id number] Sep, [facility] [address] [id number] [address] [place] [address], [place] [address] Sep, [facility] [place] [address] [id number] [place] [id number] Sep, [facility] [address] [id number] [address] [place] [address], [place] [address] Sep, [facility] [place] [address] [id number] [place] [id number] Aug, [facility] [address] [id number] [address] [place] [address], [place] [address] Aug, [facility] [address] [id number] [address] [place] [address], [place] [address] Mar, [facility] [place] [address] [id number] [place] [id number] Feb, [facility] [place] [address] [id number] [place] [id number] Dec, [facility] [place] [address] [id number] [place] [id number] November, [facility] [address] [id number] [address] [place] [address], [place] [address] Sep, [facility] [place] [address] [id number] [facility] [id number] Aug, [facility] [address] [facility] [id number] [address] [place] [address] Jun, [facility] [address] [facility] [id number] [place] [address] Jun, IMMUNIZATIONS No Known Immunizations SOCIAL HISTORY Never Assessed REASON FOR VISIT Back pain--lower back that radiates down the right leg to the knee---FABIAN trujillo PLAN OF CARE Activity Details Follow Up prn Reason: VITAL SIGNS Height 70 in 2017-12-11 Weight 244.6 lbs 2017-12-11 Temperature 98.2 degrees Fahrenheit 2017-12-11 Heart Rate 91 bpm 2017-12-11 Respiratory Rate 18 2017-12-11 BMI 35.09 kg/m2 2017-12-11 Blood pressure systolic 114 mmHg 2017-12-11 Blood pressure diastolic 70 mmHg 2017-12-11 MEDICATIONS Medication Instructions Dosage Frequency Start Date End Date Duration S tatus Ibuprofen 800 MG Orally Three times a day 1 tablet with food or milk as needed 8h Jul, Active Tramadol HCl 50 mg Orally 2 times a day 1 tablet as needed 12h 05 2017 Active Gabapentin 800 MG Orally Three times a day 1 capsule 8h Jul, 8 Active Testim 50 MG/5GM (1%) Transdermal Once a day 1tube applicati on to skin in the morning 24h November, Active RESULTS No Results PROCEDURES No Known procedures INSTRUCTIONS MEDICATIONS ADMINISTERED No Known Medications MEDICAL (GENERAL) HISTORY Type Description Date Medical History testicular cancer 2007,chemo 2008 and 2009 for and tumor also that was not removed Surgical History left testical removed/cancer 2008 Surgical History orchiectomy right testical done by vickie . Benign results 11/2015 Hospitalization History surgery 2007 Hospitalization History Pneumonia, Hypoxia, N/V, Generalized Abdominal pain 10/22/15
--- OUTSIDE RECORDS SUMMARY | 2019-10-22 09:32 | XMS REPORT ---
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 Active 442333866 Problem Paresthesias in right hand R20.2 Act marizol 56277240 Problem Depression, unspecified depression type F32.9 Active 72815758 Problem Hypogonadism male E29.1 Active 48 925104 Problem Osteoarthritis of lumbar spi ne, unspecified spinal osteoarthritis complication status M47.816 Active 52280826 9 Problem Bulging lumbar disc M51.26 Active 236201734 Problem Bulging of intervertebral disc between L4 and L5 M 51.26 Active 129647105 Problem Other headache syndrome G44.89 Active 806682602 Problem Plantar fasciitis M72.2 Active 20 5635459 ALLERGIES No Information ENCOUNTERS Encounter Location Date Diagnosis [facility] [address] [id number] [place] [id number] November, [facility] [address] [id number] [place] [id number] November, [facility] [address] [id number] [place] [id number] November, [facility] [address] [id number] [place] [id number] Oct, Hypogonadism male E29.1 ; Gastroenteriti s K52.9 and Mid back pain on left side M54.9 [facility] [address] [id number] [place] [id number] Jul, Hypogonadism male E29.1 [facility] [address] [id number] [place] [id number] Jul, Mid back pain on left side M54.9 ; Hypog onadism male E29.1 and Bilateral impacted cerumen H61.23 [facility] [place] [address] [id number] [place] [id number] Apr, Paresthesias in right hand R20.2 [facility] [place] [address] [id number] [place] [id number] Feb, Low back pain M54.5 [facility] [place] [address] [id number] [place] [id number] Dec, Bulging of intervertebral disc between L 4 and L5 M51.26 [facility] [place] [address] [id number] [place] [id number] Dec, Bulging of intervertebral disc between L 4 and L5 M51.26 [facility] [place] [address] [id number] [place] [id number] November, [facility] [place] [address] [id number] [place] [id number] November, Bulging of intervertebral disc between L 4 and L5 M51.26 and Testicular cancer, unspecified laterality C62.90 [facility] [place] [address] [id number] [place] [id number] Oct, Bulging lumbar disc M51.26 and Plantar f asciitis M72.2 [facility] [place] [address] [id number] [place] [id number] Aug, Bulging lumbar disc M51.26 and Other hea dache syndrome G44.89 [facility] [place] [address] [id number] [place] [id number] Jul, 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 [facility] [place] [address] [id number] [place] [id number] Jul, 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 [facility] [place] [address] [id number] [place] [id number] Jul, 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 [facility] [address] [id number] [place] [address] Jul, Bulging lumbar disc M51.[address] orchiectomy Z90.79 [facility] [address] [facility] [id number] [place] [id number] Jul, Bulging lumbar disc M51.26 ; Suprapubic tenderness R10.819 and 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 [facility] [address] [facility] [id number] [place] [id number] Apr, Back strain, initial encounter S39.012A and Cerumen debris on tympanic membrane of both ears H61.23 [facility] [address] [facility] [id number] [place] [id number] Feb, 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 [facility] [address] [facility] [id number] [place] [id number] Feb, [facility] [address] [place] [id number] [place] [id number] November, Viral syndrome B34.9 and Psoriasis L40.9 [facility] [address] [facility] [id number] [place] [id number] November, Shortness of breath R06.02 ; Depression, unspecified depression type F32.9 and Sore throat J02.9 [facility] [address] [place] [id number] [place] [id number] Oct, Pneumonia, unspecified organism J18.9 ; Depression, unspecified depression type F32.9 and Testicular cancer, unspecified laterality C62.90 [facility] [address] [facility] [id number] [address] [place] [address] Oct, [facility] [address] [facility] [id number] [address] [place] [address] Oct, [facility] [address] [facility] [id number] [place] [id number] Oct, [facility] [address] [facility] [id number] [place] [id number] Oct, Acute upper respiratory infection, unspe cified J06.9 and Testicular cancer, right C62.91 [facility] [address] [facility] [id number] [place] [id number] Jun, Bilateral low back pain without sciatica M54.5 [facility] [address] [id number] [place] [id number] May, Upper respiratory tract infection, unspe cified upper respiratory infection J06.9 [facility] [address] [id number] [place] [id number] Apr, [facility] [address] [id number] [place] [id number] Feb, Low back pain 724.2 and Figueroa splints 844 .9 [facility] [address] [facility] [id number] [place] [id number] Feb, [facility] [address] [facility] [id number] [place] [id number] Feb, [address] [id number] [id number] Feb, [facility] [address] [facility] [id number] [place] [id number] Jan, Back pain 724.5 and Cerumen debris on ty mpanic membrane of both ears 380.4 [facility] [address] [place] [id number] [address] [place] [address] Jan, [facility] [address] [place] [id number] [place] [id number] Dec, [facility] [address] [facility] [id number] [place] [id number] Dec, Other testicular hypofunction 257.2 [facility] [address] [facility] [id number] [place] [id number] Dec, Other testicular hypofunction 257.2 and Overweight 278.02 [facility] [address] [place] [id number] [address] [place] [address] Oct, [facility] [address] [place] [id number] [address] [place] [address] Oct, [facility] [place] [address] [id number] [place] [id number] Sep, [facility] [address] [id number] [facility] [place] [address] Sep, [facility] [place] [address] [id number] [place] [id number] Jul, [facility] [address] [id number] [facility] [place] [address] Jul, [facility] [place] [address] [id number] [place] [id number] Jun, [facility] [address] [id number] [address] [place] [address], [place] [address] Jun, [facility] [place] [address] [id number] [place] [id number] May, [facility] [address] [id number] [address] [place] [address], [place] [address] May, [facility] [place] [address] [id number] [place] [id number] May, [facility] [address] [id number] [address] [place] [address], [place] [address] May, [facility] [place] [address] [id number] [place] [id number] May, [facility] [address] [id number] [address] [place] [address], [place] [address] May, [facility] [place] [address] [id number] [place] [id number] Apr, [facility] [address] [id number] [address] [place] [address], [place] [address] Apr, [facility] [place] [address] [id number] [place] [id number] Apr, [facility] [address] [id number] [address] [place] [address], [place] [address] Apr, [facility] [place] [address] [id number] [place] [id number] Mar, [facility] [address] [id number] [address] [place] [address], [place] [address] Mar, [facility] [place] [address] [id number] [place] [id number] Mar, [facility] [address] [id number] [address] [place] [address], [place] [address] Mar, [facility] [place] [address] [id number] [place] [id number] Feb, [facility] [address] [id number] [address] [place] [address], [place] [address] Feb, [facility] [place] [address] [id number] [place] [id number] Jan, [facility] [address] [id number] [address] [place] [address], [place] [address] Jan, [facility] [place] [address] [id number] [place] [id number] Jan, [facility] [address] [id number] [address] [place] [address], [place] [address] Jan, [facility] [address] [id number] [address] [place] [address], [place] [address] Jan, [facility] [place] [address] [id number] [place] [id number] Jan, [facility] [address] [id number] [address] [place] [address], [place] [address] Jan, [facility] [address] [id number] [address] [place] [address], [place] [address] Dec, [facility] [place] [address] [id number] [place] [id number] Oct, [facility] [address] [id number] [address] [place] [address], [place] [address] Oct, [facility] [place] [address] [id number] [place] [id number] Sep, [facility] [address] [id number] [address] [place] [id number] Sep, [facility] [address] [facility] [id number] [place] [id number] Sep, [facility] [address] [facility] [id number] [address] [place] [id number] Sep, [facility] [address] [facility] [id number] [place] [id number] Aug, [facility] [address] [facility] [id number] [address] [place] [id number] Aug, [facility] [address] [facility] [id number] [address] [place] [id number] Mar, [facility] [address] [facility] [id number] [place] [id number] Feb, [facility] [address] [facility] [id number] [place] [id number] Dec, [facility] [address] [facility] [id number] [place] [id number] November, [facility] [address] [facility] [id number] [address] [place] [id number] Sep, [facility] [address] [facility] [id number] [place] [id number] Aug, [facility] [address] [facility] [id number] [address] [place] [id number] Jun, [facility] [address] [facility] [id number] [address] [place] [id number] Jun, IMMUNIZATIONS No Known Immunizations SOCIAL HISTORY Never Assessed REASON FOR VISIT [facility] PLAN OF CARE VITAL SIGNS MEDICATIONS Unknown [...]
--- OUTSIDE RECORDS SUMMARY | 2019-10-22 09:32 | XMS REPORT ---
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 Active 244540026 Problem Paresthesias in right hand R20.2 Act marizol 76691252 Problem Depression, unspecified depression type F32.9 Active 04011129 Problem Hypogonadism male E29.1 Active 48 629598 Problem Osteoarthritis of lumbar spi ne, unspecified spinal osteoarthritis complication status M47.816 Active 64073831 9 Problem Bulging lumbar disc M51.26 Active 180045950 Problem Bulging of intervertebral disc between L4 and L5 M 51.26 Active 743660246 Problem Other headache syndrome G44.89 Active 781521326 Problem Plantar fasciitis M72.2 Active 20 5670297 ALLERGIES No Information ENCOUNTERS Encounter Location Date Diagnosis [facility] [id number] [place] [id number] Jul, Hypogonadism male E29.1 [place] [address] [id number] [place] [id number] Jul, Mid back pain on left side M54.9 ; Hypog onadism male E29.1 and Bilateral impacted cerumen H61.23 [facility] [address] [id number] [place] [id number] Apr, Paresthesias in right hand R20.2 [facility] [address] [id number] [place] [id number] Feb, Low back pain M54.5 [facility] [address] [id number] [place] [id number] Dec, Bulging of intervertebral disc between L 4 and L5 M51.26 [facility] [address] [id number] [place] [id number] Dec, Bulging of intervertebral disc between L 4 and L5 M51.26 [facility] [address] [id number] [place] [id number] November, [facility] [address] [facility] [id number] [place] [id number] November, Bulging of intervertebral disc between L 4 and L5 M51.26 and Testicular cancer, unspecified laterality C62.90 [facility] [address] [facility] [id number] [place] [id number] Oct, Bulging lumbar disc M51.26 and Plantar f asciitis M72.2 [facility] [address] [facility] [id number] [place] [id number] Aug, Bulging lumbar disc M51.26 and Other hea dache syndrome G44.89 [place] [address] [facility] [id number] [place] [id number] Jul, 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 [place] [address] [facility] [id number] [place] [id number] Jul, 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 [place] [address] [facility] [id number] [place] [id number] Jul, 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 [facility] [address] [id number] [place] [address] Jul, Bulging lumbar disc M51.[address] orchiectomy Z90.79 [facility] [address] [facility] [id number] [place] [id number] Jul, Bulging lumbar disc M51.26 ; Suprapubic tenderness R10.819 and 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 [facility] [address] [facility] [id number] [place] [id number] Apr, Back strain, initial encounter S39.012A and Cerumen debris on tympanic membrane of both ears H61.23 [place] [address] [place] [id number] [place] [address], [place] [id number] Feb, 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 [facility] [address], [place] [id number] Feb, [facility] [address], [place] [id number] November, Viral syndrome B34.9 and Psoriasis L40.9 [facility] [address], [place] [id number] November, Shortness of breath R06.02 ; Depression, unspecified depression type F32.9 and Sore throat J02.9 [facility] [address], [place] [id number] Oct, Pneumonia, unspecified organism J18.9 ; Depression, unspecified depression type F32.9 and Testicular cancer, unspecified laterality C62.90 [facility] [address] [address] Oct, [facility] [address] [facility] [id number] [address] [place] [address] Oct, [facility] [address] [place] [id number] [place] [address], [place] [id number] Oct, [facility] [address], [place] [id number] Oct, Acute upper respiratory infection, unspe cified J06.9 and Testicular cancer, right C62.91 [facility] [address] [place] [id number] [place] [address], [place] [id number] Jun, Bilateral low back pain without sciatica M54.5 [facility] [address] [place] [id number] [place] [id number] May, Upper respiratory tract infection, unspe cified upper respiratory infection J06.9 [facility] [address] [id number] [place] [id number] Apr, [facility] [address] [place] [id number] [place] [address], [place] [id number] Feb, Low back pain 724.2 and Figueroa splints 844 .9 [facility] [facility] [address] [id number] [place] [id number] Feb, [facility] [address] [id number] [place] [id number] Feb, [facility] RICH Gomez0 [facility] [address] [id number] [id number] Feb, [facility] [address] [id number] [place] [id number] Jan, Back pain 724.5 and Cerumen debris on ty mpanic membrane of both ears 380.4 [facility] [address] [facility] [id number] [address] [place] [address] Jan, [facility] [address] [facility] [id number] [place] [id number] Dec, [facility] [address] [facility] [id number] [place] [id number] Dec, Other testicular hypofunction 257.2 [facility] [address] [facility] [id number] [place] [id number] Dec, Other testicular hypofunction 257.2 and Overweight 278.02 [facility] [address] [place] [id number] [address] [place] [address] Oct, [facility] [address] [place] [id number] [address] [place] [address] Oct, [facility] [address] [facility] [id number] [place] [id number] Sep, [facility] [address] [facility] [id number] [address] [place] [address] Sep, [facility] [address] [facility] [id number] [place] [id number] Jul, [facility] [address] [facility] [id number] [address] [place] [address] Jul, [facility] [address] [facility] [id number] [place] [id number] Jun, [facility] [address] [id number] [address] [place] [address], [place] [address] Jun, [facility] [place] [address] [id number] [place] [id number] May, [facility] [address] [id number] [address] [place] [address], [place] [address] May, [facility] [place] [address] [id number] [place] [id number] May, [facility] [address] [id number] [address] [place] [address], [place] [address] May, [facility] [place] [address] [id number] [place] [id number] May, [facility] [address] [facility] [id number] [address] [place] [address], [place] [address] May, [facility] [place] [address] [id number] [place] [id number] Apr, [facility] [address] [id number] [address] [place] [address], [place] [address] Apr, [facility] [place] [address] [id number] [place] [id number] Apr, [facility] [address] [facility] [id number] [address] [place] [address], [place] [address] Apr, [facility] [place] [address] [id number] [place] [id number] Mar, [facility] [address] [id number] [address] [place] [address], [place] [address] Mar, [facility] [place] [address] [id number] [place] [id number] Mar, [facility] [address] [id number] [address] [place] [address], [place] [address] Mar, [facility] [place] [address] [id number] [place] [id number] Feb, [facility] [address] [facility] [id number] [address] [place] [address], [place] [address] Feb, [facility] [place] [address] [id number] [place] [id number] Jan, [facility] [address] [id number] [facility] [place] [address] Jan, [facility] [place] [address] [id number] [place] [id number] Jan, [facility] [address] [id number] [address] [place] [address], [place] [address] Jan, [facility] [address] [id number] [address] [place] [address], [place] [address] Jan, [facility] [address] [id number] [place] [id number] Jan, [facility] [address] [facility] [id number] [address] [place] [address], [place] [address] Jan, [facility] [address] [id number] [address] [place] [address], [place] [address] Dec, [facility] [place] [address] [id number] [place] [id number] Oct, [facility] [address] [id number] [address] [place] [address], [place] [address] Oct, [facility] [place] [address] [id number] [place] [id number] Sep, [facility] [address] [id number] [address] [place] [address], [place] [address] Sep, [facility] [place] [address] [id number] [place] [id number] Sep, [facility] [address] [id number] [address] [place] [address], [place] [address] Sep, [facility] [place] [address] [id number] [place] [id number] Aug, [facility] [address] [id number] [address] [place] [address], [place] [address] Aug, [facility] [address] [facility] [id number] [address] [place] [address] Mar, [facility] [address] [facility] [id number] [place] [id number] Feb, [facility] [address] [facility] [id number] [place] [id number] Dec, [facility] [address] [facility] [id number] [place] [id number] November, [facility] [address] [facility] [id number] [address] [place] [address] Sep, [facility] 120 [facility] [id number] [place] [id number] Aug, [facility] [address] [place] [id number] [address] [place] [address] Jun, [facility] [address] [place] [id number] [address] [place] [address] Jun, IMMUNIZATIONS No Known Immunizations SOCIAL HISTORY Never Assessed REASON FOR VISIT EMR-[facility] [place]AN OF CARE VITAL SIGNS MEDICATIONS Unknown [...]
--- OUTSIDE RECORDS SUMMARY | 2019-10-22 09:33 | XMS REPORT ---
Author Author Iain DOMINGUEZ Organization [facility] Address [address] [place] [address] Care Team Providers Care Irb Compliance Coordinator Name Role Phone ROD DOMINGUEZ Unavailable PROBLEMS Type Condition ICD9-CM Code GJF30-NA Code Onset Dates Condition S tatus SNOMED Code Problem Herpes zoster without mention of complication 053.9 Active 158607537 Problem Testicular cancer, unspecified laterality C62.90 Active 941162093 Problem Depression, unspecified depression type F32.9 Active 22872437 Problem Plantar fasciitis M72.2 Active 20 9375575 Problem Other headache syndrome G44.89 Active 207165971 Problem 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 Active 294029737 Problem Psoriasis L40.9 Active 0528755 Problem Bulging lumbar disc M51.26 Active 904216784 Problem Bulging of intervertebral disc between L4 and L5 M 51.26 Active 052703643 ALLERGIES No Information ENCOUNTERS Encounter Location Date Diagnosis [place] [id number] [place] [address], [place] [id number] Dec, Bulging of intervertebral disc between L 4 and L5 M51.26 [place] [id number] [place] [address], [place] [id number] November, [place] [id number] [place] [address], [place] [id number] November, Bulging of intervertebral disc between L 4 and L5 M51.26 and Testicular cancer, unspecified laterality C62.90 [place] [address] [place] [id number] [place] [address], [place] [id number] Oct, Bulging lumbar disc M51.26 and Plantar f asciitis M72.2 [facility] [address] [place] [id number] [place] [id number] Aug, Bulging lumbar disc M51.26 and Other hea dache syndrome G44.89 [facility] [address] [facility] [id number] [place] [id number] Jul, 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 [facility] [id number] [place] [id number] Jul, 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 [facility] [id number] [place] [id number] Jul, 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 [facility] [id number] [place] [address] Jul, Bulging lumbar disc M51.[address] orchiectomy Z90.79 [facility] [id number] [place] [id number] Jul, Bulging lumbar disc M51.26 ; Suprapubic tenderness R10.819 and 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 [place] [id number] [place] [id number] Apr, Back strain, initial encounter S39.012A and Cerumen debris on tympanic membrane of both ears H61.23 [place] [id number] [place] [id number] Feb, 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 [place] [id number] [place] [id number] Feb, [address] [place] [address], [place] [id number] November, Viral syndrome B34.9 and Psoriasis L40.9 [place] [address] [facility] [id number] [place] [id number] November, Shortness of breath R06.02 ; Depression, unspecified depression type F32.9 and Sore throat J02.9 [place] [id number] [place] [id number] Oct, Pneumonia, unspecified organism J18.9 ; Depression, unspecified depression type F32.9 and Testicular cancer, unspecified laterality C62.90 [facility] [address] [facility] [id number] [address] [place] [address] Oct, [facility] [address] [facility] [id number] [address] [place] [address] Oct, [facility] [address] [id number] [place] [id number] Oct, [facility] [address] [id number] [place] [id number] Oct, Acute upper respiratory infection, unspe cified J06.9 and Testicular cancer, right C62.91 [facility] [address] [id number] [place] [id number] Jun, Bilateral low back pain without sciatica M54.5 [facility] [address] [id number] [place] [id number] May, Upper respiratory tract infection, unspe cified upper respiratory infection J06.9 [facility] [address] [id number] [place] [id number] Apr, [facility] [address] [id number] [place] [id number] Feb, Low back pain 724.2 and Figueroa splints 844 .9 [facility] [address] [id number] [place] [id number] Feb, [facility] [address] [id number] [place] [id number] Feb, [address] [id number] [id number] Feb, [facility] [address] [id number] [place] [id number] Jan, Back pain 724.5 and Cerumen debris on ty mpanic membrane of both ears 380.4 [facility] [address] [facility] [id number] [address] [place] [address] Jan, [facility] [address] [id number] [place] [id number] Dec, [facility] [address] [id number] [place] [id number] Dec, 2014 Other testicular hypofunction 257.2 [facility] [address] [id number] [place] [id number] Dec, Other testicular hypofunction 257.2 and Overweight 278.02 [facility] [address] [id number] [address] [place] [address], [place] [address] Oct, [facility] [address] [facility] [id number] [address] [place] [address] Oct, [facility] [address] [id number] [place] [id number] Sep, [facility] [address] [facility] [id number] [address] [place] [address] Sep, [facility] [address] [facility] [id number] [place] [id number] Jul, [facility] [address] [facility] [id number] [address] [place] [address] Jul, [facility] [address] [id number] [place] [id number] Jun, [facility] [address] [facility] [id number] [address] [place] [address] Jun, [facility] [address] [id number] [place] [id number] May, [facility] [address] [facility] [id number] [address] [place] [address] May, [facility] [address] [id number] [place] [id number] May, [facility] [address] [facility] [id number] [address] [place] [address] May, [facility] [address] [id number] [place] [id number] May, [facility] [address] [facility] [id number] [address] [place] [address] May, [facility] [address] [id number] [place] [id number] Apr, [facility] [address] [id number] [facility] [place] [address] Apr, [facility] [place] [address] [id number] [place] [id number] Apr, [facility] [address] [id number] [facility] [place] [address] Apr, [facility] [place] [address] [id number] [place] [id number] Mar, [facility] [address] [id number] [facility] [place] [address] Mar, [facility] [place] [address] [id number] [place] [id number] Mar, [facility] [address] [id number] [facility] [place] [address] Mar, [facility] [place] [address] [id number] [place] [id number] Feb, [facility] [address] [id number] [facility] [place] [address] Feb, [facility] [address] [id number] [place] [id number] Jan, [facility] [address] [id number] [facility] [place] [address] Jan, [facility] [address] [id number] [place] [id number] Jan, [facility] [address] [id number] [facility] [place] [address] Jan, [facility] [address] [id number] [address] [place] [address], [place] [address] Jan, [facility] [address] [id number] [place] [id number] Jan, [facility] [address] [id number] [facility] [place] [address] Jan, [facility] [address] [id number] [address] [place] [address], [place] [address] Dec, [facility] [address] [id number] [place] [id number] Oct, [facility] [address] [facility] [id number] [address] [place] [address], [place] [address] Oct, [facility] [address] [id number] [place] [id number] Sep, [facility] [address] [id number] [address] [place] [address], [place] [address] Sep, [facility] [address] [id number] [place] [id number] Sep, [facility] [address] [facility] [id number] [address] [place] [address], [place] [address] Sep, [facility] [address] [id number] [place] [id number] Aug, [facility] [address] [facility] [id number] [address] [place] [address], [place] [address] Aug, [facility] [address] [facility] [id number] [address] [place] [address], [place] [address] Mar, [facility] [address] [id number] [place] [id number] Feb, [facility] [address] [id number] [place] [id number] Dec, [facility] [address] [id number] [place] [id number] November, [facility] [address] [id number] [address] [place] [address], [place] [address] Sep, [facility] [address] [id number] [place] [id number] Aug, [facility] [address] [facility] [id number] [address] [place] [id number] Jun, [facility] [address] [id number] [address] [place] [address], [place] [address] Jun, IMMUNIZATIONS No Known Immunizations SOCIAL HISTORY Never Assessed REASON FOR VISIT Rx clarification PLAN OF CARE VITAL SIGNS MEDICATIONS Medication Instructions Dosage Frequency Start Date End Date Duration S tat Testim 50 MG/5GM (1%) Transdermal one tube twice daily as directed Feb, 0 days Active RESULTS No Results PROCEDURES No [...]
--- OUTSIDE RECORDS SUMMARY | 2019-10-22 09:33 | XMS REPORT ---
Author Author Iain DOMINGUEZ Organization [facility] Address [address] [place] [address] Care Team Providers Care Spool Sorter Name Role Phone ROD DOMINGUEZ Unavailable PROBLEMS Type Condition ICD9-CM Code EBF79-HV Code Onset Dates Condition S tatus SNOMED Code Problem Herpes zoster without mention of complication 053.9 Active 000145417 Problem Testicular cancer, unspecified laterality C62.90 Active 219808071 Problem Depression, unspecified depression type F32.9 Active 51454577 Problem Plantar fasciitis M72.2 Active 20 4722853 Problem Other headache syndrome G44.89 Active 092986684 Problem 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 Active 359729820 Problem Psoriasis L40.9 Active 1378165 Problem Bulging lumbar disc M51.26 Active 228629616 Problem Bulging of intervertebral disc between L4 and L5 M 51.26 Active 717053399 ALLERGIES No Information ENCOUNTERS Encounter Location Date Diagnosis [place] [id number] [place] [address], [place] [id number] Dec, Bulging of intervertebral disc between L 4 and L5 M51.26 [place] [id number] [place] [address], [place] [id number] November, [place] [id number] [place] [address], [place] [id number] November, Bulging of intervertebral disc between L 4 and L5 M51.26 and Testicular cancer, unspecified laterality C62.90 [place] [address] [place] [id number] [place] [address], [place] [id number] Oct, Bulging lumbar disc M51.26 and Plantar f asciitis M72.2 [facility] [address] [place] [id number] [place] [id number] Aug, Bulging lumbar disc M51.26 and Other hea dache syndrome G44.89 [facility] [address] [facility] [id number] [place] [id number] Jul, 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 [facility] [id number] [place] [id number] Jul, 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 [facility] [id number] [place] [id number] Jul, 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 [facility] [place] [address] [id number] [place] [address] Jul, Bulging lumbar disc M51.[address] orchiectomy Z90.79 [facility] [id number] [place] [id number] Jul, Bulging lumbar disc M51.26 ; Suprapubic tenderness R10.819 and 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 [place] [id number] [place] [id number] Apr, Back strain, initial encounter S39.012A and Cerumen debris on tympanic membrane of both ears H61.23 [place] [id number] [place] [id number] Feb, 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 [place] [id number] [place] [id number] Feb, [address] [place] [address], [place] [id number] November, Viral syndrome B34.9 and Psoriasis L40.9 [place] [address] [facility] [id number] [place] [id number] November, Shortness of breath R06.02 ; Depression, unspecified depression type F32.9 and Sore throat J02.9 [place] [id number] [place] [id number] Oct, Pneumonia, unspecified organism J18.9 ; Depression, unspecified depression type F32.9 and Testicular cancer, unspecified laterality C62.90 [facility] [address] [facility] [id number] [address] [place] [address] Oct, [facility] [address] [facility] [id number] [address] [place] [address] Oct, [facility] [address] [id number] [place] [id number] Oct, [facility] [address] [id number] [place] [id number] Oct, Acute upper respiratory infection, unspe cified J06.9 and Testicular cancer, right C62.91 [facility] [address] [id number] [place] [id number] Jun, Bilateral low back pain without sciatica M54.5 [facility] [address] [id number] [place] [id number] May, Upper respiratory tract infection, unspe cified upper respiratory infection J06.9 [facility] [address] [id number] [place] [id number] Apr, [facility] [address] [id number] [place] [id number] Feb, Low back pain 724.2 and Figueroa splints 844 .9 [facility] [address] [id number] [place] [id number] Feb, [facility] [address] [id number] [place] [id number] Feb, [address] [id number] [id number] Feb, [facility] [address] [id number] [place] [id number] Jan, Back pain 724.5 and Cerumen debris on ty mpanic membrane of both ears 380.4 [facility] [address] [facility] [id number] [address] [place] [address] Jan, [facility] [address] [id number] [place] [id number] Dec, [facility] [address] [id number] [place] [id number] 17 Dec, 2014 Other testicular hypofunction 257.2 [facility] [place] [address] [id number] [place] [id number] Dec, Other testicular hypofunction 257.2 and Overweight 278.02 [facility] [address] [id number] [address] [place] [address], [place] [address] Oct, [facility] [address] [facility] [id number] [address] [place] [address] Oct, [facility] [place] [address] [id number] [place] [id number] Sep, [facility] [address] [facility] [id number] [address] [place] [address] Sep, [facility] [place] [address] [facility] [id number] [place] [id number] Jul, [facility] [address] [facility] [id number] [address] [place] [address] Jul, [facility] [place] [address] [id number] [place] [id number] Jun, [facility] [address] [facility] [id number] [address] [place] [address] Jun, [facility] [place] [address] [id number] [place] [id number] May, [facility] [address] [facility] [id number] [address] [place] [address] May, [facility] [place] [address] [id number] [place] [id number] May, [facility] [address] [facility] [id number] [address] [place] [address] May, [facility] [place] [address] [id number] [place] [id number] May, [facility] [address] [facility] [id number] [address] [place] [address] May, [facility] [place] [address] [id number] [place] [id number] Apr, [facility] [address] [id number] [facility] [place] [address] Apr, [facility] [place] [address] [id number] [place] [id number] Apr, [facility] [address] [id number] [facility] [place] [address] Apr, [facility] [place] [address] [id number] [place] [id number] Mar, [facility] [address] [id number] [facility] [place] [address] Mar, [facility] [place] [address] [id number] [place] [id number] Mar, [facility] [address] [id number] [facility] [place] [address] Mar, [facility] [place] [address] [id number] [place] [id number] Feb, [facility] [address] [id number] [facility] [place] [address] Feb, [facility] [place] [address] [id number] [place] [id number] Jan, [facility] [address] [id number] [facility] [place] [address] Jan, [facility] [place] [address] [id number] [place] [id number] Jan, [facility] [address] [id number] [facility] [place] [address] Jan, [facility] [address] [id number] [address] [place] [place] [address], [place] [address] Jan, [facility] [place] [address] [id number] [place] [id number] Jan, [facility] [address] [id number] [facility] [place] [address] Jan, [facility] [address] [id number] [address] [place] [address], [place] [address] Dec, [facility] [place] [address] [id number] [place] [id number] Oct, [facility] [address] [facility] [id number] [address] [place] [place] [address], [place] [address] Oct, [facility] [place] [address] [id number] [place] [id number] Sep, [facility] [address] [id number] [address] [place] [address], [place] [address] Sep, [facility] [place] [address] [id number] [place] [id number] Sep, [facility] [address] [facility] [id number] [address] [place] [place] [address], [place] [address] Sep, [facility] [place] [address] [id number] [place] [id number] Aug, [facility] [address] [facility] [id number] [address] [place] [address], [place] [address] Aug, [facility] [address] [facility] [id number] [address] [place] [address], [place] [address] Mar, [facility] [place] [address] [id number] [place] [id number] Feb, [facility] [address] [id number] [place] [id number] Dec, [facility] [place] [address] [id number] [place] [id number] November, [facility] [address] [id number] [address] [place] [place] [address], [place] [address] Sep, [facility] [place] [address] [id number] [place] [id number] Aug, [facility] [address] [facility] [id number] [address] [place] [address] Jun, [facility] [address] [id number] [address] [place] [place] [address], [place] [address] Jun, IMMUNIZATIONS No Known Immunizations SOCIAL HISTORY Never Assessed REASON FOR VISIT medications from OV PLAN OF CARE VITAL SIGNS MEDICATIONS Medication Instructions Dosage Frequency Start Date End Date Duration S tatus Testim 50 MG/5GM (1%) Transdermal one tube twice daily as directed Feb, Active Ibuprofen 800 MG Orally Three times a day 1 tablet with food or milk as needed 8h Jul, Active RESULTS No Results PROCEDURES No Known [...]
--- OUTSIDE RECORDS SUMMARY | 2019-10-22 09:33 | XMS REPORT ---
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 Name Role Phone ROD DOMINGUEZ Unavailable PROBLEMS Type Condition ICD9-CM Code ERM07-LX Code Onset Dates Condition S tatus SNOMED Code Problem Osteoarthritis of lumbar spi ne, unspecified spinal osteoarthritis complication status M47.816 Active 70685457 9 Problem Testicular cancer, unspecified laterality C62.90 Active 024951611 Problem Depression, unspecified depression type F32.9 Active 41245478 Problem Herpes zoster without mention of complication 053.9 Active 972887456 Problem Plantar fasciitis M72.2 Active 20 1068911 Problem Other headache syndrome G44.89 Active 397415285 Problem 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 Active 052122642 Problem Psoriasis L40.9 Active 7468363 Problem Bulging lumbar disc M51.26 Active 160014153 Problem Bulging of intervertebral disc between L4 and L5 M 51.26 Active 704492358 ALLERGIES No Information ENCOUNTERS Encounter Location Date Diagnosis [facility] [id number] [place] [id number] Dec, Bulging of intervertebral disc between L 4 and L5 M51.26 [place] [address] [id number] [place] [id number] Dec, Bulging of intervertebral disc between L 4 and L5 M51.26 [facility] [address] [id number] [place] [id number] November, [place] [address] [id number] [place] [id number] November, Bulging of intervertebral disc between L 4 and L5 M51.26 and Testicular cancer, unspecified laterality C62.90 [facility] [address] [id number] [place] [id number] Oct, Bulging lumbar disc M51.26 and Plantar f asciitis M72.2 [facility] [address] [id number] [place] [id number] Aug, Bulging lumbar disc M51.26 and Other hea dache syndrome G44.89 [facility] [address] [id number] [place] [id number] Jul, 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 [facility] [address] [id number] [place] [id number] Jul, 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 [id number] [place] [id number] Jul, 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 [id number] [place] [address] Jul, Bulging lumbar disc M51.[address] orchiectomy Z90.79 [place] [address] [id number] [place] [id number] Jul, Bulging lumbar disc M51.26 ; Suprapubic tenderness R10.819 and 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 [place] [id number] [place] [id number] Apr, Back strain, initial encounter S39.012A and Cerumen debris on tympanic membrane of both ears H61.23 [address] [place] [address], [place] [id number] Feb, 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 [facility] [address] [id number] [place] [id number] Feb, [address] [place] [address], [place] [id number] November, Viral syndrome B34.9 and Psoriasis L40.9 [facility] [address] [id number] [place] [id number] November, Shortness of breath R06.02 ; Depression, unspecified depression type F32.9 and Sore throat J02.9 [facility] [address] [id number] [place] [id number] Oct, Pneumonia, unspecified organism J18.9 ; Depression, unspecified depression type F32.9 and Testicular cancer, unspecified laterality C62.90 [facility] [address] [facility] [id number] [place], [place] [address] Oct, [facility] [address] [facility] [id number] [address] [place] [address] Oct, [facility] [address] [id number] [place] [id number] Oct, [facility] [address] [id number] [place] [id number] Oct, Acute upper respiratory infection, unspe cified J06.9 and Testicular cancer, right C62.91 [facility] [address] [id number] [place] [id number] Jun, Bilateral low back pain without sciatica M54.5 [facility] [address] [id number] [place] [id number] May, Upper respiratory tract infection, unspe cified upper respiratory infection J06.9 [facility] [address] [id number] [place] [id number] Apr, [facility] [address] [id number] [place] [id number] Feb, Low back pain 724.2 and Figueroa splints 844 .9 [facility] [address] [id number] [place] [id number] Feb, [facility] [address] [id number] [place] [id number] Feb, [facility] [place] [address] [id number] [place] [id number] Feb, [facility] [address] [id number] [place] [id number] Jan, Back pain 724.5 and Cerumen debris on ty mpanic membrane of both ears 380.4 [facility] [address] [id number] [address] [place] [address], [place] [address] Jan, [facility] [place] [address] [id number] [place] [id number] Dec, [facility] [address] [id number] [place] [id number] Dec, Other testicular hypofunction 257.2 [facility] [address] [id number] [place] [id number] Dec, Other testicular hypofunction 257.2 and Overweight 278.02 [facility] [address] [id number] [address] [place] [address], [place] [address] Oct, [facility] [address] [facility] [id number] [address] [place] [address] Oct, [facility] [place] [address] [facility] [id number] [place] [id number] Sep, [facility] [address] [facility] [id number] [address] [place] [address] Sep, [facility] [place] [address] [facility] [id number] [place] [id number] Jul, [facility] [address] [facility] [id number] [address] [place] [address] Jul, [facility] [place] [address] [facility] [id number] [place] [id number] Jun, [facility] [address] [facility] [id number] [address] [place] [address], [place] [address] Jun, [facility] [place] [address] [id number] [place] [id number] May, [facility] [address] [facility] [id number] [address] [place] [address] May, [facility] [place] [address] [id number] [place] [id number] May, [facility] [address] [facility] [id number] [address] [place] [address] May, [facility] [place] [address] [id number] [place] [id number] May, [facility] [address] [id number] [facility] [place] [address] May, [facility] [place] [address] [id number] [place] [id number] Apr, [facility] [address] [id number] [facility] [place] [address] Apr, [facility] [place] [address] [id number] [place] [id number] Apr, [facility] [address] [id number] [address] [place] [address], [place] [address] Apr, [facility] [place] [address] [id number] [place] [id number] Mar, [facility] [address] [id number] [address] [place] [address], [place] [address] Mar, [facility] [place] [address] [id number] [place] [id number] Mar, [facility] [address] [id number] [address] [place] [address], [place] [address] Mar, [facility] [place] [address] [id number] [place] [id number] Feb, [facility] [address] [id number] [address] [place] [address], [place] [address] Feb, [facility] [place] [address] [id number] [place] [id number] Jan, [facility] [address] [id number] [address] [place] [address], [place] [address] Jan, [facility] [place] [address] [id number] [place] [id number] Jan, [facility] [address] [id number] [facility] [place] [address] Jan, [facility] [address] [id number] [address] [place] [address], [place] [address] Jan, [facility] [place] [address] [id number] [place] [id number] Jan, [facility] [address] [id number] [address] [place] [address], [place] [address] Jan, [facility] [address] [id number] [address] [place] [address], [place] [address] Dec, [facility] [place] [address] [id number] [place] [id number] Oct, [facility] [address] [id number] [address] [place] [address], [place] [address] Oct, [facility] [place] [address] [id number] [place] [id number] Sep, [facility] [address] [facility] [id number] [address] [place] [address], [place] [address] Sep, [facility] [place] [address] [id number] [place] [id number] Sep, [facility] [address] [id number] [address] [place] [address], [place] [address] Sep, [facility] [place] [address] [id number] [place] [id number] Aug, [facility] [address] [facility] [id number] [address] [place] [address], [place] [address] Aug, [facility] [address] [id number] [address] [place] [address], [place] [address] Mar, [facility] [address] [id number] [place] [id number] Feb, [facility] [place] [address] [id number] [place] [id number] Dec, [facility] [place] [address] [id number] [place] [id number] November, [facility] [address] [id number] [address] [place] [address], [place] [address] Sep, [facility] [place] [address] [id number] [place] [id number] Aug, [facility] [address] [facility] [id number] [address] [place] [address] Jun, [facility] [address] [facility] [id number] [address] [place] [address] Jun, IMMUNIZATIONS No Known Immunizations SOCIAL HISTORY Never Assessed REASON FOR VISIT RX PLAN OF CARE VITAL SIGNS MEDICATIONS Unknown [...]
--- OUTSIDE RECORDS SUMMARY | 2019-10-22 09:33 | XMS REPORT ---
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 Role Phone ROD DOMINGUEZ Unavailable PROBLEMS Type Condition ICD9-CM Code UXV72-MP Code Onset Dates Condition S tatus SNOMED Code Problem Osteoarthritis of lumbar spi ne, unspecified spinal osteoarthritis complication status M47.816 Active 51529512 9 Problem Testicular cancer, unspecified laterality C62.90 Active 777500590 Problem Depression, unspecified depression type F32.9 Active 61511056 Problem Herpes zoster without mention of complication 053.9 Active 347249772 Problem Plantar fasciitis M72.2 Active 20 5990900 Problem Other headache syndrome G44.89 Active 513963530 Problem 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 Active 267767088 Problem Psoriasis L40.9 Active 1746087 Problem Bulging lumbar disc M51.26 Active 047507047 Problem Bulging of intervertebral disc between L4 and L5 M 51.26 Active 768393448 ALLERGIES No Known Allergies ENCOUNTERS Encounter Location Date Diagnosis [facility] [id number] [place] [id number] Dec, Bulging of intervertebral disc between L 4 and L5 M51.26 [facility] [address] [id number] [place] [id number] Dec, Bulging of intervertebral disc between L 4 and L5 M51.26 [facility] [address] [id number] [place] [id number] November, [facility] [address] [id number] [place] [id number] November, Bulging of intervertebral disc between L 4 and L5 M51.26 and Testicular cancer, unspecified laterality C62.90 [facility] [address] [id number] [place] [id number] Oct, Bulging lumbar disc M51.26 and Plantar f asciitis M72.2 [facility] [address] [id number] [place] [id number] Aug, Bulging lumbar disc M51.26 and Other hea dache syndrome G44.89 [facility] [address] [id number] [place] [id number] Jul, 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 [facility] [place] [address] [id number] [place] [id number] Jul, 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 [facility] [place] [address] [facility] [id number] [place] [id number] Jul, 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 [id number] [place] [address] Jul, Bulging lumbar disc M51.[address] orchiectomy Z90.79 [place] [address] [id number] [place] [id number] Jul, Bulging lumbar disc M51.26 ; Suprapubic tenderness R10.819 and 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 [place] [address] [id number] [place] [id number] Apr, Back strain, initial encounter S39.012A and Cerumen debris on tympanic membrane of both ears H61.[address] [id number] [place] [id number] Feb, 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 [facility] [address] [id number] [place] [id number] Feb, [place] [address] [id number] [place] [id number] November, Viral syndrome B34.9 and Psoriasis L40.9 [facility] [address] [id number] [place] [id number] November, Shortness of breath R06.02 ; Depression, unspecified depression type F32.9 and Sore throat J02.9 [facility] [address] [id number] [place] [id number] Oct, Pneumonia, unspecified organism J18.9 ; Depression, unspecified depression type F32.9 and Testicular cancer, unspecified laterality C62.90 [facility] [address] [facility] [id number] [place] [address] Oct, [facility] [address] [facility] [id number] [address] [place] [address] Oct, [facility] [address] [id number] [place] [id number] Oct, [facility] [address] [id number] [place] [id number] Oct, Acute upper respiratory infection, unspe cified J06.9 and Testicular cancer, right C62.91 [facility] [address] [id number] [place] [id number] Jun, Bilateral low back pain without sciatica M54.5 [facility] [address] [id number] [place] [id number] May, Upper respiratory tract infection, unspe cified upper respiratory infection J06.9 [facility] [address] [id number] [place] [id number] Apr, [facility] [address] [id number] [place] [id number] Feb, Low back pain 724.2 and Figueroa splints 844 .9 [facility] [address] [id number] [place] [id number] Feb, [facility] [address] [id number] [place] [id number] Feb, [facility] [place] [address] [facility] [address] [id number] [place] [employer] [id number] Feb, [facility] [address] [id number] [place] [id number] Jan, Back pain 724.5 and Cerumen debris on ty mpanic membrane of both ears 380.4 [facility] [address] [id number] [address] [place] [address], [place] [address] Jan, [facility] [place] [address] [id number] [place] [id number] Dec, [facility] [place] [address] [id number] [place] [id number] Dec, Other testicular hypofunction 257.2 [facility] [place] [address] [id number] [place] [id number] Dec, Other testicular hypofunction 257.2 and Overweight 278.02 [facility] [address] [id number] [address] [place] [address], [place] [address] Oct, [facility] [address] [facility] [id number] [address] [place] [address] Oct, [facility] [place] [address] [facility] [id number] [place] [id number] Sep, [facility] [address] [facility] [id number] [address] [place] [address] Sep, [facility] [place] [address] [facility] [id number] [place] [id number] Jul, [facility] [address] [facility] [id number] [address] [place] [address] Jul, [facility] [place] [address] [facility] [id number] [place] [id number] Jun, [facility] [address] [facility] [id number] [address] [place] [address] Jun, [facility] [place] [address] [id number] [place] [id number] May, [facility] [address] [facility] [id number] [address] [place] [address] May, [facility] [place] [address] [facility] [id number] [place] [id number] May, [facility] [address] [facility] [id number] [address] [place] [address] May, [facility] [place] [address] [id number] [place] [id number] May, [facility] [address] [id number] [facility] [place] [address] May, [facility] [place] [address] [id number] [place] [id number] Apr, [facility] [address] [id number] [facility] [place] [address] Apr, [facility] [place] [address] [id number] [place] [id number] Apr, [facility] [address] [id number] [address] [place] [address], [place] [address] Apr, [facility] [place] [address] [id number] [place] [id number] Mar, [facility] [address] [id number] [address] [place] [address], [place] [address] Mar, [facility] [place] [address] [id number] [place] [id number] Mar, [facility] [address] [id number] [address] [place] [address], [place] [address] Mar, [facility] [place] [address] [id number] [place] [id number] Feb, [facility] [address] [id number] [facility] [place] [address] Feb, [facility] [place] [address] [id number] [place] [id number] Jan, [facility] [address] [id number] [facility] [place] [address] Jan, [facility] [place] [address] [id number] [place] [id number] Jan, [facility] [address] [id number] [facility] [place] [address] Jan, [facility] [address] [id number] [address] [place] [address], [place] [address] Jan, [facility] [place] [address] [id number] [place] [id number] Jan, [facility] [address] [id number] [address] [place] [address], [place] [address] Jan, [facility] [address] [id number] [address] [place] [address], [place] [address] Dec, [facility] [place] [address] [id number] [place] [id number] Oct, [facility] [address] [id number] [address] [place] [address], [place] [address] Oct, [facility] [place] [address] [id number] [place] [id number] Sep, [facility] [address] [id number] [address] [place] [address], [place] [address] Sep, [facility] [place] [address] [id number] [place] [id number] Sep, [facility] [address] [id number] [address] [place] [address], [place] [address] Sep, [facility] [place] [address] [id number] [place] [id number] Aug, [facility] [address] [id number] [address] [place] [address], [place] [address] Aug, [facility] [address] [id number] [address] [place] [address], [place] [address] Mar, [facility] [place] [address] [id number] [place] [id number] Feb, [facility] [place] [address] [id number] [place] [id number] Dec, [facility] [place] [address] [id number] [place] [id number] November, [facility] [address] [id number] [address] [place] [address], [place] [address] Sep, [facility] [place] [address] [id number] [facility] [id number] Aug, [facility] [address] [facility] [id number] [address] [place] [address] Jun, [facility] [address] [facility] [id number] [place] [address] Jun, IMMUNIZATIONS No Known Immunizations SOCIAL HISTORY Never Assessed REASON FOR VISIT Pain management (chronic) Dejuan PERALTA PLAN OF CARE Activity Details Follow Up 3 Months Reason:back pain VITAL SIGNS Height 70 in 2017-11-19 Weight 245.0 lbs 2017-11-19 Temperature 97.6 degrees Fahrenheit 2017-11-19 Heart Rate 92 bpm 2017-11-19 Respiratory Rate 18 2017-11-19 BMI 35.15 kg/m2 2017-11-19 Blood pressure systolic 104 mmHg 2017-11-19 Blood pressure diastolic 66 mmHg 2017-11-19 MEDICATIONS Medication Instructions Dosage Frequency Start Date End Date Duration S tatus Testim 50 MG/5GM (1%) Transdermal Once a day 1tube applicati on to skin in the morning 24h November, Active Ibuprofen 800 MG Orally Three times a day 1 tablet with food or milk as needed 8h Jul, Active Gabapentin 800 MG Orally Three times a day 1 capsule 8h Jul, 201 8 Active RESULTS No Results PROCEDURES No Known [...]
--- OUTSIDE RECORDS SUMMARY | 2019-10-22 09:33 | XMS REPORT ---
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 Role Phone ROD DOMINGUEZ Unavailable PROBLEMS Type Condition ICD9-CM Code LEX93-QP Code Onset Dates Condition S tatus SNOMED Code Problem Osteoarthritis of lumbar spi ne, unspecified spinal osteoarthritis complication status M47.816 Active 57890504 9 Problem Testicular cancer, unspecified laterality C62.90 Active 710403554 Problem Depression, unspecified depression type F32.9 Active 40973609 Problem Herpes zoster without mention of complication 053.9 Active 706034160 Problem Plantar fasciitis M72.2 Active 20 9737640 Problem Other headache syndrome G44.89 Active 229892662 Problem 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 Active 884543255 Problem Psoriasis L40.9 Active 9134246 Problem Bulging lumbar disc M51.26 Active 338590600 Problem Bulging of intervertebral disc between L4 and L5 M 51.26 Active 274669378 ALLERGIES No Known Allergies ENCOUNTERS Encounter Location Date Diagnosis [facility] [id number] [place] [id number] Dec, Bulging of intervertebral disc between L 4 and L5 M51.26 [facility] [address] [id number] [place] [id number] Dec, Bulging of intervertebral disc between L 4 and L5 M51.26 [facility] [address] [id number] [place] [id number] November, [facility] [address] [id number] [place] [id number] November, Bulging of intervertebral disc between L 4 and L5 M51.26 and Testicular cancer, unspecified laterality C62.90 [facility] [address] [id number] [place] [id number] Oct, Bulging lumbar disc M51.26 and Plantar f asciitis M72.2 [facility] [address] [id number] [place] [id number] Aug, Bulging lumbar disc M51.26 and Other hea dache syndrome G44.89 [facility] [address] [id number] [place] [id number] Jul, 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 [facility] [place] [address] [id number] [place] [id number] Jul, 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 [facility] [place] [address] [facility] [id number] [place] [id number] Jul, 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 [id number] [place] [address] Jul, Bulging lumbar disc M51.[address] orchiectomy Z90.79 [place] [address] [id number] [place] [id number] Jul, Bulging lumbar disc M51.26 ; Suprapubic tenderness R10.819 and 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 [place] [address] [id number] [place] [id number] Apr, Back strain, initial encounter S39.012A and Cerumen debris on tympanic membrane of both ears H61.[address] [id number] [place] [id number] Feb, 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 [facility] [address] [id number] [place] [id number] Feb, [place] [address] [id number] [place] [id number] November, Viral syndrome B34.9 and Psoriasis L40.9 [facility] [address] [id number] [place] [id number] November, Shortness of breath R06.02 ; Depression, unspecified depression type F32.9 and Sore throat J02.9 [facility] [address] [id number] [place] [id number] Oct, Pneumonia, unspecified organism J18.9 ; Depression, unspecified depression type F32.9 and Testicular cancer, unspecified laterality C62.90 [facility] [address] [facility] [id number] [place] [address] Oct, [facility] [address] [facility] [id number] [address] [place] [address] Oct, [facility] [address] [id number] [place] [id number] Oct, [facility] [address] [id number] [place] [id number] Oct, Acute upper respiratory infection, unspe cified J06.9 and Testicular cancer, right C62.91 [facility] [address] [id number] [place] [id number] Jun, Bilateral low back pain without sciatica M54.5 [facility] [address] [id number] [place] [id number] May, Upper respiratory tract infection, unspe cified upper respiratory infection J06.9 [facility] [address] [id number] [place] [id number] Apr, [facility] [address] [id number] [place] [id number] Feb, Low back pain 724.2 and Figueroa splints 844 .9 [facility] [address] [id number] [place] [id number] Feb, [facility] [address] [id number] [place] [id number] Feb, [facility] [place] [address] [facility] [facility] [address] [id number] [place] [id number] Feb, [facility] [address] [id number] [place] [id number] Jan, Back pain 724.5 and Cerumen debris on ty mpanic membrane of both ears 380.4 [facility] [address] [id number] [address] [place] [address], [place] [address] Jan, [facility] [place] [address] [id number] [place] [id number] Dec, [facility] [place] [address] [id number] [place] [id number] Dec, Other testicular hypofunction 257.2 [facility] [place] [address] [id number] [place] [id number] Dec, Other testicular hypofunction 257.2 and Overweight 278.02 [facility] [address] [id number] [address] [place] [address], [place] [address] Oct, [facility] [address] [facility] [id number] [address] [place] [address] Oct, [facility] [place] [address] [facility] [id number] [place] [id number] Sep, [facility] [address] [facility] [id number] [address] [place] [address] Sep, [facility] [place] [address] [facility] [id number] [place] [id number] Jul, [facility] [address] [facility] [id number] [address] [place] [address] Jul, [facility] [place] [address] [facility] [id number] [place] [id number] Jun, [facility] [address] [facility] [id number] [address] [place] [address] Jun, [facility] [place] [address] [id number] [place] [id number] May, [facility] [address] [facility] [id number] [address] [place] [address] May, [facility] [place] [address] [facility] [id number] [place] [id number] May, [facility] [address] [facility] [id number] [address] [place] [address] May, [facility] [place] [address] [id number] [place] [id number] May, [facility] [address] [id number] [facility] [place] [address] May, [facility] [place] [address] [id number] [place] [id number] Apr, [facility] [address] [id number] [facility] [place] [address] Apr, [facility] [place] [address] [id number] [place] [id number] Apr, [facility] [address] [id number] [address] [place] [address], [place] [address] Apr, [facility] [place] [address] [id number] [place] [id number] Mar, [facility] [address] [id number] [address] [place] [address], [place] [address] Mar, [facility] [place] [address] [id number] [place] [id number] Mar, [facility] [address] [id number] [address] [place] [address], [place] [address] Mar, [facility] [place] [address] [id number] [place] [id number] Feb, [facility] [address] [id number] [facility] [place] [address] Feb, [facility] [place] [address] [id number] [place] [id number] Jan, [facility] [address] [id number] [facility] [place] [address] Jan, [facility] [place] [address] [id number] [place] [id number] Jan, [facility] [address] [id number] [facility] [place] [address] Jan, [facility] [address] [id number] [address] [place] [address], [place] [address] Jan, [facility] [place] [address] [id number] [place] [id number] Jan, [facility] [address] [id number] [address] [place] [address], [place] [address] Jan, [facility] [address] [id number] [address] [place] [address], [place] [address] Dec, [facility] [place] [address] [id number] [place] [id number] Oct, [facility] [address] [id number] [address] [place] [address], [place] [address] Oct, [facility] [place] [address] [id number] [place] [id number] Sep, [facility] [address] [id number] [address] [place] [address], [place] [address] Sep, [facility] [place] [address] [id number] [place] [id number] Sep, [facility] [address] [id number] [address] [place] [address], [place] [address] Sep, [facility] [place] [address] [id number] [place] [id number] Aug, [facility] [address] [id number] [address] [place] [address], [place] [address] Aug, [facility] [address] [id number] [address] [place] [address], [place] [address] Mar, [facility] [place] [address] [id number] [place] [id number] Feb, [facility] [place] [address] [id number] [place] [id number] Dec, [facility] [place] [address] [id number] [place] [id number] November, [facility] [address] [id number] [address] [place] [address], [place] [address] Sep, [facility] [place] [address] [id number] [facility] [id number] Aug, [facility] [address] [facility] [id number] [place], [place] [address] Jun, [facility] [address] [facility] [id number] [place], [place] [address] Jun, IMMUNIZATIONS No Known Immunizations SOCIAL HISTORY Never Assessed REASON FOR VISIT back pain f/u Miriam CARROLL PLAN OF CARE Activity Details Follow Up 4 Weeks Reason:back pain VITAL SIGNS Height 70 in 2017-10-22 Weight 249.1 lbs 2017-10-22 Temperature 98 degrees Fahrenheit 2017-10-22 Heart Rate 90 bpm 2017-10-22 Respiratory Rate 16 2017-10-22 BMI 35.74 kg/m2 2017-10-22 Blood pressure systolic 130 mmHg 2017-10-22 Blood pressure diastolic 70 mmHg 2017-10-22 MEDICATIONS Medication Instructions Dosage Frequency Start Date End Date Duration S tatus Testim 50 MG/5GM (1%) Transdermal 2 times a day 1 applicatio n to skin in the morning 12h 24 Feb, 2016 0 days Not-Taking Ibuprofen 800 MG Orally Three times a day 1 tablet with food or milk as needed 8h Jul, Active Gabapentin 800 MG Orally Three times a day 1 capsule 8h Jul, 8 Active RESULTS No Results PROCEDURES No [...]
--- OUTSIDE RECORDS SUMMARY | 2019-10-22 09:33 | XMS REPORT ---
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 Role Phone ROD DOMINGUEZ Unavailable PROBLEMS Type Condition ICD9-CM Code OEP71-FL Code Onset Dates Condition S tatus SNOMED Code Problem Herpes zoster without mention of complication 053.9 Active 936906340 Problem Testicular cancer, unspecified laterality C62.90 Active 836798201 Problem Depression, unspecified depression type F32.9 Active 52225781 Problem Plantar fasciitis M72.2 Active 20 0862449 Problem Other headache syndrome G44.89 Active 422679350 Problem 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 Active 924802549 Problem Psoriasis L40.9 Active 8039930 Problem Bulging lumbar disc M51.26 Active 036560413 Problem Bulging of intervertebral disc between L4 and L5 M 51.26 Active 224405444 ALLERGIES No Information ENCOUNTERS Encounter Location Date Diagnosis [place] [id number] [place] [address], [place] [id number] Dec, Bulging of intervertebral disc between L 4 and L5 M51.26 [place] [id number] [place] [address], [place] [id number] November, [place] [id number] [place] [address], [place] [id number] November, Bulging of intervertebral disc between L 4 and L5 M51.26 and Testicular cancer, unspecified laterality C62.90 [place] [address] [place] [id number] [place] [address], [place] [id number] Oct, Bulging lumbar disc M51.26 and Plantar f asciitis M72.2 [facility] [address] [place] [address] [id number] [place] [id number] Aug, Bulging lumbar disc M51.26 and Other hea dache syndrome G44.89 [facility] [address] [facility] [id number] [place] [id number] Jul, 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 [facility] [id number] [place] [id number] Jul, 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 [facility] [id number] [place] [id number] Jul, 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 [facility] [address] [id number] [place] [address] Jul, Bulging lumbar disc M51.[address] orchiectomy Z90.79 [facility] [id number] [place] [id number] Jul, Bulging lumbar disc M51.26 ; Suprapubic tenderness R10.819 and 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 [place] [id number] [place] [id number] Apr, Back strain, initial encounter S39.012A and Cerumen debris on tympanic membrane of both ears H61.23 [place] [id number] [place] [id number] Feb, 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 [place] [id number] [place] [id number] Feb, [id number] [place] [address], [place] [id number] November, Viral syndrome B34.9 and Psoriasis L40.9 [place] [address] [facility] [id number] [place] [id number] November, Shortness of breath R06.02 ; Depression, unspecified depression type F32.9 and Sore throat J02.9 [place] [id number] [place] [id number] Oct, Pneumonia, unspecified organism J18.9 ; Depression, unspecified depression type F32.9 and Testicular cancer, unspecified laterality C62.90 [facility] [address] [facility] [id number] [address] [place] [address] Oct, [facility] [address] [facility] [id number] [address] [place] [address] Oct, [facility] [address] [id number] [place] [id number] Oct, [facility] [address] [id number] [place] [id number] Oct, Acute upper respiratory infection, unspe cified J06.9 and Testicular cancer, right C62.91 [facility] [address] [id number] [place] [id number] Jun, Bilateral low back pain without sciatica M54.5 [facility] [address] [id number] [place] [id number] May, Upper respiratory tract infection, unspe cified upper respiratory infection J06.9 [facility] [address] [id number] [place] [id number] Apr, [facility] [address] [id number] [place] [id number] Feb, Low back pain 724.2 and Figueroa splints 844 .9 [facility] [address] [id number] [place] [id number] Feb, [facility] [address] [id number] [place] [id number] Feb, [address] [id number] [place] [id number] Feb, [facility] [address] [id number] [place] [id number] Jan, Back pain 724.5 and Cerumen debris on ty mpanic membrane of both ears 380.4 [facility] [address] [facility] [id number] [address] [place] [address] Jan, [facility] [address] [id number] [place] [id number] Dec, [facility] [address] [id number] [place] [id number] 17 Dec, 2014 Other testicular hypofunction 257.2 [facility] [address] [id number] [place] [id number] Dec, Other testicular hypofunction 257.2 and Overweight 278.02 [facility] [address] [id number] [address] [place] [address], [place] [address] Oct, [facility] [address] [facility] [id number] [address] [place] [address] Oct, [facility] [address] [id number] [place] [id number] Sep, [facility] [address] [facility] [id number] [address] [place] [address] Sep, [facility] [address] [facility] [id number] [place] [id number] Jul, [facility] [address] [facility] [id number] [address] [place] [address] Jul, [facility] [address] [id number] [place] [id number] Jun, [facility] [address] [facility] [id number] [address] [place] [address] Jun, [facility] [address] [id number] [place] [id number] May, [facility] [address] [facility] [id number] [address] [place] [address] May, [facility] [address] [id number] [place] [id number] May, [facility] [address] [facility] [id number] [address] [place] [address] May, [facility] [address] [id number] [place] [id number] May, [facility] [address] [facility] [id number] [address] [place] [address] May, [facility] [address] [id number] [place] [id number] Apr, [facility] [address] [id number] [facility] [place] [address] Apr, [facility] [address] [id number] [place] [id number] Apr, [facility] [address] [id number] [facility] [place] [address] Apr, [facility] [address] [id number] [place] [id number] Mar, [facility] [address] [id number] [facility] [place] [address] Mar, [facility] [address] [id number] [place] [id number] Mar, [facility] [address] [id number] [facility] [place] [address] Mar, [facility] [address] [id number] [place] [id number] Feb, [facility] [address] [id number] [facility] [place] [address] Feb, [facility] [address] [id number] [place] [id number] Jan, [facility] [address] [id number] [facility] [place] [address] Jan, [facility] [address] [id number] [place] [id number] Jan, [facility] [address] [id number] [facility] [place] [address] Jan, [facility] [address] [id number] [address] [place] [address], [place] [address] Jan, [facility] [address] [id number] [place] [id number] Jan, [facility] [address] [id number] [facility] [place] [address] Jan, [facility] [address] [id number] [address] [place] [address], [place] [address] Dec, [facility] [address] [id number] [place] [id number] Oct, [facility] [address] [facility] [id number] [address] [place] [address], [place] [address] Oct, [facility] [address] [id number] [place] [id number] Sep, [facility] [address] [id number] [address] [place] [address], [place] [address] Sep, [facility] [address] [id number] [place] [id number] Sep, [facility] [address] [facility] [id number] [address] [place] [address], [place] [address] Sep, [facility] [address] [id number] [place] [id number] Aug, [facility] [address] [facility] [id number] [address] [place] [address], [place] [address] Aug, [facility] [address] [facility] [id number] [address] [place] [address], [place] [address] Mar, [facility] [address] [id number] [place] [id number] Feb, [facility] [address] [id number] [place] [id number] Dec, [facility] [address] [id number] [place] [id number] November, [facility] [address] [id number] [address] [place] [address], [place] [address] Sep, [facility] [address] [id number] [place] [id number] Aug, [facility] [address] [facility] [id number] [address] [place] [address] Jun, [facility] [address] [id number] [address] [place] [address], [place] [address] Jun, IMMUNIZATIONS No Known Immunizations SOCIAL HISTORY Never Assessed REASON FOR VISIT med clarification PLAN OF CARE VITAL SIGNS MEDICATIONS Medication Instructions Dosage Frequency Start Date End Date Duration S tat Testim 50 MG/5GM (1%) Transdermal 2 times a day 1packet 12h 24 Feb, 2016 0 days Active RESULTS No Results PROCEDURES [...]
--- OUTSIDE RECORDS SUMMARY | 2019-10-22 09:33 | XMS REPORT ---
Author Author Iain DOMINGUEZ Organization [facility] Address [address] [place] [address] Care Team Providers Care Resistor Winder Name Role Phone ROD DOMINGUEZ Unavailable PROBLEMS Type Condition ICD9-CM Code LCW25-XJ Code Onset Dates Condition S tatus SNOMED Code Problem Herpes zoster without mention of complication 053.9 Active 549414815 Problem Testicular cancer, unspecified laterality C62.90 Active 297476943 Problem Depression, unspecified depression type F32.9 Active 84018140 Problem Plantar fasciitis M72.2 Active 20 4753108 Problem Other headache syndrome G44.89 Active 721554899 Problem 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 Active 035778712 Problem Psoriasis L40.9 Active 5976706 Problem Bulging lumbar disc M51.26 Active 736800475 Problem Bulging of intervertebral disc between L4 and L5 M 51.26 Active 073496570 ALLERGIES No Known Allergies ENCOUNTERS Encounter Location Date Diagnosis [place] [id number] [place] [address], [place] [id number] Dec, Bulging of intervertebral disc between L 4 and L5 M51.26 [place] [address] [place] [id number] [place] [address], [place] [id number] November, [place] [id number] [place] [address], [place] [id number] November, Bulging of intervertebral disc between L 4 and L5 M51.26 and Testicular cancer, unspecified laterality C62.90 [place] [address] [place] [address] [id number] [place] [address], [place] [id number] Oct, Bulging lumbar disc M51.26 and Plantar f asciitis M72.2 [facility] [address] [place] [address] [id number] [place] [id number] Aug, Bulging lumbar disc M51.26 and Other hea dache syndrome G44.89 [place] [address] [facility] [id number] [place] [id number] Jul, 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 [facility] [id number] [place] [id number] Jul, 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 [facility] [id number] [place] [id number] Jul, 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 [facility] [address] [id number] [place] [address] Jul, Bulging lumbar disc M51.[address] orchiectomy Z90.[address] [place] [address], [place] [id number] Jul, Bulging lumbar disc M51.26 ; Suprapubic tenderness R10.819 and 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 [place] [id number] [place] [id number] Apr, Back strain, initial encounter S39.012A and Cerumen debris on tympanic membrane of both ears H61.[address] [place] [address], [place] [id number] Feb, 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 [place] [id number] [place] [id number] Feb, [address] [place] [address], [place] [id number] November, Viral syndrome B34.9 and Psoriasis L40.9 [place] [address] [facility] [id number] [place] [id number] November, Shortness of breath R06.02 ; Depression, unspecified depression type F32.9 and Sore throat J02.9 [place] [id number] [place] [id number] Oct, Pneumonia, unspecified organism J18.9 ; Depression, unspecified depression type F32.9 and Testicular cancer, unspecified laterality C62.90 [facility] [address] [facility] [id number] [address] [place] [address] Oct, [facility] [address] [facility] [id number] [address] [place] [address] Oct, [facility] [address] [id number] [place] [id number] Oct, [facility] [address] [id number] [place] [id number] Oct, Acute upper respiratory infection, unspe cified J06.9 and Testicular cancer, right C62.91 [facility] [address] [id number] [place] [id number] Jun, Bilateral low back pain without sciatica M54.5 [facility] [address] [id number] [place], [place] [id number] May, Upper respiratory tract infection, unspe cified upper respiratory infection J06.9 [facility] [address] [id number] [place] [id number] Apr, [facility] [address] [id number] [place] [id number] Feb, Low back pain 724.2 and Figueroa splints 844 .9 [facility] [address] [id number] [place] [id number] Feb, [facility] [address] [id number] [place] [id number] Feb, [place] [id number] [facility] [id number] [id number] Feb, [facility] [address] [id number] [place], [place] [id number] Jan, Back pain 724.5 and Cerumen debris on ty mpanic membrane of both ears 380.4 [facility] [address] [facility] [id number] [address] [place] [address] Jan, [facility] [address] [id number] [place] [id number] Dec, [facility] [address] [id number] [place], [place] [id number] 17 Dec, 2014 Other testicular hypofunction 257.2 [facility] [address] [id number] [place] [id number] 10 Dec, 2014 Other testicular hypofunction 257.2 and Overweight 278.02 [facility] [address] [id number] [address] [place] [address] Oct, [facility] [address] [facility] [id number] [address] [place] [address] Oct, [facility] [address] [id number] [place] [id number] Sep, [facility] [address] [facility] [id number] [address] [place] [address] Sep, [facility] [address] [facility] [id number] [place] [id number] Jul, [facility] [address] [facility] [id number] [address] [place] [address] Jul, [facility] [address] [id number] [place] [id number] Jun, [facility] [address] [facility] [id number] [address] [place] [address] Jun, [facility] [address] [facility] [id number] [place] [id number] May, [facility] [address] [facility] [id number] [address] [place] [address] May, [facility] [address] [id number] [place] [id number] May, [facility] [address] [facility] [id number] [address] [place] [address] May, [facility] [address] [id number] [place] [id number] May, [facility] [address] [facility] [id number] [address] [place] [address] May, [facility] [address] [id number] [place] [id number] Apr, [facility] [address] [id number] [facility] [place] [address] Apr, [facility] [address] [id number] [place] [id number] Apr, [facility] [address] [id number] [facility] [place] [address] Apr, [facility] [address] [id number] [place] [id number] Mar, [facility] [address] [id number] [facility] [place] [address] Mar, [facility] [address] [id number] [place] [id number] Mar, [facility] [address] [id number] [facility] [place] [address] Mar, [facility] [address] [id number] [place] [id number] Feb, [facility] [address] [id number] [address] [place] [address], [place] [address] Feb, [facility] [address] [id number] [place] [id number] Jan, [facility] [address] [id number] [address] [place] [address], [place] [address] Jan, [facility] [address] [id number] [place] [id number] Jan, [facility] [address] [id number] [facility] [place] [address] Jan, [facility] [address] [id number] [address] [place] [address], [place] [address] Jan, [facility] [address] [id number] [place] [id number] Jan, [facility] [address] [id number] [facility] [place] [address] Jan, [facility] [address] [id number] [address] [place] [address], [place] [address] Dec, [facility] [address] [id number] [place] [id number] Oct, [facility] [address] [id number] [address] [place] [address], [place] [address] Oct, [facility] [address] [id number] [place] [id number] Sep, [facility] [address] [id number] [address] [place] [address], [place] [address] Sep, [facility] [address] [id number] [place] [id number] Sep, [facility] [address] [facility] [id number] [address] [place] [address], [place] [address] Sep, [facility] [address] [id number] [place] [id number] Aug, [facility] [address] [id number] [address] [place] [address], [place] [address] Aug, [facility] [address] [facility] [id number] [address] [place] [address], [place] [address] Mar, [facility] [address] [id number] [place] [id number] Feb, [facility] [address] [id number] [place], [place] [id number] Dec, [facility] [address] [id number] [place] [id number] November, [facility] [address] [id number] [address] [place] [address], [place] [address] Sep, [facility] [address] [id number] [place] [id number] Aug, [facility] [address] [facility] [id number] [address] [place] [address], [place] [address] Jun, [facility] [address] [id number] [address] [place] [address], [place] [address] Jun, IMMUNIZATIONS No Known Immunizations SOCIAL HISTORY Never Assessed REASON FOR VISIT having sharp pain above groin area--started today. jake Winn, Also found out that he has a bulging disc in his back at ER. PLAN OF CARE Activity Details Follow Up 4 Weeks Reason:back pain VITAL SIGNS Height 70 in 2017-07-25 Weight 239.6 lbs 2017-07-25 Temperature 98.3 degrees Fahrenheit 2017-07-25 Heart Rate 100 bpm 2017-07-25 Respiratory Rate 16 2017-07-25 BMI 34.38 kg/m2 2017-07-25 Blood pressure systolic 126 mmHg 2017-07-25 Blood pressure diastolic 74 mmHg 2017-07-25 MEDICATIONS Medication Instructions Dosage Frequency Start Date End Date Duration S tatus Testim 50 MG/5GM (1%) Transdermal one tube twice daily as directed Feb, Active Gabapentin 300 MG Orally Three times a day 1 capsule 1 ta b qhs x 5 d then bid x 5 d then tid 8h Jul, 30 day(s) Active Ibuprofen 800 MG Orally Three times a day 1 tablet with food or milk as needed 8h Jul, Active RESULTS Name Result Date Reference Range UA LONG DIP (IN HOUSE) 2017-07-26 Lot # [id number] Exp date 04/2018 Clarity clear Color yellow Odor no GLU neg CHIOMA neg KET neg SG 1.010 BLO neg pH 5.5 Protein neg URO 0.2 NIT neg BIRGIT neg Lot # Exp date PROCEDURES Procedure Date Ordered Result Body Site URINALYSIS, AUTO, W/O SCOPE Jul 25, 2017 INSTRUCTIONS MEDICATIONS ADMINISTERED No Known Medications MEDICAL [...]
--- OUTSIDE RECORDS SUMMARY | 2019-10-22 09:33 | XMS REPORT ---
Author Author Iain DOMINGUEZ Organization [facility] Address [address] [place] [address] Care Team Providers Care Testing Coordinator Name Role Phone ROD DOMINGUEZ Unavailable PROBLEMS Type Condition ICD9-CM Code SRV56-JK Code Onset Dates Condition S tatus SNOMED Code Problem Herpes zoster without mention of complication 053.9 Active 944586541 Problem Testicular cancer, unspecified laterality C62.90 Active 305270333 Problem Depression, unspecified depression type F32.9 Active 59565669 Problem Plantar fasciitis M72.2 Active 20 7485645 Problem Other headache syndrome G44.89 Active 382193719 Problem 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 Active 342921790 Problem Psoriasis L40.9 Active 0917707 Problem Bulging lumbar disc M51.26 Active 339332430 Problem Bulging of intervertebral disc between L4 and L5 M 51.26 Active 031214829 ALLERGIES No Information ENCOUNTERS Encounter Location Date Diagnosis [place] [id number] [place] [address], [place] [id number] Dec, Bulging of intervertebral disc between L 4 and L5 M51.26 [place] [id number] [place] [address], [place] [id number] November, [place] [id number] [place] [address], [place] [id number] November, Bulging of intervertebral disc between L 4 and L5 M51.26 and Testicular cancer, unspecified laterality C62.90 [place] [address] [place] [id number] [place] [address], [place] [id number] Oct, Bulging lumbar disc M51.26 and Plantar f asciitis M72.2 [facility] [address] [place] [id number] [place] [id number] Aug, Bulging lumbar disc M51.26 and Other hea dache syndrome G44.89 [facility] [address] [facility] [id number] [place] [id number] Jul, 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 [facility] [id number] [place] [id number] Jul, 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 [facility] [id number] [place] [id number] Jul, 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 [facility] [address] [id number] [place] [address] Jul, Bulging lumbar disc M51.[address] orchiectomy Z90.79 [facility] [id number] [place] [id number] Jul, Bulging lumbar disc M51.26 ; Suprapubic tenderness R10.819 and 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 [place] [id number] [place] [id number] Apr, Back strain, initial encounter S39.012A and Cerumen debris on tympanic membrane of both ears H61.23 [place] [id number] [place] [id number] Feb, 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 [place] [id number] [place] [id number] Feb, [id number] [place] [address], [place] [id number] November, Viral syndrome B34.9 and Psoriasis L40.9 [place] [address] [facility] [id number] [place] [id number] November, Shortness of breath R06.02 ; Depression, unspecified depression type F32.9 and Sore throat J02.9 [place] [id number] [place] [id number] Oct, Pneumonia, unspecified organism J18.9 ; Depression, unspecified depression type F32.9 and Testicular cancer, unspecified laterality C62.90 [facility] [address] [facility] [id number] [address] [place] [address] Oct, [facility] [address] [facility] [id number] [address] [place] [address] Oct, [facility] [address] [id number] [place] [id number] Oct, [facility] [address] [id number] [place] [id number] Oct, Acute upper respiratory infection, unspe cified J06.9 and Testicular cancer, right C62.91 [facility] [address] [id number] [place] [id number] Jun, Bilateral low back pain without sciatica M54.5 [facility] [address] [id number] [place] [id number] May, Upper respiratory tract infection, unspe cified upper respiratory infection J06.9 [facility] [address] [id number] [place] [id number] Apr, [facility] [address] [id number] [place] [id number] Feb, Low back pain 724.2 and Figueroa splints 844 .9 [facility] [address] [id number] [place] [id number] Feb, [facility] [address] [id number] [place] [id number] Feb, [address] [id number] [id number] Feb, [facility] [address] [id number] [place] [id number] Jan, Back pain 724.5 and Cerumen debris on ty mpanic membrane of both ears 380.4 [facility] [address] [facility] [id number] [address] [place] [address] Jan, [facility] [address] [id number] [place] [id number] Dec, [facility] [address] [id number] [place] [id number] Dec, 2014 Other testicular hypofunction 257.2 [facility] [address] [id number] [place] [id number] Dec, Other testicular hypofunction 257.2 and Overweight 278.02 [facility] [address] [id number] [address] [place] [address], [place] [address] Oct, [facility] [address] [facility] [id number] [address] [place] [address] Oct, [facility] [address] [id number] [place] [id number] Sep, [facility] [address] [facility] [id number] [address] [place] [address] Sep, [facility] [address] [facility] [id number] [place] [id number] Jul, [facility] [address] [facility] [id number] [address] [place] [address] Jul, [facility] [address] [id number] [place] [id number] Jun, [facility] [address] [facility] [id number] [address] [place] [address] Jun, [facility] [address] [id number] [place] [id number] May, [facility] [address] [facility] [id number] [address] [place] [address] May, [facility] [address] [id number] [place] [id number] May, [facility] [address] [facility] [id number] [address] [place] [address] May, [facility] [address] [id number] [place] [id number] May, [facility] [address] [facility] [id number] [address] [place] [address] May, [facility] [address] [id number] [place] [id number] Apr, [facility] [address] [id number] [facility] [place] [address] Apr, [facility] [address] [id number] [place] [id number] Apr, [facility] [address] [id number] [facility] [place] [address] Apr, [facility] [address] [id number] [place] [id number] Mar, [facility] [address] [id number] [facility] [place] [address] Mar, [facility] [address] [id number] [place] [id number] Mar, [facility] [address] [id number] [facility] [place] [address] Mar, [facility] [address] [id number] [place] [id number] Feb, [facility] [address] [id number] [facility] [place] [address] Feb, [facility] [address] [id number] [place] [id number] Jan, [facility] [address] [id number] [facility] [place] [address] Jan, [facility] [address] [id number] [place] [id number] Jan, [facility] [address] [id number] [facility] [place] [address] Jan, [facility] [address] [id number] [address] [place] [address], [place] [address] Jan, [facility] [address] [id number] [place] [id number] Jan, [facility] [address] [id number] [facility] [place] [address] Jan, [facility] [address] [id number] [address] [place] [address], [place] [address] Dec, [facility] [address] [id number] [place] [id number] Oct, [facility] [address] [facility] [id number] [address] [place] [address], [place] [address] Oct, [facility] [address] [id number] [place] [id number] Sep, [facility] [address] [id number] [address] [place] [address], [place] [address] Sep, [facility] [address] [id number] [place] [id number] Sep, [facility] [address] [facility] [id number] [address] [place] [address], [place] [address] Sep, [facility] [address] [id number] [place] [id number] Aug, [facility] [address] [facility] [id number] [address] [place] [address], [place] [address] Aug, [facility] [address] [facility] [id number] [address] [place] [address], [place] [address] Mar, [facility] [address] [id number] [place] [id number] Feb, [facility] [address] [id number] [place] [id number] Dec, [facility] [address] [id number] [place] [id number] November, [facility] [address] [id number] [address] [place] [address], [place] [address] Sep, [facility] [address] [id number] [place] [id number] Aug, [facility] [address] [facility] [id number] [address] [place] [address] Jun, [facility] [address] [id number] [address] [place] [address], [place] [address] Jun, IMMUNIZATIONS No Known Immunizations SOCIAL HISTORY Never Assessed REASON FOR VISIT Printed RX PLAN OF CARE VITAL SIGNS MEDICATIONS Medication Instructions Dosage Frequency Start Date End Date Duration S tatus Testim 50 MG/5GM (1%) Transdermal 2 times a day 1 applicatio n to skin in the morning 12h 24 Feb, 2016 0 days Active [...]
--- OUTSIDE RECORDS SUMMARY | 2019-10-22 09:35 | XMS REPORT | Continuity of Care Document ---
Author Organization Unknown Address Unknown Phone Unavailable Allergies Active Description Code Type Severity Reaction Onset Reported/Identified Relationship to Patient Clinical Status Yes No Known Drug Allergies [id number] Drug Allergy Unknown N/A 07/16/2009 Medications There is no data. Problems Date Dx Coded Attending Type Code Diagnosis Diagnosed By 07/12/2009 ROD DOMINGUEZ APRN 186.9 MALIGNANT NEOPLASM OF OTHER AND UNSPECIFIED TESTIS 07/12/2009 ROD DOMINGUEZ APRN 724.5 BACKACHE, UNSPECIFIED 07/12/2009 186.9 YELITZA GNANT NEOPLASM OF OTHER AND UNSPECIFIED TESTIS 07/12/2009 724.5 BACK ACHE, UNSPECIFIED 07/12/2009 186.9 YELITZA GNANT NEOPLASM OF OTHER AND UNSPECIFIED TESTIS 07/12/2009 724.5 BACK ACHE, UNSPECIFIED 07/12/2009 186.9 YELITZA GNANT NEOPLASM OF OTHER AND UNSPECIFIED TESTIS 07/12/2009 724.5 BACK ACHE, UNSPECIFIED 07/12/2009 KATHLEEN DURON DO K 186.9 MALIGNANT NEOPLASM OF OTHER AND UNSPECIFIED TESTIS 07/12/2009 JOSE F DURON DOA K 724.5 BACKACHE, UNSPECIFIED 07/12/2009 OLIVERIO WALSH KATHLEEN K 186.9 MALIGNANT NEOPLASM OF OTHER AND UNSPECIFIED TESTIS 07/12/2009 JOSE F DURON DOA K 724.5 BACKACHE, UNSPECIFIED 07/12/2009 ROD DOMINGUEZ APRN 186.9 MALIGNANT NEOPLASM OF OTHER AND UNSPECIFIED TESTIS 07/12/2009 ROD DOMINGUEZ APRN 724.5 BACKACHE, UNSPECIFIED 07/12/2009 DURON DO KATHLEEN K 186.9 MALIGNANT NEOPLASM OF OTHER AND UNSPECIFIED TESTIS 07/12/2009 DURON JOSE F WALSHA K 724.5 BACKACHE, UNSPECIFIED 07/12/2009 DURON DO KATHLEEN K 186.9 MALIGNANT NEOPLASM OF OTHER AND UNSPECIFIED TESTIS 07/12/2009 DURON DO KATHLEEN K 724.5 BACKACHE, UNSPECIFIED 07/12/2009 DURON DO, KATHLEEN K 186.9 MALIGNANT NEOPLASM OF OTHER AND UNSPECIFIED TESTIS 07/12/2009 KATHLEEN DURON DO K 724.5 BACKACHE, UNSPECIFIED 07/12/2009 KATHLEEN DURON DO K 186.9 MALIGNANT NEOPLASM OF OTHER AND UNSPECIFIED TESTIS 07/12/2009 KATHLEEN DURON DO K 724.5 BACKACHE, UNSPECIFIED 07/12/2009 ROD DOMINGUEZ APRN 186.9 MALIGNANT NEOPLASM OF OTHER AND UNSPECIFIED TESTIS 07/12/2009 ROD DOMINGUEZ APRN 724.5 BACKACHE, UNSPECIFIED 07/12/2009 ROD DOMINGUEZ APRN R 186.9 MALIGNANT NEOPLASM OF OTHER AND UNSPECIFIED TESTIS 07/12/2009 ROD DOMINGUEZ APRN 724.5 BACKACHE, UNSPECIFIED 07/12/2009 ROD DOMINGUEZ APRN 186.9 MALIGNANT NEOPLASM OF OTHER AND UNSPECIFIED TESTIS 07/12/2009 ROD DOMINGUEZ APRN 724.5 BACKACHE, UNSPECIFIED 07/12/2009 KATHLEEN DURON DO 186.9 MALIGNANT NEOPLASM OF OTHER AND UNSPECIFIED TESTIS 07/12/2009 KATHLEEN DURON DO 724.5 BACKACHE, UNSPECIFIED 09/22/2009 Ot 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 10/13/2009 Ot 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 10/13/2009 Ot 199.1 YELITZA GNANT NEOPLASM NOS 10/13/2009 Ot V58.11 ENC OUNTER FOR ANTINEOPLASTIC CHEMOTHERAP 12/10/2009 Ot 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 12/10/2009 Ot V87.41 PER IHSAN HISTORY OF ANTINEOPLASTIC CHEMO 06/20/2010 ROD DOMINGUEZ APRN V70.5 PREEMPLOYMENT/PRESCHOOL EXAM 06/20/2010 V70.5 PREEMPLOYMENT/PRESCHOOL EXAM 06/20/2010 V70.5 PREEMPLOYMENT/PRESCHOOL EXAM 06/20/2010 V70.5 PREEMPLOYMENT/PRESCHOOL EXAM 06/20/2010 KATHLEEN DURON DO V70.5 PREEMPLOYMENT/PRESCHOOL EXAM 06/20/2010 KATHLEEN DURON DO V70.5 PREEMPLOYMENT/PRESCHOOL EXAM 06/20/2010 ROD DOMINGUEZ APRN V70.5 PREEMPLOYMENT/PRESCHOOL EXAM 06/20/2010 KATHLEEN DURON DO V70.5 PREEMPLOYMENT/PRESCHOOL EXAM 06/20/2010 DURON DOKATHLEEN V70.5 PREEMPLOYMENT/PRESCHOOL EXAM 06/20/2010 DURON DOKATHLEEN V70.5 PREEMPLOYMENT/PRESCHOOL EXAM 06/20/2010 DURON DOKATHLEEN V70.5 PREEMPLOYMENT/PRESCHOOL EXAM 06/20/2010 DOMINGUEZ RESIDENTIAL CAREGIVERROD V70.5 PREEMPLOYMENT/PRESCHOOL EXAM 06/20/2010 DOMINGUEZ RESIDENTIAL CAREGIVER, ROD Pimentel V70.5 PREEMPLOYMENT/PRESCHOOL EXAM 06/20/2010 DOMINGUEZ RESIDENTIAL CAREGIVER, ROD Pimentel V70.5 PREEMPLOYMENT/PRESCHOOL EXAM 06/20/2010 DURON DOKATHLEEN V70.5 PREEMPLOYMENT/PRESCHOOL EXAM 09/20/2011 Ot 553.21 INC ISIONAL HERNIA 09/20/2011 Ot 569.3 RECT AL ANAL HEMORRHAGE 12/05/2011 Ot 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, 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 12/05/2011 Ot 780.52 INS OMNIA, UNSPECIFIED 12/05/2011 Ot 780.79 OTH MALAISE FATIGUE 12/05/2011 Ot 783.1 ABNO RMAL WEIGHT GAIN 12/05/2011 Ot V10.47 HX- TESTICULAR MALIGNANCY 03/05/2012 Ot 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, 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 03/05/2012 Ot 780.52 INS OMNIA, UNSPECIFIED 03/05/2012 Ot 780.79 OTH MALAISE FATIGUE 03/05/2012 Ot 783.1 ABNO RMAL WEIGHT GAIN 03/05/2012 Ot V10.47 HX- TESTICULAR MALIGNANCY 03/05/2012 Ot V67.2 CHEM OTHERAPY FOLLOW-UP 06/17/2012 Ot 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, 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 06/17/2012 Ot 780.52 INS OMNIA, UNSPECIFIED 06/17/2012 Ot 780.79 OTH MALAISE FATIGUE 06/17/2012 Ot 783.1 ABNO RMAL WEIGHT GAIN 06/17/2012 Ot V10.47 HX- TESTICULAR MALIGNANCY 06/17/2012 Ot V67.2 CHEM OTHERAPY FOLLOW-UP 11/11/2012 MICA, BOBAN N Ot 585.3 CHRONIC KIDNEY DISEASE, 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 11/11/2012 ISABELA NINO N Ot 780.52 INSOMNIA, UNSPECIFIED 11/11/2012 ISABELA NINO Ot 780.79 OTH MALAISE FATIGUE 11/11/2012 ISABELA NINO Ot 783.1 ABNORMAL WEIGHT GAIN 11/11/2012 ISABELA NINO Ot V10.47 HX- TESTICULAR MALIGNANCY 11/11/2012 ISABELA NINO Ot V67.2 CHEMOTHERAPY FOLLOW-UP 11/27/2012 380.10 INF ECTIVE OTITIS EXTERNA UNSPECIFIED 11/27/2012 380.4 IMPA CTED CERUMEN 11/27/2012 388.70 ALVARO LGIA UNSPECIFIED 11/27/2012 691.8 OTHE R ATOPIC DERMATITIS AND RELATED CONDITIONS 11/27/2012 380.10 INF ECTIVE OTITIS EXTERNA UNSPECIFIED 11/27/2012 380.4 IMPA CTED CERUMEN 11/27/2012 388.70 MATHS TUTOR LGIA UNSPECIFIED 11/27/2012 691.8 OTHE R ATOPIC DERMATITIS AND RELATED CONDITIONS 11/27/2012 380.10 INF ECTIVE OTITIS EXTERNA UNSPECIFIED 11/27/2012 380.4 IMPA CTED CERUMEN 11/27/2012 388.70 MATHS TUTOR LGIA UNSPECIFIED 11/27/2012 691.8 OTHE R ATOPIC DERMATITIS AND RELATED CONDITIONS 11/27/2012 DURON [...] 388.70 OTALGIA UNSPECIFIED 11/27/2012 ROD DOMINGUEZ APRN R 691.8 OTHER ATOPIC DERMATITIS AND RELATED CONDITIONS [...] AND RELATED CONDITIONS 11/27/2012 ROD DOMINGUEZ APRN R 380.10 INFECTIVE OTITIS EXTERNA UNSPECIFIED 11/27/2012 ROD DOMINGUEZ APRN R 380.4 IMPACTED CERUMEN 11/27/2012 ROD DOMINGUEZ APRN 388.70 OTALGIA UNSPECIFIED 11/27/2012 ANGELICA ELIZONDOROD Ibanez 691.8 OTHER ATOPIC DERMATITIS AND RELATED CONDITIONS 11/27/2012 ANGELICA ELIZONDOROD Ibanez 380.10 INFECTIVE OTITIS EXTERNA UNSPECIFIED 11/27/2012 DOMINGUEZMALKA ELIZONDOROD Ibanez 380.4 IMPACTED CERUMEN 11/27/2012 DOMINGUEZ RESIDENTIAL CAREGIVERROD 388.70 OTALGIA UNSPECIFIED 11/27/2012 DOMINGUEZ RESIDENTIAL CAREGIVERROD Ibanez 691.8 OTHER ATOPIC DERMATITIS AND RELATED CONDITIONS 11/27/2012 DURON DO, KATHLEEN K 380.10 INFECTIVE OTITIS EXTERNA UNSPECIFIED 11/27/2012 DURON DO, KATHLEEN K 380.4 IMPACTED CERUMEN 11/27/2012 DURON DO, KATHLEEN K 388.70 OTALGIA UNSPECIFIED 11/27/2012 DURON DO, KATHLEEN K 691.8 OTHER ATOPIC DERMATITIS AND RELATED CONDITIONS 02/18/2013 784.0 HEADACHE 02/18/2013 DURON DO, KATHLEEN K 784.0 HEADACHE 02/18/2013 DURON DO, KATHLEEN K 784.0 HEADACHE 02/18/2013 ANGELICA ELIZONDONROD R 784.0 HEADACHE 02/18/2013 DURON DO, KATHLEEN K 784.0 HEADACHE 02/18/2013 DURON DO, KATHLEEN K 784.0 HEADACHE 02/18/2013 DURON DO, KATHLEEN K 784.0 HEADACHE 02/18/2013 DURON DO, KATHLEEN K 784.0 HEADACHE 02/18/2013 ANGELICA ELIZONDON, ROD R 784.0 HEADACHE 02/18/2013 DOMINGUEZ RESIDENTIAL CAREGIVER, ROD Pimentel 784.0 HEADACHE 02/18/2013 DOMINGUEZ RESIDENTIAL CAREGIVER, ROD Pimentel 784.0 HEADACHE 02/18/2013 DURON DO, KATHLEEN K 784.0 HEADACHE 03/12/2013 LILIANA GRACIA DO Ot 789.00 ABDOMINAL PAIN, UNSPECIFIED SITE 03/12/2013 LILIANA GRACIA DO Ot 848.8 SPRAIN NEC 03/12/2013 LILIANA GRACIA DO Ot E000.8 OTHER EXTERNAL CAUSE STATUS 03/12/2013 LILIANA GRACIA DO Ot E009.9 OTHER ACTIVITY INVOLVING CARDIORESPIRATO 03/12/2013 LILIANA GRACIA DO Ot E927.8 OTH OVEREXERTION STRENUOUS REPETITIV 09/01/2013 DURON DO, KATHLEEN K 780.79 fatigue 09/01/2013 DURON DO, KATHLEEN K 783.1 WEIGHT GAIN ABNORMAL 09/01/2013 DURON DO, KATHLEEN K 780.79 fatigue 09/01/2013 DURON DO, KATHLEEN K 783.1 WEIGHT GAIN ABNORMAL 09/01/2013 DOMINGUEZ RESIDENTIAL CAREGIVERROD R 780.79 fatigue 09/01/2013 DOMINGUEZ RESIDENTIAL CAREGIVER, ROD R 783.1 WEIGHT GAIN ABNORMAL 09/01/2013 [...] K 783.1 WEIGHT GAIN ABNORMAL 09/01/2013 DOMINGUEZ RESIDENTIAL CAREGIVERROD R 780.79 fatigue 09/01/2013 DOMINGUEZ RESIDENTIAL CAREGIVERROD R 783.1 WEIGHT GAIN ABNORMAL 09/01/2013 DOMINGUEZ RESIDENTIAL CAREGIVERROD R 780.79 fatigue 09/01/2013 DOMINGUEZ RESIDENTIAL CAREGIVERROD R 783.1 WEIGHT GAIN ABNORMAL 09/01/2013 DOMINGUEZ RESIDENTIAL CAREGIVERROD R 780.79 fatigue 09/01/2013 DOMINGUEZ RESIDENTIAL CAREGIVERROD R 783.1 WEIGHT GAIN ABNORMAL 09/01/2013 DURON DO, KATHLEEN K 780.79 fatigue 09/01/2013 DURON DO, KATHLEEN K 783.1 WEIGHT GAIN ABNORMAL 10/02/2013 DOMINGUEZ RESIDENTIAL CAREGIVERROD R 578.1 BLOOD IN STOOL 10/02/2013 DURON DO, KATHLEEN K 578.1 BLOOD IN STOOL 10/02/2013 DURON DO, KATHLEEN K 578.1 BLOOD IN STOOL 10/02/2013 DURON DO, KATHLEEN K 578.1 BLOOD IN STOOL 10/02/2013 DURON DO, KATHLEEN K 578.1 BLOOD IN STOOL 10/02/2013 DOMINGUEZ RESIDENTIAL CAREGIVERROD Ibanez R 578.1 BLOOD IN STOOL 10/02/2013 DOMINGUEZ RESIDENTIAL CAREGIVERROD R 578.1 BLOOD IN STOOL 10/02/2013 DOMINGUEZ RESIDENTIAL CAREGIVER, ROD R 578.1 BLOOD IN STOOL 10/02/2013 DURON DO, KATHLEEN K 578.1 BLOOD IN STOOL 10/16/2013 DURON DO, KATHLEEN K 692.6 POISON LITTLE 10/16/2013 DURON DO, KATHLEEN K 692.6 POISON LITTLE 10/16/2013 DURON DO, KATHLEEN K 692.6 POISON LITTLE 10/16/2013 DURON DO, KATHLEEN K 692.6 POISON LITTLE 10/16/2013 DOMINGUEZ RESIDENTIAL CAREGIVERROD R 692.6 POISON LITTLE 10/16/2013 DOMINGUEZ RESIDENTIAL CAREGIVER, ROD R 692.6 POISON LITTLE 10/16/2013 DOMINGUEZ RESIDENTIAL CAREGIVER, ROD R 692.6 POISON LITTLE 10/16/2013 DURON DO, KATHLEEN K 692.6 POISON LITTLE 02/03/2014 DURON DO, KATHLEEN K 599.0 URINARY TRACT INFECTION 02/03/2014 DURON DO, KATHLEEN K 599.0 URINARY TRACT INFECTION 02/03/2014 DURON DO, KATHLEEN K 599.0 URINARY TRACT INFECTION 02/03/2014 DOMINGUEZ RESIDENTIAL CAREGIVERROD R 599.0 URINARY TRACT INFECTION 02/03/2014 DOMINGUEZ RESIDENTIAL CAREGIVERROD Ibanez 599.0 URINARY TRACT INFECTION 02/03/2014 DOMINGUEZ RESIDENTIAL CAREGIVERROD Ibanez R 599.0 URINARY TRACT INFECTION 02/03/2014 DURON DO, KATHLEEN K 599.0 URINARY TRACT INFECTION 02/11/2014 DURON DO, KATHLEEN K 053.9 HERPES ZOSTER (SHINGLES) 02/11/2014 DURON DO, KATHLEEN K 053.9 HERPES ZOSTER (SHINGLES) 02/11/2014 DOMINGUEZ RESIDENTIAL CAREGIVERROD Ibanez R 053.9 HERPES ZOSTER (SHINGLES) 02/11/2014 DOMINGUEZ RESIDENTIAL CAREGIVERROD Ibanez 053.9 HERPES ZOSTER (SHINGLES) 02/11/2014 DOMINGUEZ RESIDENTIAL CAREGIVERROD Ibanez 053.9 HERPES ZOSTER (SHINGLES) 02/11/2014 DURON DOKATHLEEN K 053.9 HERPES ZOSTER (SHINGLES) 04/06/2014 ODMINGUEZ ROD HOOD 257.2 HYPOGONADISM 04/06/2014 DOMINGUEZ ROD HOOD 257.2 HYPOGONADISM 04/06/2014 ROD DOMINGUEZ APRN 257.2 HYPOGONADISM 04/06/2014 DURON DO KATHLEEN Tabor 257.2 HYPOGONADISM 05/05/2014 [place] KODY WALSH Ot 565. 0 ANAL FISSURE 05/21/2014 MICA, BOBAN N Ot 585.3 05/21/2014 [...] DOMINGUEZ APRN 009.1 GASTROENTERITIS, ACUTE INFECTIOUS 05/27/2014 DURON DO KATHLEEN Tabor 009.1 GASTROENTERITIS, ACUTE INFECTIOUS 05/28/2014 MICA, BOBAN [...] ISABELA NINO N Ot 780.52 06/17/2014 ISABELA NION N Ot 780.79 06/17/2014 ISABELA NION N Ot 783.1 06/17/2014 ISABELA NINO N Ot V10.47 06/17/2014 ISABELA NINO Ot V67.2 06/17/2014 CHENKIM Puga G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 Ot V10.47 06/17/2014 CHENKIM Puga S G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 Ot V67.2 06/17/2014 CHENKIM Puga S G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 Ot V10.47 06/17/2014 CHENKIM Puga S G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 Ot V67.2 06/17/2014 CHENKIM Puga S G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 Ot 186.9 06/17/2014 KASI WALSHKODY Roxie Ot V72. 84 06/17/2014 CHENKIM Puga S G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 Ot V10.47 06/17/2014 CHENKIM Puga S G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 Ot V67.2 07/07/2014 KIM CHEN S G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 Ot V10.47 07/07/2014 KIM CHEN S G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 Ot V67.2 07/07/2014 CHENKIM S G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 Ot 186.9 09/29/2014 KATHLEEN DURON DO 465.9 ACUTE UPPER RESPIRATORY INFECTIONS OF UNSPECIFIED SITE 09/29/2014 KATHLEEN DURON DO 786.2 COUGH 10/02/2014 BRADY ALDRICH RESIDENTIAL CAREGIVER Ot 490 BRONCHITIS NOS 10/02/2014 BRADY ALDRICH APRN Ot 786 .2 COUGH 11/05/2014 Ot 186.9 11/05/2014 Ot 724.5 [...] 11/05/2014 ISABELA NINO N Ot 585.3 11/05/2014 MICA, ISABELA N Ot 780.52 11/05/2014 MICA, ISABELA N Ot 780.79 11/05/2014 MICA, ISABELA N Ot 783.1 11/05/2014 MICAISABELA DICKERSON N Ot V10.47 11/05/2014 ISABELA NINO N Ot V67.2 11/05/2014 KIM CHEN G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 Ot V10.47 11/05/2014 KIM CHEN G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 Ot V67.2 11/05/2014 KIM CHEN G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 Ot V10.47 11/05/2014 KIM CHEN G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 Ot V67.2 11/05/2014 KIM CHEN G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 Ot 186.9 11/05/2014 KODY VILLASEÑOR DO Ot V72. 84 11/05/2014 KODY VILLASEÑOR DO Ot 578. 1 BLOOD IN STOOL 12/02/2014 KODY VILLASEÑOR DO Ot V72. 84 12/02/2014 KIM CHEN G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 Ot 257.2 12/02/2014 KIM CHEN G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 Ot V10.47 12/02/2014 KIM CHEN G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 Ot V58.69 12/02/2014 KIM CHEN G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 Ot V67.2 12/02/2014 ISABELA NINO N Ot 585.3 12/02/2014 ISABELA NINO N Ot 780.52 12/02/2014 ISABELA NINO N Ot 780.79 12/02/2014 ISABELA NINO N Ot 783.1 12/02/2014 ISABELA NINO N Ot V10.47 12/02/2014 ISABELA NINO N Ot V67.2 12/07/2014 KIM CHEN G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 Ot 257.2 12/07/2014 KIM CHEN G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 Ot V10.47 12/07/2014 KIM CHEN G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 Ot V58.69 12/07/2014 KIM CHEN G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 Ot V67.2 12/08/2014 ISABELA NINO N Ot 585.3 12/08/2014 ISABELA NINO N Ot 780.52 12/08/2014 ISABELA NINO N Ot 780.79 12/08/2014 ISABELA NINO N Ot 783.1 12/08/2014 ISABELA NINO N Ot V10.47 12/08/2014 ISABELA NINO Ot V67.2 [...] 06/25/2015 ISABELA NINO N Ot 780.52 06/25/2015 MICAISABELA DICKERSON N Ot 780.79 06/25/2015 ISABELA NINO N Ot 783.1 06/25/2015 ISABELA NINO N Ot V10.47 06/25/2015 ISABELA NINO N Ot V67.2 06/25/2015 KIM CHEN G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 Ot V10.47 06/25/2015 KIM CHEN G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 Ot V67.2 06/25/2015 CHENKIM Puga G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 Ot V10.47 06/25/2015 CHENKIM Puga G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 Ot V67.2 06/25/2015 KIM CHEN G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 Ot 186.9 06/25/2015 KODY VILLASEÑOR DO Ot V72. 84 06/25/2015 KIM CHEN G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 Ot 257.2 06/25/2015 KIM CHEN G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 Ot V10.47 06/25/2015 KIM CHEN G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 Ot V58.69 06/25/2015 KIM CHEN G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 Ot V67.2 06/25/2015 OKDY VILLASEÑOR DO Ot V72. 84 06/30/2015 Ot 186.9 06/30/2015 Ot 186.9 06/30/2015 [...] V72.84 06/30/2015 Ot 186.9 06/30/2015 ISABELA NINO Ot 585.3 06/30/2015 ISABELA NINO Ot 780.52 06/30/2015 ISABELA NINO N Ot 780.79 06/30/2015 ISABELA NINO N Ot 783.1 06/30/2015 ISABELA NINO N Ot V10.47 06/30/2015 ISABELA NINO N Ot V67.2 06/30/2015 CHENKIM Puga G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 Ot V10.47 06/30/2015 KIM CHEN G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 Ot V67.2 06/30/2015 CHENKIM Puga G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 Ot V10.47 06/30/2015 CHENKIM Puga G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 Ot V67.2 06/30/2015 CHENKIM Puga G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 Ot 186.9 06/30/2015 KODY VILLASEÑOR DO Ot V72. 84 06/30/2015 CHENKIM G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 Ot 257.2 06/30/2015 CHENKIM Puga G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 Ot V10.47 06/30/2015 CHENKIM Puga G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 Ot V58.69 06/30/2015 CHENKIM Puga G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 Ot V67.2 06/30/2015 KODY VILLASEÑOR DO Ot V72. 84 07/15/2015 CHENKIM Puga G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 Ot Z 08 07/15/2015 CHENKIM Puga G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 Ot Z79.899 07/15/2015 CHENKIM Puga G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 Ot Z85.47 07/15/2015 Ot 186.9 07/15/2015 Ot [...] 07/15/2015 Ot V72.84 07/15/2015 Ot 186.9 07/15/2015 ISABELA NINO N Ot 585.3 07/15/2015 MICAISABELA DICKERSON N Ot 780.52 07/15/2015 MICAISABELA DICKERSON N Ot 780.79 07/15/2015 MICA, ISABELA N Ot 783.1 07/15/2015 MICAISABELA DICKERSON N Ot V10.47 07/15/2015 ISABELA NINO N Ot V67.2 07/15/2015 KIM CHEN G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 Ot V10.47 07/15/2015 KIM CHEN G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 Ot V67.2 07/15/2015 KIM CHEN G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 Ot V10.47 07/15/2015 KIM CHEN G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 Ot V67.2 07/15/2015 KIM CHEN S G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 Ot 186.9 07/15/2015 KODY VILLASEÑOR DO Ot V72. 84 07/15/2015 KIM CHEN G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 Ot 257.2 07/15/2015 KIM CHEN G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 Ot V10.47 07/15/2015 KIM CHEN G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 Ot V58.69 07/15/2015 KIM CHEN G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 Ot V67.2 07/15/2015 KODY VILLASEÑOR DO Ot V72. 84 07/15/2015 KIM CHEN G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 Ot Z 08 07/15/2015 KIM CHENP Ot Z79.899 07/15/2015 KIM CHEN G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 Ot Z85.47 07/15/2015 KIM CHEN G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 Ot C62.92 10/12/2015 VILLASEÑOR DO, KODY D Ot Z08 10/12/2015 VILLASEÑOR DO, KODY D Ot Z85. 47 10/14/2015 VILLASEÑOR DO, KODY D Ot Z08 10/14/2015 VILLASEÑOR DO, KODY D Ot Z85. 47 10/15/2015 [place] DO, KODY D Ot Z08 10/15/2015 [place] DO, KODY D Ot Z85. 47 10/19/2015 Ot 787.91 10/19/2015 Ot V10.47 10/19/2015 [...] V72.84 10/19/2015 Ot 186.9 10/19/2015 ISABELA NINO N Ot 585.3 10/19/2015 MICAISABELA DICKERSON N Ot 780.52 10/19/2015 MICAISABELA DICKERSON N Ot 780.79 10/19/2015 MICAISABELA DICKERSON N Ot 783.1 10/19/2015 MICAISABELA DICKERSON N Ot V10.47 10/19/2015 ISABELA NINO N Ot V67.2 10/19/2015 CHENKIM Puga S G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 Ot V10.47 10/19/2015 CHEN MARIIAH S G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 Ot V67.2 10/19/2015 CHEN HILAH S G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 Ot V10.47 10/19/2015 CHEN MARIIAH S G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 Ot V67.2 10/19/2015 CHEN, KIM S G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 Ot 186.9 10/19/2015 [facility] V72. 84 10/19/2015 CHEN KIM S G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 Ot 257.2 10/19/2015 CHEN KIM S G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 Ot V10.47 10/19/2015 CHEN KIM S G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 Ot V58.69 10/19/2015 CHEN MARIIAH S G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 Ot V67.2 10/19/2015 [facility] Ot V72. 84 10/19/2015 APRIL KIM S G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 Ot Z 08 10/19/2015 CHEN KIM S G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 Ot Z79.899 10/19/2015 CHEN KIM S G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 Ot Z85.47 10/19/2015 CHEN KIM S G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 Ot C62.92 10/19/2015 [facility] Ot Z08 10/19/2015 [place] KODY WALSH D Ot Z85. 47 10/19/2015 ISABELA NINO N Ot Z08 10/19/2015 MICAISABELA DICKERSON N Ot Z79.899 10/19/2015 MICAISABELA DICKERSON N Ot Z85.47 10/20/2015 CHEN, HILPATRICK S G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 Ot C62.92 10/24/2015 SULMA FUENTES, MEHNAZ Ibanez Ot B00 .1 HERPESVIRAL VESICULAR DERMATITIS 10/24/2015 MEHNAZ OZUNA MD Ot J18 .9 PNEUMONIA, UNSPECIFIED ORGANISM 10/24/2015 MEHNAZ OZUNA MD Ot K52 .9 NONINFECTIVE GASTROENTERITIS AND COLITIS 10/24/2015 MEHNAZ OZUNA MD Ot N17 .9 ACUTE KIDNEY FAILURE, UNSPECIFIED 10/24/2015 MEHNAZ OZUNA MD Ot R09.02 HYPOXEMIA 10/24/2015 MEHNAZ OZUNA MD Ot Z85.47 PERSONAL HISTORY OF MALIGNANT NEOPLASM O 10/24/2015 MEHNAZ OZUNA MD Ot 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( 10/26/2015 APRIL KIM S G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 Ot 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, UNSP DESC 10/26/2015 ISABELA NINO Ot Z08 ENCNTR FOR FOLLOW-UP EXAM AFTER TRTMT FO 10/26/2015 ISABELA NINO Ot Z79.899 OTHER DIRECTOR SECURITY RISK MANAGEMENT (CURRENT) DRUG THERAPY 10/26/2015 ISABELA NINO Ot Z85.47 PERSONAL HISTORY OF MALIGNANT NEOPLASM O 10/26/2015 ISABELA NINO Ot Z08 ENCNTR FOR FOLLOW-UP EXAM AFTER TRTMT FO 10/26/2015 ISABELA NINO Ot Z79.899 OTHER PENITENTIARY (CURRENT) DRUG THERAPY 10/26/2015 ISABELA NINO Ot Z85.47 PERSONAL HISTORY OF MALIGNANT NEOPLASM O 10/29/2015 LEIGHA WILEY MD Ot N50.9 DISORDER OF MALE GENITAL ORGANS, UNSPECI 10/29/2015 LEIGHA WILEY MD Ot Z01.8 18 ENCOUNTER FOR OTHER PREPROCEDURAL EXAMIN 10/29/2015 LEIGHA WILEY MD Ot Z11.2 ENCOUNTER FOR SCREENING FOR OTHER BACTER 11/01/2015 LEIGHA WILEY MD Ot N50.9 DISORDER OF MALE GENITAL ORGANS, UNSPECI 11/01/2015 LEIGHA WILEY MD Ot Z01.8 18 ENCOUNTER FOR OTHER PREPROCEDURAL EXAMIN 11/01/2015 LEIGHA WILEY MD Ot Z11.2 ENCOUNTER FOR SCREENING FOR OTHER BACTER 11/01/2015 LEIGHA WILEY MD Ot N50.9 DISORDER OF MALE GENITAL ORGANS, UNSPECI 11/04/2015 INEZ FUENTES, LEIGHA A Ot N50.9 DISORDER OF MALE GENITAL ORGANS, UNSPECI 12/28/2015 CHENKIM G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 Ot 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, 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 02/28/2016 Ot 724.2 LUMBAGO 02/28/2016 Ot 780.52 INS OMNIA, UNSPECIFIED 02/28/2016 Ot V10.47 HX- TESTICULAR MALIGNANCY 02/28/2016 Ot V67.2 CHEM OTHERAPY FOLLOW-UP 02/28/2016 Ot 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 02/28/2016 Ot 578.1 BLOO D IN STOOL 02/28/2016 Ot 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, 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 02/28/2016 Ot 724.2 LUMBAGO 02/28/2016 Ot 780.52 INS OMNIA, UNSPECIFIED 02/28/2016 Ot V10.47 HX- TESTICULAR MALIGNANCY 02/28/2016 Ot V67.2 CHEM OTHERAPY FOLLOW-UP 02/28/2016 Ot 553.21 INC ISIONAL HERNIA 02/28/2016 Ot 569.3 RECT AL ANAL HEMORRHAGE 02/28/2016 Ot V72.84 EXA M PRE- OPERATIVE NOS 02/28/2016 Ot 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 02/28/2016 Ot V72.84 EXA M PRE- OPERATIVE NOS 02/28/2016 Ot 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 02/28/2016 ISABELA NINO Ot 585.3 CHRONIC KIDNEY DISEASE, 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 02/28/2016 ISABELA NINO Ot 780.52 INSOMNIA, UNSPECIFIED 02/28/2016 ISABELA NINO Ot 780.79 OTH MALAISE FATIGUE 02/28/2016 MICA, BOBAN N Ot 783.1 ABNORMAL WEIGHT GAIN 02/28/2016 ISABELA NINO Ot V10.47 HX- TESTICULAR MALIGNANCY 02/28/2016 ISABELA NINO Ot V67.2 CHEMOTHERAPY FOLLOW-UP 02/28/2016 KIM 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 Ot V10.47 HX-TESTICULAR MALIGNANCY 02/28/2016 KIM [employer] G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 Ot V67.2 CHEMOTHERAPY FOLLOW-UP 02/28/2016 KIM CHEN G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 Ot V10.47 HX-TESTICULAR MALIGNANCY 02/28/2016 KIM CHEN S G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 Ot V67.2 CHEMOTHERAPY FOLLOW-UP 02/28/2016 KIM CHEN G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 Ot 186.9 MALIG PARTHA TESTIS NEC 02/28/2016 KODY VILLASEÑOR DO Ot V72. 84 EXAM PRE-OPERATIVE NOS 02/28/2016 CHENKIM Puga G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 Ot 257.2 TESTICULAR HYPOFUNC NEC 02/28/2016 HCENKIM Puga G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 Ot V10.47 HX-TESTICULAR MALIGNANCY 02/28/2016 CHEN KIM Puga G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 Ot V58.69 OT MED,LT,CURRENT USE 02/28/2016 KIM CHEN G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 Ot V67.2 CHEMOTHERAPY FOLLOW-UP 02/28/2016 KODY VILLASEÑOR DO Ot V72. 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, UNSP DESC 03/01/2016 DEEJAYTERESA RICHARDSONYL G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 Ot S83.91XA SPRAIN OF UNSPECIFIED SITE OF RIGHT KNEE 03/01/2016 DEEJAYTERESA RICHARDSONYL G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 Ot W11.XXXA FALL ON AND FROM LADDER, INITIAL ENCOUNT 03/01/2016 DEEJAYTERESA RICHARDSONYL G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 Ot Y92.512 SUPERMARKET, STORE OR MARKET PLACE 03/01/2016 DEEJAYTERESA RICHARDSONYL G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 Ot Y99 .0 CIVILIAN ACTIVITY DONE FOR INCOME OR PAY 03/06/2016 Ot 724.2 LUMBAGO 03/06/2016 Ot V10.47 HX- TESTICULAR MALIGNANCY 03/06/2016 Ot V67.2 CHEM OTHERAPY FOLLOW-UP 03/06/2016 Ot 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 03/06/2016 Ot 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, 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 03/06/2016 Ot 724.2 LUMBAGO 03/06/2016 Ot V10.47 HX- TESTICULAR MALIGNANCY 03/06/2016 Ot V87.41 PER IHSAN HISTORY OF ANTINEOPLASTIC CHEMO 03/06/2016 Ot 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 03/06/2016 Ot 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, 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 03/06/2016 Ot 724.2 LUMBAGO 03/06/2016 Ot 780.52 INS OMNIA, UNSPECIFIED 03/06/2016 Ot V10.47 HX- TESTICULAR MALIGNANCY 03/06/2016 Ot V67.2 CHEM OTHERAPY FOLLOW-UP 03/06/2016 Ot 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 03/06/2016 Ot 578.1 BLOO D IN STOOL 03/06/2016 Ot 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, 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 03/06/2016 Ot 724.2 LUMBAGO 03/06/2016 Ot 780.52 INS OMNIA, UNSPECIFIED 03/06/2016 Ot V10.47 HX- TESTICULAR MALIGNANCY 03/06/2016 Ot V67.2 CHEM OTHERAPY FOLLOW-UP 03/06/2016 Ot 553.21 INC ISIONAL HERNIA 03/06/2016 Ot 569.3 RECT AL ANAL HEMORRHAGE 03/06/2016 Ot V72.84 EXA M PRE- OPERATIVE NOS 03/06/2016 Ot 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 03/06/2016 Ot V72.84 EXA M PRE- OPERATIVE NOS 03/06/2016 Ot 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 03/06/2016 ISABELA NINO Ot 585.3 CHRONIC KIDNEY DISEASE, 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 03/06/2016 ISABELA NINO Ot 780.52 INSOMNIA, UNSPECIFIED 03/06/2016 ISABELA NINO Ot 780.79 OTH MALAISE FATIGUE 03/06/2016 ISABELA NINO Ot 783.1 ABNORMAL WEIGHT GAIN 03/06/2016 ISABELA NINO Ot V10.47 HX- TESTICULAR MALIGNANCY 03/06/2016 ISABELA NINO Ot V67.2 CHEMOTHERAPY FOLLOW-UP 03/06/2016 KIM CHEN G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 Ot V10.47 HX-TESTICULAR MALIGNANCY 03/06/2016 KIM CHEN G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 Ot V67.2 CHEMOTHERAPY FOLLOW-UP 03/06/2016 KIM CHEN G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 Ot V10.47 HX-TESTICULAR MALIGNANCY 03/06/2016 KIM CHEN G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 Ot V67.2 CHEMOTHERAPY FOLLOW-UP 03/06/2016 KIM CHENP Ot 186.9 MALIG PARTHA TESTIS NEC 03/06/2016 KODY VILLASEÑOR DO Ot V72. 84 EXAM PRE-OPERATIVE NOS 03/06/2016 KIM CHEN G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 Ot 257.2 TESTICULAR HYPOFUNC NEC 03/06/2016 KIM CHEN G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 Ot V10.47 HX-TESTICULAR MALIGNANCY 03/06/2016 KIM CHENP Ot V58.69 OT MED,LT,CURRENT USE 03/06/2016 KIM CHEN G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 Ot V67.2 CHEMOTHERAPY FOLLOW-UP 03/06/2016 KODY VILLASEÑOR DO Ot V72. 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 47 PERSONAL HISTORY OF MALIGNANT NEOPLASM O 03/06/2016 KIM CHEN G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 Ot 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, [facility] 03/06/2016 ROD DOMINGUEZ Ot R06.02 SHORTNESS OF BREATH 03/06/2016 MICA ISABELA Marcelle Ot Z08 ENCNTR FOR FOLLOW-UP EXAM AFTER TRTMT FO 03/06/2016 MICAISABELA DICKERSON Marcelle Ot Z79.899 OTHER PENITENTIARY (CURRENT) DRUG THERAPY 03/06/2016 ISABELA NINO Marcelle Ot Z85.47 PERSONAL HISTORY OF MALIGNANT NEOPLASM O 03/06/2016 ISABELA NINO Marcelle Ot 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, [facility] 03/06/2016 DEEJAY SIMONE G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 Ot S83.91XA SPRAIN OF UNSPECIFIED SITE OF RIGHT KNEE 03/06/2016 DEEJAY SIMONE G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 Ot W11.XXXA FALL ON AND FROM LADDER, INITIAL ENCOUNT 03/06/2016 DEEJAY, SIMONE G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 Ot Y92.512 SUPERMARKET, STORE OR MARKET PLACE 03/06/2016 DEEJAY, SIMONE G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 Ot Y99 .0 CIVILIAN ACTIVITY DONE FOR INCOME OR PAY 03/07/2016 DEEJAY, SIMONE G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 Ot S83.91XA SPRAIN OF UNSPECIFIED SITE OF RIGHT KNEE 03/07/2016 DEEJAY, SIMONE G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 Ot W11.XXXA FALL ON AND FROM LADDER, INITIAL ENCOUNT 03/07/2016 DEEJAY, SIMONE G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 Ot Y92.512 SUPERMARKET, STORE OR MARKET PLACE 03/07/2016 DEEJAY, SIMONE G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 Ot Y99 .0 CIVILIAN ACTIVITY DONE FOR INCOME OR PAY 05/16/2016 ISABELA NINO Ot 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 09/08/2016 Ot V72.84 EXA M PRE- OPERATIVE NOS 09/08/2016 Ot 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 09/08/2016 ISABELA NINO Ot 585.3 CHRONIC KIDNEY DISEASE, 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 09/08/2016 ISABELA NINO Ot 780.52 INSOMNIA, UNSPECIFIED 09/08/2016 ISABELA NINO Ot 780.79 OTH MALAISE FATIGUE 09/08/2016 ISABELA NINO Ot 783.1 ABNORMAL WEIGHT GAIN 09/08/2016 ISABELA NINO Ot V10.47 HX- TESTICULAR MALIGNANCY 09/08/2016 ISABELA NINO Ot V67.2 CHEMOTHERAPY FOLLOW-UP 09/08/2016 KIM CHEN G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 Ot V10.47 HX-TESTICULAR MALIGNANCY 09/08/2016 KIM CHEN G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 Ot V67.2 CHEMOTHERAPY FOLLOW-UP 09/08/2016 KIM CHEN G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 Ot V10.47 HX-TESTICULAR MALIGNANCY 09/08/2016 KIM HCEN G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 Ot V67.2 CHEMOTHERAPY FOLLOW-UP 09/08/2016 KIM CHEN G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 Ot 186.9 MALIG PARTHA TESTIS NEC 09/08/2016 KODY VILLASEÑOR DO Ot V72. 84 EXAM PRE-OPERATIVE NOS 09/08/2016 KIM CHEN G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 Ot 257.2 TESTICULAR HYPOFUNC NEC 09/08/2016 KIM CHEN G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 Ot V10.47 HX-TESTICULAR MALIGNANCY 09/08/2016 KIM CHEN Ot V58.69 OTH MED,LT,CURRENT USE 09/08/2016 KIM CHEN G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 Ot V67.2 CHEMOTHERAPY FOLLOW-UP 09/08/2016 KODY VILLASEÑOR DO Ot V72. 84 EXAM PRE-OPERATIVE NOS 09/08/2016 KIM CHENP Ot Z 08 ENCNTR FOR FOLLOW-UP EXAM AFTER TRTMT FO 09/08/2016 KIM CHEN Ot Z79.899 OTHER DIRECTOR SECURITY RISK MANAGEMENT (CURRENT) DRUG THERAPY 09/08/2016 KIM CHENP Ot Z85.47 PERSONAL HISTORY OF MALIGNANT NEOPLASM O 09/08/2016 KIM CHENP Ot 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, UNSP DESC 09/08/2016 VILLASEÑOR KODY WALSH Ot Z08 ENCNTR FOR FOLLOW-UP EXAM AFTER TRTMT FO 09/08/2016 KODY VILLASEÑOR DO Ot Z85. 47 PERSONAL HISTORY OF MALIGNANT NEOPLASM O 09/08/2016 KIM CHENP Ot 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, UNSP DESC 09/08/2016 ROD DOMINGUEZ Ot R06.02 SHORTNESS OF BREATH 09/08/2016 ISABELA NINO Ot Z08 ENCNTR FOR FOLLOW-UP EXAM AFTER TRTMT FO 09/08/2016 ISABELA NINO Ot Z79.899 OTHER PENITENTIARY (CURRENT) DRUG THERAPY 09/08/2016 ISABELA NINO Ot Z85.47 PERSONAL HISTORY OF MALIGNANT NEOPLASM O 09/08/2016 ISABELA NINO Ot 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, UNSP DESC 09/08/2016 SIMONE VILLALBAP Ot S83.91XA SPRAIN OF UNSPECIFIED SITE OF RIGHT KNEE 09/08/2016 SIMONE VILLALBA G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 Ot W11.XXXA FALL ON AND FROM LADDER, INITIAL ENCOUNT 09/08/2016 SIMONE VILLALBAP Ot Y92.512 SUPERMARKET, STORE OR MARKET PLACE 09/08/2016 DEEJAY SIMONE ELLEN Ot Y99 .0 CIVILIAN ACTIVITY DONE FOR INCOME OR PAY 10/12/2016 Shelbie Singleton MD Other M54.5 LOW BACK PAIN 10/25/2016 ISABELA NINO Ot 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, UNSP DESC 10/31/2016 Ti Lopez DO Other S06.0X0A CONCUSSION WITHOUT LOSS OF CONSCIOUSNESS, INITIAL ENCO UNTER 10/31/2016 Ti Lopez DO Other S06.0X0D CONCUSSION WITHOUT LOSS OF CONSCIOUSNESS, SUBS ENCNTR 10/31/2016 Ti Lopez DO Other X58.XXXD EXPOSURE TO OTHER SPECIFIED FACTORS, SUBSEQUENT ENCOUN TER 11/01/2016 Mani FUENTES M Paloma Other M53.86 OTHER SPECIFIED DORSOPATHIES, LUMBAR REGION 11/01/2016 Shelbie Singleton MD Other M54.5 LOW BACK PAIN 11/01/2016 Shelbie Singleton MD Other R53.83 OTHER FATIGUE 11/01/2016 Mani FUENTES M Paloma Other R68.89 OTHER GENERAL SYMPTOMS AND SIGNS 12/06/2016 Ot 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 12/06/2016 Ot 578.1 BLOO D IN STOOL 12/06/2016 Ot 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, 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 12/06/2016 Ot 724.2 LUMBAGO 12/06/2016 Ot 780.52 INS OMNIA, UNSPECIFIED 12/06/2016 Ot V10.47 HX- TESTICULAR MALIGNANCY 12/06/2016 Ot V67.2 CHEM OTHERAPY FOLLOW-UP 12/06/2016 Ot 553.21 INC ISIONAL HERNIA 12/06/2016 Ot 569.3 RECT AL ANAL HEMORRHAGE 12/06/2016 Ot V72.84 EXA M PRE- OPERATIVE NOS 12/06/2016 Ot 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 12/06/2016 Ot V72.84 EXA M PRE- OPERATIVE NOS 12/06/2016 Ot 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 12/06/2016 ISABELA NINO Ot 585.3 CHRONIC KIDNEY DISEASE, 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 12/06/2016 ISABELA NINO Ot 780.52 INSOMNIA, UNSPECIFIED 12/06/2016 ISABELA NINO Ot 780.79 OTH MALAISE FATIGUE 12/06/2016 ISABELA NINO Ot 783.1 ABNORMAL WEIGHT GAIN 12/06/2016 ISABELA NINO Ot V10.47 HX- TESTICULAR MALIGNANCY 12/06/2016 ISABELA NINO Ot V67.2 CHEMOTHERAPY FOLLOW-UP 12/06/2016 KIM CHEN G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 Ot V10.47 HX-TESTICULAR MALIGNANCY 12/06/2016 KIM CHEN G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 Ot V67.2 CHEMOTHERAPY FOLLOW-UP 12/06/2016 KIM CHEN G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 Ot V10.47 HX-TESTICULAR MALIGNANCY 12/06/2016 KIM CHEN G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 Ot V67.2 CHEMOTHERAPY FOLLOW-UP 12/06/2016 KIM CHEN G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 Ot 186.9 MALIG PARTHA TESTIS NEC 12/06/2016 KODY VILLASEÑOR DO Ot V72. 84 EXAM PRE-OPERATIVE NOS 12/06/2016 KIM CHEN G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 Ot 257.2 TESTICULAR HYPOFUNC NEC 12/06/2016 KIM CHEN G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 Ot V10.47 HX-TESTICULAR MALIGNANCY 12/06/2016 KIM CHEN G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 Ot V58.69 OTH MED,LT,CURRENT USE 12/06/2016 KIM CHEN S G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 Ot V67.2 CHEMOTHERAPY FOLLOW-UP 12/06/2016 KODY VILLASEÑOR DO Ot V72. 84 EXAM PRE-OPERATIVE NOS 12/06/2016 KIM CHENP Ot Z 08 ENCNTR FOR FOLLOW-UP EXAM AFTER TRTMT FO 12/06/2016 KIM CHEN G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 Ot Z79.899 OTHER PENITENTIARY (CURRENT) DRUG THERAPY 12/06/2016 KIM CHEN G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 Ot Z85.47 PERSONAL HISTORY OF MALIGNANT NEOPLASM O 12/06/2016 KIM CHEN G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 Ot 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, UNSP DESC 12/06/2016 KODY VILLASEÑOR DO Ot Z08 ENCNTR FOR FOLLOW-UP EXAM AFTER TRTMT FO 12/06/2016 KODY VILLASEÑOR DO Ot Z85. 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 12/06/2016 MICA ISABELA N Ot E29.1 TESTICULAR HYPOFUNCTION 12/06/2016 MICA, ISABELA Ibanez Ot N18.3 CHRONIC KIDNEY DISEASE, STAGE 3 (MODERAT 12/06/2016 MICAISABELA N Ot Z92.21 PERSONAL HISTORY OF ANTINEOPLASTIC CHEMO 12/06/2016 DEEJAY SIMONE G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 Ot S83.91XA SPRAIN OF UNSPECIFIED SITE OF RIGHT KNEE 12/06/2016 DEEJAY SIMONE G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 Ot W11.XXXA FALL ON AND FROM LADDER, INITIAL ENCOUNT 12/06/2016 DEEJAY SIMONE G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 Ot Y92.512 SUPERMARKET, STORE OR MARKET PLACE 12/06/2016 DEEJAY SIMONE G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 Ot Y99 .0 CIVILIAN ACTIVITY DONE FOR INCOME OR PAY 12/06/2016 MICA, VICENTANOREEN N Ot 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 12/06/2016 MICA, ISABELA Ibanez Ot E29.1 TESTICULAR HYPOFUNCTION 12/06/2016 MICA ISABELA Ibanez Ot N18.3 CHRONIC KIDNEY DISEASE, STAGE 3 (MODERAT 12/06/2016 MICAISABELA N Ot Z92.21 PERSONAL HISTORY OF ANTINEOPLASTIC CHEMO 12/20/2016 MICAISABELA N Ot 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 12/20/2016 MICAISABELA N Ot E29.1 TESTICULAR HYPOFUNCTION 12/20/2016 MICAISABELA N Ot N18.3 CHRONIC KIDNEY DISEASE, STAGE 3 (MODERAT 12/20/2016 ISABELA NINO N Ot Z92.21 PERSONAL HISTORY OF ANTINEOPLASTIC CHEMO 01/22/2017 ISABELA NINO Ot 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 01/22/2017 ISABELA NINO Ot E29.1 TESTICULAR HYPOFUNCTION 01/22/2017 ISABELA NINO Ot N18.3 CHRONIC KIDNEY DISEASE, STAGE 3 (MODERAT 01/22/2017 ISABELA NINO Ot Z92.21 PERSONAL HISTORY OF ANTINEOPLASTIC CHEMO 06/11/2017 Ot 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 06/11/2017 Ot V72.84 EXA M PRE- OPERATIVE NOS 06/11/2017 Ot 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 06/11/2017 ISABELA NINO N Ot 585.3 CHRONIC KIDNEY DISEASE, 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 06/11/2017 ISABELA NINO N Ot 780.52 INSOMNIA, UNSPECIFIED 06/11/2017 ISABELA NINO N Ot 780.79 OTH MALAISE FATIGUE 06/11/2017 ISABELA NINO N Ot 783.1 ABNORMAL WEIGHT GAIN 06/11/2017 ISABELA NINO N Ot V10.47 HX- TESTICULAR MALIGNANCY 06/11/2017 ISABELA NINO N Ot V67.2 CHEMOTHERAPY FOLLOW-UP 06/11/2017 KIM CHEN G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 Ot V10.47 HX-TESTICULAR MALIGNANCY 06/11/2017 KIM CHEN G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 Ot V67.2 CHEMOTHERAPY FOLLOW-UP 06/11/2017 KIM CHEN G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 Ot V10.47 HX-TESTICULAR MALIGNANCY 06/11/2017 KIM CHEN G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 Ot V67.2 CHEMOTHERAPY FOLLOW-UP 06/11/2017 KIM CHENP Ot 186.9 MALIG PARTHA TESTIS NEC 06/11/2017 KODY VILLASEÑOR DO Ot V72. 84 EXAM PRE-OPERATIVE NOS 06/11/2017 KIM CHEN G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 Ot 257.2 TESTICULAR HYPOFUNC NEC 06/11/2017 KIM CHEN G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 Ot V10.47 HX-TESTICULAR MALIGNANCY 06/11/2017 KIM CHENP Ot V58.69 OTH MED,LT,CURRENT USE 06/11/2017 KIM CHEN G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 Ot V67.2 CHEMOTHERAPY FOLLOW-UP 06/11/2017 KODY VILLASEÑOR DO Ot V72. 84 EXAM PRE-OPERATIVE NOS 06/11/2017 CHEN, HILAH S G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 Ot Z 08 ENCNTR FOR FOLLOW-UP EXAM AFTER TRTMT FO 06/11/2017 KIM CHEN G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 Ot Z79.899 OTHER DIRECTOR SECURITY RISK MANAGEMENT (CURRENT) DRUG THERAPY 06/11/2017 KIM CHEN G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 Ot Z85.47 PERSONAL HISTORY OF MALIGNANT NEOPLASM O 06/11/2017 KIM CHEN G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 Ot 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, UNSP DESC 06/11/2017 VILLASEÑOR KODY WALSH Ot Z08 ENCNTR FOR FOLLOW-UP EXAM AFTER TRTMT FO 06/11/2017 KODY VILLASEÑOR DO Ot Z85. 47 PERSONAL HISTORY OF MALIGNANT NEOPLASM O 06/11/2017 KIM CHEN G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 Ot 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, UNSP DESC 06/11/2017 ROD DOMINGUEZ Ot R06.02 SHORTNESS OF BREATH 06/11/2017 ISABELA NINO Ot Z08 ENCNTR FOR FOLLOW-UP EXAM AFTER TRTMT FO 06/11/2017 ISABELA NINO Ot Z79.899 OTHER DIRECTOR SECURITY RISK MANAGEMENT (CURRENT) DRUG THERAPY 06/11/2017 ISABELA NINO Ot Z85.47 PERSONAL HISTORY OF MALIGNANT NEOPLASM O 06/11/2017 DEEJAYSIMONE RICHARDSON G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 Ot S83.91XA SPRAIN OF UNSPECIFIED SITE OF RIGHT KNEE 06/11/2017 SIMONE VILLALBA G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 Ot W11.XXXA FALL ON AND FROM LADDER, INITIAL ENCOUNT 06/11/2017 SIMONE VILLALBA G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 Ot Y92.512 SUPERMARKET, STORE OR MARKET PLACE 06/11/2017 TERESA VILLALBAYL G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 Ot Y99 .0 CIVILIAN ACTIVITY DONE FOR INCOME OR PAY 06/11/2017 ISABELA NINO Ot 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 06/11/2017 ISABELA NINO Ot E29.1 TESTICULAR HYPOFUNCTION 06/11/2017 ISABELA NINO Ot N18.3 CHRONIC KIDNEY DISEASE, STAGE 3 (MODERAT 06/11/2017 ISABELA NINO Ot Z92.21 PERSONAL HISTORY OF ANTINEOPLASTIC CHEMO 06/11/2017 FLORENTINO FUENTES, IRON Beck Ot M54.16 RADICULOPATHY, LUMBAR REGION 06/11/2017 FLORENTINO FUENTES, IRON Beck Ot M54.5 LOW BACK PAIN 06/11/2017 FLORENTINO FUENTES, IRON Beck Ot Z85.47 PERSONAL HISTORY OF MALIGNANT NEOPLASM O 06/11/2017 FLORENTINO FUENTES, IRON Beck Ot Z87.01 PERSONAL HISTORY OF PNEUMONIA (RECURRENT 06/11/2017 FLORENTINO FUENTES, IRON Beck Ot 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( 06/11/2017 FLORENTINO FUENTES, IRON Beck Ot Z99.81 DEPENDENCE ON SUPPLEMENTAL OXYGEN 06/11/2017 Ot 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 06/11/2017 Ot V72.84 EXA M PRE- OPERATIVE NOS 06/11/2017 Ot 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 06/11/2017 ISABELA NINO Ot 585.3 CHRONIC KIDNEY DISEASE, 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 06/11/2017 ISABELA NINO Ot 780.52 INSOMNIA, UNSPECIFIED 06/11/2017 ISABELA NINO Ot 780.79 OTH MALAISE FATIGUE 06/11/2017 ISABELA NINO Ot 783.1 ABNORMAL WEIGHT GAIN 06/11/2017 ISABELA NINO Ot V10.47 HX- TESTICULAR MALIGNANCY 06/11/2017 ISABELA NINO Ot V67.2 CHEMOTHERAPY FOLLOW-UP 06/11/2017 KIM CHEN G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 Ot V10.47 HX-TESTICULAR MALIGNANCY 06/11/2017 KIM CHEN G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 Ot V67.2 CHEMOTHERAPY FOLLOW-UP 06/11/2017 KIM CHEN G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 Ot V10.47 HX-TESTICULAR MALIGNANCY 06/11/2017 KIM CHEN G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 Ot V67.2 CHEMOTHERAPY FOLLOW-UP 06/11/2017 KIM CHEN G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 Ot 186.9 MALIG PARTHA TESTIS NEC 06/11/2017 KODY VILLASEÑOR DO Ot V72. 84 EXAM PRE-OPERATIVE NOS 06/11/2017 KIM CHEN G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 Ot 257.2 TESTICULAR HYPOFUNC NEC 06/11/2017 KIM CHEN G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 Ot V10.47 HX-TESTICULAR MALIGNANCY 06/11/2017 KIM CHENP Ot V58.69 OT MED,LT,CURRENT USE 06/11/2017 KIM CHEN G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 Ot V67.2 CHEMOTHERAPY FOLLOW-UP 06/11/2017 KODY VILLASEÑOR DO Ot V72. 84 EXAM PRE-OPERATIVE NOS 06/11/2017 KIM CHEN G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 Ot Z 08 ENCNTR FOR FOLLOW-UP EXAM AFTER TRTMT FO 06/11/2017 KIM CHEN G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 Ot Z79.899 OTHER PENITENTIARY (CURRENT) DRUG THERAPY 06/11/2017 KIM CHEN G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 Ot Z85.47 PERSONAL HISTORY OF MALIGNANT NEOPLASM O 06/11/2017 KIM CHEN G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 Ot 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, UNSP DESC 06/11/2017 KODY VILLASEÑOR DO Ot Z08 ENCNTR FOR FOLLOW-UP EXAM AFTER TRTMT FO 06/11/2017 KODY VILLASEÑOR DO Ot Z85. 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, UNSP DESC 06/11/2017 ROD DOMINGUEZ Ot R06.02 SHORTNESS OF BREATH 06/11/2017 ISABELA NINO Ot Z08 ENCNTR FOR FOLLOW-UP EXAM AFTER TRTMT FO 06/11/2017 ISABELA NINO Ot Z79.899 OTHER DIRECTOR SECURITY RISK MANAGEMENT (CURRENT) DRUG THERAPY 06/11/2017 ISABELA NINO Ot Z85.47 PERSONAL HISTORY OF MALIGNANT NEOPLASM O 06/11/2017 SIMONE VILLALBA G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 Ot S83.91XA SPRAIN OF UNSPECIFIED SITE OF RIGHT KNEE 06/11/2017 SIMONE VILLALBA G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 Ot W11.XXXA FALL ON AND FROM LADDER, INITIAL ENCOUNT 06/11/2017 TERESA VILLALBAYL G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 Ot Y92.512 SUPERMARKET, STORE OR MARKET PLACE 06/11/2017 TERESA VILLALBAYL G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 Ot Y99 .0 CIVILIAN ACTIVITY DONE FOR INCOME OR PAY 06/11/2017 ISABELA NINO Ot 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 06/11/2017 ISABELA NINO Ot E29.1 TESTICULAR HYPOFUNCTION 06/11/2017 ISABELA NINO Ot N18.3 CHRONIC KIDNEY DISEASE, STAGE 3 (MODERAT 06/11/2017 ISABELA NINO Ot Z92.21 PERSONAL HISTORY OF ANTINEOPLASTIC CHEMO 06/13/2017 FLORENTINO FUENTES, IRON Beck Ot M54.16 RADICULOPATHY, LUMBAR REGION 06/13/2017 FLORENTINO FUENTES, IRON Beck Ot M54.5 LOW BACK PAIN 06/13/2017 FLORENTINO FUENTES, IRON Beck Ot Z85.47 PERSONAL HISTORY OF MALIGNANT NEOPLASM O 06/13/2017 FLORENTINO FUENTES, IRON Beck Ot Z87.01 PERSONAL HISTORY OF PNEUMONIA (RECURRENT 06/13/2017 FLORENTINO FUENTES, IRON Beck Ot 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( 06/13/2017 FLORENTINO FUENTES, IRON Beck Ot Z99.81 DEPENDENCE ON SUPPLEMENTAL OXYGEN 06/15/2017 Ot 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 06/15/2017 Ot V72.84 EXA M PRE- OPERATIVE NOS 06/15/2017 Ot 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 06/15/2017 ISABELA NINO Ot 585.3 CHRONIC KIDNEY DISEASE, 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 06/15/2017 ISABELA NINO Ot 780.52 INSOMNIA, UNSPECIFIED 06/15/2017 ISABELA NINO Ot 780.79 OTH MALAISE FATIGUE 06/15/2017 ISABELA NINO Ot 783.1 ABNORMAL WEIGHT GAIN 06/15/2017 ISABELA NINO Ot V10.47 HX- TESTICULAR MALIGNANCY 06/15/2017 ISABELA NINO Ot V67.2 CHEMOTHERAPY FOLLOW-UP 06/15/2017 KIM CHEN [employer]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 Ot V10.47 HX-TESTICULAR MALIGNANCY 06/15/2017 KIM CHEN G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 Ot V67.2 CHEMOTHERAPY FOLLOW-UP 06/15/2017 KIM CHEN G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 Ot V10.47 HX-TESTICULAR MALIGNANCY 06/15/2017 KIM CHEN G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 Ot V67.2 CHEMOTHERAPY FOLLOW-UP 06/15/2017 KIM CHENP Ot 186.9 MALIG PARTHA TESTIS NEC 06/15/2017 KODY VILLASEÑOR DO Ot V72. 84 EXAM PRE-OPERATIVE NOS 06/15/2017 KIM CHENP Ot 257.2 TESTICULAR HYPOFUNC NEC 06/15/2017 KIM CHEN 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 Ot V10.47 HX-TESTICULAR MALIGNANCY 06/15/2017 KIM CHEN G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 Ot V58.69 OTH MED,LT,CURRENT USE 06/15/2017 KIM CHEN G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 Ot V67.2 CHEMOTHERAPY FOLLOW-UP 06/15/2017 KODY VILLASEÑOR DO Ot V72. 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, UNSP DESC 06/15/2017 ROD DOMINGUEZ Ot R06.02 SHORTNESS OF BREATH 06/15/2017 ISABELA NINO Ot Z08 ENCNTR FOR FOLLOW-UP EXAM AFTER TRTMT FO 06/15/2017 ISABELA NINO Ot Z79.899 OTHER DIRECTOR SECURITY RISK MANAGEMENT (CURRENT) DRUG THERAPY 06/15/2017 ISABELA NINO Ot Z85.47 PERSONAL HISTORY OF MALIGNANT NEOPLASM O 06/15/2017 SIMONE VILLALBAP Ot S83.91XA SPRAIN OF UNSPECIFIED SITE OF RIGHT KNEE 06/15/2017 SIMONE VILLALBAP Ot W11.XXXA FALL ON AND FROM LADDER, INITIAL ENCOUNT 06/15/2017 SIMONE VILLALBA Ot Y92.512 SUPERMARKET, STORE OR MARKET PLACE 06/15/2017 SIMONE VILLALBAP Ot Y99 .0 CIVILIAN ACTIVITY DONE FOR INCOME OR PAY 06/27/2017 Ot 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 06/27/2017 Ot V72.84 EXA M PRE- OPERATIVE NOS 06/27/2017 Ot 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 06/27/2017 ISABELA NINO Ot 585.3 CHRONIC KIDNEY DISEASE, 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 06/27/2017 ISABELA NINO Ot 780.52 INSOMNIA, UNSPECIFIED 06/27/2017 ISABELA NINO Ot 780.79 OTH MALAISE FATIGUE 06/27/2017 ISABELA NINO Ot 783.1 ABNORMAL WEIGHT GAIN 06/27/2017 ISABELA NINO N Ot V10.47 HX- TESTICULAR MALIGNANCY 06/27/2017 ISABELA NINO N Ot V67.2 CHEMOTHERAPY FOLLOW-UP 06/27/2017 KIM CHEN G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 Ot V10.47 HX-TESTICULAR MALIGNANCY 06/27/2017 KIM [place]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 Ot V67.2 CHEMOTHERAPY FOLLOW-UP 06/27/2017 KIM CHEN G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 Ot V10.47 HX-TESTICULAR MALIGNANCY 06/27/2017 KIM CH[place] G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 Ot V67.2 CHEMOTHERAPY FOLLOW-UP 06/27/2017 KIM CHEN G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 Ot 186.9 MALIG PARTHA TESTIS NEC 06/27/2017 KODY VILLASEÑOR DO Ot V72. 84 EXAM PRE-OPERATIVE NOS 06/27/2017 KIM [place]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 Ot 257.2 TESTICULAR HYPOFUNC NEC 06/27/2017 KIM CHEN G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 Ot V10.47 HX-TESTICULAR MALIGNANCY 06/27/2017 KIM CHEN G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 Ot V58.69 OTH MED,LT,CURRENT USE 06/27/2017 KIM CHEN G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 Ot V67.2 CHEMOTHERAPY FOLLOW-UP 06/27/2017 KODY VILLASEÑOR DO Ot V72. 84 EXAM PRE-OPERATIVE NOS 06/27/2017 KIM CHEN G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 Ot Z 08 ENCNTR FOR FOLLOW-UP EXAM AFTER TRTMT FO 06/27/2017 KIM CHEN G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 Ot Z79.899 OTHER PENITENTIARY (CURRENT) DRUG THERAPY 06/27/2017 KIM CHEN G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 Ot Z85.47 PERSONAL HISTORY OF MALIGNANT NEOPLASM O 06/27/2017 KIM CHEN G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 Ot 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, UNSP DESC 06/27/2017 KODY VILLASEÑOR DO Ot Z08 ENCNTR FOR FOLLOW-UP EXAM AFTER TRTMT FO 06/27/2017 KODY VILLASEÑOR DO Ot Z85. 47 PERSONAL HISTORY OF MALIGNANT NEOPLASM O 06/27/2017 MARII CHENPATRICK Vivien G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 Ot 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, UNSP DESC 06/27/2017 ROD DOMINGUEZ LISANDRO Ot R06.02 SHORTNESS OF BREATH 06/27/2017 ISABELA NINO Ot Z08 ENCNTR FOR FOLLOW-UP EXAM AFTER TRTMT FO 06/27/2017 ISABELA NINO Ot Z79.899 OTHER DIRECTOR SECURITY RISK MANAGEMENT (CURRENT) DRUG THERAPY 06/27/2017 ISABELA NINO Ot Z85.47 PERSONAL HISTORY OF MALIGNANT NEOPLASM O 06/27/2017 DEEJAYSIMONE RICHARDSONP Ot S83.91XA SPRAIN OF UNSPECIFIED SITE OF RIGHT KNEE 06/27/2017 DEEJAYSIMONE RICHRADSONP Ot W11.XXXA FALL ON AND FROM LADDER, INITIAL ENCOUNT 06/27/2017 DEEJAYSIMONE RICHARDSONP Ot Y92.512 SUPERMARKET, STORE OR MARKET PLACE 06/27/2017 TERESA VILLALBAYL G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 Ot Y99 .0 CIVILIAN ACTIVITY DONE FOR INCOME OR PAY 06/28/2017 ISABELA NINO Ot 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 06/28/2017 ISABELA NINO Ot E29.1 TESTICULAR HYPOFUNCTION 06/28/2017 ISABELA NINO Ot N18.3 CHRONIC KIDNEY DISEASE, STAGE 3 (MODERAT 06/28/2017 ISABELA NINO Ot Z92.21 PERSONAL HISTORY OF ANTINEOPLASTIC CHEMO 07/03/2017 Ot 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 07/03/2017 Ot V72.84 EXA M PRE- OPERATIVE NOS 07/03/2017 Ot 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 07/03/2017 ISABELA NINO Ot 585.3 CHRONIC KIDNEY DISEASE, 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 07/03/2017 ISABELA NINO Ot 780.52 INSOMNIA, UNSPECIFIED 07/03/2017 ISABELA NINO Ot 780.79 OTH MALAISE FATIGUE 07/03/2017 ISABELA NINO Ot 783.1 ABNORMAL WEIGHT GAIN 07/03/2017 ISABELA NINO Ot V10.47 HX- TESTICULAR MALIGNANCY 07/03/2017 MICA ISABELA Ibanez Ot V67.2 CHEMOTHERAPY FOLLOW-UP 07/03/2017 KIM CHEN GARDEN TRACTOR MECHANIC Ot V10.47 HX-TESTICULAR MALIGNANCY 07/03/2017 KIM CHEN GARDEN TRACTOR MECHANIC Ot V67.2 CHEMOTHERAPY FOLLOW-UP 07/03/2017 KIM CHEN GARDEN TRACTOR MECHANIC Ot V10.47 HX-TESTICULAR MALIGNANCY 07/03/2017 KIM CHEN GARDEN TRACTOR MECHANIC Ot V67.2 CHEMOTHERAPY FOLLOW-UP 07/03/2017 KIM CHEN GARDEN TRACTOR MECHANIC Ot 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 84 EXAM PRE-OPERATIVE NOS 07/03/2017 KIM CHEN GARDEN TRACTOR MECHANIC Ot 257.2 TESTICULAR HYPOFUNC NEC 07/03/2017 KIM CHEN GARDEN TRACTOR MECHANIC Ot V10.47 HX-TESTICULAR MALIGNANCY 07/03/2017 KIM CHEN GARDEN TRACTOR MECHANIC Ot V58.69 OT MED,LT,CURRENT USE 07/03/2017 KIM CHEN GARDEN TRACTOR MECHANIC Ot V67.2 CHEMOTHERAPY FOLLOW-UP 07/03/2017 KODY VILLASEÑOR DO Ot V72. 84 EXAM PRE-OPERATIVE NOS 07/03/2017 CHEN KIM Puga GARDEN TRACTOR MECHANIC Ot Z 08 ENCNTR FOR FOLLOW-UP EXAM AFTER TRTMT FO 07/03/2017 CHEN KIM Puga GARDEN TRACTOR MECHANIC Ot Z79.899 OTHER PENITENTIARY (CURRENT) DRUG THERAPY 07/03/2017 APRIL KIM Puga GARDEN TRACTOR MECHANIC Ot Z85.47 PERSONAL HISTORY OF MALIGNANT NEOPLASM O 07/03/2017 KIM CHEN GARDEN TRACTOR MECHANIC Ot 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, UNSP DESC 07/03/2017 KODY VILLASEÑOR DO Ot Z08 ENCNTR FOR FOLLOW-UP EXAM AFTER TRTMT FO 07/03/2017 KODY VILLASEÑOR DO Ot Z85. 47 PERSONAL HISTORY OF MALIGNANT NEOPLASM O 07/03/2017 KIM CHEN Vivien GARDEN TRACTOR MECHANIC Ot 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, UNSP DESC 07/03/2017 ROD DOMINGUEZ Ot R06.02 SHORTNESS OF BREATH 07/03/2017 MICA, BOBAN N Ot Z08 ENCNTR FOR FOLLOW-UP EXAM AFTER TRTMT FO 07/03/2017 ISABELA NINO N Ot Z79.899 OTHER DIRECTOR SECURITY RISK MANAGEMENT (CURRENT) DRUG THERAPY 07/03/2017 MICA, VICENTANOREEN Marcelle Ot Z85.47 PERSONAL HISTORY OF MALIGNANT NEOPLASM O 07/03/2017 SIMONE VILLALBA GARDEN TRACTOR MECHANIC Ot S83.91XA SPRAIN OF UNSPECIFIED SITE OF RIGHT KNEE 07/03/2017 SIMONE VILLALBA GARDEN TRACTOR MECHANIC Ot W11.XXXA FALL ON AND FROM LADDER, INITIAL ENCOUNT 07/03/2017 SIMONE VILLALBA GARDEN TRACTOR MECHANIC Ot Y92.512 SUPERMARKET, STORE OR MARKET PLACE 07/03/2017 DEEJAYTERESA RICHARDSONYL GARDEN TRACTOR MECHANIC Ot Y99 .0 CIVILIAN ACTIVITY DONE FOR INCOME OR PAY 07/03/2017 VICENAT NINONOREEN Marcelle Ot 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 07/03/2017 MICA, VICENTANOREEN N Ot E29.1 TESTICULAR HYPOFUNCTION 07/03/2017 ISABELA NINO Ot N18.3 CHRONIC KIDNEY DISEASE, STAGE 3 (MODERAT 07/03/2017 VICENTA NINONOREEN N Ot Z92.21 PERSONAL HISTORY OF ANTINEOPLASTIC CHEMO 07/18/2017 KIM CHEN GARDEN TRACTOR MECHANIC Ot 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 07/18/2017 KIM CHEN GARDEN TRACTOR MECHANIC Ot Z98.890 OTHER SPECIFIED POSTPROCEDURAL STATES 09/25/2017 ISABELA NINO N Ot 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 09/25/2017 MICAISABELA N Ot E29.1 TESTICULAR HYPOFUNCTION 09/25/2017 ISABELA NINO N Ot N18.3 CHRONIC KIDNEY DISEASE, STAGE 3 (MODERAT 09/25/2017 ISABELA NINO N Ot Z92.21 PERSONAL HISTORY OF ANTINEOPLASTIC CHEMO 09/26/2017 ISABELA NINO N Ot 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 09/26/2017 MICAISABELA N Ot E29.1 TESTICULAR HYPOFUNCTION 09/26/2017 MICAISABELA N Ot N18.3 CHRONIC KIDNEY DISEASE, STAGE 3 (MODERAT 09/26/2017 ISABELA NINO N Ot Z92.21 PERSONAL HISTORY OF ANTINEOPLASTIC CHEMO 11/27/2018 ISABELA NINO N Ot 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 11/27/2018 ISABELA NINO Ot E29.1 TESTICULAR HYPOFUNCTION 11/27/2018 ISABELA NINO Ot N18.3 CHRONIC KIDNEY DISEASE, STAGE 3 (MODERAT 11/27/2018 ISABELA NINO Ot Z92.21 PERSONAL HISTORY OF ANTINEOPLASTIC CHEMO 11/27/2018 ISABELA NINO Ot 585.3 CHRONIC KIDNEY DISEASE, 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 11/27/2018 ISABELA NINO N Ot 780.52 INSOMNIA, UNSPECIFIED 11/27/2018 ISABELA NINO N Ot 780.79 OTH MALAISE FATIGUE 11/27/2018 ISABELA NINO Ot 783.1 ABNORMAL WEIGHT GAIN 11/27/2018 ISABELA NINO N Ot V10.47 HX- TESTICULAR MALIGNANCY 11/27/2018 ISABELA NINO N Ot V67.2 CHEMOTHERAPY FOLLOW-UP 11/27/2018 KIM CHEN GARDEN TRACTOR MECHANIC Ot V10.47 HX-TESTICULAR MALIGNANCY 11/27/2018 KIM CHEN GARDEN TRACTOR MECHANIC Ot V67.2 CHEMOTHERAPY FOLLOW-UP 11/27/2018 KIM CHEN GARDEN TRACTOR MECHANIC Ot 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 84 EXAM PRE-OPERATIVE NOS 11/27/2018 KIM CHEN GARDEN TRACTOR MECHANIC Ot 257.2 TESTICULAR HYPOFUNC NEC 11/27/2018 KIM CHEN GARDEN TRACTOR MECHANIC Ot V10.47 HX-TESTICULAR MALIGNANCY 11/27/2018 KIM CHENP Ot V58.69 OTH MED,LT,CURRENT USE 11/27/2018 KIM CHEN GARDEN TRACTOR MECHANIC Ot V67.2 CHEMOTHERAPY FOLLOW-UP 11/27/2018 KODY VILLASEÑOR DO Ot V72. 84 EXAM PRE-OPERATIVE NOS 11/27/2018 KIM CHENP Ot Z 08 ENCNTR FOR FOLLOW-UP EXAM AFTER TRTMT FO 11/27/2018 KIM CHEN GARDEN TRACTOR MECHANIC Ot Z79.899 OTHER DIRECTOR SECURITY RISK MANAGEMENT (CURRENT) DRUG THERAPY 11/27/2018 KIM CHEN GARDEN TRACTOR MECHANIC Ot Z85.47 PERSONAL HISTORY OF MALIGNANT NEOPLASM O 11/27/2018 KIM CHEN GARDEN TRACTOR MECHANIC Ot 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, UNSP DESC 11/27/2018 VILLASEÑORKODY OLMEDO DO Ot Z08 ENCNTR FOR FOLLOW-UP EXAM AFTER TRTMT FO 11/27/2018 KODY VILLASEÑOR DO Ot Z85. 47 PERSONAL HISTORY OF MALIGNANT NEOPLASM O 11/27/2018 KIM CHEN GARDEN TRACTOR MECHANIC Ot 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, UNSP DESC 11/27/2018 DOMINGUEZ ROD Loren MCMAHON Ot R06.02 SHORTNESS OF BREATH 11/27/2018 ISABELA NINO Ot Z08 ENCNTR FOR FOLLOW-UP EXAM AFTER TRTMT FO 11/27/2018 ISABELA NINO Ot Z79.899 OTHER DIRECTOR SECURITY RISK MANAGEMENT (CURRENT) DRUG THERAPY 11/27/2018 ISABELA NINO Ot Z85.47 PERSONAL HISTORY OF MALIGNANT NEOPLASM O 11/27/2018 SIMONE VILLALBA GARDEN TRACTOR MECHANIC Ot S83.91XA SPRAIN OF UNSPECIFIED SITE OF RIGHT KNEE 11/27/2018 SIMONE VILLALBA GARDEN TRACTOR MECHANIC Ot W11.XXXA FALL ON AND FROM LADDER, INITIAL ENCOUNT 11/27/2018 TERESA VILLALBAYL GARDEN TRACTOR MECHANIC Ot Y92.512 SUPERMARKET, STORE OR MARKET PLACE 11/27/2018 TERESA VILLALBAYL GARDEN TRACTOR MECHANIC Ot Y99 .0 CIVILIAN ACTIVITY DONE FOR INCOME OR PAY 11/27/2018 KIM CHEN GARDEN TRACTOR MECHANIC Ot 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 11/27/2018 KIM CHEN GARDEN TRACTOR MECHANIC Ot Z98.890 OTHER SPECIFIED POSTPROCEDURAL STATES 11/27/2018 ISABELA NINO Ot 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 11/27/2018 ISABELA NINO Ot E29.1 TESTICULAR HYPOFUNCTION 11/27/2018 ISABELA NINO Ot N18.3 CHRONIC KIDNEY DISEASE, STAGE 3 (MODERAT 11/27/2018 ISABELA NINO Ot Z92.21 PERSONAL HISTORY OF ANTINEOPLASTIC CHEMO 11/28/2018 ISABELA NINO Ot 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 11/29/2018 ISABELA NINO Ot 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 11/29/2018 ISABELA NINO Ot E29.1 TESTICULAR HYPOFUNCTION 11/29/2018 ISABELA NINO Ot N18.3 CHRONIC KIDNEY DISEASE, STAGE 3 (MODERAT 11/29/2018 ISABELA NINO Ot Z92.21 PERSONAL HISTORY OF ANTINEOPLASTIC CHEMO 01/15/2019 IRON GOOD MD Ot M54.6 PAIN IN THORACIC SPINE 01/15/2019 IRON GOOD MD Ot R93.89 ABNORMAL FINDINGS ON DX IMAGING OF OTH B 01/15/2019 IRON GOOD MD Ot Z85.47 PERSONAL HISTORY OF MALIGNANT NEOPLASM O 01/15/2019 IRON GOOD MD Ot Z87.01 PERSONAL HISTORY OF PNEUMONIA (RECURRENT 01/15/2019 IRON GOOD MD Ot 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( 01/21/2019 IRON GOOD MD Ot M54.6 PAIN IN THORACIC SPINE 01/21/2019 IRON GOOD MD Ot R93.89 ABNORMAL FINDINGS ON DX IMAGING OF OTH B 01/21/2019 IRON GOOD MD Ot Z85.47 PERSONAL HISTORY OF MALIGNANT NEOPLASM O 01/21/2019 IRON GOOD MD Ot Z87.01 PERSONAL HISTORY OF PNEUMONIA (RECURRENT 01/21/2019 IRON GOOD MD Ot 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( 01/23/2019 IRON GOOD MD Ot M54.6 PAIN IN THORACIC SPINE 01/23/2019 IRON GOOD MD Ot R93.89 ABNORMAL FINDINGS ON DX IMAGING OF OTH B 01/23/2019 IRON GOOD MD Ot Z85.47 PERSONAL HISTORY OF MALIGNANT NEOPLASM O 01/23/2019 IRON GOOD MD Ot Z87.01 PERSONAL HISTORY OF PNEUMONIA (RECURRENT 01/23/2019 IRON GOOD MD Ot 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( 2019 ISABELA NINO Ot 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, UNSPECIFIED, NOT HAVIN 2019 ISABELA NINO Ot E29.1 TESTICULAR HYPOFUNCTION 2019 ISABELA NINO Ot R93.89 ABNORMAL FINDINGS ON DX IMAGING OF OT B 01/30/2019 ISABELA NINO Ot 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 01/30/2019 ISABELA NINO Ot E29.1 TESTICULAR HYPOFUNCTION 01/30/2019 ISABELA NINO Ot N18.3 CHRONIC KIDNEY DISEASE, STAGE 3 (MODERAT 01/30/2019 ISABELA NINO N Ot Z92.21 PERSONAL HISTORY OF ANTINEOPLASTIC CHEMO 01/30/2019 ISABELA NINO Ot 585.3 CHRONIC KIDNEY DISEASE, 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 01/30/2019 ISABELA NINO N Ot 780.52 INSOMNIA, UNSPECIFIED 01/30/2019 ISABELA NINO N Ot 780.79 OTH MALAISE FATIGUE 01/30/2019 ISABELA NINO N Ot 783.1 ABNORMAL WEIGHT GAIN 01/30/2019 ISABELA NINO N Ot V10.47 HX- TESTICULAR MALIGNANCY 01/30/2019 ISABELA NINO N Ot V67.2 CHEMOTHERAPY FOLLOW-UP 01/30/2019 KIM CHEN GARDEN TRACTOR MECHANIC Ot V10.47 HX-TESTICULAR MALIGNANCY 01/30/2019 KIM CHEN GARDEN TRACTOR MECHANIC Ot V67.2 CHEMOTHERAPY FOLLOW-UP 01/30/2019 KIM CHEN GARDEN TRACTOR MECHANIC Ot 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 84 EXAM PRE-OPERATIVE NOS 01/30/2019 KIM CHEN GARDEN TRACTOR MECHANIC Ot 257.2 TESTICULAR HYPOFUNC NEC 01/30/2019 KIM CHENP Ot V10.47 HX-TESTICULAR MALIGNANCY 01/30/2019 KIM CHENP Ot V58.69 OTH MED,LT,CURRENT USE 01/30/2019 KIM CHEN GARDEN TRACTOR MECHANIC Ot V67.2 CHEMOTHERAPY FOLLOW-UP 01/30/2019 KODY VILLASEÑOR DO Ot V72. 84 EXAM PRE-OPERATIVE NOS 01/30/2019 KIM CHENP Ot Z 08 ENCNTR FOR FOLLOW-UP EXAM AFTER TRTMT FO 01/30/2019 KIM CHENP Ot Z79.899 OTHER DIRECTOR SECURITY RISK MANAGEMENT (CURRENT) DRUG THERAPY 01/30/2019 KIM CHENP Ot Z85.47 PERSONAL HISTORY OF MALIGNANT NEOPLASM O 01/30/2019 KIM CHENP Ot 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, UNSP DESC 01/30/2019 KODY VILLASEÑOR DO Ot Z08 ENCNTR FOR FOLLOW-UP EXAM AFTER TRTMT FO 01/30/2019 KODY VILLASEÑOR DO Ot Z85. 47 PERSONAL HISTORY OF MALIGNANT NEOPLASM O 01/30/2019 KIM HCEN GARDEN TRACTOR MECHANIC Ot 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, UNSP DESC 01/30/2019 ROD DOMINGUEZ Ot R06.02 SHORTNESS OF BREATH 01/30/2019 ISABELA NINO Ot Z08 ENCNTR FOR FOLLOW-UP EXAM AFTER TRTMT FO 01/30/2019 ISABELA NINO Ot Z79.899 OTHER PENITENTIARY (CURRENT) DRUG THERAPY 01/30/2019 ISABELA NINO Ot Z85.47 PERSONAL HISTORY OF MALIGNANT NEOPLASM O 01/30/2019 SIMONE VILLALBA GARDEN TRACTOR MECHANIC Ot S83.91XA SPRAIN OF UNSPECIFIED SITE OF RIGHT KNEE 01/30/2019 DEEJAYSIMONE RICHARDSONP Ot W11.XXXA FALL ON AND FROM LADDER, INITIAL ENCOUNT 01/30/2019 DEEJAYSIMONE RICHARDSON GARDEN TRACTOR MECHANIC Ot Y92.512 SUPERMARKET, STORE OR MARKET PLACE 01/30/2019 TERESA VILLALBAYL GARDEN TRACTOR MECHANIC Ot Y99 .0 CIVILIAN ACTIVITY DONE FOR INCOME OR PAY 01/30/2019 KIM CHEN GARDEN TRACTOR MECHANIC Ot 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 01/30/2019 KIM CHENP Ot Z98.890 OTHER SPECIFIED POSTPROCEDURAL STATES 01/30/2019 ISABELA NINO Ot 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 01/30/2019 ISABELA NINO Ot E29.1 TESTICULAR HYPOFUNCTION 01/30/2019 ISABELA NINO Ot N18.3 CHRONIC KIDNEY DISEASE, STAGE 3 (MODERAT 01/30/2019 ISABELA NINO Ot Z92.21 PERSONAL HISTORY OF ANTINEOPLASTIC CHEMO 01/30/2019 ISABELA NINO Ot 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 01/31/2019 ISABELA NINO Ot 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 01/31/2019 Ot 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 01/31/2019 Ot 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 01/31/2019 Ot 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 01/31/2019 Ot V87.41 PER IHSAN HISTORY OF ANTINEOPLASTIC CHEMO 01/31/2019 Ot 787.91 OLIVIER RRHEA 01/31/2019 Ot V10.47 HX- TESTICULAR MALIGNANCY 01/31/2019 Ot V67.2 CHEM OTHERAPY FOLLOW-UP 01/31/2019 Ot 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 01/31/2019 Ot 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 01/31/2019 Ot 724.2 LUMBAGO 01/31/2019 Ot V87.41 PER IHSAN HISTORY OF ANTINEOPLASTIC CHEMO 01/31/2019 Ot 724.2 LUMBAGO 01/31/2019 Ot 786.09 RES PIRATORY ABNORM NEC 01/31/2019 Ot 786.2 COUGH 01/31/2019 Ot V10.47 HX- TESTICULAR MALIGNANCY 01/31/2019 Ot V67.2 CHEM OTHERAPY FOLLOW-UP 01/31/2019 ISABELA NION Ot 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 01/31/2019 ISABELA NINO Ot E29.1 TESTICULAR HYPOFUNCTION 01/31/2019 IASBELA NINO Ot N18.3 CHRONIC KIDNEY DISEASE, STAGE 3 (MODERAT 01/31/2019 ISABELA NINO Ot Z92.21 PERSONAL HISTORY OF ANTINEOPLASTIC CHEMO 01/31/2019 Ot 724.2 LUMBAGO 01/31/2019 Ot V10.47 HX- TESTICULAR MALIGNANCY 01/31/2019 Ot V67.2 CHEM OTHERAPY FOLLOW-UP 01/31/2019 Ot 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 01/31/2019 Ot 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, 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 01/31/2019 Ot 724.2 LUMBAGO 01/31/2019 Ot V10.47 HX- TESTICULAR MALIGNANCY 01/31/2019 Ot V87.41 PER IHSAN HISTORY OF ANTINEOPLASTIC CHEMO 01/31/2019 Ot 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 01/31/2019 Ot 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, 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 01/31/2019 Ot 724.2 LUMBAGO 01/31/2019 Ot 780.52 INS OMNIA, UNSPECIFIED 01/31/2019 Ot V10.47 HX- TESTICULAR MALIGNANCY 01/31/2019 Ot V67.2 CHEM OTHERAPY FOLLOW-UP 01/31/2019 Ot 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 01/31/2019 Ot 578.1 BLOO D IN STOOL 01/31/2019 Ot 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, 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 01/31/2019 Ot 724.2 LUMBAGO 01/31/2019 Ot 780.52 INS OMNIA, UNSPECIFIED 01/31/2019 Ot V10.47 HX- TESTICULAR MALIGNANCY 01/31/2019 Ot V67.2 CHEM OTHERAPY FOLLOW-UP 01/31/2019 Ot 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 01/31/2019 MICAISABELA DICKERSON N Ot 585.3 CHRONIC KIDNEY DISEASE, 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 01/31/2019 ISABELA NINO N Ot 780.52 INSOMNIA, UNSPECIFIED 01/31/2019 MICAVICENTA DICKERSONAN N Ot 780.79 OTH MALAISE FATIGUE 01/31/2019 ISABELA NINO N Ot 783.1 ABNORMAL WEIGHT GAIN 01/31/2019 MICA ISABELA N Ot V10.47 HX- TESTICULAR MALIGNANCY 01/31/2019 MICAISABELA DICKERSON N Ot V67.2 CHEMOTHERAPY FOLLOW-UP 01/31/2019 KIM CHEN GARDEN TRACTOR MECHANIC Ot V10.47 HX-TESTICULAR MALIGNANCY 01/31/2019 KIM CHEN GARDEN TRACTOR MECHANIC Ot V67.2 CHEMOTHERAPY FOLLOW-UP 01/31/2019 KIM CHEN GARDEN TRACTOR MECHANIC Ot 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 84 EXAM PRE-OPERATIVE NOS 01/31/2019 KIM CHEN GARDEN TRACTOR MECHANIC Ot 257.2 TESTICULAR HYPOFUNC NEC 01/31/2019 KIM CHEN GARDEN TRACTOR MECHANIC Ot V10.47 HX-TESTICULAR MALIGNANCY 01/31/2019 KIM CHENP Ot V58.69 OTH MED,LT,CURRENT USE 01/31/2019 KIM CHEN GARDEN TRACTOR MECHANIC Ot V67.2 CHEMOTHERAPY FOLLOW-UP 01/31/2019 KIM CHENP Ot Z 08 ENCNTR FOR FOLLOW-UP EXAM AFTER TRTMT FO 01/31/2019 KIM CHENP Ot Z79.899 OTHER DIRECTOR SECURITY RISK MANAGEMENT (CURRENT) DRUG THERAPY 01/31/2019 CHENKIM Puga Vivien GARDEN TRACTOR MECHANIC Ot Z85.47 PERSONAL HISTORY OF MALIGNANT NEOPLASM O 01/31/2019 CHENMARIIPATRICK Vivien GARDEN TRACTOR MECHANIC Ot 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, UNSP DESC 01/31/2019 VILLASEÑORKODY OLMEDO DO Ot Z08 ENCNTR FOR FOLLOW-UP EXAM AFTER TRTMT FO 01/31/2019 KODY VILLASEÑOR DO Ot Z85. 47 PERSONAL HISTORY OF MALIGNANT NEOPLASM O 01/31/2019 CHEN, MARIIPATRICK Puga GARDEN TRACTOR MECHANIC Ot 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, UNSP DESC 01/31/2019 ROD DOMINGUEZ Ot R06.02 SHORTNESS OF BREATH 01/31/2019 ISABELA NINO Ot Z08 ENCNTR FOR FOLLOW-UP EXAM AFTER TRTMT FO 01/31/2019 ISABELA NINO Ot Z79.899 OTHER PENITENTIARY (CURRENT) DRUG THERAPY 01/31/2019 ISABELA NINO Ot Z85.47 PERSONAL HISTORY OF MALIGNANT NEOPLASM O 01/31/2019 DEEJAY SIMONE GARDEN TRACTOR MECHANIC Ot S83.91XA SPRAIN OF UNSPECIFIED SITE OF RIGHT KNEE 01/31/2019 SIMOEN VILLALBA GARDEN TRACTOR MECHANIC Ot W11.XXXA FALL ON AND FROM LADDER, INITIAL ENCOUNT 01/31/2019 DEEJAY SIMONE GARDEN TRACTOR MECHANIC Ot Y92.512 SUPERMARKET, STORE OR MARKET PLACE 01/31/2019 DEEJAY SIMONE GARDEN TRACTOR MECHANIC Ot Y99 .0 CIVILIAN ACTIVITY DONE FOR INCOME OR PAY 01/31/2019 ISABELA NINO Ot 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, UNSPECIFIED, NOT HAVIN 01/31/2019 ISABELA NINO Ot E29.1 TESTICULAR HYPOFUNCTION 01/31/2019 ISABELA NINO Ot R93.89 ABNORMAL FINDINGS ON DX IMAGING OF OTH B 02/25/2019 ISABELA NINO Ot 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 02/25/2019 ISABELA NINO Ot E29.1 TESTICULAR HYPOFUNCTION 02/25/2019 ISABELA NINO Ot N18.3 CHRONIC KIDNEY DISEASE, STAGE 3 (MODERAT 02/25/2019 ISABELA NINO Ot Z92.21 PERSONAL HISTORY OF ANTINEOPLASTIC CHEMO 02/26/2019 ISABELA NINO Ot 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 02/26/2019 ISABELA NINO Ot E29.1 TESTICULAR HYPOFUNCTION 02/26/2019 ISABELA NINO Ot N18.3 CHRONIC KIDNEY DISEASE, STAGE 3 (MODERAT 02/26/2019 ISABELA NINO Ot Z92.21 PERSONAL HISTORY OF ANTINEOPLASTIC CHEMO 03/03/2019 ISABELA NINO Ot 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 03/03/2019 ISABELA NINO N Ot E29.1 TESTICULAR HYPOFUNCTION 03/03/2019 ISABELA NINO Ot N18.3 CHRONIC KIDNEY DISEASE, STAGE 3 (MODERAT 03/03/2019 ISABELA NINO N Ot Z92.21 PERSONAL HISTORY OF ANTINEOPLASTIC CHEMO 10/16/2019 ISABELA NINO Ot 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, UNSPECIFIED, 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 10/16/2019 ISABELA NINO N Ot E29.1 TESTICULAR HYPOFUNCTION 10/16/2019 ISABELA NINO N Ot R93.89 ABNORMAL FINDINGS ON DX IMAGING OF OTH B 10/16/2019 ISABELA NINO N Ot 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, UNSPECIFIED, 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 10/16/2019 ISABELA NINO N Ot E29.1 TESTICULAR HYPOFUNCTION 10/16/2019 ISABELA NINO N Ot R93.89 ABNORMAL FINDINGS ON DX IMAGING OF OTH B 10/16/2019 KODY VILLASEÑOR DO Ot Z01.818 ENCOUNTER FOR OTHER PREPROCEDURAL EXAMIN Procedures Code Description Performed By Per formed On General S Elmo Barragan 06/20/2010 15391 ROUT INE VENIPUNCTURE 09/01/20138100955 GF R CALC (RESULT ONLY) 09/01/2013 81925 TSH 09/01/2013 38805 TEST OSTERONE TOTAL MALES 09/01/2013 94509 CMP 09/02/2013 92395 CBC 09/02/2013 88514 THER APUTIC INJ SQ/IM 10/16/2013 J0702 BETA METHASONE ACET&SOD PHOSP 10/16/2013 J3301 PATRICK LOG INJ, PER 10 MG 10/16/2013 General S Kody Villaseñor 02/03/2014 53784 UA L DESMOND DIP 02/03/2014 94564 EAR LAVAGE 03/27/2014 12552 THER APUTIC INJ SQ/IM 09/29/2014 J3301 PATRICK LOG INJ, PER 10 MG 09/29/2014 88163 INFL UENZA A & B (IN-HOUSE) 09/29/2014 Results Test Result Range Complete blood count (CBC) with automate d white blood cell (WBC) differential - 06/11/17 16:20 Blood leukocytes automated count (number/volume) 10.5 10*3/uL 4.3-11.0 Blood erythrocytes automated count (number/volume) 4.77 10*6/uL 4.35-5.85 Venous blood hemoglobin measurement (mass/volume) 13.3 g/dL 13.3-17.7 Blood hematocrit (volume fraction) 41 % 40-54 Automated erythrocyte mean corpuscular volume 85 [ foz_us] 80-99 Automated erythrocyte mean corpuscular h emoglobin (mass per erythrocyte) 28 pg 25-34 Automated erythrocyte mean corpuscular h emoglobin concentration measurement (mass/volume) 33 g/dL 32-36 Automated erythrocyte distribution width ratio 13. 5 % 10.0- 14.5 Automated blood platelet count (count/volume) 313 10*3/uL 130-400 Automated blood platelet mean volume measurement 11.1 [foz_us] 7.4-10.4 Automated blood neutrophils/100 leukocytes 68 % 42-75 Automated blood lymphocytes/100 leukocytes 22 % 12-44 Blood monocytes/100 leukocytes 9 % 0-12 Automated blood eosinophils/100 leukocytes 2 % 0-10 Automated blood basophils/100 leukocytes 0 % 0-10 Blood neutrophils automated count (number/volume) 7.1 10*3 1.8-7.8 Blood lymphocytes automated count (number/volume) 2.3 10*3 1.0-4.0 Blood monocytes automated count (number/volume) 0. 9 10*3 0.0-1.0 Automated eosinophil count 0.2 10*3/uL 0 .0-0.3 Automated blood basophil count (count/volume) 0.0 10*3/uL 0.0-0.1 Fibrin D-dimer FEU measurement in platel et poor plasma (mass/volume) - 06/11/17 16:20 Fibrin D-dimer FEU measurement in platelet poor plasma (mass/volume) < ug/mL 0.00-0.49 Comprehensive metabolic panel - 06/11/17 16:20 Serum or plasma sodium measurement (moles/volume) 145 mmol/L 135-145 Serum or plasma potassium measurement (moles/volume) 4.2 mmol/L 3.6-5.0 Serum or plasma chloride measurement (moles/volume) 110 mmol/L 98-107 Carbon dioxide 24 mmol/L 21-32 Serum or plasma anion gap determination (moles/volume) 11 mmol/L 5-14 Serum or plasma urea nitrogen measurement (mass/volume ) 20 mg/dL 7-18 Serum or plasma creatinine measurement (mass/volume) 1.41 mg/dL 0.60-1.30 Serum or plasma urea nitrogen/creatinine mass ratio 14 NRG Serum or plasma creatinine measurement w ith calculation of estimated glomerular filtration rate 57 NRG Serum or plasma glucose measurement (mass/volume) 72 mg/dL 70-105 Serum or plasma calcium measurement (mass/volume) 9.9 mg/dL 8.5-10.1 Serum or plasma total bilirubin measurement (mass/volu me) 0.7 mg/dL 0.1-1.0 Serum or plasma alkaline phosphatase johanna surement (enzymatic activity/volume) 99 U/L 40-136 Serum or plasma aspartate aminotransfera se measurement (enzymatic activity/volume) 19 U/L 5-34 Serum or plasma alanine aminotransferase measurement (enzymatic activity/volume) 17 U/L 0-55 Serum or plasma protein measurement (mass/volume) 7.7 g/dL 6.4-8.2 Serum or plasma albumin measurement (mass/volume) 4.4 g/dL 3.2-4.5 TESTOSTERONE, TOTAL - 11/05/18 10:18 TESTOSTERONE, TOTAL, MALES (ADULT), IA 10 ng/dL 250-827 Encounters ACCT No. Visit Date/Time Discharge Status Pt. Type Provider Facility Loc./Unit Complaint [id number] 03/05/2018 09:18:16 03/05/2018 23:59: 59 CLS Outpatient Bud Hector [id number] 01/22/2018 13:44:30 01/22/2018 23:59: 59 CLS Outpatient [facility] [id number] 01/14/2018 10:42:24 01/14/2018 23:59: 59 CLS Outpatient Gennaro Johnson [id number] 12/18/2017 13:06:31 12/18/2017 23:59: 59 CLS Outpatient Val Salazar [id number] 09/29/2014 14:15:00 09/29/2014 23:59: 59 CLS Outpatient KATHLEEN DURON DO [id number] 05/27/2014 09:03:00 05/27/2014 23:59: 59 CLS Outpatient ANGELICA HOODROD [id number] 04/21/2014 15:36:00 04/21/2014 23:59: 59 CLS Outpatient ANGELICA HOODROD [id number] 04/08/2014 09:52:00 04/08/2014 23:59: 59 CLS Outpatient ANGELICA HOODROD [id number] 03/27/2014 14:22:00 03/27/2014 23:59: 59 CLS Outpatient KATHLEEN DURON DO [place] [id number] 02/11/2014 10:00:00 02/11/2014 23:59: 59 CLS Outpatient KATHLEEN DURON DO [place] [id number] 02/03/2014 14:38:00 02/03/2014 23:59: 59 CLS Outpatient KATHLEEN DURON DO [place] [id number] 10/16/2013 14:16:00 10/16/2013 23:59: 59 CLS Outpatient KATHLEEN DURON DO [place] [id number] 10/02/2013 15:45:00 10/02/2013 23:59: 59 CLS Outpatient ANGELICA HOOD ROD [place] [id number] 09/15/2013 10:42:00 09/15/2013 23:59: 59 CLS Outpatient KATHLEEN DURON DO [place] [id number] 09/01/2013 11:30:00 09/01/2013 23:59: 59 CLS Outpatient OLIVERIO DOKATHLEEN [place] [id number] 06/20/2010 15:17:00 06/20/2010 23:59: 59 CLS Outpatient ANGELICA HOODROD [id number] 02/18/2013 09:36:00 Document Registration [id number] 12/20/2012 15:38:00 Document Registration [id number] 11/27/2012 11:03:00 Document Registration [id number] 11/01/2016 08:00:00 17:00:00 DIS Outpatient Shelbie Singleton MD [facility].OPREH LOW BACK PAIN [id number] 10/31/2016 14:42:00 017 23:59:00 DIS Outpatient Pillo Kelsea WALSH Ti Kaykay [facility].IMG.CT CONCUSSION WITHOUT LOSS OF CONSCIOUSNESS, [id number] 10/12/2016 15:27:00 017 23:59:00 DIS Outpatient Mani FUENTES, Shelbie [facility].IMG.RA LBP [id number] 09/20/2016 15:37:00 017 23:59:59 CLS Outpatient Mani FUENTES, Shelbie [facility].LABONE LAB ONE [id number] 10/16/2019 09:21:00 020 12:17:00 DIS Outpatient KODY VILLASEÑOR DO [facility] PREOP COLONOSCOPY [id number] 02/26/2019 00:10:00 23:59:59 CLS Preadmit ISABELA NINO [facility] ONC [id number] 01/30/2019 14:39:00 019 00:01:00 DIS Outpatient ISABELA NINO [facility] ONC [id number] 01/23/2019 11:56:00 23:59:59 CLS Outpatient ISABELA NINO V [facility] RAD ABN CHEST XRAY [id number] 01/15/2019 00:32:00 02:30:00 DIS Emergency IRON GOOD MD [facility] ER BACK PAIN [id number] 11/27/2018 09:50:00 23:59:59 CLS Outpatient ISABELA NINO [facility] RAD X-RAY [id number] 08/06/2017 13:50:00 018 00:01:00 DIS Outpatient ISABELA NINO [facility] ONC [id number] 07/18/2017 14:46:00 23:59:59 CLS Outpatient KIM CHEN [facility] RAD TESTICULAR CA [id number] 06/11/2017 15:26:00 017 20:50:00 DIS Emergency IRON GOOD MD [facility] ER BACK PAIN [id number] 10/24/2016 14:20:00 017 00:01:00 DIS Outpatient ISABELA NINO [facility] ONC [id number] 02/28/2016 10:50:00 016 23:59:59 CLS Outpatient SIMONE VILLALBA [employer]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 [facility] RAD SPRAIN INJURY R KNEE [id number] 02/23/2016 05:45:00 016 15:47:00 DIS Outpatient KODY VILLASEÑOR DO [facility] PREOP BLOOD IN STOOL [id number] 11/17/2015 10:58:00 016 00:01:00 DIS Outpatient ISABELA NINO [facility] ONC [id number] 01/13/2016 00:10:00 016 23:59:59 CLS Preadmit ISABELA NINO [facility] ONC [id number] 10/14/2015 12:17:00 016 00:01:00 DIS Outpatient ISABELA NINO [facility] ONC [id number] 11/29/2015 14:15:00 016 23:59:59 CLS Outpatient ROD DOMINGUEZ [facility] RAD SHORTNESS OF BR EATH [id number] 11/01/2015 06:00:00 016 12:40:00 DIS Outpatient [facility] MASS [id number] 10/29/2015 12:45:00 016 14:23:00 DIS Outpatient LEIGHA WILEY MD [facility] PREOP RIGHT TESTICULAR MASS [id number] 10/22/2015 01:32:00 016 16:41:00 DIS Inpatient MEHNAZ OZUNA MD [facility] 4TH PNEUMONIA,HYPOXIA,N/V,G ENERALIZED ABD PAIN [id number] 10/19/2015 10:50:00 016 23:59:59 CLS Outpatient KIM CHEN [employer] [facility] CARD TESTICULAR CANC ER [id number] 10/12/2015 12:56:00 23:59:59 CLS Outpatient KODY VILLASEÑOR DO [facility] RAD TESTICULAR CA [id number] 07/07/2015 14:43:00 23:59:59 CLS Outpatient KIM CHEN [employer] [facility] RAD TESTICULAR CANC ER [id number] 06/30/2015 14:38:00 23:59:59 CLS Outpatient KIM CHEN [employer]CH[employer] [facility] ONC [id number] 11/24/2014 12:18:00 015 23:59:59 CLS Outpatient KIM CHEN [employer]CH[employer] [facility] ONC [id number] 11/05/2014 10:41:00 015 13:50:00 DIS Outpatient KODY VILLASEÑOR DO [facility] SDC BLOOD IN STOOLS [id number] 11/04/2014 05:59:00 015 23:59:59 CLS Outpatient KODY VILLASEÑOR DO [facility] PREOP BLOOD IN STOOLS [id number] 10/02/2014 14:44:00 015 17:45:00 DIS Emergency BRADY ALDRICH APRN [facility] ER COUGH,SORE THROAT,VOMIT ING [id number] 07/06/2014 15:24:00 014 23:59:59 CLS Outpatient SIMONE VILLALBA [employer] [facility] OCC RAN OVER BY DIAMANTE CRAMER ATT 1ST MP JOINT [id number] 05/28/2014 12:53:00 014 23:59:59 CLS Outpatient ISABELA NNIO [facility] ONC [id number] 05/05/2014 12:41:00 15:30:00 DIS Outpatient KODY VILLASEÑOR DO [facility] SDC BLOOD IN STOOL [id number] 04/29/2014 07:23:00 23:59:59 CLS Outpatient KODY VILLASEÑOR DO [facility] PREOP BLOOD IN STOOL [id number] 01/06/2014 10:02:00 23:59:59 CLS Outpatient KIM CHEN [employer] [facility] RAD TESTICULAR CA [id number] 12/04/2013 13:50:00 23:59:59 CLS Outpatient KIM CHEN [employer]CH[employer] [facility] ONC [id number] 05/01/2013 14:53:00 23:59:59 CLS Outpatient KIM CHEN [employer] [facility] ONC [id number] 03/12/2013 08:25:00 013 10:08:00 DIS Emergency SAMIA DO, LILIANA K [facility] ER LEFT SIDE PAIN [id number] 10/31/2012 15:04:00 013 00:01:00 DIS Outpatient ISABELA NINO [facility] ONC [id number] 10/21/2019 10:10:00 P EN Preadmit KODY VILLASEÑOR DO [facility] ENDO BLOOD IN STOOLS [id number] 06/17/2014 14:38:00 Document Registration [id number] 06/17/2014 14:38:00 Document Registration [id number] 06/17/2014 14:37:00 Document Registration [id number] 06/17/2014 14:37:00 Document Registration [id number] 08/13/2012 12:16:00 Document Registration [id number] 04/10/2012 08:47:00 Document Registration [id number] 03/19/2012 10:14:00 Document Registration [id number] 03/19/2012 09:19:00 Document Registration [id number] 12/27/2011 11:52:00 Document Registration [id number] 09/20/2011 05:38:00 Document Registration [id number] 09/18/2011 11:47:00 Document Registration [id number] 09/13/2011 10:05:00 Document Registration [id number] 07/05/2011 10:29:00 Document Registration [id number] 06/19/2011 14:25:00 Document Registration [id number] 03/16/2011 10:02:00 Document Registration [id number] 03/09/2011 09:26:00 Document Registration [id number] 12/07/2010 09:45:00 Document Registration [id number] 11/29/2010 10:58:00 Document Registration [id number] 10/06/2010 10:00:00 Document Registration [id number] 08/22/2010 13:41:00 Document Registration [id number] 06/09/2010 09:33:00 Document Registration [id number] 06/07/2010 09:05:00 Document Registration [id number] 05/05/2010 10:11:00 Document Registration [id number] 03/07/2010 10:01:00 Document Registration [id number] 03/01/2010 11:31:00 Document Registration [id number] 03/01/2010 11:03:00 Document Registration [id number] 12/09/2009 09:58:00 Document Registration [id number] 09/21/2009 12:42:00 Document Registration [id number] 09/10/2009 13:48:00 Document Registration [id number] 07/16/2009 06:06:00 Document Registration [id number] 07/15/2009 09:09:00 Document Registration [id number] 09/25/2019 11:40:00 09/25/2019 23:59:5 9 [facility] ROD Melissa APRN [address] [id number] 11/05/2018 09:40:00 Document Registration
[2019-10-22] MEDS ORDERED: PROPOFOL INJECTION 50 ML IV ONE (09:40)
[2019-10-22] MEDS ORDERED: MIDAZOLAM 2 MG/2 ML (VERSED) VIAL ONE (09:40)
--- NOTE | 2019-10-22 09:49 | Progress Note-Pre Operative ---
Pre-Operative Progress Note H&P Reviewed The H&P was reviewed, patient examined and no changes noted. Date Seen by Provider: Oct 22, 2019 Time Seen by Provider: :49 Date H&P Reviewed: Oct 22, 2019 Time H&P Reviewed: 09:49 Pre-Operative Diagnosis: blood in stools KODY VILLASEÑOR DO Oct 22, 2019 09:49
--- NOTE | 2019-10-22 10:14 | Progress Note-Post Operative ---
Post-Operative Progess Note Surgeon (s)/Cns (s) Surgeon KODY VILLASEÑOR DO Cns: na Pre-Operative Diagnosis blood in stools Post-Operative Diagnosis normal colon Procedure & Operative Findings Date of Procedure 10/22/19 Procedure Performed/Findings colonoscopy Anesthesia Type per airplane rigger Estimated Blood Loss Estimated blood loss (mL): none Specimens/Packing Specimens Removed na KODY VILLASEÑOR DO Oct 22, 2019 10:14
--- NOTE | 2019-10-22 10:18 | Discharge Inst-Simple/Standard ---
Discharge Inst-Standard Patient Instructions/Follow Up Plan of Care/Instructions/FU: 3 weeks Anni Activity as Tolerated: Yes Discharge Diet: Regular Diet KODY VILLASEÑOR DO Oct 22, 2019 10:18
--- NOTE | 2019-10-22 12:51 | OPERATIVE REPORT ---
DATE OF SERVICE: 10/22/2019 PREOPERATIVE DIAGNOSIS: Blood in stools. POSTOPERATIVE DIAGNOSIS: Normal colon. PROCEDURE: Colonoscopy. SURGEON: Kody Hutton DO ANESTHESIA: Per MANGLE TENDER CLOTH. ESTIMATED BLOOD LOSS: None. COMPLICATIONS: None. INDICATIONS: The patient is a 39-year-old male with blood in stools. He understands risks and benefits of procedure and wished to proceed with procedure. Consent was signed in the chart. DESCRIPTION OF PROCEDURE: The patient was taken to the endoscopy suite, placed in left lateral recumbent position. Timeout was performed. Digital rectal exam was performed. There were no palpable polyps, masses or ulcerations. Scope was inserted in the rectum and advanced all the way to cecum with minimal difficulty. Prep was adequate. Scope was then slowly retracted back. There were no polyps, masses or ulcerations within the cecum, ascending, transverse, descending and sigmoid colon. Once in the rectum, scope was retroflexed noting no other pathology. Scope was returned to its normal position, slowly withdrawn until completely removed. The patient tolerated procedure well without any complications, taken to recovery room in stable condition. RECOMMENDATIONS: The patient will need repeat colonoscopy per screening guidelines. Any issues before that be reevaluated at that time. Job ID: [id number] DocumentID: [id number] Dictated Date: 10/22/2019 10:20:58 Shelf Stocker Date: 10/22/2019 12:50:45 Dictated By: KODY HUTTON DO
--- NOTE | 2019-10-27 14:50 | Progress Note ---
Standard Progress Note Progress Notes/Assess & Plan Date Seen by a Provider: Oct 22, 2019 Time Seen by a Provider: 10:30 Final Diagnosis No post-op complications noted. KADEN HENSLEY CRNA Oct 27, 2019 14:50
== END 2019-10-22 11:03 | disposition home or self-care (01) ==
LOC: ENDO 09:04
PROVIDERS: ATTEND Surgery
DX: K92.1 Melena (principal); K43.2 Incisional hernia without obstruction or gangrene; N18.3 Chronic kidney disease, stage 3 (moderate); Z79.899 Other long term (current) drug therapy; Z85.47 Personal history of malignant neoplasm of testis; E66.9 Obesity, unspecified; Z68.38 Body mass index [BMI] 38.0-38.9, adult

== ENCOUNTER 2019-11-21 12:08 | Outpatient (RCR) | payer SELFPAY ==
[~2019-11-21] VITALS: Ht 177.8 cm; Wt 120.9 kg
[~2019-11-21 12:08] MED LIST changes: +HYDR-3812 PO; -HYDR-83 PO
[2019-11-26] MEDS ORDERED: LACTATED RINGERS 1,000 ML IV PRN (13:02)
[2019-11-27] MEDS ORDERED: DOCU-143 PO (13:34)
[2019-11-27] MEDS ORDERED: HYDR-4226 PO (13:34)
== END 2020-02-19 | disposition home or self-care (01) ==
LOC: PREOP 12:08
PROVIDERS: ATTEND Surgery
DX: Z01.818 Encounter for other preprocedural examination (principal)

== ENCOUNTER 2019-11-27 10:07 | Day surgery (SDC) | payer OTHER ==
[~2019-11-27] VITALS: Ht 177.8 cm; Wt 120.9 kg
[2019-11-27] VITALS (11 sets, daily range): BP systolic 115–137; BP diastolic 81–95
[~2019-11-27 10:07] MED LIST changes: -HYDR-3812 PO; +HYDR-83 PO
[2019-11-27] MEDS ORDERED: BUP/EPI 0.5% 1:200,000 (SENSORCAINE) 30 ML VIAL ONE (10:28)
[2019-11-27] MEDS ORDERED: ceFAZolin 2 GM IV Premixed 50 ML IV ONE (10:30)
[2019-11-27] MEDS ORDERED: CATHETER FLUSH 10 ML SYR IV PRN (10:30)
[2019-11-27 10:37] LABS: BASOPHILS % (AUTO) 0 % (0-10); EOSINOPHILS # (AUTO) 0.2 10^3/uL (0.0-0.3); EOSINOPHILS % (AUTO) 3 % (0-10); HEMATOCRIT 43 % (40-54); HEMOGLOBIN 13.9 G/DL (13.3-17.7); LYMPHOCYTES % (AUTO) 21 % (12-44); MEAN CORPUSCULAR HEMOGLOBIN 28 PG (25-34); MEAN CORPUSCULAR HGB CONC 33 G/DL (32-36); MEAN CORPUSCULAR VOLUME 86 FL (80-99); MEAN PLATELET VOLUME 9.9 FL (7.4-10.4); MONOCYTES # (AUTO) 0.9 X 10^3 (0.0-1.0); MONOCYTES % (AUTO) 9 % (0-12); NEUTROPHILS # (AUTO) 6.3 X 10^3 (1.8-7.8); NEUTROPHILS % (AUTO) 67 % (42-75); PLATELET COUNT 338 10^3/uL (130-400); RED CELL DISTRIBUTION WIDTH 13.8 % (10.0-14.5); WHITE BLOOD COUNT 9.4 10^3/uL (4.3-11.0)
[2019-11-27] MEDS: LACTATED RINGERS 1,000 ML IV SCH ×2 (10:39→13:10)
[2019-11-27] MEDS ORDERED: fentaNYL INJECTION 100 MCG/2 ML AMP ONE (10:44)
[2019-11-27] MEDS ORDERED: ONDANSETRON 4 MG/2 ML (SDV) Z0FRAN ONE ×2 (10:44→13:47)
[2019-11-27] MEDS ORDERED: ROCURONIUM 10 MG/ML 5 ML SYRINGE IV ONE (10:44)
[2019-11-27] MEDS ORDERED: LIDOCAINE PF 2% 5 ML (XYLOCAINE) VIAL ONE (10:44)
[2019-11-27] MEDS ORDERED: proPOfol 200 MG/20 ML (DIPRIVAN) VIAL IV ONE (10:44)
[2019-11-27] MEDS ORDERED: MIDAZOLAM 2 MG/2 ML (VERSED) VIAL ONE (10:45)
--- NOTE | 2019-11-27 11:32 | Progress Note-Pre Operative ---
Pre-Operative Progress Note H&P Reviewed The H&P was reviewed, patient examined and no changes noted. Date Seen by Provider: November 27, 2019 Time Seen by Provider: 11: Date H&P Reviewed: November 27, 2019 Time H&P Reviewed: 11:31 Pre-Operative Diagnosis: incisional hernia KODY VILLASEÑOR DO November 27, 2019 11:32
[2019-11-27] MEDS ORDERED: SEVOFLURANE (ULTANE) 15 ML INHAL SOLN ONE ×3 (12:49→13:26)
[2019-11-27] MEDS ORDERED: NEOSTIGMINE 3 MG/3 ML VIAL ONE (13:07)
[2019-11-27] MEDS ORDERED: GLYCOPYRROLATE 0.2 MG/ML (ROBINUL) 2 ML VIAL ONE (13:07)
--- NOTE | 2019-11-27 13:32 | Progress Note-Post Operative ---
Post-Operative Progess Note Surgeon (s)/Shipping Inspector (s) Surgeon KODY VILLASEÑOR DO Shipping Inspector: Dr. Segovia to assist in retraction dissection and closure Pre-Operative Diagnosis incisional hernia Post-Operative Diagnosis incarcerated incisional hernias Procedure & Operative Findings Date of Procedure 11/27/19 Procedure Performed/Findings PROCEDURE: Laparoscopic incarcerated incisional hernia repairs with mesh. COMPLICATIONS: None. INDICATIONS: The patient is a 39, male with multiple incarcerated incisional hernias, which has continued to increase in size and cause discomfort. The patient was explained the risk and benefits of the procedure and wished to proceed with the procedure. Consent was signed on the chart. DESCRIPTION OF PROCEDURE: The patient was taken into the operating suite, prepped and draped in sterile fashion. Surgical pause was performed. Local anesthetic was infiltrated in left upper quadrant. A 15 blade scalpel was used to make a small skin incision. Cautery was used to dissect down to the fascia, which was then scored and divided the muscle, went through the posterior sheath and a balloon trocar was inserted into the abdomen. The abdomen was then insufflated. Significant adhesions that stuck to abdominal wall, with incarcerated fat through defects. A 5 mm trocar was placed in the left lower quadrant and the adhesions and hernias reduced. A 5 mm trocar was placed in right lower quadrant. [employer] mesh was then inserted in the abdomen grabbed through a the stab incision at midline. The balloon was inflated on the mesh. Circumferential tacks were placed with a SorbaFix Tacker. The balloon was then removed and inner crown was created as well. The mesh was tacked with pressure being decreased. The 12 mm fascial defect was then closed using 0 Vicryl. The abdomen was then desufflated,the trocars were removed. The skin was then closed using 4-0 Monocryl in a running subcuticular fashion. The abdomen was washed and dried and Skin Affix was placed over the incisions. The patient tolerated procedure well without any complications. She was taken to recovery room in stable condition. Anesthesia Type general Estimated Blood Loss Estimated blood loss (mL): minimal Specimens/Packing Specimens Removed KODY Mead DO November 27, 2019 13:32
[2019-11-27] MEDS ORDERED: DOCU-143 PO (13:34)
[2019-11-27] MEDS ORDERED: HYDR-4226 PO (13:34)
--- NOTE | 2019-11-27 13:35 | Discharge Inst-Simple/Standard ---
Discharge Inst-Standard Discharge Medications New, Converted or Re-Newed RX: RX on Chart Patient Instructions/Follow Up Plan of Care/Instructions/FU: 2-3 weeks Anni Activity as Tolerated: No Discharge Diet: Regular Diet Other Inst to Patient Follow up Appt: Make appointment for 2 week. Instructions: No lifting greater than 10 pounds. No strenuous activity. May shower in 24 hours, no tub bath or soaking. Use incentive spirometer at home as directed. No Smoking Skin/Wound Care: You have special glue over your incision that will fall off on it's own. Symptoms to Report: Appetite Changes, Extremity Discoloration, Numbness/Tingling, Swelling Increased, Bleeding Excessive, Eyesight Changes, Pain Increased, Urine Color Change, Constipation(Persistent), Fever over 101 degree F, Pain/Pressure in chest, Urinating Difficulty, Cough Up/Vomit Blood, Heart Beat Irreg/Pounding, Pain/Pressure in jaw, Vaginal Bleeding Increase, Cramps in feet or legs, Lightheadedness, Pain/Pressure in shoulder, Diarrhea(Persistent), Memory Changes Suddenly, Questions/Concerns, Weight gain consecutive days, Dizziness/Fainting, Nausea/Vomiting, Shortness of Breath, Weight gain over 2 pounds If questions or concerns contact your physician Or seek help at emergency department. KODY VILLASEÑOR DO November 27, 2019 13:35
[2019-11-27] MEDS ORDERED: HYDROmorphone 2 MG/ML VIAL (DILAUDID) IV ONE (13:45)
[2019-11-27] MEDS ORDERED: morphine INJ 10 MG/ML 1ML (SYR OR VIAL) IVP ONE (13:45)
[2019-11-27] MEDS ORDERED: MEPERIDINE (DEMEROL) INJ 50 MG/ML IVP ONE (13:45)
[2019-11-27] MEDS ORDERED: ONDANSETRON 4 MG/2 ML (SDV) Z0FRAN IVP PRN (13:45)
[2019-11-27] MEDS ORDERED: PROMETHAZINE INJ 25 MG/ML (PHENERGAN) AMP IVP ONE (13:45)
[2019-11-27] MEDS ORDERED: morphine INJ 10 MG/ML 1ML (SYR OR VIAL) ONE (13:47)
[2019-11-27] MEDS ORDERED: PROMETHAZINE INJ 25 MG/ML (PHENERGAN) AMP ONE (14:08)
--- NOTE | 2019-11-27 14:50 | Anesthesia-General Post-Op ---
General Patient Condition Mental Status/LOC: Same as Preop Cardiovascular: Satisfactory Nausea/Vomiting: Absent Respiratory: Satisfactory Pain: Controlled Complications: Absent Post Op Complications Complications None Follow Up Care/Instructions Patient Instructions None needed. Anesthesia/Patient Condition Patient Condition Patient is doing well, no complaints, stable vital signs, no apparent adverse anesthesia problems. No complications reported per nursing. KADEN HENSLEY CRNA November 27, 2019 14:50
== END 2019-11-27 16:05 | disposition home or self-care (01) ==
LOC: SDC 10:07
PROVIDERS: ATTEND Surgery
DX: K43.0 Incisional hernia with obstruction, without gangrene (principal); K66.0 Peritoneal adhesions (postprocedural) (postinfection); E66.9 Obesity, unspecified; N18.3 Chronic kidney disease, stage 3 (moderate); Z68.38 Body mass index [BMI] 38.0-38.9, adult; Z79.899 Other long term (current) drug therapy; Z85.47 Personal history of malignant neoplasm of testis; Z90.79 Acquired absence of other genital organ(s)
CPT/HCPCS: 36415; 85025; 87081; 94664

== ENCOUNTER 2020-10-31 21:25 | Emergency (ER) | payer SELFPAY ==
[~2020-10-31] VITALS: Ht 175 cm; Wt 122.0 kg
[~2020-10-31 21:25] MED LIST changes: +DOCU-143 PO; +HYDR-4226 PO; -HYDR-83 PO
--- NOTE | 2020-10-31 21:58 | ED Back Pain ---
General Chief Complaint: Back Problems Stated Complaint: BACK PAIN Source of Information: Patient Exam Limitations: No Limitations History of Present Illness Date Seen by Provider: Oct 31, 2020 Time Seen by Provider: 19:55 Allergies and Home Medications Allergies Coded Allergies: No Known Drug Allergies (Verified , 07/16/09) Home Medications Cyclobenzaprine HCl 10 Mg Tablet, 10 MG PO Q8H PRN for SPASMS Prescribed by: ABDOULAYE BE on 10/31/20 2317 Docusate Sodium 100 Mg Capsule, 100 MG PO DAILY Prescribed by: KODY VILLASEÑOR on 11/27/19 1334 Hydrocodone/Acetaminophen 1 Each Tablet, 1 TAB PO Q4-6HR Prescribed by: KODY VLILASEÑOR on 11/27/19 1334 Past Qqmtrql-Mkrjit-Qmxtvr Hx Patient Social History 2nd Hand Smoke Exposure: No Recent Hopitalizations: No Seasonal Allergies Seasonal Allergies: No Past Medical History Surgeries: Yes (HERNIA AND bilat TESTICULAR removal, PORTS AND REMOVED) Testicular Respiratory: No Pneumonia Currently Using CPAP: No Currently Using BIPAP: No Cardiac: No Neurological: No Reproductive Disorders: No Sexually Transmitted Disease: No HIV/AIDS: No Genitourinary: Yes (Testicular cancer status post bilateral orchiectomy) Gastrointestinal: Yes (RECTAL BLEEDING) Abdominal Hernia Musculoskeletal: No Endocrine: Yes (Bilateral orchiectomy with testosterone replacement therapy) HEENT: No Loss of Vision: Denies Hearing Impairment: Denies Cancer: Yes Testicular Did You Recieve Any Treatments: Yes What Type of Treatment Did You: Chemotherapy, Surgical Intervention Psychosocial: No Integumentary: No Blood Disorders: No Adverse Reaction/Blood Tranf: No Family Medical History Patient reports no known family medical history. No Pertinent Family Hx Physical Exam Vital Signs Vital Signs - First Documented 10/31/20 23:22 Temp 37.3 Pulse 108 Resp 18 B/P (MAP) 131/84 (100) Pulse Ox 95 O2 Delivery Room Air Capillary Refill : Height, Weight, BMI Height: 5'9.00" Weight: 245lbs. 6.0oz. 111.032870kj; 38.24 BMI Method:Estimated Progress/Results/Core Measures Results/Orders My Orders Orders - ABDOULAYE BE ATTENDANT ARCADE Prednisone Tablet (Deltasone Tablet) (10/31/20 22:00) Orphenadrine Inj (Ed Only) (Norflex Inje (10/31/20 22:00) Ketorolac Injection (Toradol Injection) (10/31/20 22:00) Lumbar Spine - 2-3 Views (10/31/20 21:57) Medications Given in ED Current Medications Medications Dose Ordered Sig/Joey Route Start Time Stop Time Status Last Admin Dose Admin Ketorolac Tromethamine 60 mg ONCE ONCE IM 10/31/20 22:00 10/31/20 22:01 DC 10/31/20 22:19 60 MG Orphenadrine Citrate 60 mg ONCE ONCE IM 10/31/20 22:00 10/31/20 22:01 DC 10/31/20 22:19 60 MG Prednisone 20 mg ONCE ONCE PO 10/31/20 22:00 10/31/20 22:01 DC 10/31/20 22:19 20 MG Vital Signs/I&O 10/31/20 10/31/20 23:22 23:35 Temp 37.3 Pulse 108 100 Resp 18 14 B/P (MAP) 131/84 (100) 131/84 Pulse Ox 95 98 O2 Delivery Room Air Room Air Departure Impression Primary Impression: Acute exacerbation of chronic low back pain Disposition: HOME, SELF-CARE Condition: Improved Departure-Patient Inst. Decision time for Depature: 23:14 Referrals: KATHLEEN DURON DO (PCP) Primary Care Physician ROD DOMINGUEZ (Family) Primary Care Physician Patient Instructions: Low Back Pain in Adults Add. Discharge Instructions: Plan: 1. Discharge home. Follow up with your doctor for persistent pain. 2. Take Prednisone with food as directed. 3. Use Tylenol or Ibuprofen as needed for pain per package insert. 4. Use Flexeril every 8 hours as needed for severe pain. 5. Return to ER for any new or concerning symptoms. All discharge instructions reviewed with patient and/or family. Voiced understanding. Scripts Prednisone (Prednisone) 20 Mg Tab 40 MG PO DAILY for 5 Days, #10 TAB 0 Refills Prov: ABDOULAYE BE ATTENDANT ARCADE 10/31/20 Cyclobenzaprine HCl (Cyclobenzaprine HCl) 10 Mg Tablet 10 MG PO Q8H PRN for SPASMS, #15 TAB 0 Refills Prov: ABDOULAYE BE ATTENDANT ARCADE 10/31/20 ABDOULAYE BE ATTENDANT ARCADE Oct 31, 2020 21:58
[2020-10-31] MEDS ORDERED: predniSONE 20 MG TAB PO ONE (22:00)
[2020-10-31] MEDS ORDERED: ORPHENADRINE 60 MG/2 ML (NORFLEX) AMP (ED ONLY) IM ONE (22:00)
[2020-10-31] MEDS ORDERED: KETOROLAC 60 MG/2 ML VIAL IM ONE (22:00)
[2020-10-31] MEDS ORDERED: CYCL10TA9 PO (23:17)
[2020-10-31 23:35] VITALS: BP 131/84
[2020-10-31] MEDS ORDERED: PRD20T PO (23:40)
--- NOTE | 2020-11-01 05:53 | Diagnostic Imaging Report ---
INDICATION: Acute on chronic lower back pain COMPARISON: 07/18/2017 TECHNIQUE: 3 radiographs of the lumbar spine dated 10/31/2020 FINDINGS: 5 lumbar type vertebral bodies are present. Alignment of the lumbar spine is well maintained. Vertebral body heights are well-maintained. Mild disc space height loss at L5/S1, similar to the prior exam. No severe disc space height loss. No acute fracture. Mild facet joint degenerative changes at L5/S1. The surgical clips overlying the abdomen just to the left of midline. The sacroiliac joints are intact. IMPRESSION: No acute osseous abnormality with mild degenerative changes, particularly at L5/S1. Dictated by: Dictated on workstation # [id number]
== END 2020-10-31 23:36 | disposition home or self-care (01) ==
LOC: EDUNIT# 21:25 → ER 21:27
DX: G89.29 Other chronic pain (principal); M54.5 Low back pain
CPT/HCPCS: 72100

== ENCOUNTER 2022-12-11 23:19 | Emergency (ER) | payer SELFPAY ==
[~2022-12-11 23:19] MED LIST changes: +CYCL10TA25 PO; +LEVO750T PO; -LEVO750T39 PO
--- NOTE | 2022-12-11 23:29 | ED Respiratory ---
General Chief Complaint: Respiratory Problems Stated Complaint: SOB,MIGRAINE History of Present Illness Date Seen by Provider: Dec 11, 2022 Time Seen by Provider: 23:29 Initial Comments 42-year-old male presents with a migraine he complains of feeling like he is having a hard time catching his breath and upper abdomen and mid abdomen belly pain. Patient does not have any chest pain, fevers or chills. He has tenderness in the epigastric and right upper quadrant mood "mid abdomen that makes it feel like he has a hard time catching his breath when he takes a deep breath. Been going on for couple hours. He has a history of migraines. Allergies and Home Medications Allergies Coded Allergies: No Known Drug Allergies (Verified , 07/16/09) Patient Home Medication List Home Medication List Reviewed: Yes Cyclobenzaprine HCl (Cyclobenzaprine HCl) 10 Mg Tablet, 10 MG PO Q8H PRN for SPASMS Prescribed by: ABDOULAYE BE on 10/31/20 2317 Docusate Sodium (Colace) 100 Mg Capsule, 100 MG PO DAILY Prescribed by: KODY VILLASEÑOR on 11/27/19 1334 Hydrocodone/Acetaminophen (Hydrocodone/Acetaminophen 5 MG/325 MG TAB) 1 Each Tablet, 1 TAB PO Q4-6HR Prescribed by: KODY VILLASEÑOR on 11/27/19 1334 Prednisone (Prednisone) 20 Mg Tab, 40 MG PO DAILY Prescribed by: ABDOULAYE BE on 10/31/20 2340 Review of Systems Review of Systems Constitutional: No chills, No fever, No malaise EENTM: no symptoms reported Respiratory: see HPI Cardiovascular: no symptoms reported Gastrointestinal: see HPI Genitourinary: no symptoms reported Musculoskeletal: no symptoms reported Skin: no symptoms reported Psychiatric/Neurological: See HPI, Headache Past [id number]-Ccvtib Hx Patient Social History Tobacco Use?: No Substance use?: No Alcohol Use?: No Pt feels they are or have been: No Seasonal Allergies Seasonal Allergies: No Past Medical History Surgery/Hospitalization HX: HX CANCER Surgeries: Yes (HERNIA AND bilat TESTICULAR removal, PORTS AND REMOVED) Testicular Respiratory: No Pneumonia Currently Using CPAP: No Currently Using BIPAP: No Cardiac: No Neurological: No Reproductive Disorders: No Sexually Transmitted Disease: No HIV/AIDS: No Genitourinary: Yes (Testicular cancer status post bilateral orchiectomy) Gastrointestinal: Yes (RECTAL BLEEDING) Abdominal Hernia Musculoskeletal: No Endocrine: Yes (Bilateral orchiectomy with testosterone replacement therapy) HEENT: No Loss of Vision: Denies Hearing Impairment: Denies Cancer: Yes Testicular Did You Recieve Any Treatments: Yes What Type of Treatment Did You: Chemotherapy, Surgical Intervention Psychosocial: No Integumentary: No Blood Disorders: No Adverse Reaction/Blood Tranf: No Family Medical History Patient reports no known family medical history. No Pertinent Family Hx Physical Exam Vital Signs - First Documented 12/11/22 23:24 Temp 36.0 Pulse 83 Resp 18 B/P (MAP) 149/98 (115) Pulse Ox 94 O2 Delivery Room Air Capillary Refill : Height: 5'9.00" Weight: 245lbs. 6.0oz. 111.525180fx; 39.00 BMI Method:Estimated General Appearance: WD/WN, no apparent distress Neck: full range of motion, supple Respiratory: chest non-tender, lungs clear, normal breath sounds Cardiovascular: normal peripheral pulses, regular rate, rhythm Gastrointestinal: soft, tenderness (Mild epigastric, mid abdomen right upper q uadrant) Extremities: non-tender, no pedal edema Neurologic/Psychiatric: alert, normal mood/affect, oriented x 3 Skin: normal color, warm/dry Progress/Results/Core Measures Suspected Sepsis SIRS Temperature: Pulse: Respiratory Rate: Laboratory Tests 12/11/22 23:28: White Blood Count 12.7H Blood Pressure / Mean: Laboratory Tests 12/11/22 23:28: Creatinine 1.41H, Platelet Count 352, Total Bilirubin 0.8 Results/Orders Lab Results Laboratory Tests Test 12/11/22 23:28 Range/Units White Blood Count 12.7 H 4.3-11.0 10^3/uL Red Blood Count 5.27 4.30-5.52 10^6/uL Hemoglobin 14.6 13.3-17.7 g/dL Hematocrit 46 40-54 % Mean Corpuscular Volume 87 80-99 fL Mean Corpuscular Hemoglobin 28 25-34 pg Mean Corpuscular Hemoglobin Concent 32 32-36 g/dL Red Cell Distribution Width 13.3 10.0-14.5 % Platelet Count 352 130-400 10^3/uL Mean Platelet Volume 10.6 9.0-12.2 fL Immature Granulocyte % (Auto) 0 % Neutrophils (%) (Auto) 66 42-75 % Lymphocytes (%) (Auto) 23 12-44 % Monocytes (%) (Auto) 9 0-12 % Eosinophils (%) (Auto) 2 0-10 % Basophils (%) (Auto) 1 0-10 % Neutrophils # (Auto) 8.3 H 1.8-7.8 10^3/uL Lymphocytes # (Auto) 3.0 1.0-4.0 10^3/uL Monocytes # (Auto) 1.1 H 0.0-1.0 10^3/uL Eosinophils # (Auto) 0.2 0.0-0.3 10^3/uL Basophils # (Auto) 0.1 0.0-0.1 10^3/uL Immature Granulocyte # (Auto) 0.0 0.0-0.1 10^3/uL Sodium Level 141 135-145 MMOL/L Potassium Level 4.1 3.6-5.0 MMOL/L Chloride Level 105 98-107 MMOL/L Carbon Dioxide Level 27 21-32 MMOL/L Anion Gap 9 5-14 MMOL/L Blood Urea Nitrogen 16 7-18 MG/DL Creatinine 1.41 H 0.60-1.30 MG/DL Estimat Glomerular Filtration Rate 64 BUN/Creatinine Ratio 11 Glucose Level 84 70-105 MG/DL Calcium Level 9.8 8.5-10.1 MG/DL Corrected Calcium 9.4 8.5-10.1 MG/DL Magnesium Level 2.2 1.6-2.4 MG/DL Total Bilirubin 0.8 0.1-1.0 MG/DL Aspartate Amino Transf (AST/SGOT) 21 5-34 U/L Alanine Aminotransferase (ALT/SGPT) 20 0-55 U/L Alkaline Phosphatase 103 40-136 U/L Total Protein 7.6 6.4-8.2 GM/DL Albumin 4.5 3.2-4.5 GM/DL Lipase 24 8-78 U/L My Orders Orders - GORDON,DANAY L DO Cbc With Automated Diff (12/11/22 23:33) Comprehensive Metabolic Panel (12/11/22 23:33) Lipase (12/11/22 23:33) Magnesium (12/11/22 23:33) Ns Iv 1000 Ml (Sodium Chloride 0.9%) (12/11/22 23:33) Famotidine Injection (Pepcid Injection) (12/11/22 23:33) Ketorolac Injection (Toradol Injection) (12/11/22 23:33) Diphenhydramine Injection (Benadryl Inje (12/11/22 23:33) Metoclopramide Injection (Reglan Injecti (12/11/22 23:49) Chest 1 View, Ap/Pa Only (12/12/22 00:16) Azithromycin Tablet (Zithromax Tablet) (12/12/22 00:45) Vital Signs/I&O 12/11/22 23:24 Temp 36.0 Pulse 83 Resp 18 B/P (MAP) 149/98 (115) Pulse Ox 94 O2 Delivery Room Air Capillary Refill : Progress Note : Progress Note Patient diagnostic studies were ordered and reviewed interpreted by me. Patient did have a minor elevation of his white count. Minor elevation of his BUN and creatinine likely mildly dehydrated. Patient's chest x-ray was ordered reviewed with initial interpretation bilateral pneumonia but however worse in the left lower lobe. Patient to be treated with azithromycin. He did receive his first antibiotic treatment in the ER. Patient should follow-up with primary care provider in a couple days for recheck of symptoms. Likely has pneumonia that contributed to his headache along with chronic migraine. Patient was feeling better following treatment and was resting comfortably in the ER. He is stable and discharged home. Diagnostic Imaging Diagonstic Imaging: Xray Plain Films/CT/US/NM/MRI: chest Comments Bilateral, left lower lobe infiltrate greater than right Departure Impression Primary Impression: Pneumonia Qualified Codes: J18.9 - Pneumonia, unspecified organism Disposition: 01 HOME, SELF-CARE Condition: Stable Departure-Patient Inst. Referrals: KATHLEEN DURON DO (PCP) Primary Care Physician ROD DOMINGUEZ (Family) Primary Care Physician Patient Instructions: Pneumonia, Adult (DC) Add. Discharge Instructions: Please follow-up with your primary care provider or Sunday for recheck of your symptoms. Please start antibiotics a.m. of 12/13/2022 as you were given antibiotics in the ER prior to discharge. All discharge instructions reviewed with patient and/or family. Voiced understanding. Scripts Azithromycin (Azithromycin) 250 Mg Tablet 250 MG PO DAILY, #4 TAB 0 Refills Prov: DANAY GORDON DO 12/12/22 DANAY GODRON DO Dec 11, 2022 23:29
[2022-12-11] MEDS ORDERED: diphenhydrAMINE 50 MG/ML INJ (BENADRYL) IV STA (23:33)
[2022-12-11] MEDS ORDERED: NS IV 1000 ML 1,000 ML IV STA (23:33)
[2022-12-11] MEDS ORDERED: KETOROLAC 30 MG/ML VIAL IVP STA (23:33)
[2022-12-11] MEDS ORDERED: FAMOTIDINE 20MG/2ML IV (PEPCID) IV STA (23:33)
[2022-12-11] MEDS ORDERED: FAMOTIDINE 20 MG (PEPCID) TABLET PO STA (23:33)
[2022-12-11 23:44] LABS: BASOPHILS # (AUTO) 0.1 10^3/uL (0.0-0.1); BASOPHILS % (AUTO) 1 % (0-10); EOSINOPHILS # (AUTO) 0.2 10^3/uL (0.0-0.3); EOSINOPHILS % (AUTO) 2 % (0-10); HEMATOCRIT 46 % (40-54); HEMOGLOBIN 14.6 g/dL (13.3-17.7); LYMPHOCYTES % (AUTO) 23 % (12-44); MEAN CORPUSCULAR HEMOGLOBIN 28 pg (25-34); MEAN CORPUSCULAR HGB CONC 32 g/dL (32-36); MEAN CORPUSCULAR VOLUME 87 fL (80-99); MEAN PLATELET VOLUME 10.6 fL (9.0-12.2); MONOCYTES # (AUTO) 1.1 10^3/uL (0.0-1.0); MONOCYTES % (AUTO) 9 % (0-12); NEUTROPHILS # (AUTO) 8.3 10^3/uL (1.8-7.8); NEUTROPHILS % (AUTO) 66 % (42-75); PLATELET COUNT 352 10^3/uL (130-400); WHITE BLOOD COUNT 12.7 10^3/uL (4.3-11.0)
[2022-12-11] MEDS ORDERED: METOCLOPRAMIDE INJ 10 MG/2 ML (REGLAN) IVP STA (23:49)
[2022-12-11 23:55] LABS: ALBUMIN 4.5 GM/DL (3.2-4.5); POTASSIUM 4.1 MMOL/L (3.6-5.0)
[2022-12-11 23:56] LABS: CALCIUM 9.8 MG/DL (8.5-10.1)
[2022-12-11 23:57] LABS: TOTAL PROTEIN 7.6 GM/DL (6.4-8.2)
[2022-12-11 23:59] LABS: BILIRUBIN,TOTAL 0.8 MG/DL (0.1-1.0)
[2022-12-12 00:02] LABS: CREATININE SERUM 1.41 MG/DL (0.60-1.30)
[2022-12-12 00:04] LABS: MAGNESIUM 2.2 MG/DL (1.6-2.4)
[2022-12-12] MEDS ORDERED: AZITHROMYCIN 250 MG TAB (ZITHROMAX) PO ONE (00:45)
[2022-12-12] MEDS ORDERED: AZIT250T12 PO (00:46)
[2022-12-12 01:38] VITALS: BP 123/76
--- NOTE | 2022-12-12 08:13 | Diagnostic Imaging Report ---
INDICATION: Shortness of breath COMPARISON: 01/15/2019 TECHNIQUE: Single radiograph of the chest dated 12/12/2022. FINDINGS: The cardiac silhouette is stable. Central pulmonary vascular congestion is present, appearing more prominent than the prior examination. Significantly low lung volumes. Mild bibasilar predominantly interstitial opacities. The upper lungs appear clear. No large-volume pleural effusion. Mild elevation of the left hemidiaphragm, stable. No pneumothorax. No acute osseous abnormality. IMPRESSION: New mild central pulmonary vascular congestion, likely accentuated by low lung volumes. No associated interstitial edema or pleural effusion. Low lung volumes. Additional findings as above. Dictated by: Dictated on workstation # [id number]
== END 2022-12-12 01:38 | disposition home or self-care (01) ==
LOC: EDUNIT# 23:19 → ER 23:24
DX: J18.9 Pneumonia, unspecified organism (principal); R51.9 Headache, unspecified; Z98.890 Other specified postprocedural states; Z86.69 Personal history of other diseases of the nervous system and sense organs
CPT/HCPCS: 36415; 71045; 80053; 83690; 83735; 85025